=== PATIENT | female | born 1950 | race Caucasian/White ===

== ENCOUNTER 2019-12-01 13:09 | Emergency (ER) | payer MEDICARE ==
[2019-12-01] MEDS ORDERED: ONDANSETRON HCL INJ/PF 4 MG/2 ML SDV IV ONE (14:14)
--- NOTE | 2019-12-01 14:18 | ER Document Report ---
ED Medical Screen (RME) - General Chief Complaint: Nausea Stated Complaint: ABDOMINAL PAIN,BLOOD IN URINE Time Seen by Provider: 12/01/19 14:10 Primary Care Provider: AMARA KILLIAN MD [Primary Care Provider] - Follow up as needed Mode of Arrival: Ambulatory Information source: Patient Notes: Patient presents complaining of right lower quadrant tenderness and right flank pain for the past 6 days. Patient reports blood in the urine. Patient reports nausea and dry heaving although denies any emesis. Patient does have a history of previous appendectomy and cholecystectomy as well as diabetes and hypertension. I have greeted and performed a rapid initial assessment of this patient. A comprehensive ED assessment and evaluation of the patient, analysis of test results and completion of the medical decision making process will be conducted by additional ED providers. TRAVEL OUTSIDE OF THE [place] IN LAST 30 DAYS: No - Related Data Allergies/Adverse Reactions: cephalexin [From Keflex] Allergy (Verified 12/01/19 14:06) Past Medical History - Social History Frequency of alcohol use: None Drug Abuse: None Physical Exam - Vital signs Vitals: Temp Pulse Resp BP Pulse Ox 98.6 F 104 H 18 116/63 96 12/01/19 14:01 12/01/19 14:01 12/01/19 14:01 12/01/19 14:01 12/01/19 14:01 - Abdominal Tenderness: Tender - Right lower quadrant - Back Back: CVA tenderness - Right Course - Vital Signs Vital signs: Temp Pulse Resp BP Pulse Ox 98.6 F 104 H 18 116/63 96 12/01/19 14:01 12/01/19 14:01 12/01/19 14:01 12/01/19 14:01 12/01/19 14:01 Doctor's Discharge - Discharge Referrals: AMARA KILLIAN MD [Primary Care Provider] - Follow up as needed
--- NOTE | 2019-12-01 15:02 | RADIOLOGY REPORT (SQ) ---
EXAM DESCRIPTION: CT ABD/PELVIS NO ORAL OR IV COMPLETED DATE/TIME: 12/01/2019 2:42 pm REASON FOR STUDY: flank pain, hematuria COMPARISON: None. TECHNIQUE: CT scan of the abdomen and pelvis performed without intravenous or oral contrast. Images reviewed with lung, soft tissue, and bone windows. Reconstructed coronal and sagittal MPR images revi ewed. All images stored on PACS. All CT scanners at this facility use dose modulation, iterative reconstruction, and/or weight based d osing when appropriate to reduce radiation dose to as low as reasonably achievable (ALARA). [facility]: Dose Right [facility]: CareDose [facility]: Dose Right [facility]: Teradose 4D [facility]: Smart FRM Study Course RADIATION DOSE: CT Rad equipment meets quality standard of care and radiation dose reduction techniq ues were employed. CTDIvol: 5.5 mGy. DLP: 310 mGy-cm.mGy. LIMITATIONS: None. FINDINGS: LOWER CHEST: Multiple pulmonary nodules. NON-CONTRASTED LIVER, SPLEEN, ADRENALS: Evaluation limited by lack of IV contrast. Enlarged left adr enal gland. No other identified significant masses. PANCREAS: No masses. No peripancreatic inflammatory changes. GALLBLADDER: Surgically absent. RIGHT KIDNEY AND URETER: Slightly heterogenous indistinct appearance of the parenchyma with overall s uggestion of engorgement. Stranding in the perinephric soft tissues. Assessment limited by lack of I V contrast. No significant calcifications. Hydronephrosis and proximal hydroureter. LEFT KIDNEY AND URETER: No suspicious masses. Assessment limited by lack of IV contrast. No signifi cant calcifications. No hydronephrosis or hydroureter. AORTA AND RETROPERITONEUM: Ectatic aorta. Aortic aneurysm measuring 5 cm in maximum diameter. No ret roperitoneal masses or adenopathy. BOWEL AND PERITONEAL CAVITY: Colonic diverticulosis. No obvious masses or inflammatory changes. No f ree fluid. APPENDIX: Surgically absent. PELVIS, BLADDER, AND ABDOMINAL WALL:No abnormal masses. No free fluid. Bladder normal. BONES: No significant findings. OTHER: No other significant finding. IMPRESSION: 1. ENGORGED APPEARANCE OF THE RIGHT KIDNEY WITH SOMEWHAT HETEROGENOUS INDISTINCT APPEARANCE OF THE PA RENCHYMA. CANNOT EXCLUDE UNDERLYING MASS ON NONCONTRAST IMAGING. HYDRONEPHROSIS AND PROXIMAL HYDROU RETER. NO CALCULI VISUALIZED. 2. ECTATIC ABDOMINAL AORTA WITH 5 CM AORTIC ANEURYSM. 3. COLONIC DIVERTICULOSIS. NO CT FINDINGS OF ACUTE DIVERTICULITIS. 4. ENLARGED LEFT ADRENAL GLAND, POSSIBLE METASTATIC INVOLVEMENT 5. MULTIPLE PULMONARY NODULES HIGHLY SUGGESTIVE OF METASTATIC DISEASE. 6. NO OTHER SIGNIFICANT OR ACUTE PROCESS IN THE ABDOMEN OR PELVIS. COMMENT: Quality ID # [id number]: Final reports with documentation of one or more dose reduction techniques (e.g., Automated exposure control, adjustment of the mA and/or kV according to patient size, use of iterative reconstruction technique) TECHNICAL DOCUMENTATION: JOB ID: [id number] 2010 [employer]- All Rights Reserved Reading location - IP/workstation name: [email or web address]-
[2019-12-01 15:41] LABS: ABSOLUTE LYMPHOCYTES (AUTO) 0.9 10^3/uL (0.5-4.7); ABSOLUTE MONOCYTES (AUTO) 2.4 10^3/uL (0.1-1.4); ABSOLUTE NEUT (AUTO) 12.1 10^3/uL (1.7-8.2); BASOPHILS % (AUTO) 0.3 % (0-2); EOSINOPHILS % (AUTO) 0.2 % (0-6); HEMATOCRIT 32.7 % (36.0-47.0); HEMOGLOBIN 11.6 g/dL (12.0-15.5); LYMPHOCYTES % (AUTO) 5.7 % (13-45); MEAN CORPUSCULAR HEMOGLOBIN 29.8 pg (27.0-33.4); MEAN CORPUSCULAR HGB CONC 35.4 g/dL (32.0-36.0); MEAN CORPUSCULAR VOLUME 84 fl (80-97); MONOCYTES % (AUTO) 15.4 % (3-13); PLATELET COUNT 348 10^3/uL (150-450); RED BLOOD COUNT 3.89 10^6/uL (3.72-5.28); RED CELL DISTRIBUTION WIDTH 14.1 % (11.5-14.0); SEGMENTED NEUTROPHILS % (AUTO) 78.4 % (42-78); TOTAL CELLS COUNTED % (AUTO) 100 %; WHITE BLOOD COUNT 15.4 10^3/uL (4.0-10.5)
[2019-12-01 15:51] LABS: ALBUMIN 3.3 g/dL (3.5-5.0); ALKALINE PHOSPHATASE 91 U/L (38-126); ANION GAP 13 (5-19); ASPARTATE AMINO TRANSFERASE 27 U/L (14-36); BILIRUBIN,DIRECT 0.3 mg/dL (0.0-0.4); BILIRUBIN,TOTAL 0.7 mg/dL (0.2-1.3); BLOOD UREA NITROGEN 24 mg/dL (7-20); CALCIUM 9.3 mg/dL (8.4-10.2); CARBON DIOXIDE 27 mmol/L (22-30); CHLORIDE 89 mmol/L (98-107); GLUCOSE 93 mg/dL (75-110); POTASSIUM 3.3 mmol/L (3.6-5.0); TOTAL PROTEIN 6.8 g/dL (6.3-8.2)
[2019-12-01] MEDS ORDERED: ONDANSETRON HCL INJ/PF 4 MG/2 ML SDV ONE (16:51)
[2019-12-01] MEDS ORDERED: NORMAL SALINE 1000 ML 1,000 ML IV ONE (17:19)
[2019-12-01] MEDS ORDERED: POTASSIUM CHLORIDE 10 MEQ TABLET.ER PO ONE (17:19)
--- NOTE | 2019-12-01 17:20 | ER Document Report ---
ED General - General Chief Complaint: Nausea Stated Complaint: ABDOMINAL PAIN,BLOOD IN URINE Time Seen by Provider: 12/01/19 14:10 Primary Care Provider: MOHINI JEAN MD [ACTIVE STAFF] - Follow up in 3-5 days (for oncology follow up) AMARA KILLIAN MD [Primary Care Provider] - Follow up in 3-5 days Mode of Arrival: Ambulatory TRAVEL OUTSIDE OF THE [place] IN LAST 30 DAYS: No - HPI Notes: 69-year-old female with history of diabetes and hypertension to the emergency department with complaints of nausea, vomiting, poor appetite, night sweats, chills, gross bloody urine for the past 6 days. Her friend and the patient relates that she had gone out like usual and when she went home she started to feel poorly. Initially she thought maybe she had a GI bug but as the week progressed and she was feeling unwell things got worse. She last ate yesterday and it was 1 piece of toast. She has had an 8 to 10 pound weight loss in the past week. She states that she has had 3 episodes of grossly bloody nonpainful hematuria. She states she has had a dull aching pain in her right flank for the past week as well. She states that her primary care physician is Dr. Adam but has not seen him for over 6 months. She is a smoker and has been smoking 1 pack of cigarettes a day for very long time. She denies any shortness of breath or leg swelling. She denies any urinary frequency or history of kidney stones. - Related Data Allergies/Adverse Reactions: cephalexin [From Keflex] Allergy (Verified 12/01/19 14:06) Past Medical History - General Information source: Patient, Friend - Social History Smoking Status: Current Every Day Smoker Frequency of alcohol use: None Drug Abuse: None Lives with: Alone Family History: Reviewed & Not Pertinent Patient has suicidal ideation: No Patient has homicidal ideation: No - Past Medical History Cardiac Medical History: Reports: Hx Hypertension Endocrine Medical History: Reports: Hx Diabetes Mellitus Type 2 Past Surgical History: Reports: Hx Appendectomy, Hx Cholecystectomy Review of Systems - Review of Systems Constitutional: Chills, Other - night sweats, Weight loss EENT: No symptoms reported Cardiovascular: denies: Chest pain, Palpitations, Syncope, Dizziness, Lightheaded Respiratory: denies: Cough, Short of breath Gastrointestinal: Abdominal pain. denies: Diarrhea, Nausea, Vomiting Genitourinary: See HPI, Flank pain, Hematuria Musculoskeletal: See HPI, Back pain Skin: No symptoms reported Hematologic/Lymphatic: No symptoms reported Neurological/Psychological: No symptoms reported -: Yes All other systems reviewed and negative Physical Exam - Vital signs Vitals: Temp Pulse Resp BP Pulse Ox 98.6 F 104 H 18 116/63 96 12/01/19 14:01 12/01/19 14:01 12/01/19 14:01 12/01/19 14:01 12/01/19 14:01 Interpretation: Normal - General General appearance: Appears well, Alert In distress: None - HEENT Head: Normocephalic, Atraumatic Eyes: Normal Pupils: PERRL - Respiratory Respiratory status: No respiratory distress Chest status: Nontender. No: Accessory muscle use Breath sounds: Normal. No: Rales, Rhonchi, Wheezing Chest palpation: Normal - Cardiovascular Rhythm: Regular Heart sounds: Normal auscultation Murmur: No - Abdominal Inspection: Normal Distension: No distension Bowel sounds: Normal Tenderness: Nontender. No: Tender, McBurney's point, Novak's sign, Guarding, Rebound Organomegaly: No organomegaly - Back Back: Normal, Nontender. No: Deformity/step-off, CVA tenderness - Neurological Neuro grossly intact: Yes Cognition: Normal Orientation: AAOx4 Agnieszka Coma Scale Eye Opening: Spontaneous Agnieszka Coma Scale Verbal: Oriented Agnieszka Coma Scale Motor: Obeys Commands [place] Coma Scale Total: 15 Speech: Normal Cranial nerves: Normal Cerebellar coordination: Normal Motor strength normal: LUE, RUE, LLE, RLE Additional motor exam normals: Equal program coordinator. No: Pronator drift Sensory: Normal - Psychological Associated symptoms: Normal affect, Normal mood - Skin Skin Temperature: Warm Skin Moisture: Dry Skin Color: Normal Course - Re-evaluation Re-evalutation: 12/01/[address] reading which is concerning for right kidney malignancy. Possibly with metastatic static disease to the left adrenal gland and to the lungs. I spoke with Dr. Jean, our oncologist and she wanted me to consult urology. I spoke with Dr. Sahil Ruiz at [facility] with [facility]. He states that s moon her vital signs are stable that she can follow-up outpatient with 1 of their uro-oncology partners. I spoke with Dr. Jean again and she will follow the patient as well outpatient. The patient agrees with this plan. She is tolerating p.o. Noted urinalysis which is concerning for infectious etiology. I have ordered a urine culture. She does not have any right CVA tenderness so doubt a pyelonephritis picture. She is allergic to cephalosporins so will give Levaquin. I discussed this patient with Dr. Hatch, my ER attending and he agrees with the plan. He is aware that I have lived in oncology and also spoken with the [facility]. I have also called and asked Ken Mckeon, our ER rn case manager hospice, to aid in helping to get the patient very close outpatient follow- up. Impression: Nausea vomiting, weight loss, concern for renal malignancy with metastasis to the left adrenal gland and lungs. Noted urinalysis which is concerning for infection. Also noted incidental finding for abdominal aortic aneurysm that is 5 cm. I have discussed all these findings with the patient and she will follow-up very closely outpatient with primary care, oncology, urology. I have encouraged the patient to return if any worsening symptoms. She agrees with the plan. - Vital Signs Vital signs: Temp Pulse Resp BP Pulse Ox 98.6 F 97 14 139/71 H 100 12/01/19 14:01 12/01/19 16:11 12/01/19 16:11 12/01/19 16:44 12/01/19 16:44 - Laboratory Result Diagrams: 12/01/19 15:04 12/01/19 15:04 Laboratory results interpreted by me: 12/01/19 12/01/19 12/01/19 15:04 15:04 17:36 WBC 15.4 H Hgb 11.6 L Hct 32.7 L RDW 14.1 H Lymph % (Auto) 5.7 L [place] % (Auto) 15.4 H Absolute Neuts (auto) 12.1 H Absolute Monos (auto) 2.4 H Seg Neutrophils % 78.4 H Sodium 128.7 L Potassium 3.3 L Chloride 89 L BUN 24 H Albumin 3.3 L Urine Protein 100 H Urine Ketones TRACE H Urine Blood MODERATE H Ur Leukocyte Esterase LARGE H Urine Ascorbic Acid 20 H - Diagnostic Test Radiology reviewed: Image reviewed, Reports reviewed Discharge - Discharge Clinical Impression: Abnormal CT scan, kidney, Pulmonary nodules/lesions, multiple, Large adrenal gland, Flank pain, Abdominal aortic aneurysm (AAA) 3.0 cm to 5.0 cm in diameter in female UTI (urinary tract infection) Qualifiers: Urinary tract infection type: acute cystitis Hematuria presence: with hematuria Qualified Code(s): N30.01 - Acute cystitis with hematuria Hydronephrosis Qualifiers: Hydronephrosis type: other Qualified Code(s): N13.39 - Other hydronephrosis Condition: Stable Disposition: HOME, SELF-CARE Instructions: Abdominal Pain ([facility]) Additional Instructions: Complete all antibiotics. Push fluids. Follow-up with Dr. Walters and urology for further evaluation for abnormal CT findings that are concerning for malignancy in the right kidney. Return if any worsening symptoms such as passing out, chest pain, shortness of breath, leg swelling, any other concerns. Our outreach and education social worker, Ken Mckeon, will call you to ensure that follow-up with urology and oncology is working out. FOLLOW UP WITH [facility] WITHOUT F AIL -- CALL TOMORROW. [facility] [address] [id number] Prescriptions: Levofloxacin [Levaquin 500 mg Tablet] 500 mg PO DAILY #7 tablet Promethazine HCl [Phenergan 25 mg Tablet] 25 mg PO Q8H #20 tablet Referrals: AMARA KILLIAN MD [Primary Care Provider] - Follow up in 3-5 days MOHINI JEAN MD [ACTIVE STAFF] - Follow up in 3-5 days (for oncology follow up)
[2019-12-01 17:56] LABS: APPEARANCE,URINE TURBID; BILIRUBIN,URINE NEGATIVE (NEGATIVE); GLUCOSE, URINE NEGATIVE (NEGATIVE); KETONES,URINE TRACE mg/dL (NEGATIVE); LEUKOCYTE ESTERASE,URINE LARGE (NEGATIVE); NITRITE,URINE NEGATIVE (NEGATIVE); PROTEIN,URINE 100 mg/dL (NEGATIVE); URINE SPECIFIC GRAVITY 1.019; UROBILINOGEN,URINE NEGATIVE mg/dL (<2.0)
[2019-12-01 18:00] LABS: COLOR,URINE DARK YELLOW
[2019-12-01] MEDS ORDERED: LEVOFLOXACIN 500 MG TABLET PO ONE (18:26)
[2019-12-01 19:29] VITALS: BP 124/65
== END 2019-12-01 19:32 | disposition home or self-care (01) ==
LOC: ER 13:09
DX: N30.01 Acute cystitis with hematuria (principal); E27.9 Disorder of adrenal gland, unspecified; R91.8 Other nonspecific abnormal finding of lung field; I71.4 Abdominal aortic aneurysm, without rupture; N13.30 Unspecified hydronephrosis; R11.2 Nausea with vomiting, unspecified; R63.0 Anorexia; R61 Generalized hyperhidrosis; R68.83 Chills (without fever); R63.4 Abnormal weight loss; M54.9 Dorsalgia, unspecified; R10.9 Unspecified abdominal pain; I10 Essential (primary) hypertension; E11.9 Type 2 diabetes mellitus without complications; F17.210 Nicotine dependence, cigarettes, uncomplicated; Z88.1 Allergy status to other antibiotic agents
CPT/HCPCS: 36415; 74176; 80053; 81001; 85025; 87086; 87088; 87186; 96361; 96374; 99284; J2405; J7030

== ENCOUNTER 2020-02-18 07:32 | Inpatient (IN) | payer MEDICAID, MEDICARE ==
--- NOTE | 2020-02-18 08:22 | ER Document Report ---
ED General - General Chief Complaint: Shortness Of Breath Stated Complaint: TROUBLE BREATHING Time Seen by Provider: 02/18/20 07:44 Primary Care Provider: AMARA KILLIAN MD [Primary Care Provider] - Follow up as needed TRAVEL OUTSIDE OF THE [place] IN LAST 30 DAYS: No - HPI Notes: Patient is a 69-year-old female presents emergency department for evaluation of chest heaviness and shortness of breath. She states this started last night when she laid down to go to sleep. She states it felt like an elephant sitting on her chest, but it also felt like heartburn. She states she would take some Tums, it would cause temporary relief. He had some associated "cold sweats" as well. She has had a cough for quite a while, she states this productive of some minimal clear mucus. No fevers. No nausea or vomiting. Patient took aspirin at home, was given nitroglycerin per EMS and is now chest pain-free. Patient is currently on chemotherapy for adrenal cancer, metastatic. She received her last treatment last week, she is unable to comment on which medicine she is receiving. She states she is due for another one in the first week of February. - Related Data Allergies/Adverse Reactions: cephalexin [From Keflex] Allergy (Verified 12/01/19 14:06) Past Medical History - General Information source: Patient - Social History Smoking Status: Current Every Day Smoker Chew tobacco use (# tins/day): No Frequency of alcohol use: None Drug Abuse: None Family History: Reviewed & Not Pertinent Patient has homicidal ideation: No - Past Medical History Cardiac Medical History: Reports: Hx Hypertension, Other - Mitral valve prolapse, abdominal aortic aneurysm Endocrine Medical History: Reports: Hx Diabetes Mellitus Type 2 Past Surgical History: Reports: Hx Appendectomy, Hx Cholecystectomy Review of Systems - Review of Systems Cardiovascular: See HPI Respiratory: See HPI Gastrointestinal: See HPI -: Yes All other systems reviewed and negative Physical Exam - Vital signs Vitals: Temp Pulse Resp BP Pulse Ox 98.1 F 94 24 H 126/71 H 98 02/18/20 07:32 02/18/20 07:32 02/18/20 07:32 02/18/20 07:32 02/18/20 07:32 - Notes Notes: This is a 69-year-old female who appears her stated age, no acute distress. Vital signs reviewed, please refer to chart. Head is normocephalic, atraumatic. Pupils equal round, reactive to light. Neck is supple without meningismus. Heart is regular rate and rhythm. Lungs reveal diminished breath sounds but no wheezes, rales, rhonchi. Abdomen is soft, nontender, normoactive bowel sounds throughout. Extremities without cyanosis, clubbing. Posterior calves are nontender. Peripheral pulses are equal. Skin is warm and dry. Patient is awake, alert, neurological exam is nonfocal. Course - Re-evaluation Re-evalutation: 02/18/20 08:21 Patient presents to the emergency department for evaluation. She has chest pain, shortness of breath. After receiving nitroglycerin, she is chest pain- free. She is placed on a patternmaker all around, given oxygen per nasal cannula. Laboratory investigations were obtained. Patient is told to update us should her any of her pain return. Otherwise, awaiting cardiac enzymes. No old EKGs available for comparison, she does have some nonspecific changes, but no ST elevation. I am concerned about the possibility of pulmonary embolus in this patient with a known diagnosis of cancer. Awaiting renal function to evaluate for possible CT angiogram. Patient is stable at this time, we will continue to monitor. 02/18/20 09:07 Patient's hemoglobin is 7.8. She is having chest pain or shortness of breath, I would be concerned that this might be secondary to her low hemoglobin. This is likely a result of her chemotherapy. Order was placed to transfuse 2 units of packed red blood cells. This was discussed with the patient, and she was amenable to this plan. Otherwise, laboratory investigations revealed a mild hyponatremia, which is not new. She also has normal renal function. Order was placed for CT angiogram of the chest to rule out pulmonary embolus. Patient is stable, remains chest pain-free. 02/18/20 12:[address] angiogram reveals possible pulmonary edema. proBNP added. Patient second troponin is still pending, but the patient has been chest pain-free throughout the course of her stay after the placement of Nitropaste. This patient is receiving blood, but given her comorbidities, it is being infused slowly. I spoke with Tomas terrazas, physician child care assistant, who agrees with admission on this patient. She will be on observation to [facility]. - Vital Signs Vital signs: Temp Pulse Resp BP Pulse Ox 97.5 F 80 18 122/57 L 99 02/18/20 12:16 02/18/20 11:55 02/18/20 12:16 02/18/20 12:16 02/18/20 12:16 - Laboratory Result Diagrams: 02/18/20 08:17 02/18/20 08:17 Laboratory results interpreted by me: 02/18/20 02/18/20 02/18/20 08:17 08:17 09:10 WBC 3.9 L RBC 2.77 L Hgb 7.8 L Hct 22.5 L RDW 15.9 H Plt Count 118 L Sodium 127.1 L Chloride 92 L BUN 21 H Glucose 118 H Albumin 3.4 L Urine Protein Urine Blood Urine Ascorbic Acid Crossmatch See Detail 02/18/20 11:00 WBC RBC Hgb Hct RDW Plt Count Sodium Chloride BUN Glucose Albumin Urine Protein 30 H Urine Blood SMALL H Urine Ascorbic Acid 40 H Crossmatch - Diagnostic Test Radiology reviewed: Image reviewed, Reports reviewed Radiology results interpreted by me: 02/18/20 12:36 Chest X-Ray 02/18/20 07:33 IMPRESSION: Multiple pulmonary nodules consistent with metastatic disease. No obvious superimposed edema or pneumonia. Chest/Abdomen CTA 02/18/20 09:05 IMPRESSION: 1. No PE. 2. Multiple pulmonary nodules consistent with metastatic disease. 3. Interlobular septal thickening and small effusions. Cannot exclude superimposed pulmonary edema. - EKG Interpretation by Me Additional EKG results interpreted by me: 02/18/20 08:21 Sinus mechanism with rate of 83 bpm. Large amount of baseline artifact. Normal axis. IVCD. T wave inversions and ST changes in the inferolateral leads, ischemia versus strain. No ST elevation concerning for infarction, no old studies available for comparison. Discharge - Discharge Clinical Impression: Anemia Qualifiers: Anemia type: other cause Chest pain Qualifiers: Chest pain type: unspecified Qualified Code(s): R07.9 - Chest pain, unspecified Condition: Stable Disposition: ADMITTED OBSERVATION Admitting Provider: Marty (Hospitalist) - SVEN Haile Referrals: AMARA KILLIAN MD [Primary Care Provider] - Follow up as needed
[2020-02-18 08:36] LABS: ABSOLUTE LYMPHOCYTES (AUTO) 0.9 10^3/uL (0.5-4.7); ABSOLUTE MONOCYTES (AUTO) 0.5 10^3/uL (0.1-1.4); ABSOLUTE NEUT (AUTO) 2.5 10^3/uL (1.7-8.2); BASOPHILS % (AUTO) 0.6 % (0-2); EOSINOPHILS % (AUTO) 0.9 % (0-6); HEMATOCRIT 22.5 % (36.0-47.0); MEAN CORPUSCULAR HEMOGLOBIN 28.1 pg (27.0-33.4); MEAN CORPUSCULAR HGB CONC 34.5 g/dL (32.0-36.0); MEAN CORPUSCULAR VOLUME 81 fl (80-97); MONOCYTES % (AUTO) 11.8 % (3-13); PLATELET COUNT 118 10^3/uL (150-450); RED BLOOD COUNT 2.77 10^6/uL (3.72-5.28); RED CELL DISTRIBUTION WIDTH 15.9 % (11.5-14.0); SEGMENTED NEUTROPHILS % (AUTO) 63.7 % (42-78); TOTAL CELLS COUNTED % (AUTO) 100 %; WHITE BLOOD COUNT 3.9 10^3/uL (4.0-10.5)
[2020-02-18 08:39] LABS: HEMOGLOBIN 7.8 g/dL (12.0-15.5)
[2020-02-18 08:51] LABS: ALBUMIN 3.4 g/dL (3.5-5.0); ALKALINE PHOSPHATASE 60 U/L (38-126); ANION GAP 8 (5-19); ASPARTATE AMINO TRANSFERASE 21 U/L (14-36); BILIRUBIN,TOTAL 0.2 mg/dL (0.2-1.3); BLOOD UREA NITROGEN 21 mg/dL (7-20); CALCIUM 9.5 mg/dL (8.4-10.2); CARBON DIOXIDE 27 mmol/L (22-30); CHLORIDE 92 mmol/L (98-107); GLUCOSE 118 mg/dL (75-110); POTASSIUM 4.4 mmol/L (3.6-5.0); TOTAL PROTEIN 6.5 g/dL (6.3-8.2)
[2020-02-18] MEDS ORDERED: NORMAL SALINE 250 ML IV PRN (08:54)
[2020-02-18] MEDS ORDERED: NITROGLYCERIN 2% OINTMENT 1 GM PACKET TP ONE (09:14)
--- NOTE | 2020-02-18 09:25 | RADIOLOGY REPORT (SQ) ---
EXAM DESCRIPTION: CHEST SINGLE VIEW IMAGES COMPLETED DATE/TIME: 02/18/2020 8:22 am REASON FOR STUDY: shortness of breath COMPARISON: None. EXAM PARAMETERS: NUMBER OF VIEWS: One view. TECHNIQUE: Single frontal radiographic view of the chest acquired. RADIATION DOSE: NA LIMITATIONS: None. FINDINGS: LUNGS AND PLEURA: Multiple subcentimeter pulmonary nodules in both lungs. No dominant mas s. No obvious superimposed pneumonia or edema. MEDIASTINUM AND HILAR STRUCTURES: No masses. Contour normal. HEART AND VASCULAR STRUCTURES: Heart normal in size. Normal vasculature. BONES: No acute findings. HARDWARE: None in the chest. OTHER: No other significant finding. IMPRESSION: Multiple pulmonary nodules consistent with metastatic disease. No obvious superimposed edema or pneumonia. TECHNICAL DOCUMENTATION: JOB ID: [id number] 2010 [employer]- All Rights Reserved Reading location - IP/workstation name: [email or web address]
[2020-02-18 11:38] LABS: APPEARANCE,URINE SLIGHTLY-CLOUDY; BILIRUBIN,URINE NEGATIVE (NEGATIVE); COLOR,URINE YELLOW; GLUCOSE, URINE NEGATIVE (NEGATIVE); KETONES,URINE NEGATIVE (NEGATIVE); LEUKOCYTE ESTERASE,URINE NEGATIVE (NEGATIVE); NITRITE,URINE NEGATIVE (NEGATIVE); PROTEIN,URINE 30 mg/dL (NEGATIVE); URINE SPECIFIC GRAVITY 1.013; UROBILINOGEN,URINE NEGATIVE mg/dL (<2.0)
--- NOTE | 2020-02-18 12:19 | RADIOLOGY REPORT (SQ) ---
EXAM DESCRIPTION: CTA CHEST IMAGES COMPLETED DATE/TIME: 02/18/2020 12:07 pm REASON FOR STUDY: dyspnea, CP, eval for PE COMPARISON: None. TECHNIQUE: CT scan of the chest performed using helical scanning technique with dynamic intravenous contrast injection. Images reviewed with lung, soft tissue and bone windows. Reconstructed coronal and sagittal MPR images reviewed. Additional 3 dimensional post-processing performed to develop Maximal Intensity Projection images ([place] P). All images stored on PACS. All CT scanners at this facility use dose modulation, iterative reconstruction, and/or weight based d osing when appropriate to reduce radiation dose to as low as reasonably achievable (ALARA). [facility]: Dose Right [facility]: CareDose [facility]: Dose Right [facility]: Teradose 4D [facility]: Optics 1 CONTRAST TYPE AND DOSE: contrast/concentration: Isovue 350.00 mg/ml; Total Contrast Delivered: 39.0 ml; Total Saline Delivered: 70.0 ml Contrast bolus adequate for pulmonary arteries and aorta. RENAL FUNCTION: GFR > 60. RADIATION DOSE: CT Rad equipment meets quality standard of care and radiation dose reduction techniq ues were employed. CTDIvol: 9.9 - 15.1 mGy. DLP: 536 mGy-cm. . LIMITATIONS: None. FINDINGS: LUNGS AND PLEURA: Multiple pulmonary nodules in both lungs. No evidence of cavitation. D iffuse interlobular septal thickening. Small right and trace left pleural effusion. AORTA AND GREAT VESSELS: No aneurysm. No dissection. HEART: No pericardial effusion. PULMONARY ARTERIES: No emboli visualized in the main pulmonary arteries or the segmental branches. HILAR AND MEDIASTINAL STRUCTURES: No identified masses or abnormal nodes. HARDWARE: None in the chest. UPPER ABDOMEN: Nothing acute. Limited exam. THYROID AND OTHER SOFT TISSUES: No masses. No adenopathy. BONES: Nothing acute. 3D MIPS: Confirm above findings. OTHER: No other significant finding. IMPRESSION: 1. No PE. 2. Multiple pulmonary nodules consistent with metastatic disease. 3. Interlobular septal thickening and small effusions. Cannot exclude superimposed pulmonary edema. COMMENT: Quality ID # [id number]: Final reports with documentation of one or more dose reduction techniques (e.g., Automated exposure control, adjustment of the mA and/or kV according to patient size, use of iterative reconstruction technique) TECHNICAL DOCUMENTATION: JOB ID: [id number] [employer]- All Rights Reserved Reading location - IP/workstation name: [email or web address]
[2020-02-18] MEDS ORDERED: MAGNESIUM HYDROXIDE SUSP 30 ML UDCUP PO PRN (13:35)
[2020-02-18] MEDS ORDERED: MAG HYDROX/AL HYDROX/SIMETH SUSP 30 ML UDCUP PO PRN (13:35)
[2020-02-18] MEDS ORDERED: ACETAMINOPHEN 325 MG TABLET PO PRN (13:35)
[2020-02-18] MEDS ORDERED: OXYCODONE-ACETAMINOPHEN 5-325 MG TABLET PO PRN (13:35)
[2020-02-18] MEDS ORDERED: TEMAZEPAM 7.5 MG CAPSULE PO PRN (13:35)
[2020-02-18] MEDS ORDERED: ONDANSETRON HCL INJ/PF 4 MG/2 ML SDV IV PRN (13:35)
[2020-02-18] MEDS ORDERED: MORPHINE SULFATE 10 MG/ML INJ IV PRN (13:47)
[2020-02-18] MEDS ORDERED: NITROGLYCERIN 0.4 MG/TAB 25 TAB/BOTTLE SL PRN (13:48)
[2020-02-18] MEDS ORDERED: ATORVASTATIN CALCIUM 20 MG TABLET PO ONE (13:50)
[2020-02-18] MEDS ORDERED: GLUCAGON,HUMAN RECOMB 1 MG INJ IM PRN (13:52)
[2020-02-18] MEDS ORDERED: DEXTROSE 50%-WATER 25 GM/50 ML DISP.SYRIN IV PRN ×2 (13:52)
[2020-02-18] MEDS ORDERED: DEXTROSE 40% GEL 15 GM TUBE PO PRN ×2 (13:52)
[2020-02-18 13:57] LABS: INTERNATIONAL RATION (INR) 1.04; PROTHROMBIN TIME 13.6 SEC (11.4-15.4)
[2020-02-18] MEDS: METOPROLOL SUCCINATE 25 MG TAB.SR.24H PO SCH ×2 (15:05→22:27)
[2020-02-18] MEDS: PANTOPRAZOLE SODIUM 20 MG TABLET.DR PO SCH (15:05)
--- NOTE | 2020-02-18 18:20 | EKG REPORT ---
SEVERITY:- ABNORMAL ECG - SINUS TACHYCARDIA NONSPECIFIC INTRAVENTRICULAR CONDUCTION DELAY CONSIDER ANTEROSEPTAL INFARCT BORDERLINE ST DEPRESSION, DIFFUSE LEADS BASELINE ARTIFACT : Confirmed by: Jenna Trimble MD 18-Feb-2020 18:20:09
[2020-02-18 20:24] LABS: CREATINE KINASE MB 0.88 ng/mL (<4.55)
[2020-02-18 20:27] LABS: TROPONIN I 0.132 ng/mL
[2020-02-18] MEDS: INSULIN LISPRO 100 UNIT/ML 3 ML VIAL SUBCUT SCH ×2 (22:01→22:37)
[2020-02-18] MEDS: ENOXAPARIN SODIUM INJ 40 MG/0.4 ML DISP.SYRIN SUBCUT SCH (22:01)
[2020-02-18] MEDS: METFORMIN HCL 500 MG TABLET PO SCH (22:01)
[2020-02-18] MEDS ORDERED: NICOTINE 21 MG/24 HR PATCH.TD24 TD ONE (22:15)
[2020-02-18 22:42] LABS: HEMATOCRIT 30.2 % (36.0-47.0); MEAN CORPUSCULAR HEMOGLOBIN 28.7 pg (27.0-33.4); MEAN CORPUSCULAR HGB CONC 35.3 g/dL (32.0-36.0); MEAN CORPUSCULAR VOLUME 81 fl (80-97); PLATELET COUNT 130 10^3/uL (150-450); RED BLOOD COUNT 3.72 10^6/uL (3.72-5.28); RED CELL DISTRIBUTION WIDTH 16.2 % (11.5-14.0); WHITE BLOOD COUNT 4.7 10^3/uL (4.0-10.5)
[2020-02-18 22:44] LABS: HEMOGLOBIN 10.7 g/dL (12.0-15.5)
[2020-02-19] MEDS: PANTOPRAZOLE SODIUM 20 MG TABLET.DR PO SCH (05:19)
[2020-02-19 06:41] LABS: ANION GAP 12 (5-19); BLOOD UREA NITROGEN 17 mg/dL (7-20); CALCIUM 9.3 mg/dL (8.4-10.2); CARBON DIOXIDE 22 mmol/L (22-30); CHLORIDE 92 mmol/L (98-107); GLUCOSE 112 mg/dL (75-110); POTASSIUM 4.4 mmol/L (3.6-5.0)
--- NOTE | 2020-02-19 06:51 | PDOC H&P ---
History of Present Illness Admission Date/PCP: 02/18/20 13:55 AMARA KILLIAN MD History of Present Illness: MONY STEELE is a 69 year old female noted through the emergency room for chest pain. Patient states that she was awake this morning around 0 600 when she started having "chest pain. She states "I thought I was having a heart attack" patient states that it lasted about 15 minutes she called EMS and after getting 2 sprays of nitroglycerin her pain went away.. His other symptoms at that time included a "heaviness" in her chest and she says that she was sweaty. Patient states that she thought it also might of been her GERD which she has had very bad and much worse since starting chemotherapy 2 months ago. Patient has had 2 rounds of chemotherapy. Her next round of chemotherapy is on February 23. 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 Patient is being treated in [place] for this. Patient denies ever having a heart attack or any coronary disease or stroke.. Patient has had no chest pain since getting her 2 sprays of nitroglycerin by EMS. Patient does smoke cigarettes she was up to 2 packs a day prior to recently when she is cut it back down to 10 cigarettes/day. Other comorbidities include hypertension. Patient will be admitted to rule out coronary disease. Patient will not have a stress test while inpatient due to the COVID 19 virus restrictions as well as lack of urgency. Past Medical History Cardiac Medical History: Reports: Hypertension, Other - Mitral valve prolapse, abdominal aortic aneurysm Endocrine Medical History: Reports: Diabetes Mellitus Type 2 Malignancy Medical History: Reports: Other - Renal cancer with mets to the lungs Psychiatric Medical History: Reports: Depression Past Surgical History Past Surgical History: Reports: Appendectomy, Cholecystectomy Social History Smoking Status: Current Every Day Smoker Cigarettes Packs Per Day: 0.5 Electronic Cigarette use?: No Frequency of Alcohol Use: None Hx Recreational Drug Use: No Drugs: None Hx Prescription Drug Abuse: No - Advance Directive Resuscitation Status: Do Not Resuscitate Family History Family History: Reviewed & Not Pertinent Parental Family History Reviewed: No Children Family History Reviewed: No Sibling(s) Family History Reviewed.: No Medication/Allergy Home Medications: Lisinopril/Hydrochlorothiazide [Zestoretic 20-25 mg Tablet] 1 tab PO DAILY 02/18/20 Metformin HCl [Metformin HCl ER] 750 mg PO DAILY 02/18/20 Metoprolol Succinate [Toprol Xl] 100 mg PO DAILY 02/18/20 Olanzapine [Zyprexa 5 mg Tablet] 5 mg PO QHS MDD 3 DAYS 02/18/20 Pantoprazole Sodium [Protonix [address] Tablet] 40 mg PO DAILY 02/18/20 Allergies/Adverse Reactions: cephalexin [From Keflex] Allergy (Verified 12/01/19 14:06) Review of Systems Constitutional: ABSENT: chills, fever(s), headache(s), weight gain, weight loss Cardiovascular: PRESENT: chest pain Respiratory: PRESENT: dyspnea Neurological: ABSENT: abnormal gait, abnormal speech, confusion, dizziness, focal weakness, syncope Psychiatric: ABSENT: anxiety, depression, homidical ideation, suicidal ideation Physical Exam Vital Signs: Temp Pulse Resp BP Pulse Ox 98.4 F 90 24 H 150/81 H 90 L 02/19/20 04:04 02/19/20 04:04 02/19/20 04:04 02/19/20 04:04 02/19/20 04:04 Intake & Output 02/17/20 02/18/20 02/19/20 06:59 06:59 06:59 Intake Total 600 Balance 600 Weight 40.4 kg General appearance: PRESENT: no acute distress, well-developed, well-nourished, other - Sitting up talking in bed with no distress at all Respiratory exam: PRESENT: clear to auscultation amelia. ABSENT: rales, rhonchi, wheezes Cardiovascular exam: PRESENT: RRR. ABSENT: diastolic murmur, rubs, systolic murmur Neurological exam: PRESENT: alert, awake, oriented to person, oriented to place, oriented to time, oriented to situation, CN II-XII grossly intact. ABSENT: motor sensory deficit Psychiatric exam: PRESENT: appropriate affect, normal mood. ABSENT: homicidal ideation, suicidal ideation Results Laboratory Results: 02/18/20 02/18/20 02/18/20 08:17 08:17 08:17 WBC 3.9 L RBC 2.77 L Hgb 7.8 L Hct 22.5 L MCV 81 MCH 28.1 MCHC 34.5 RDW 15.9 H Plt Count 118 L Seg Neutrophils % 63.7 Sodium 127.1 L Potassium 4.4 Chloride 92 L Carbon Dioxide 27 Anion Gap 8 BUN 21 H Creatinine 0.79 Est GFR ( Amer) > 60 Glucose 118 H Calcium 9.5 Total Bilirubin 0.2 AST 21 Alkaline Phosphatase 60 Total Protein 6.5 Albumin 3.4 L TSH 1.80 Urine Color Urine Appearance Urine pH Ur Specific [place] Urine Protein Urine Glucose (UA) Urine Ketones Urine Blood Urine Nitrite Ur Leukocyte Esterase Urine WBC (Auto) Urine RBC (Auto) Blood Type Antibody Screen 02/18/20 02/18/20 02/18/20 09:10 11:00 22:34 WBC 4.7 RBC 3.72 Hgb 10.7 L D Hct 30.2 L MCV 81 MCH 28.7 MCHC 35.3 RDW 16.2 H Plt Count 130 L Seg Neutrophils % Sodium Potassium Chloride Carbon Dioxide Anion Gap BUN Creatinine Est GFR ( Amer) Glucose Calcium Total Bilirubin AST Alkaline Phosphatase Total Protein Albumin TSH Urine Color YELLOW Urine Appearance SLIGHTLY-CLOUDY Urine pH 7.0 Ur Specific [place] 1.013 Urine Protein 30 H Urine Glucose (UA) NEGATIVE Urine Ketones NEGATIVE Urine Blood SMALL H Urine Nitrite NEGATIVE Ur Leukocyte Esterase NEGATIVE Urine WBC (Auto) 10 Urine RBC (Auto) 4 Blood Type A NEGATIVE Antibody Screen NEGATIVE 02/18/20 02/18/20 02/18/20 08:17 12:15 12:15 CK-MB (CK-2) Troponin I 0.112 0.079 NT-Pro-B Natriuret Pep 3770 H 02/18/20 02/19/20 19:48 05:31 CK-MB (CK-2) 0.88 Troponin I 0.132 NT-Pro-B Natriuret Pep 41743 H Impressions: Chest X-Ray 02/18/20 07:33 IMPRESSION: Multiple pulmonary nodules consistent with metastatic disease. No obvious superimposed edema or pneumonia. Chest/Abdomen CTA 02/18/20 09:05 IMPRESSION: 1. No PE. 2. Multiple pulmonary nodules consistent with metastatic disease. 3. Interlobular septal thickening and small effusions. Cannot exclude superimposed pulmonary edema. Assessment and Plan - Diagnosis (1) Shortness of breath Is this a current diagnosis for this admission?: Yes (2) Hypertension Is this a current diagnosis for this admission?: Yes (3) Adrenal cancer Is this a current diagnosis for this admission?: Yes (4) Metastatic disease to the lung Is this a current diagnosis for this admission?: Yes (5) Tobacco abuse Is this a current diagnosis for this admission?: Yes (6) Chest pain Qualifiers: Chest pain type: unspecified Qualified Code(s): R07.9 - Chest pain, unspecified Is this a current diagnosis for this admission?: Yes - Plan Summary Summary: Patient will be admitted to the hospital for aspirin statins and beta-blockers. Patient will have serial enzymes. Patient will have a consult by cardiology. If patient is medically stable she may be discharged on February 18. Appears to be medically stable she is having no chest pain - Time Time Spent with patient: 35 or more minutes
[2020-02-19 06:54] LABS: ABSOLUTE LYMPHOCYTES (AUTO) 0.9 10^3/uL (0.5-4.7); ABSOLUTE MONOCYTES (AUTO) 0.8 10^3/uL (0.1-1.4); ABSOLUTE NEUT (AUTO) 3.2 10^3/uL (1.7-8.2); BASOPHILS % (AUTO) 0.2 % (0-2); EOSINOPHILS % (AUTO) 0.4 % (0-6); HEMATOCRIT 29.1 % (36.0-47.0); HEMOGLOBIN 10.4 g/dL (12.0-15.5); LYMPHOCYTES % (AUTO) 18.6 % (13-45); MEAN CORPUSCULAR HEMOGLOBIN 28.8 pg (27.0-33.4); MEAN CORPUSCULAR HGB CONC 35.7 g/dL (32.0-36.0); MEAN CORPUSCULAR VOLUME 81 fl (80-97); PLATELET COUNT 141 10^3/uL (150-450); RED BLOOD COUNT 3.61 10^6/uL (3.72-5.28); RED CELL DISTRIBUTION WIDTH 16.3 % (11.5-14.0); SEGMENTED NEUTROPHILS % (AUTO) 64.8 % (42-78); TOTAL CELLS COUNTED % (AUTO) 100 %; WHITE BLOOD COUNT 4.9 10^3/uL (4.0-10.5)
[2020-02-19] MEDS ORDERED: MAGNESIUM SULFATE/D5W 1 GM/100 ML RTUPB IV ONE (07:06)
[2020-02-19] MEDS: MAGNESIUM SULFATE 1 GM/D5W 100 ML IV SCH ×2 (07:17→10:09)
[2020-02-19] MEDS: INSULIN LISPRO 100 UNIT/ML 3 ML VIAL SUBCUT SCH ×4 (08:31→22:27)
[2020-02-19] MEDS: METOPROLOL SUCCINATE 25 MG TAB.SR.24H PO SCH ×2 (10:09→22:28)
[2020-02-19] MEDS: ASPIRIN 81 MG TABLET, ENT COATED PO SCH (10:09)
[2020-02-19] MEDS: ENOXAPARIN SODIUM INJ 40 MG/0.4 ML DISP.SYRIN SUBCUT SCH (10:15)
[2020-02-19] MEDS: METFORMIN HCL 500 MG TABLET PO SCH (10:15)
[2020-02-19] MEDS: ONDANSETRON 4 MG TAB.RAPDIS PO PRN ×2 (10:32→17:35)
[2020-02-19] MEDS: HYDROCHLOROTHIAZIDE 25 MG TABLET PO SCH (11:19)
[2020-02-19] MEDS: LISINOPRIL 10 MG TABLET PO SCH (11:19)
[2020-02-19] MEDS: LEVALBUTEROL HCL NEB 1.25 MG/3 ML AMPUL NEB PRN (12:40)
--- NOTE | 2020-02-19 13:31 | PDOC PROGRESS REPORT ---
Subjective Progress Note for:: 02/19/20 Reason For Visit: CHEST PAIN,SHORTNESS OF BREATH,ADRENAL CANCER WITH 02/19/2020 Patient was admitted for chest pain of duration 15 minutes. Physical Exam Vital Signs: Temp Pulse Resp BP Pulse Ox 97.9 F 88 16 146/74 H 97 02/19/20 12:23 02/19/20 12:40 02/19/20 12:40 02/19/20 12:23 02/19/20 12:40 Intake & Output 02/18/20 02/19/20 02/20/20 06:59 06:59 06:59 Intake Total 600 436 Balance 600 436 Weight 40.4 kg General appearance: PRESENT: no acute distress Respiratory exam: PRESENT: clear to auscultation amelia. ABSENT: rales, rhonchi, wheezes Cardiovascular exam: PRESENT: RRR. ABSENT: diastolic murmur, rubs, systolic murmur Neurological exam: PRESENT: alert, awake, oriented to person, oriented to place, oriented to time, oriented to situation, CN II-XII grossly intact. ABSENT: motor sensory deficit Psychiatric exam: PRESENT: appropriate affect, normal mood. ABSENT: homicidal ideation, suicidal ideation Results Laboratory Results: 02/19/20 05:31 02/19/20 05:31 02/18/20 02/18/20 02/18/20 08:17 09:10 22:34 WBC 4.7 RBC 3.72 Hgb 10.7 L D Hct 30.2 L MCV 81 MCH 28.7 MCHC 35.3 RDW 16.2 H Plt Count 130 L Seg Neutrophils % Sodium Potassium Chloride Carbon Dioxide Anion Gap BUN Creatinine Est GFR ( Amer) Glucose Calcium Magnesium TSH 1.80 Blood Type A NEGATIVE Antibody Screen NEGATIVE 02/19/20 02/19/20 05:31 05:31 WBC 4.9 RBC 3.61 L Hgb 10.4 L Hct 29.1 L MCV 81 MCH 28.8 MCHC 35.7 RDW 16.3 H Plt Count 141 L Seg Neutrophils % 64.8 Sodium 126.2 L Potassium 4.4 Chloride 92 L Carbon Dioxide 22 Anion Gap 12 BUN 17 Creatinine 0.67 Est GFR ( Amer) > 60 Glucose 112 H Calcium 9.3 Magnesium 1.1 L* TSH Blood Type Antibody Screen 02/18/20 02/18/20 02/18/20 08:17 12:15 12:15 CK-MB (CK-2) Troponin I 0.112 0.079 NT-Pro-B Natriuret Pep 3770 H 02/18/20 02/19/20 19:48 05:31 CK-MB (CK-2) 0.88 Troponin I 0.132 NT-Pro-B Natriuret Pep [id number] H Impressions: Chest X-Ray 02/18/20 07:33 IMPRESSION: Multiple pulmonary nodules consistent with metastatic disease. No obvious superimposed edema or pneumonia. Chest/Abdomen CTA 02/18/20 09:05 IMPRESSION: 1. No PE. 2. Multiple pulmonary nodules consistent with metastatic disease. 3. Interlobular septal thickening and small effusions. Cannot exclude superimposed pulmonary edema. Assessment and Plan - Diagnosis (1) Shortness of breath Is this a current diagnosis for this admission?: Yes (2) Hypertension Is this a current diagnosis for this admission?: Yes (3) Adrenal cancer Is this a current diagnosis for this admission?: Yes (4) Metastatic disease to the lung Is this a current diagnosis for this admission?: Yes (5) Tobacco abuse Is this a current diagnosis for this admission?: Yes (6) Chest pain Qualifiers: Chest pain type: unspecified Qualified Code(s): R07.9 - Chest pain, unspecified Is this a current diagnosis for this admission?: Yes (7) Hyponatremia Is this a current diagnosis for this admission?: Yes - Plan Summary Summary: Patient will be admitted to the hospital for aspirin statins and beta-blockers. Patient will have serial enzymes. Patient will have a consult by cardiology. If patient is medically stable she may be discharged on February 18. Appears to be medically stable she is having no chest pain 02/19/2020 Patient's vital signs are stable she has no chest pain at all and in fact has not had chest pain since her 2 sprays of nitro by EMS yesterday.. Hemoglobin is come up to 10.4 after 2 units in the emergency room Sodium is low at 126 but patient has a history of running a low sodium. I will give her gentle saline hydration Patient's magnesium is extremely low at 1.1 and I am replacing this Troponin 0 0.112-second troponin 0.079 and third troponin 0.132 BNP on admission is 3770 and today's level is 11,900 although patient has no clinical indication of being in failure CTA yesterday shows nodules secondary to her metastatic lung cancer. Patient is now on aspirin and statins. Was already on a TANK inhibitor and beta- earnestine Plan is to gently correct her hyponatremia and hypo-magnesium. See cardiology tomorrow for final disposition and probably discharge home - Time Time Spent with patient: 25-34 minutes
[2020-02-19 15:07] LABS: ANION GAP 10 (5-19); BLOOD UREA NITROGEN 16 mg/dL (7-20); CALCIUM 8.9 mg/dL (8.4-10.2); CARBON DIOXIDE 24 mmol/L (22-30); CHLORIDE 90 mmol/L (98-107); GLUCOSE 153 mg/dL (75-110); POTASSIUM 3.9 mmol/L (3.6-5.0)
[2020-02-19] MEDS: NORMAL SALINE 1000 ML 1,000 ML IV PRN (16:02)
[2020-02-19] MEDS: MAGNESIUM OXIDE 400 MG TABLET PO SCH (17:27)
[2020-02-19] MEDS ORDERED: NICOTINE 21 MG/24 HR PATCH.TD24 TD SCH (22:00)
[2020-02-20] MEDS: NORMAL SALINE 1000 ML 1,000 ML IV PRN (02:02)
[2020-02-20] MEDS: PANTOPRAZOLE SODIUM 20 MG TABLET.DR PO SCH (05:18)
[2020-02-20 06:16] LABS: ALBUMIN 2.9 g/dL (3.5-5.0); ALKALINE PHOSPHATASE 57 U/L (38-126); ANION GAP 7 (5-19); ASPARTATE AMINO TRANSFERASE 17 U/L (14-36); BILIRUBIN,TOTAL 0.5 mg/dL (0.2-1.3); BLOOD UREA NITROGEN 17 mg/dL (7-20); CARBON DIOXIDE 26 mmol/L (22-30); CHLORIDE 94 mmol/L (98-107); GLUCOSE 100 mg/dL (75-110); POTASSIUM 4.1 mmol/L (3.6-5.0); TOTAL PROTEIN 5.9 g/dL (6.3-8.2)
[2020-02-20] MEDS: INSULIN LISPRO 100 UNIT/ML 3 ML VIAL SUBCUT SCH (07:57)
[2020-02-20] MEDS: LEVALBUTEROL HCL NEB 1.25 MG/3 ML AMPUL NEB PRN (08:22)
[2020-02-20] MEDS: ENOXAPARIN SODIUM INJ 40 MG/0.4 ML DISP.SYRIN SUBCUT SCH (09:07)
[2020-02-20] MEDS: ASPIRIN 81 MG TABLET, ENT COATED PO SCH (09:12)
[2020-02-20] MEDS: METOPROLOL SUCCINATE 25 MG TAB.SR.24H PO SCH (09:12)
[2020-02-20] MEDS: HYDROCHLOROTHIAZIDE 25 MG TABLET PO SCH (09:12)
[2020-02-20] MEDS: MAGNESIUM OXIDE 400 MG TABLET PO SCH (09:13)
[2020-02-20] MEDS: LISINOPRIL 10 MG TABLET PO SCH (09:15)
[2020-02-20 09:50] VITALS: BP 121/75
--- NOTE | 2020-02-20 10:15 | PDOC CONSULTATION ---
Consultation Consult Date: 02/20/20 Provider Consulted: MACEY SILVA Consult reason:: Chest pain, elevated troponin History of Present Illness Admission Date/PCP: 02/18/20 13:55 AMARA KILLIAN MD Patient complains of: Chest pain History of Present Illness: MONY STEELE is a 69 year old female 1. Renal cancer with mets to the lung 2. Systemic hypertension 3. Abdominal aortic aneurysm Patient with multiple medical problems as reported above who presented to the hospital. Imaging studies showed persistent multiple metastatic lesions to the lung from primary cancer. Patient did complain of chest pain with mild elevation of troponin. There is no prior mention of coronary artery disease. Patient presently does not appear to be in congestive heart failure and does not appear to be complaining of any chest pain. Past Medical History Cardiac Medical History: Reports: Hypertension, Other - Mitral valve prolapse, abdominal aortic aneurysm Endocrine Medical History: Reports: Diabetes Mellitus Type 2 Malignancy Medical History: Reports: Other - Renal cancer with mets to the lungs Psychiatric Medical History: Reports: Depression Past Surgical History Past Surgical History: Reports: Appendectomy, Cholecystectomy Social History Smoking Status: Current Every Day Smoker Cigarettes Packs Per Day: 0.5 Electronic Cigarette use?: No Frequency of Alcohol Use: None Hx Recreational Drug Use: No Drugs: None Hx Prescription Drug Abuse: No - Advance Directive Resuscitation Status: Do Not Resuscitate Family History Family History: Reviewed & Not Pertinent Parental Family History Reviewed: No Children Family History Reviewed: NA Sibling(s) Family History Reviewed.: NA Medication/Allergy Home Medications: Lisinopril/Hydrochlorothiazide [Zestoretic 20-25 mg Tablet] 1 tab PO DAILY 02/18/20 Metformin HCl [Metformin HCl ER] 750 mg PO DAILY 02/18/20 Olanzapine [Zyprexa 5 mg Tablet] 5 mg PO QHS MDD 3 DAYS 02/18/20 Pantoprazole Sodium [Protonix [address] Tablet] 40 mg PO DAILY 02/18/20 Acetaminophen [Tylenol 325 mg Tablet] 650 mg PO Q4HP PRN tablet 02/20/20 Aspirin [Ecotrin 81 mg EC Tablet] 81 mg PO DAILY tabec 02/20/20 Mag Hydrox/Al Hydrox/Simeth [Maalox Plus Susp 30 Udcup] 30 ml PO Q6HP PRN udc 02/20/20 Magnesium Hydroxide [Milk of Magnesia 30 ml Udcup] 30 ml PO HSP PRN udc 02/20/20 Magnesium Oxide [Mag-Ox 400 mg Tablet] 400 mg PO BID 30 Days #60 tablet 02/20/20 Metoprolol Succinate [Toprol Xl 50 mg Tab.sr] 50 mg PO BID 30 Days #60 tab.sr.24h 02/20/20 Nicotine [Nicoderm 21 mg/24 Hr Transderm Patch] 1 each TD QHS 30 Days #30 patch.td24 02/20/20 Nitroglycerin [Nitrostat 0.4 mg (1/150 Gr) Tabs 25/Bottle] 1 tab SL Q5MP PRN 30 Days #90 bottle 02/20/20 Allergies/Adverse Reactions: cephalexin [From Keflex] Allergy (Verified 12/01/19 14:06) Review of Systems ROS unobtainable: Due to mental status, Other Constitutional: PRESENT: as per HPI Eyes: PRESENT: as per HPI Ears: PRESENT: as per HPI Physical Exam Vital Signs: Temp Pulse Resp BP Pulse Ox 97.7 F 84 16 130/60 H 98 02/20/20 03:48 02/20/20 08:32 02/20/20 08:32 02/20/20 08:32 02/20/20 08:32 Intake & Output 02/19/20 02/20/20 02/21/20 06:59 06:59 06:59 Intake Total 600 2412 Output Total 1400 Balance 600 1012 Weight 40.4 kg 69.6 kg General appearance: PRESENT: no acute distress, cooperative, well-developed, well-nourished Head exam: PRESENT: atraumatic, normocephalic Eye exam: PRESENT: EOMI Respiratory exam: PRESENT: decreased breath sounds, prolonged expiratory phas, symmetrical, unlabored Cardiovascular exam: PRESENT: RRR, +S1, +S2 Pulses: PRESENT: normal radial pulses GI/Abdominal exam: PRESENT: soft Rectal exam: PRESENT: deferred Skin exam: PRESENT: dry, intact, normal color Results Laboratory Results: 02/19/20 05:31 02/20/20 05:10 02/19/20 02/20/20 14:37 05:10 Sodium 123.8 L 127.2 L Potassium 3.9 4.1 Chloride 90 L 94 L Carbon Dioxide 24 26 Anion Gap 10 7 BUN 16 17 Creatinine 0.62 0.67 Est GFR ( Amer) > 60 > 60 Glucose 153 H 100 Calcium 8.9 9.0 Magnesium 1.7 1.5 L Total Bilirubin 0.5 AST 17 Alkaline Phosphatase 57 Total Protein 5.9 L Albumin 2.9 L 02/18/20 02/18/20 02/18/20 08:17 12:15 12:15 CK-MB (CK-2) Troponin I 0.112 0.079 NT-Pro-B Natriuret Pep 3770 H 02/18/20 02/19/20 19:48 05:31 CK-MB (CK-2) 0.88 Troponin I 0.132 NT-Pro-B Natriuret Pep [id number] H EKG Comments: Mildly elevated troponin. Indeterminate trend. Twelve-lead EKG. 02/18/2020. Independently reviewed by me. Sinus rhythm, baseline artifact. Nonspecific IVCD. Poor R wave progression. QTC is 442 ms Impressions: Chest X-Ray 02/18/20 07:33 IMPRESSION: Multiple pulmonary nodules consistent with metastatic disease. No obvious superimposed edema or pneumonia. Chest/Abdomen CTA 02/18/20 09:05 IMPRESSION: 1. No PE. 2. Multiple pulmonary nodules consistent with metastatic disease. 3. Interlobular septal thickening and small effusions. Cannot exclude superimposed pulmonary edema. Assessment & Plan - Diagnosis (1) Elevated troponin Is this a current diagnosis for this admission?: Yes Plan: Elevated troponin. No EKG evidence of myocardial ischemia Elevated troponin without a clear trend All the risk factors for coronary artery disease are present patient is not exqu isitely symptomatic and given implications of metastatic cancer would not pursue aggressive work-up for this problem Again unlikely to be acute coronary syndrome given trend in troponins and EKG Would recommend supportive care with aspirin statin and beta-blockers if feasible (2) Chest pain Qualifiers: Chest pain type: unspecified Qualified Code(s): R07.9 - Chest pain, unspecified Is this a current diagnosis for this admission?: Yes Plan: Not presently experiencing chest pain EKG is nondiagnostic for myocardial ischemia Troponin elevation without clear trend Metastatic cancer with implications for quality of life and prognosis. (3) Metastatic disease to the lung Is this a current diagnosis for this admission?: Yes Plan: Being managed by primary team
--- NOTE | 2020-02-20 12:55 | PDOC DISCHARGE SUMMARY ---
Impression - Admit/DC Date/PCP Admission Date/Primary Care Provider: 02/18/20 13:55 AMARA KILLIAN MD Discharge Date: 02/20/20 - Discharge Diagnosis (1) Shortness of breath Is this a current diagnosis for this admission?: Yes (2) Hypertension Is this a current diagnosis for this admission?: Yes (3) Adrenal cancer Is this a current diagnosis for this admission?: Yes (4) Metastatic disease to the lung Is this a current diagnosis for this admission?: Yes (5) Tobacco abuse Is this a current diagnosis for this admission?: Yes (6) Chest pain Is this a current diagnosis for this admission?: Yes (7) Hyponatremia Is this a current diagnosis for this admission?: Yes (8) Hypomagnesemia Is this a current diagnosis for this admission?: Yes - Assessment Summary: Patient will be admitted to the hospital for aspirin statins and beta-blockers. Patient will have serial enzymes. Patient will have a consult by cardiology. If patient is medically stable she may be discharged on February 18. Appears to be medically stable she is having no chest pain 02/19/2020 Patient's vital signs are stable she has no chest pain at all and in fact has not had chest pain since her 2 sprays of nitro by EMS yesterday.. Hemoglobin is come up to 10.4 after 2 units in the emergency room Sodium is low at 126 but patient has a history of running a low sodium. I will give her gentle saline hydration Patient's magnesium is extremely low at 1.1 and I am replacing this Troponin 0 0.112-second troponin 0.079 and third troponin 0.132 BNP on admission is 3770 and today's level is 11,900 although patient has no clinical indication of being in failure CTA yesterday shows nodules secondary to her metastatic lung cancer. Patient is now on aspirin and statins. Was already on a TANK inhibitor and beta- earnestine Plan is to gently correct her hyponatremia and hypo-magnesium. See cardiology tomorrow for final disposition and probably discharge home Patient has had no chest pain since she was admitted vital signs today are stable. Sodium has stabilized to about 127 Patient was seen in consultation today by cardiology. Cardiology agrees that the patient is stable for discharge on aspirin statins and beta-blockers Patient will follow-up with nurse practitioner and or her primary care provider Patient was originally admitted for chest pain with slightly elevated troponins although these were probably not indicative of cardiac ischemia Patient has been pain-free since she received her 2 sprays of nitro by EMS Patient's blood pressure is now under good control Patient's sodium is stable, though still low A1c he is 5.4 Patient was discharged home on nitroglycerin tablet sublingual as needed ,magnesium oxide 800 mg twice daily, and Toprol 50 mg twice daily in addition to her other medications she was already on - Additional Information Resuscitation Status: Do Not Resuscitate Discharge Diet: Diabetic Discharge Activity: Activity As Tolerated Referrals: AMARA KILLIAN MD [Primary Care Provider] - Follow up as needed (sticker in book--DJL) Prescriptions: Magnesium Oxide [Mag-Ox 400 mg Tablet] 800 mg PO BID 30 Days #60 tab Magnesium Oxide [Mag-Ox 400 mg Tablet] 400 mg PO BID 30 Days #60 tablet Nicotine [Nicoderm 21 mg/24 Hr Transderm Patch] 1 each TD QHS 30 Days #30 patch.td24 Nitroglycerin [Nitrostat 0.4 mg (1/150 Gr) Tabs 25/Bottle] 1 tab SL Q5MP PRN 30 Days #90 bottle PRN Reason: Metoprolol Succinate [Toprol Xl 50 mg Tab.sr] 50 mg PO BID 30 Days #60 tab.sr.24h Home Medications: Lisinopril/Hydrochlorothiazide [Zestoretic 20-25 mg Tablet] 1 tab PO DAILY 02/18/20 Metformin HCl [Metformin HCl ER] 750 mg PO DAILY 02/18/20 Olanzapine [Zyprexa 5 mg Tablet] 5 mg PO QHS MDD 3 DAYS 02/18/20 Pantoprazole Sodium [Protonix [address] Tablet] 40 mg PO DAILY 02/18/20 Acetaminophen [Tylenol 325 mg Tablet] 650 mg PO Q4HP PRN tablet 02/20/20 Aspirin [Ecotrin 81 mg EC Tablet] 81 mg PO DAILY tabec 02/20/20 Mag Hydrox/Al Hydrox/Simeth [Maalox Plus Susp 30 Udcup] 30 ml PO Q6HP PRN udc 02/20/20 Magnesium Hydroxide [Milk of Magnesia 30 ml Udcup] 30 ml PO HSP PRN udc 02/20/20 Magnesium Oxide [Mag-Ox 400 mg Tablet] 400 mg PO BID 30 Days #60 tablet 02/20/20 Magnesium Oxide [Mag-Ox 400 mg Tablet] 800 mg PO BID 30 Days #60 tab 02/20/20 Metoprolol Succinate [Toprol Xl 50 mg Tab.sr] 50 mg PO BID 30 Days #60 tab.sr.24h 02/20/20 Nicotine [Nicoderm 21 mg/24 Hr Transderm Patch] 1 each TD QHS 30 Days #30 patch.td24 02/20/20 Nitroglycerin [Nitrostat 0.4 mg (1/150 Gr) Tabs 25/Bottle] 1 tab SL Q5MP PRN 30 Days #90 bottle 02/20/20 History of Present Illiness History of Present Illness: MONY STEELE is a 69 year old female noted through the emergency room for chest pain. Patient states that she was awake this morning around 0 600 when she started having "chest pain. She states "I thought I was having a heart attack" patient states that it lasted about 15 minutes she called EMS and after getting 2 sprays of nitroglycerin her pain went away.. His other symptoms at that time included a "heaviness" in her chest and she says that she was sweaty. Patient states that she thought it also might of been her GERD which she has had very bad and much worse since starting chemotherapy 2 months ago. Patient has had 2 rounds of chemotherapy. Her next round of chemotherapy is on February 23. 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 Patient is being treated in [place] for this. Patient denies ever having a heart attack or any coronary disease or stroke.. Patient has had no chest pain since getting her 2 sprays of nitroglycerin by EMS. Patient does smoke cigarettes she was up to 2 packs a day prior to recently when she is cut it back down to 10 cigarettes/day. Other comorbidities include hypertension. Patient will be admitted to rule out coronary disease. Patient will not have a stress test while inpatient due to the COVID 19 virus restrictions as well as lack of urgency. Physical Exam Vital Signs: Temp Pulse Resp BP Pulse Ox 97.7 F 84 16 121/75 98 02/20/20 09:48 02/20/20 09:48 02/20/20 09:48 02/20/20 09:48 02/20/20 09:48 Intake & Output 02/19/20 02/20/20 02/21/20 06:59 06:59 06:59 Intake Total 600 2412 745 Output Total 1400 Balance 600 1012 745 Weight 40.4 kg 69.6 kg Results Laboratory Results: WBC 4.9 10^3/uL (4.0-10.5) 02/19/20 05:31 RBC 3.61 10^6/uL (3.72-5.28) L 02/19/20 05:31 Hgb 10.4 g/dL (12.0-15.5) L 02/19/20 05:31 Hct 29.1 % (36.0-47.0) L 02/19/20 05:31 MCV 81 fl (80-97) 02/19/20 05:31 MCH 28.8 pg (27.0-33.4) 02/19/20 05:31 MCHC 35.7 g/dL (32.0-36.0) 02/19/20 05:31 RDW 16.3 % (11.5-14.0) H 02/19/20 05:31 Plt Count 141 10^3/uL (150-450) L 02/19/20 05:31 Lymph % (Auto) 18.6 % (13-45) 02/19/20 05:31 [place] % (Auto) 16.0 % (3-13) H 02/19/20 05:31 Eos % (Auto) 0.4 % (0-6) 02/19/20 05:31 Baso % (Auto) 0.2 % (0-2) 02/19/20 05:31 Absolute Neuts (auto) 3.2 10^3/uL (1.7-8.2) 02/19/20 05:31 Absolute Lymphs (auto) 0.9 10^3/uL (0.5-4.7) 02/19/20 05:31 Absolute Monos (auto) 0.8 10^3/uL (0.1-1.4) 02/19/20 05:31 Absolute Eos (auto) 0.0 10^3/uL (0.0-0.6) 02/19/20 05:31 Absolute Basos (auto) 0.0 10^3/uL (0.0-0.2) 02/19/20 05:31 Seg Neutrophils % 64.8 % (42-78) 02/19/20 05:31 PT 13.6 SEC (11.4-15.4) 02/18/20 08:17 INR 1.04 02/18/20 08:17 APTT 30.4 SEC (23.5-35.8) 02/19/20 05:31 Sodium 127.2 mmol/L (137-145) L 02/20/20 05:10 Potassium 4.1 mmol/L (3.6-5.0) 02/20/20 05:10 Chloride 94 mmol/L (98-107) L 02/20/20 05:10 Carbon Dioxide 26 mmol/L (22-30) 02/20/20 05:10 Anion Gap 7 (5-19) 02/20/20 05:10 BUN 17 mg/dL (7-20) 02/20/20 05:10 Creatinine 0.67 mg/dL (0.52-1.25) 02/20/20 05:10 Est GFR ( Amer) > 60 (>60) 02/20/20 05:10 Est GFR (MDRD) Non-Af > 60 (>60) 02/20/20 05:10 Glucose 100 mg/dL (75-110) 02/20/20 05:10 POC Glucose 104 mg/dL (70-110) 02/20/20 07:49 Hemoglobin A1c % 5.4 % (4.7-6.0) 02/19/20 05:31 Calcium 9.0 mg/dL (8.4-10.2) 02/20/20 05:10 Magnesium 1.5 mg/dL (1.6-2.3) L 02/20/20 05:10 Total Bilirubin 0.5 mg/dL (0.2-1.3) 02/20/20 05:10 Direct Bilirubin 0.0 mg/dL (0.0-0.4) 02/20/20 05:10 Neonat Total Bilirubin Not Reportable 02/20/20 05:10 Neonat Direct Bilirubin Not Reportable 02/20/20 05:10 Neonat Indirect Bili Not Reportable 02/20/20 05:10 AST 17 U/L (14-36) 02/20/20 05:10 ALT 10 U/L (<35) 02/20/20 05:10 Alkaline Phosphatase 57 U/L (38-126) 02/20/20 05:10 CK-MB (CK-2) 0.88 ng/mL (<4.55) 02/18/20 19:48 Troponin I 0.132 ng/mL 02/18/20 19:48 NT-Pro-B Natriuret Pep 58930 pg/mL (<125) H 02/19/20 05:31 Total Protein 5.9 g/dL (6.3-8.2) L 02/20/20 05:10 Albumin 2.9 g/dL (3.5-5.0) L 02/20/20 05:10 TSH 1.80 uIU/mL (0.47-4.68) 02/18/20 08:17 Urine Color YELLOW 02/18/20 11:00 Urine Appearance SLIGHTLY-CLOUDY 02/18/20 11:00 Urine pH 7.0 (5.0-9.0) 02/18/20 11:00 Ur Specific [place] 1.013 02/18/20 11:00 Urine Protein 30 mg/dL (NEGATIVE) H 02/18/20 11:00 Urine Glucose (UA) NEGATIVE mg/dL (NEGATIVE) 02/18/20 11:00 Urine Ketones NEGATIVE mg/dL (NEGATIVE) 02/18/20 11:00 Urine Blood SMALL (NEGATIVE) H 02/18/20 11:00 Urine Nitrite NEGATIVE (NEGATIVE) 02/18/20 11:00 Urine Bilirubin NEGATIVE (NEGATIVE) 02/18/20 11:00 Urine Urobilinogen NEGATIVE mg/dL (<2.0) 02/18/20 11:00 Ur Leukocyte Esterase NEGATIVE (NEGATIVE) 02/18/20 11:00 Urine WBC (Auto) 10 /HPF 02/18/20 11:00 Urine RBC (Auto) 4 /HPF 02/18/20 11:00 Urine Bacteria (Auto) TRACE /HPF 02/18/20 11:00 Squamous Epi Cells Auto <1 /HPF 02/18/20 11:00 Urine Mucus (Auto) RARE /LPF 02/18/20 11:00 Urine Ascorbic Acid 40 (NEGATIVE) H 02/18/20 11:00 Blood Type A NEGATIVE 02/18/20 09:10 Blood Type Confirm A NEGATIVE 02/18/20 09:41 Antibody Screen NEGATIVE 02/18/20 09:10 Crossmatch See Detail 02/18/20 09:10 02/18/20 02/18/2002/17/20 08:17 12:15 12:15 CK-MB (CK-2) Troponin I 0.112 0.079 NT-Pro-B Natriuret Pep 3770 H 02/18/20 02/19/20 19:48 05:31 CK-MB (CK-2) 0.88 Troponin I 0.132 NT-Pro-B Natriuret Pep 88024 H Impressions: Chest X-Ray 02/18/20 07:33 IMPRESSION: Multiple pulmonary nodules consistent with metastatic disease. No obvious superimposed edema or pneumonia. Chest/Abdomen CTA 02/18/20 09:05 IMPRESSION: 1. No PE. 2. Multiple pulmonary nodules consistent with metastatic disease. 3. Interlobular septal thickening and small effusions. Cannot exclude superimposed pulmonary edema. Stroke Is this a Stroke Patient?: No Acute Heart Failure - Is this a Heart Failure Patient?: No
== END 2020-02-20 11:10 | disposition home or self-care (01) | DRG 313 ==
LOC: ER 07:32 → EH 13:55 → OBSVTOIN 13:55 → 3W 21:05
PROVIDERS: ADMIT Hospitalist; ATTEND Physician Assistant
PROC: 30233N1 Transfusion of Nonautologous Red Blood Cells into Peripheral Vein, Percutaneous Approach (ICD-10-PCS; principal; 2020-02-18)
DX: R07.9 Chest pain, unspecified (principal); C74.90 Malignant neoplasm of unspecified part of unspecified adrenal gland; C78.00 Secondary malignant neoplasm of unspecified lung; E87.1 Hypo-osmolality and hyponatremia; D64.9 Anemia, unspecified; E11.9 Type 2 diabetes mellitus without complications; I34.1 Nonrheumatic mitral (valve) prolapse; I71.4 Abdominal aortic aneurysm, without rupture; E83.42 Hypomagnesemia; F17.210 Nicotine dependence, cigarettes, uncomplicated; Z79.84 Long term (current) use of oral hypoglycemic drugs; Z79.82 Long term (current) use of aspirin; Z79.899 Other long term (current) drug therapy
CPT/HCPCS: 36415; 36430; 71045; 71275; 80048; 80053; 81001; 82553; 82962; 83036; 83735; 83880; 84443; 84484; 85025; 85610; 85730; 86850; 86900; 86901; 86920; 93005; 93010; 94640; 99285; J3475; J3490; J7030; P9016; S0119

== ENCOUNTER 2020-02-25 12:22 | Inpatient (IN) | payer MEDICAID, MEDICARE ==
[2020-02-25 12:53] LABS: ABSOLUTE LYMPHOCYTES (AUTO) 0.9 10^3/uL (0.5-4.7); ABSOLUTE MONOCYTES (AUTO) 1.4 10^3/uL (0.1-1.4); BASOPHILS % (AUTO) 0.3 % (0-2); HEMATOCRIT 33.2 % (36.0-47.0); HEMOGLOBIN 11.3 g/dL (12.0-15.5); LYMPHOCYTES % (AUTO) 7.4 % (13-45); MEAN CORPUSCULAR HEMOGLOBIN 28.4 pg (27.0-33.4); MEAN CORPUSCULAR HGB CONC 33.9 g/dL (32.0-36.0); MEAN CORPUSCULAR VOLUME 84 fl (80-97); MONOCYTES % (AUTO) 11.3 % (3-13); PLATELET COUNT 852 10^3/uL (150-450); RED BLOOD COUNT 3.97 10^6/uL (3.72-5.28); TOTAL CELLS COUNTED % (AUTO) 100 %; WHITE BLOOD COUNT 12.4 10^3/uL (4.0-10.5)
[2020-02-25 13:02] LABS: VENOUS BLOOD HCO3 24.4 mmol/L (20-32); VENOUS BLOOD PCO2 52.6 mmHg (35-63); VENOUS BLOOD PH 7.28 (7.30-7.42)
[2020-02-25 13:09] LABS: ALBUMIN 4.2 g/dL (3.5-5.0); ALKALINE PHOSPHATASE 76 U/L (38-126); ANION GAP 13 (5-19); ASPARTATE AMINO TRANSFERASE 25 U/L (14-36); BILIRUBIN,TOTAL 0.5 mg/dL (0.2-1.3); BLOOD UREA NITROGEN 34 mg/dL (7-20); CALCIUM 10.1 mg/dL (8.4-10.2); CARBON DIOXIDE 23 mmol/L (22-30); CHLORIDE 92 mmol/L (98-107); GLUCOSE 162 mg/dL (75-110); POTASSIUM 5.2 mmol/L (3.6-5.0); TOTAL PROTEIN 7.8 g/dL (6.3-8.2)
--- NOTE | 2020-02-25 13:11 | ER Document Report ---
ED General - General Chief Complaint: Shortness Of Breath Stated Complaint: SHORTNESS OF BREATH Time Seen by Provider: 02/25/20 13:09 Primary Care Provider: AMARA KILLIAN MD [Primary Care Provider] - Follow up as needed Information source: Patient Notes: Patient is a 69-year-old female presenting to the emergency department chief complaint of shortness of breath. Patient states that she had chemotherapy yesterday and the last time she had chemotherapy she had similar episode she describes shortness of breath and worsening with exertion. Patient denies travel history trauma history or any other sick contacts. Patient states she is taking all other medications as previously prescribed. TRAVEL OUTSIDE OF THE [place] IN LAST 30 DAYS: No - HPI Onset: This morning Onset/Duration: Persistent Quality of pain: No pain Severity: None Associated symptoms: Shortness of breath, Weakness Exacerbated by: Movement, Walking, Coughing, Deep breathing Relieved by: Denies Similar symptoms previously: Yes Recently seen / treated by doctor: Yes - Related Data Allergies/Adverse Reactions: cephalexin [From Keflex] Allergy (Verified 12/01/19 14:06) Past Medical History - General Information source: Patient, [facility] Records - Social History Smoking Status: Unknown if Ever Smoked Cigarette use (# per day): No Chew tobacco use (# tins/day): No Smoking Education Provided: No Frequency of alcohol use: None Drug Abuse: None Lives with: Family Family History: Reviewed & Not Pertinent Patient has suicidal ideation: No Patient has homicidal ideation: No - Past Medical History Cardiac Medical History: Reports: Hx Hypertension Endocrine Medical History: Reports: Hx Diabetes Mellitus Type 2 Malignancy Medical History: Reports: Hx Lung Cancer, Other - Adrenal cancer with metastasis to the lungs Psychiatric Medical History: Reports: Hx Depression Past Surgical History: Reports: Hx Appendectomy, Hx Cholecystectomy Review of Systems - Review of Systems Notes: REVIEW OF SYSTEMS: CONSTITUTIONAL : Denies fever, chills, or sweats. Denies recent illness. EENT: Denies eye, ear, throat, or mouth pain or symptoms. Denies nasal or sinus congestion. CARDIOVASCULAR: Denies chest pain. RESPIRATORY: Per HPI GASTROINTESTINAL: Denies abdominal pain. Denies nausea, vomiting, or diarrhea. Denies constipation. GENITOURINARY: Denies difficulty urinating, painful urination, burning, frequency, or blood in urine. MUSCULOSKELETAL: Denies neck or back pain or joint pain or swelling. SKIN: Denies rash or skin lesions. HEMATOLOGIC : Denies easy bruising or bleeding. NEUROLOGICAL: Denies altered mental status or loss of consciousness. Denies headache. Denies weakness or paralysis or loss of use of either side. Denies problems with gait or speech. Denies sensory or motor loss. PSYCHIATRIC: Denies suicidal or homicidal ideations 10 Systems are negative unless otherwise specified above Physical Exam - Vital signs Vitals: Temp Pulse Ox 98.6 F 100 02/25/20 12:24 02/25/20 12:24 - Notes Notes: PHYSICAL EXAMINATION: GENERAL: Well-appearing, well-nourished and in no acute distress. HEAD: Atraumatic, normocephalic. EYES: Pupils equal round and reactive to light, extraocular movements intact, sclera anicteric, conjunctiva are normal. ENT: nares patent, oropharynx clear without exudates. Moist mucous membranes. NECK: Normal range of motion, supple without lymphadenopathy, no appreciable JVD LUNGS: Lungs demonstrate diffuse crackles bilaterally decreased lung sounds to the bases HEART: Regular rate and rhythm without murmurs ABDOMEN: Soft, nontender, normal bowel sounds. No guarding, no rebound. No masses appreciated. EXTREMITIES: Active full range of motion, no pitting or edema. No cyanosis. 2+ pulses x4 NEUROLOGICAL: No focal neurological deficits. Moves all extremities spontaneously and on command. SKIN: Warm, Dry, and intact. Normal turgor, no rashes or lesions noted. 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 There have been several incidents that the patient needed to go to the bathroom and with any exertion patient becomes much shorter of breath and once connected back to monitoring devices demonstrates a pulse ox of 87 to 88%. Because of this and the patient's recent chemotherapy in general shortness of breath I have contacted the oncology department at [facility] in [place] where the patient receives her chemotherapy. They stated that as best as they can tell this is not a normal side effect secondary to chemotherapy and would recommend further evaluation as needed. I discussed this with the patient and family member and they are agreeable with admission. I spoke to the hospitalist who is agreeable with admission with the caveat of a CT of the chest to rule out pulmonary embolism prior to admission. Otherwise EKG and laboratory studies demonstrate no significant abnormalities. 02/25/20 20:41 Patient has remained stable while in emergency department. Currently waiting on CT results. Patient is signed out to oncoming emergency room physician for final disposition and discussion with the hospitalist. - Vital Signs Vital signs: Temp Pulse Resp BP Pulse Ox 98.7 F 24 H 170/92 H 91 L 02/25/20 19:21 02/25/20 19:21 02/25/20 19:21 02/25/20 19:20 - Laboratory Result Diagrams: 02/25/20 12:36 02/25/20 12:36 Laboratory results interpreted by me: 02/25/20 02/25/20 02/25/20 12:36 12:36 12:45 WBC 12.4 H Hgb 11.3 L Hct 33.2 L RDW 17.0 H Plt Count 852 H Lymph % (Auto) 7.4 L Absolute Neuts (auto) 10.0 H Seg Neutrophils % 81.0 H VBG pH 7.28 L Sodium 127.7 L Potassium 5.2 H Chloride 92 L BUN 34 H Glucose 162 H Urine Protein Urine Blood Urine Ascorbic Acid 02/25/20 14:12 WBC Hgb Hct RDW Plt Count Lymph % (Auto) Absolute Neuts (auto) Seg Neutrophils % VBG pH Sodium Potassium Chloride BUN Glucose Urine Protein 100 H Urine Blood LARGE H Urine Ascorbic Acid 40 H - Diagnostic Test Radiology reviewed: Reports reviewed - EKG Interpretation by Me EKG shows normal: Sinus rhythm Rate: Normal Rhythm: NSR When compared to previous EKG there are: No significant change Discharge - Discharge Clinical Impression: Shortness of breath, Metastatic disease to the lung Condition: Fair Disposition: ADMITTED INPATIENT Admitting Provider: Jose (Hospitalist) Referrals: AMARA KLILIAN MD [Primary Care Provider] - Follow up as needed
--- NOTE | 2020-02-25 13:25 | EKG REPORT ---
SEVERITY:- ABNORMAL ECG - SINUS RHYTHM NONSPECIFIC INTRAVENTRICULAR CONDUCTION DELAY ANTERIOR INFARCT, AGE INDETERMINATE : Confirmed by: Erick Escobar MD 25-Feb-2020 13:24:35
--- NOTE | 2020-02-25 13:55 | RADIOLOGY REPORT (SQ) ---
EXAM DESCRIPTION: CHEST SINGLE VIEW IMAGES COMPLETED DATE/TIME: 02/25/2020 1:36 pm REASON FOR STUDY: SOB COMPARISON: 02/18/2020 EXAM PARAMETERS: NUMBER OF VIEWS: One view. TECHNIQUE: Single frontal radiographic view of the chest acquired. RADIATION DOSE: NA LIMITATIONS: None. FINDINGS: LUNGS AND PLEURA: Increasing bilateral airspace disease. There are known bilateral pulmon juan nodules. Small pleural effusions. MEDIASTINUM AND HILAR STRUCTURES: Stable. HEART AND VASCULAR STRUCTURES: Stable heart size. BONES: No acute findings. HARDWARE: None in the chest. OTHER: No other significant finding. IMPRESSION: Multiple pulmonary nodules with superimposed edema or sepsis. TECHNICAL DOCUMENTATION: JOB ID: [id number] 2010 [employer]- All Rights Reserved Reading location - IP/workstation name: [email or web address]
[2020-02-25] MEDS ORDERED: IPRATROPIUM/ALBUTEROL 0.5-2.5 MG/3 ML AMPUL NEB ONE (16:03)
[2020-02-25 17:28] LABS: APPEARANCE,URINE SLIGHTLY-CLOUDY; BILIRUBIN,URINE NEGATIVE (NEGATIVE); COLOR,URINE YELLOW; GLUCOSE, URINE NEGATIVE (NEGATIVE); KETONES,URINE NEGATIVE (NEGATIVE); LEUKOCYTE ESTERASE,URINE NEGATIVE (NEGATIVE); NITRITE,URINE NEGATIVE (NEGATIVE); PROTEIN,URINE 100 mg/dL (NEGATIVE); URINE SPECIFIC GRAVITY 1.025; UROBILINOGEN,URINE NEGATIVE mg/dL (<2.0)
--- NOTE | 2020-02-25 20:56 | RADIOLOGY REPORT (SQ) ---
EXAM DESCRIPTION: CT CHEST ANGIOGRAPHY WITHOUT THEN WITH IV CONTRAST COMPLETED DATE/TME: 02/25/2020 19:51 CLINICAL HISTORY: 69 years, Female, PE??? Shortness of breath COMPARISON: Prior CT chest dated 02/18/2020 TECHNIQUE: Contrast enhanced CT of the chest was acquired after the uneventful administration of 100 mL of Omnipaque 350 intravenous contrast. MIPS were created. Images stored on PACS. All CT scanners at this facility use dose modulation, iterative reconstruction, and/or weight based dosing when appropriate to reduce radiation dose to as low as reasonably achievable (ALARA). [facility]: Dose Right [facility]: CareDose [facility]: Dose Right [facility]: Teradose 4D [facility]: Tresorit LIMITATIONS: None. FINDINGS: Multifocal mucus plugging is noted about the basilar subsegmental airways of both lower lobes. There is also diffuse bronchial wall thickening. Lung windows show moderate right and small left pleural effusions with associated bibasilar consolidative opacity. In addition, widespread solid nodules are noted throughout both lungs, similar to the previous study dated 02/18/2020. There is also diffuse smooth interlobular septal thickening throughout both lungs. Mediastinal windows show no significant hilar or mediastinal lymph node enlargement. Calcifications are evident about the coronary vessels and thoracic aorta. The study is adequate for the evaluation of pulmonary emboli. No filling defects are identified to the proximal segmental level. Limited evaluation of the upper abdomen reveals bulky retroperitoneal lymphadenopathy, specifically on the right, measuring 5.0 x 3.9 cm in size on image 120 of series 3. This appears new from the previous study dated 12/01/2019. In addition, there is partially imaged aneurysmal dilatation of the abdominal aorta measuring 3.6 cm in short axis on image 125 of series 3. Adreniform enlargement of the left adrenal gland is unchanged from 12/01/2019. This is nonspecific. Bone windows show no destructive osseous lesions. IMPRESSION: No evidence of pulmonary embolus. Widespread pulmonary metastatic disease. Moderate right and small left pleural effusions with superimposed diffuse smooth interlobular septal thickening throughout both lungs as well as patchy areas of groundglass opacity, most suggestive of superimposed interstitial edema. Right retroperitoneal masslike density, suspicious for metastatic lymphadenopathy. 3.6 cm abdominal aortic aneurysm. Recommend follow-up every 2 years. Reference: J Am Angelica Radiol 2013;10:789-794. TECHNICAL DOCUMENTATION: Quality ID # [id number]: Final reports with documentation of one or more dose reduction techniques (e.g., Automated exposure control, adjustment of the mA and/or kV according to patient size, use of iterative reconstruction technique) copyright 2011 [employer]- All Rights Reserved
[2020-02-25] MEDS ORDERED: ACETAMINOPHEN 325 MG TABLET PO PRN (21:55)
[2020-02-25] MEDS ORDERED: DEXTROSE 40% GEL 15 GM TUBE PO PRN ×2 (21:55)
[2020-02-25] MEDS ORDERED: IPRATROPIUM/ALBUTEROL 0.5-2.5 MG/3 ML AMPUL NEB PRN (21:55)
[2020-02-25] MEDS ORDERED: MAG HYDROX/AL HYDROX/SIMETH SUSP 30 ML UDCUP PO PRN (21:55)
[2020-02-25] MEDS ORDERED: DEXTROSE 50%-WATER 25 GM/50 ML DISP.SYRIN IV PRN ×2 (21:55)
[2020-02-25] MEDS ORDERED: ONDANSETRON HCL INJ/PF 4 MG/2 ML SDV IV PRN (21:55)
[2020-02-25] MEDS ORDERED: GLUCAGON,HUMAN RECOMB 1 MG INJ IM PRN (21:55)
[2020-02-25] MEDS ORDERED: MAGNESIUM HYDROXIDE SUSP 30 ML UDCUP PO PRN (21:55)
[2020-02-25] MEDS ORDERED: LACTULOSE SYRUP 20 GM/30 ML UDCUP PO ONE (22:00)
[2020-02-25] MEDS ORDERED: ACETYLCYSTEINE 10% NEB 400 MG/4 ML VIAL NEB ONE (22:10)
[2020-02-25] MEDS: HEPARIN SOD (PORCINE) 5,000 UNIT/ML 1 ML VIAL SUBCUT SCH (23:25)
[2020-02-25 23:37] LABS: INTERNATIONAL RATION (INR) 1.09; PROTHROMBIN TIME 14.1 SEC (11.4-15.4)
[2020-02-26] MEDS: INSULIN LISPRO 100 UNIT/ML 3 ML VIAL SUBCUT SCH ×4 (00:19→18:35)
[2020-02-26] MEDS: IPRATROPIUM/ALBUTEROL 0.5-2.5 MG/3 ML AMPUL NEB SCH ×3 (01:40→16:36)
--- NOTE | 2020-02-26 04:32 | PDOC H&P ---
History of Present Illness Admission Date/PCP: 02/25/20 21:44 AMARA KILLIAN MD Patient complains of: Shortness of breath History of Present Illness: MONY STEELE is a 69 year old female with a past medical history of diabetes, hypertension, stage IV adrenal cancer with metastasis to the lung on chemotherapy via [facility]. She presents with 24 hours of worsening shortness of breath and nonproductive cough without fever. In the emergency room she is found to be tachypneic with a CT chest with mucous plugging, significant bilateral metastatic burden and moderate right pleural effusion. She is also found to have hyponatremia of 127 and potassium 5.2 she is referred to the hospitalist for admission. Patient is unaware of a history of pleural effusions or hyponatremia. She denies recent change in medication regiment and otherwise is felt fair her last chemotherapy was 24 hours ago. Past Medical History Cardiac Medical History: Reports: Hypertension Endocrine Medical History: Reports: Diabetes Mellitus Type 2 Malignancy Medical History: Reports: Lung Cancer, Other - Adrenal cancer with metastasis to the lungs Psychiatric Medical History: Reports: Depression Past Surgical History Past Surgical History: Reports: Appendectomy, Cholecystectomy Social History Information Source: Patient Lives with: Family Smoking Status: Former Smoker Frequency of Alcohol Use: None Hx Recreational Drug Use: No Drugs: None Hx Prescription Drug Abuse: No - Advance Directive Resuscitation Status: Do Not Resuscitate Family History Family History: Hypertension Parental Family History Reviewed: Yes Children Family History Reviewed: Yes Sibling(s) Family History Reviewed.: Yes Medication/Allergy Home Medications: Lisinopril/Hydrochlorothiazide [Zestoretic 20-25 mg Tablet] 1 tab PO DAILY 02/18/20 Metformin HCl [Metformin HCl ER] 750 mg PO DAILY 02/18/20 Olanzapine [Zyprexa 5 mg Tablet] 5 mg PO QHS MDD 3 DAYS 02/18/20 Pantoprazole Sodium [Protonix [address] Tablet] 40 mg PO DAILY 02/18/20 Acetaminophen [Tylenol 325 mg Tablet] 650 mg PO Q4HP PRN tablet 02/20/20 Aspirin [Ecotrin 81 mg EC Tablet] 81 mg PO DAILY tabec 02/20/20 Mag Hydrox/Al Hydrox/Simeth [Maalox Plus Susp 30 Udcup] 30 ml PO Q6HP PRN udc 02/20/20 Magnesium Hydroxide [Milk of Magnesia 30 ml Udcup] 30 ml PO HSP PRN udc 02/20/20 Magnesium Oxide [Mag-Ox 400 mg Tablet] 400 mg PO BID 30 Days #60 tablet 02/20/20 Magnesium Oxide [Mag-Ox 400 mg Tablet] 800 mg PO BID 30 Days #60 tab 02/20/20 Metoprolol Succinate [Toprol Xl 50 mg Tab.sr] 50 mg PO BID 30 Days #60 tab.sr.24h 02/20/20 Nicotine [Nicoderm 21 mg/24 Hr Transderm Patch] 1 each TD QHS 30 Days #30 patch.td24 02/20/20 Nitroglycerin [Nitrostat 0.4 mg (1/150 Gr) Tabs 25/Bottle] 1 tab SL Q5MP PRN 30 Days #90 bottle 02/20/20 Allergies/Adverse Reactions: cephalexin [From Keflex] Allergy (Verified 12/01/19 14:06) Review of Systems Constitutional: PRESENT: as per HPI, fatigue, weakness. ABSENT: chills, fever(s), headache(s), weight gain, weight loss Eyes: ABSENT: visual disturbances Ears: ABSENT: hearing changes Cardiovascular: ABSENT: chest pain, dyspnea on exertion, edema, orthropnea, palpitations Respiratory: PRESENT: as per HPI, cough, dyspnea. ABSENT: hemoptysis, sputum Gastrointestinal: ABSENT: abdominal pain, constipation, diarrhea, hematemesis, hematochezia, nausea, vomiting Genitourinary: ABSENT: dysuria, hematuria Musculoskeletal: ABSENT: joint swelling Integumentary: ABSENT: rash, wounds Neurological: ABSENT: abnormal gait, abnormal speech, confusion, dizziness, focal weakness, syncope Psychiatric: ABSENT: anxiety, depression, homidical ideation, suicidal ideation Endocrine: ABSENT: cold intolerance, heat intolerance, polydipsia, polyuria Hematologic/Lymphatic: ABSENT: easy bleeding, easy bruising Physical Exam Vital Signs: Temp Pulse Resp BP Pulse Ox 97.4 F 79 16 146/97 H 92 02/25/20 22:58 02/26/20 02:00 02/26/20 01:42 02/25/20 22:00 02/26/20 01:42 Intake & Output 02/24/20 02/25/20 02/26/20 11:59 11:59 11:59 Weight 71 kg General appearance: PRESENT: cooperative, mild distress, well-developed, well- nourished Head exam: PRESENT: atraumatic, normocephalic Eye exam: PRESENT: conjunctiva pink, EOMI, PERRLA. ABSENT: scleral icterus Ear exam: PRESENT: normal external ear exam Mouth exam: PRESENT: moist, tongue midline Neck exam: ABSENT: carotid bruit, JVD, lymphadenopathy, thyromegaly Respiratory exam: PRESENT: crackles, decreased breath sounds - Absent breath sounds lower half of right lung field, prolonged expiratory phas, retraction, tachypnea. ABSENT: clear to auscultation amelia, rhonchi, symmetrical Cardiovascular exam: PRESENT: RRR. ABSENT: diastolic murmur, rubs, systolic murmur Pulses: PRESENT: normal dorsalis pedis pul Vascular exam: PRESENT: normal capillary refill GI/Abdominal exam: PRESENT: normal bowel sounds, soft. ABSENT: distended, guarding, mass, organolmegaly, rebound, tenderness Rectal exam: PRESENT: deferred Extremities exam: PRESENT: full ROM. ABSENT: calf tenderness, clubbing, pedal edema Neurological exam: PRESENT: alert, awake, oriented to person, oriented to place, oriented to time, oriented to situation, CN II-XII grossly intact. ABSENT: motor sensory deficit Psychiatric exam: PRESENT: appropriate affect, normal mood. ABSENT: homicidal ideation, suicidal ideation Skin exam: PRESENT: dry, intact, warm. ABSENT: cyanosis, rash Results Laboratory Results: 02/25/20 12:36 02/25/20 12:36 02/25/20 02/25/20 02/25/20 12:36 12:36 12:45 WBC 12.4 H RBC 3.97 Hgb 11.3 L Hct 33.2 L MCV 84 MCH 28.4 MCHC 33.9 RDW 17.0 H Plt Count 852 H Seg Neutrophils % 81.0 H VBG pH 7.28 L VBG pCO2 52.6 VBG HCO3 24.4 VBG Base Excess -3.0 Sodium 127.7 L Potassium 5.2 H Chloride 92 L Carbon Dioxide 23 Anion Gap 13 BUN 34 H Creatinine 0.78 Est GFR ( Amer) > 60 Glucose 162 H Calcium 10.1 Total Bilirubin 0.5 AST 25 Alkaline Phosphatase 76 Total Protein 7.8 Albumin 4.2 Urine Color Urine Appearance Urine pH Ur Specific [place] Urine Protein Urine Glucose (UA) Urine Ketones Urine Blood Urine Nitrite Ur Leukocyte Esterase Urine WBC (Auto) Urine RBC (Auto) 02/25/20 14:12 WBC RBC Hgb Hct MCV MCH MCHC RDW Plt Count Seg Neutrophils % VBG pH VBG pCO2 VBG HCO3 VBG Base Excess Sodium Potassium Chloride Carbon Dioxide Anion Gap BUN Creatinine Est GFR ( Amer) Glucose Calcium Total Bilirubin AST Alkaline Phosphatase Total Protein Albumin Urine Color YELLOW Urine Appearance SLIGHTLY-CLOUDY Urine pH 5.0 Ur Specific [place] 1.025 Urine Protein 100 H Urine Glucose (UA) NEGATIVE Urine Ketones NEGATIVE Urine Blood LARGE H Urine Nitrite NEGATIVE Ur Leukocyte Esterase NEGATIVE Urine WBC (Auto) 47 Urine RBC (Auto) 28 02/25/20 12:36 Troponin I 0.017 Impressions: Chest X-Ray 02/25/20 12:24 IMPRESSION: Multiple pulmonary nodules with superimposed edema or sepsis. Chest/Abdomen CTA 02/25/20 19:51 IMPRESSION: No evidence of pulmonary embolus. Widespread pulmonary metastatic disease. Moderate right and small left pleural effusions with superimposed diffuse smooth interlobular septal thickening throughout both lungs as well as patchy areas of groundglass opacity, most suggestive of superimposed interstitial edema. Right retroperitoneal masslike density, suspicious for metastatic lymphadenopathy. 3.6 cm abdominal aortic aneurysm. Recommend follow-up every 2 years. Reference: J Am Angelica Radiol 2013;10:789-794. TECHNICAL DOCUMENTATION: Quality ID # 436: Final reports with documentation of one or more dose reduction techniques (e.g., Automated exposure control, adjustment of the mA and/or kV according to patient size, use of iterative reconstruction technique) copyright 2011 [employer]- All Rights Reserved Assessment and Plan - Diagnosis (1) Pleural effusion Is this a current diagnosis for this admission?: Yes Plan: Her right greater than left likely secondary to malignancy, surgical consult for thoracentesis and consideration of pleurodesis. (2) Hyperkalemia Is this a current diagnosis for this admission?: Yes Plan: Low potassium diet, lactulose, follow-up chemistry (3) Shortness of breath Is this a current diagnosis for this admission?: Yes Plan: Secondary to #1, complicated by malignancy, mucous plugging, albuterol, Atrov ent, Mucomyst, supplemental oxygen ordered (4) Adrenal cancer Is this a current diagnosis for this admission?: Yes Plan: Outpatient follow-up with [facility] (5) Anemia Qualifiers: Anemia type: other cause Is this a current diagnosis for this admission?: Yes Plan: Complicated by malignancy, follow-up outpatient (6) Hyponatremia Is this a current diagnosis for this admission?: Yes Plan: 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 Follow-up chemistry - Time Time Spent with patient: 25-34 minutes - Inpatient Certification Medical Necessity: Need Close Monitoring Due to Risk of Patient Decompensation
[2020-02-26 06:18] LABS: HEMATOCRIT 29.4 % (36.0-47.0); HEMOGLOBIN 10.1 g/dL (12.0-15.5); MEAN CORPUSCULAR HEMOGLOBIN 28.5 pg (27.0-33.4); MEAN CORPUSCULAR HGB CONC 34.4 g/dL (32.0-36.0); MEAN CORPUSCULAR VOLUME 83 fl (80-97); RED BLOOD COUNT 3.55 10^6/uL (3.72-5.28); RED CELL DISTRIBUTION WIDTH 17.2 % (11.5-14.0); WHITE BLOOD COUNT 8.1 10^3/uL (4.0-10.5)
[2020-02-26] MEDS: HEPARIN SOD (PORCINE) 5,000 UNIT/ML 1 ML VIAL SUBCUT SCH ×3 (06:37→22:20)
[2020-02-26 06:42] LABS: ANION GAP 10 (5-19); BLOOD UREA NITROGEN 38 mg/dL (7-20); CALCIUM 9.8 mg/dL (8.4-10.2); CARBON DIOXIDE 22 mmol/L (22-30); CHLORIDE 94 mmol/L (98-107); GLUCOSE 125 mg/dL (75-110); POTASSIUM 5.3 mmol/L (3.6-5.0)
[2020-02-26 06:44] LABS: ABSOLUTE LYMPHOCYTES# (MANUAL) 0.2 10^3/uL (0.5-4.7); ABSOLUTE MONOCYTES # (MANUAL) 0.7 10^3/uL (0.1-1.4); BASOPHILS % (MANUAL) 0 % (0-2); EOSINOPHILS % (MANUAL) 0 % (0-6); LYMPHOCYTES % (MANUAL) 3 % (13-45); MONOCYTES % (MANUAL) 9 % (3-13); SEGMENTED NEUTROPHILS % (MAN) 88 % (42-78); TOTAL CELLS COUNTED 100
[2020-02-26 06:45] LABS: ANISOCYTOSIS 1+; TOXIC GRANULATION SLIGHT; TOXIC VACUOLATION PRESENT
[2020-02-26 06:47] LABS: OVALOCYTES SLIGHT; PLATELET COMMENT INCREASED
[2020-02-26 06:49] LABS: PLATELET COUNT 643 10^3/uL (150-450)
[2020-02-26] MEDS: FLUTICASONE NASAL SPRAY 50 MCG/SPRY 120 SPRAY/16 GM NASL SCH ×2 (09:45→22:20)
[2020-02-26] MEDS: DOCUSATE SODIUM 100 MG CAPSULE PO SCH ×2 (09:45→17:31)
[2020-02-26] MEDS ORDERED: NITROGLYCERIN 0.4 MG/TAB 25 TAB/BOTTLE SL PRN (10:22)
--- NOTE | 2020-02-26 10:37 | PDOC PROGRESS REPORT ---
Subjective Progress Note for:: 02/26/20 Subjective:: 69 year old female with a past medical history of diabetes, hypertension, stage IV adrenal cancer with metastasis to the lung on chemotherapy via [facility]. She presents with 24 hours of worsening shortness of breath and nonproductive cough without fever. In the emergency room she is found to be tachypneic with a CT chest with mucous plugging, significant bilateral metastatic burden and moderate right pleural effusion. She is also found to have hyponatremia of 127 and potassium 5.2 she is referred to the hospitalist for admission. Patient is unaware of a history of pleural effusions or hyponatremia. She denies recent change in medication regiment and otherwise is felt fair her last chemotherapy was 24 hours ago. [id number]-old female with history of adenocarcinoma with mets to the lungs admitted with shortness of breath. Found to have a right pleural effusion. Comfortably in the bed talking to the family members on the phone. She is not on home oxygen. [place]ocks is 93% on 1 L. CODE STATUS is DNR/DNI. Denies any complaints. Allyson consult was requested for pleural effusion. Reason For Visit: STAGE 4 ADREANAL CA TO LUNG C EFFUSION Physical Exam Vital Signs: Temp Pulse Resp BP Pulse Ox 97.4 F 87 18 140/70 H 93 02/25/20 22:58 02/26/20 09:00 02/26/20 09:00 02/26/20 05:59 02/26/20 09:00 Intake & Output 02/25/20 02/26/20 02/27/20 06:59 06:59 06:59 Weight 71 kg General appearance: PRESENT: cooperative, thin Head exam: PRESENT: atraumatic Eye exam: PRESENT: PERRLA Mouth exam: PRESENT: moist, tongue midline Teeth exam: PRESENT: poor dentation Neck exam: ABSENT: carotid bruit, JVD, lymphadenopathy, thyromegaly Respiratory exam: PRESENT: decreased breath sounds, wheezes Cardiovascular exam: PRESENT: RRR. ABSENT: diastolic murmur, rubs, systolic murmur GI/Abdominal exam: PRESENT: normal bowel sounds, soft. ABSENT: distended, guarding, mass, organolmegaly, rebound, tenderness Rectal exam: PRESENT: deferred Extremities exam: PRESENT: full ROM. ABSENT: calf tenderness, clubbing, pedal edema Neurological exam: PRESENT: alert, awake, oriented to person, oriented to place, oriented to time, oriented to situation, CN II-XII grossly intact. ABSENT: motor sensory deficit Results Laboratory Results: 02/26/20 05:45 02/26/20 05:45 02/25/20 02/25/20 02/25/20 12:36 12:36 12:45 WBC 12.4 H RBC 3.97 Hgb 11.3 L Hct 33.2 L MCV 84 MCH 28.4 MCHC 33.9 RDW 17.0 H Plt Count 852 H Seg Neutrophils % 81.0 H VBG pH 7.28 L VBG pCO2 52.6 VBG HCO3 24.4 VBG Base Excess -3.0 Sodium 127.7 L Potassium 5.2 H Chloride 92 L Carbon Dioxide 23 Anion Gap 13 BUN 34 H Creatinine 0.78 Est GFR ( Amer) > 60 Glucose 162 H Calcium 10.1 Total Bilirubin 0.5 AST 25 Alkaline Phosphatase 76 Total Protein 7.8 Albumin 4.2 Urine Color Urine Appearance Urine pH Ur Specific [place] Urine Protein Urine Glucose (UA) Urine Ketones Urine Blood Urine Nitrite Ur Leukocyte Esterase Urine WBC (Auto) Urine RBC (Auto) 02/25/20 02/26/20 02/26/20 14:12 05:45 05:45 WBC 8.1 RBC 3.55 L Hgb 10.1 L Hct 29.4 L MCV 83 MCH 28.5 MCHC 34.4 RDW 17.2 H Plt Count 643 H Seg Neutrophils % Not Reportable VBG pH VBG pCO2 VBG HCO3 VBG Base Excess Sodium 126.2 L Potassium 5.3 H Chloride 94 L Carbon Dioxide 22 Anion Gap 10 BUN 38 H Creatinine 0.78 Est GFR ( Amer) > 60 Glucose 125 H Calcium 9.8 Total Bilirubin AST Alkaline Phosphatase Total Protein Albumin Urine Color YELLOW Urine Appearance SLIGHTLY-CLOUDY Urine pH 5.0 Ur Specific [place] 1.025 Urine Protein 100 H Urine Glucose (UA) NEGATIVE Urine Ketones NEGATIVE Urine Blood LARGE H Urine Nitrite NEGATIVE Ur Leukocyte Esterase NEGATIVE Urine WBC (Auto) 47 Urine RBC (Auto) 28 02/25/20 12:36 Troponin I 0.017 Impressions: Chest X-Ray 02/25/20 12:24 IMPRESSION: Multiple pulmonary nodules with superimposed edema or sepsis. Chest/Abdomen CTA 02/25/20 19:51 IMPRESSION: No evidence of pulmonary embolus. Widespread pulmonary metastatic disease. Moderate right and small left pleural effusions with superimposed diffuse smooth interlobular septal thickening throughout both lungs as well as patchy areas of groundglass opacity, most suggestive of superimposed interstitial edema. Right retroperitoneal masslike density, suspicious for metastatic lymphadenopathy. 3.6 cm abdominal aortic aneurysm. Recommend follow-up every 2 years. Reference: J Am Angelica Radiol 2013;10:789-794. TECHNICAL DOCUMENTATION: Quality ID # 436: Final reports with documentation of one or more dose reduction techniques (e.g., Automated exposure control, adjustment of the mA and/or kV according to patient size, use of iterative reconstruction technique) copyright 2011 [employer]- All Rights Reserved Assessment and Plan - Diagnosis (1) Pleural effusion Is this a current diagnosis for this admission?: Yes Plan: Her right greater than left likely secondary to malignancy, surgical consult for thoracentesis and consideration of pleurodesis. 02/26/2020 patient came in with complaints of shortness of breath CT scan of the chest indicates moderate right and small left pleural effusions with superimposed diffuse to smooth interlobar septal thickening throughout the both lungs as well as patchy areas of groundglass opacity suggestive of superimposed interstitial edema. Also found to have a mediastinal lymphadenopathy. (2) Hyperkalemia Is this a current diagnosis for this admission?: Yes Plan: Low potassium diet, lactulose, follow-up chemistry 02/26/20- serum potasium 5.3 , plan is to recheck the labs tomorrow. Patient is on diuretics hopefully potassium will come down to normal limits. (3) Anemia Qualifiers: Anemia type: other cause Is this a current diagnosis for this admission?: No Plan: Complicated by malignancy, follow-up outpatient 02/26/2020-patient has history of anemia of chronic disease most likely secondary to adenocarcinoma. Hemoglobin today is 10.1. 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 Follow-up chemistry 02/26/2020-serum sodium is around 126. Most likely secondary to lung mets. Asymptomatic. Alert and awake communicating well. (5) Adrenal cancer Is this a current diagnosis for this admission?: No Plan: Outpatient follow-up with [facility] 02/26/2020-patient has history of adrenal cancer with mets to the lungs. Patient is receiving chemotherapy at the [facility].
[2020-02-26] MEDS: METOPROLOL SUCCINATE 50 MG TAB.SR.24H PO SCH ×2 (11:44→22:20)
[2020-02-26] MEDS: ASCORBIC ACID 500 MG TABLET PO SCH (11:44)
[2020-02-26] MEDS: PANTOPRAZOLE SODIUM 40 MG TABLET.DR PO SCH (11:44)
[2020-02-26] MEDS: ASPIRIN 81 MG TABLET, ENT COATED PO SCH (11:45)
[2020-02-26] MEDS ORDERED: MIDAZOLAM 2 MG/2 ML INJ ONE (14:04)
--- NOTE | 2020-02-26 16:03 | RADIOLOGY REPORT (SQ) ---
EXAM DESCRIPTION: CHEST SINGLE VIEW IMAGES COMPLETED DATE/TIME: 02/26/2020 3:17 pm REASON FOR STUDY: RT THORA COMPARISON: 02/25/2020 EXAM PARAMETERS: NUMBER OF VIEWS: One view. TECHNIQUE: Single frontal radiographic view of the chest acquired. RADIATION DOSE: NA LIMITATIONS: None. FINDINGS: LUNGS AND PLEURA: Numerous bilateral pulmonary nodules consistent with known mets. Pulmon juan edema remains but is improved. Right pleural effusion is slightly smaller in size. No pneumotho rax. MEDIASTINUM AND HILAR STRUCTURES: No masses. Contour normal. HEART AND VASCULAR STRUCTURES: Heart normal in size. Normal vasculature. BONES: No acute findings. HARDWARE: None in the chest. OTHER: No other significant finding. IMPRESSION: No pneumothorax following right-sided thoracentesis. TECHNICAL DOCUMENTATION: JOB ID: [id number] 2010 [employer]- All Rights Reserved Reading location - IP/workstation name: [email or web address]
--- NOTE | 2020-02-26 16:07 | RADIOLOGY REPORT (SQ) ---
EXAM DESCRIPTION: CT THORACENTESIS WITH IMAGING IMAGES COMPLETED DATE/TIME: 02/26/2020 3:22 pm REASON FOR STUDY: rt plural effusion/plurex cath placement COMPARISON: CT chest dated 02/25/2020 CLUB FORMER: [employer] SUPERVISING PHYSICIAN: Dr. Aguilera FLUOROSCOPY TIME: CT Fluoroscopy: 29.41 seconds 48CT fluoroscopic images were obtained and saved to PACS. RADIATION DOSE: CT Rad equipment meets quality standard of care and radiation dose reduction techniq ues were employed. CTDIvol: 4.0 - 18.6 mGy. DLP: 742 mGy-cm. mGy. LIMITATIONS: None. PROCEDURE: Procedure, risks, benefit, and alternative explained to patient who then gave written con sent. The right posterolateral chest chest wall was marked using CT guidance; "time-out" called; cor rect marking verified. Chest prepped and draped using sterile technique. Local anesthesia achieved using 1% lidocaine injection. Hypodermic needle introduced into the right pleural space. Fluid as pirated. Needle removed and entry site covered with sterile bandage. No immediate complications n oted. Throughout the procedure at my direction the patient received 1 mg of Versed said intravenousl y. Physiologic monitoring was performed before during and following the procedure. Total sedation t yuni was 20 minutes. Total [id number] by the operating physician time was 20 minutes. Images acquired during the procedure were stored on PACS. All CT scanners at this facility use dose modulation, iterative reconstruction, and/or weight based d osing when appropriate to reduce radiation dose to as low as reasonably achievable (ALARA). [facility]: Dose Right [facility]: CareDose [facility]: Dose Right [facility]: Teradose 4D [facility]: Insplorion FINDINGS: ENTRY SITE: Right posterolateral chest wall. FLUID VOLUME: 850 mL. FLUID ANALYSIS: Clear, straw-colored. OTHER: Fluid was sent to pathology for evaluation. IMPRESSION: SUCCESSFUL CT GUIDED RIGHTTHORACENTESIS. COMMENT: Patient medication list reviewed: Yes- PQRS [id number]:Eligible professional attests to document ing in the medical record they obtained, updated, or reviewed the patient's current medications. Quality ID 145: Final reports for procedures using fluoroscopy that document radiation exposure conrad jose, or exposure time and number of fluorographic images (if radiation exposure indices are not avail able) TECHNICAL DOCUMENTATION: JOB ID: [id number] Quality ID # 436: Final reports with documentation of one or more dose reduction techniques (e.g., Au tomated exposure control, adjustment of the mA and/or kV according to patient size, use of iterative reconstruction technique) 2010 [employer].- All Rights Reserved Reading location - IP/workstation name: [email or web address]
[2020-02-26] MEDS: MAGNESIUM OXIDE 400 MG TABLET PO SCH (17:31)
--- NOTE | 2020-02-26 17:43 | RADIOLOGY REPORT (SQ) ---
EXAM DESCRIPTION: CHEST SINGLE VIEW IMAGES COMPLETED DATE/TIME: 02/26/2020 5:29 pm REASON FOR STUDY: RT THORA 2 HOUR 1715 COMPARISON: 02/25/2020 EXAM PARAMETERS: NUMBER OF VIEWS: One view. TECHNIQUE: Single frontal radiographic view of the chest acquired. RADIATION DOSE: NA LIMITATIONS: None. FINDINGS: LUNGS AND PLEURA: Status post right thoracentesis. No evidence of pneumothorax. Multipl e innumerable nodular opacities throughout both lungs and focal parenchymal opacities are again ident ified in the lungs. Bilateral stable appearing pleural effusions. MEDIASTINUM AND HILAR STRUCTURES: No significant interval changes. HEART AND VASCULAR STRUCTURES: Stable appearance. BONES: No acute findings. HARDWARE: None in the chest. OTHER: No other significant finding. IMPRESSION: 1. No significant interval changes compared to the prior study performed earlier on the same date. 2. Status post right thoracentesis. No pneumothorax. TECHNICAL DOCUMENTATION: JOB ID: [id number] 2010 [employer]- All Rights Reserved Reading location - IP/workstation name: [email or web address]
[2020-02-26] MEDS: OLANZAPINE 5 MG TABLET PO SCH (22:19)
[2020-02-27] MEDS: IPRATROPIUM/ALBUTEROL 0.5-2.5 MG/3 ML AMPUL NEB SCH ×4 (00:39→23:44)
[2020-02-27] MEDS: INSULIN LISPRO 100 UNIT/ML 3 ML VIAL SUBCUT SCH ×5 (00:55→21:14)
[2020-02-27] MEDS: HEPARIN SOD (PORCINE) 5,000 UNIT/ML 1 ML VIAL SUBCUT SCH ×3 (05:26→21:13)
[2020-02-27 05:51] LABS: ABSOLUTE MONOCYTES (AUTO) 0.1 10^3/uL (0.1-1.4); ABSOLUTE NEUT (AUTO) 5.2 10^3/uL (1.7-8.2); BASOPHILS % (AUTO) 0.6 % (0-2); EOSINOPHILS % (AUTO) 0.3 % (0-6); HEMATOCRIT 25.9 % (36.0-47.0); HEMOGLOBIN 9.1 g/dL (12.0-15.5); MEAN CORPUSCULAR HEMOGLOBIN 28.7 pg (27.0-33.4); MEAN CORPUSCULAR HGB CONC 35.2 g/dL (32.0-36.0); MEAN CORPUSCULAR VOLUME 82 fl (80-97); MONOCYTES % (AUTO) 1.9 % (3-13); PLATELET COUNT 632 10^3/uL (150-450); RED BLOOD COUNT 3.18 10^6/uL (3.72-5.28); RED CELL DISTRIBUTION WIDTH 17.1 % (11.5-14.0); SEGMENTED NEUTROPHILS % (AUTO) 81.2 % (42-78); TOTAL CELLS COUNTED % (AUTO) 100 %; WHITE BLOOD COUNT 6.4 10^3/uL (4.0-10.5)
[2020-02-27 06:17] LABS: ALKALINE PHOSPHATASE 56 U/L (38-126); ANION GAP 8 (5-19); ASPARTATE AMINO TRANSFERASE 22 U/L (14-36); BILIRUBIN,TOTAL 0.6 mg/dL (0.2-1.3); BLOOD UREA NITROGEN 32 mg/dL (7-20); CALCIUM 9.3 mg/dL (8.4-10.2); CARBON DIOXIDE 25 mmol/L (22-30); CHLORIDE 91 mmol/L (98-107); GLUCOSE 82 mg/dL (75-110); POTASSIUM 4.7 mmol/L (3.6-5.0)
[2020-02-27] MEDS: DOCUSATE SODIUM 100 MG CAPSULE PO SCH ×2 (09:08→17:12)
[2020-02-27] MEDS: FLUTICASONE NASAL SPRAY 50 MCG/SPRY 120 SPRAY/16 GM NASL SCH ×2 (09:09→21:14)
[2020-02-27] MEDS: MAGNESIUM OXIDE 400 MG TABLET PO SCH ×2 (09:14→17:12)
[2020-02-27] MEDS: ASPIRIN 81 MG TABLET, ENT COATED PO SCH (09:14)
[2020-02-27] MEDS: ASCORBIC ACID 500 MG TABLET PO SCH (09:14)
[2020-02-27] MEDS: PANTOPRAZOLE SODIUM 40 MG TABLET.DR PO SCH (09:15)
[2020-02-27] MEDS: HYDROCHLOROTHIAZIDE 25 MG TABLET PO SCH (09:15)
[2020-02-27] MEDS: LISINOPRIL 10 MG TABLET PO SCH (09:15)
[2020-02-27] MEDS: METOPROLOL SUCCINATE 50 MG TAB.SR.24H PO SCH ×2 (09:15→21:13)
--- NOTE | 2020-02-27 09:45 | PDOC PROGRESS REPORT ---
Subjective Progress Note for:: 02/27/20 Subjective:: 69 year old female with a past medical history of diabetes, hypertension, stage IV adrenal cancer with metastasis to the lung on chemotherapy via [facility]. She presents with 24 hours of worsening shortness of breath and nonproductive cough without fever. In the emergency room she is found to be tachypneic with a CT chest with mucous plugging, significant bilateral metastatic burden and moderate right pleural effusion. She is also found to have hyponatremia of 127 and potassium 5.2 she is referred to the hospitalist for admission. Patient is unaware of a history of pleural effusions or hyponatremia. She denies recent change in medication regiment and otherwise is felt fair her last chemotherapy was 24 hours ago. 02/[id number]-svoh-old female with history of adenocarcinoma with mets to the lungs admitted with shortness of breath. Found to have a right pleural effusion. Comfortably in the bed talking to the family members on the phone. She is not on home oxygen. Socks is 93% on 1 L. CODE STATUS is DNR/DNI. Denies any complaints. Allyson consult was requested for pleural effusion. 02/27/2020-patient went for a right-sided thoracentesis yesterday, fluid sample was sent to pathology. Socks today is 98% on room air. Comfortably in the bed communicating well. Reason For Visit: STAGE 4 ADREANAL CA TO LUNG C EFFUSION Physical Exam Vital Signs: Temp Pulse Resp BP Pulse Ox 97.7 F 89 16 115/65 93 02/27/20 08:00 02/27/20 08:19 02/27/20 08:19 02/27/20 08:00 02/27/20 08:19 Intake & Output 02/26/20 02/27/20 02/28/20 06:59 06:59 06:59 Intake Total 1169 Balance 1169 Weight 71 kg 68.5 kg General appearance: PRESENT: no acute distress, cooperative, thin Head exam: PRESENT: atraumatic Eye exam: PRESENT: PERRLA Mouth exam: PRESENT: moist, tongue midline Teeth exam: PRESENT: poor dentation Neck exam: ABSENT: carotid bruit, JVD, lymphadenopathy, thyromegaly Respiratory exam: PRESENT: decreased breath sounds Cardiovascular exam: PRESENT: RRR. ABSENT: diastolic murmur, rubs, systolic murmur GI/Abdominal exam: PRESENT: normal bowel sounds, soft. ABSENT: distended, guarding, mass, organolmegaly, rebound, tenderness Rectal exam: PRESENT: deferred Neurological exam: PRESENT: alert, awake, oriented to person, oriented to place, oriented to time, oriented to situation, CN II-XII grossly intact. ABSENT: motor sensory deficit Psychiatric exam: PRESENT: appropriate affect, normal mood. ABSENT: homicidal ideation, suicidal ideation Results Laboratory Results: 02/27/20 05:21 02/27/20 05:21 02/27/20 02/27/20 05:21 05:21 WBC 6.4 RBC 3.18 L Hgb 9.1 L Hct 25.9 L MCV 82 MCH 28.7 MCHC 35.2 RDW 17.1 H Plt Count 632 H Seg Neutrophils % 81.2 H Sodium 124.1 L Potassium 4.7 Chloride 91 L Carbon Dioxide 25 Anion Gap 8 BUN 32 H Creatinine 0.78 Est GFR ( Amer) > 60 Glucose 82 Calcium 9.3 Magnesium 1.7 Total Bilirubin 0.6 AST 22 Alkaline Phosphatase 56 Total Protein 6.0 L Albumin 3.0 L 02/25/20 12:36 Troponin I 0.017 Impressions: Chest/Abdomen CTA 02/25/20 19:51 IMPRESSION: No evidence of pulmonary embolus. Widespread pulmonary metastatic disease. Moderate right and small left pleural effusions with superimposed diffuse smooth interlobular septal thickening throughout both lungs as well as patchy areas of groundglass opacity, most suggestive of superimposed interstitial edema. Right retroperitoneal masslike density, suspicious for metastatic lymphadenopathy. 3.6 cm abdominal aortic aneurysm. Recommend follow-up every 2 years. Reference: J Am Angelica Radiol 2013;10:789-794. TECHNICAL DOCUMENTATION: Quality ID # 436: Final reports with documentation of one or more dose reduction techniques (e.g., Automated exposure control, adjustment of the mA and/or kV according to patient size, use of iterative reconstruction technique) copyright 2011 [employer]- All Rights Reserved Chest X-Ray 02/26/20 00:00 IMPRESSION: 1. No significant interval changes compared to the prior study performed earlier on the same date. 2. Status post right thoracentesis. No pneumothorax. Thoracentesis 02/26/20 00:00 IMPRESSION: SUCCESSFUL CT GUIDED RIGHTTHORACENTESIS. Assessment and Plan - Diagnosis (1) Pleural effusion Is this a current diagnosis for this admission?: Yes Plan: Her right greater than left likely secondary to malignancy, surgical consult for thoracentesis and consideration of pleurodesis. 02/26/2020 patient came in with complaints of shortness of breath CT scan of the chest indicates moderate right and small left pleural effusions with superimposed diffuse to smooth interlobar septal thickening throughout the both lungs as well as patchy areas of groundglass opacity suggestive of superimposed interstitial edema. Also found to have a mediastinal lymphadenopathy. 02/27/2020-patient has a history of adrenal cancer to the lungs admitted with shortness of breath had a right-sided thoracentesis done. Plan is to repeat the chest x-ray today. Patient is doing well pulse ox is 98% room air. Plan is to continue the present management probable discharge home tomorrow. sHe follows with [facility] in [facility].. (2) Hyperkalemia Is this a current diagnosis for this admission?: Yes Plan: Low potassium diet, lactulose, follow-up chemistry 02/26/20- serum potasium 5.3 , plan is to recheck the labs tomorrow. Patient is on diuretics hopefully potassium will come down to normal limits. 02/27/2020-patient came with hyperkalemia today's potassium is 4.7. Within normal limits. Hyperkalemia resolved. (3) Anemia Qualifiers: Anemia type: other cause Is this a current diagnosis for this admission?: No Plan: Complicated by malignancy, follow-up outpatient 02/26/2020-patient has history of anemia of chronic disease most likely secondary to adenocarcinoma. Hemoglobin today is 10.1. 02/27/2020-patient has history of chronic anemia secondary to malignancy hemoglobin is 9.1. Asymptomatic. 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 Follow-up chemistry 02/26/2020-serum sodium is around 126. Most likely secondary to lung mets. Asymptomatic. Alert and awake communicating well. 02/27/2020-serum sodium is 124 most likely secondary to lung mets. Alert awake oriented communicating well no evidence of altered mental status. (5) Adrenal cancer Is this a current diagnosis for this admission?: No Plan: Outpatient follow-up with [facility] 02/26/2020-patient has history of adrenal cancer with mets to the lungs. Patient is receiving chemotherapy at the [facility].
[2020-02-27] MEDS ORDERED: (PENDING PHARMACY ID) (Lisinopril/Hydrochlorothiazide [Zestoretic 20-25 Mg Tablet] 1 TAB) PO SCH (10:00)
--- NOTE | 2020-02-27 14:09 | RADIOLOGY REPORT (SQ) ---
EXAM DESCRIPTION: CHEST 2 VIEWS IMAGES COMPLETED DATE/TIME: 02/27/2020 1:51 pm REASON FOR STUDY: rt plural effusion/ s/p thoracentasis COMPARISON: 02/26/2012 EXAM PARAMETERS: NUMBER OF VIEWS: two views TECHNIQUE: Digital Frontal and Lateral radiographic views of the chest acquired. RADIATION DOSE: NA LIMITATIONS: none FINDINGS: LUNGS AND PLEURA: Nodules throughout the lungs. Minimal opacity at the right base. No pn eumothorax. MEDIASTINUM AND HILAR STRUCTURES: No masses or contour abnormalities. HEART AND VASCULAR STRUCTURES: Heart normal size. No evidence for failure. BONES: No acute findings. HARDWARE: None in the chest. OTHER: No other significant finding. IMPRESSION: Stable appearance of the chest. No pneumothorax. TECHNICAL DOCUMENTATION: JOB ID: [id number] 2010 [employer]- All Rights Reserved Reading location - IP/workstation name: [email or web address]
[2020-02-27] MEDS: OLANZAPINE 5 MG TABLET PO SCH (21:13)
[2020-02-28] MEDS: HEPARIN SOD (PORCINE) 5,000 UNIT/ML 1 ML VIAL SUBCUT SCH (05:52)
[2020-02-28 06:25] LABS: ABSOLUTE EOSINOPHILS # (AUTO) 0.1 10^3/uL (0.0-0.6); ABSOLUTE LYMPHOCYTES (AUTO) 0.9 10^3/uL (0.5-4.7); ABSOLUTE MONOCYTES (AUTO) 0.1 10^3/uL (0.1-1.4); ABSOLUTE NEUT (AUTO) 3.1 10^3/uL (1.7-8.2); BASOPHILS % (AUTO) 0.3 % (0-2); EOSINOPHILS % (AUTO) 1.8 % (0-6); HEMATOCRIT 24.2 % (36.0-47.0); HEMOGLOBIN 8.4 g/dL (12.0-15.5); LYMPHOCYTES % (AUTO) 21.1 % (13-45); MEAN CORPUSCULAR HEMOGLOBIN 28.4 pg (27.0-33.4); MEAN CORPUSCULAR HGB CONC 34.5 g/dL (32.0-36.0); MEAN CORPUSCULAR VOLUME 82 fl (80-97); MONOCYTES % (AUTO) 1.6 % (3-13); PLATELET COUNT 500 10^3/uL (150-450); RED BLOOD COUNT 2.94 10^6/uL (3.72-5.28); RED CELL DISTRIBUTION WIDTH 17.1 % (11.5-14.0); SEGMENTED NEUTROPHILS % (AUTO) 75.2 % (42-78); TOTAL CELLS COUNTED % (AUTO) 100 %; WHITE BLOOD COUNT 4.2 10^3/uL (4.0-10.5)
[2020-02-28 06:48] LABS: ALBUMIN 2.8 g/dL (3.5-5.0); ALKALINE PHOSPHATASE 51 U/L (38-126); ASPARTATE AMINO TRANSFERASE 19 U/L (14-36); BILIRUBIN,TOTAL 0.3 mg/dL (0.2-1.3); BLOOD UREA NITROGEN 24 mg/dL (7-20); CALCIUM 9.3 mg/dL (8.4-10.2); GLUCOSE 81 mg/dL (75-110); POTASSIUM 4.1 mmol/L (3.6-5.0); TOTAL PROTEIN 5.6 g/dL (6.3-8.2)
[2020-02-28 06:54] LABS: ANION GAP 6 (5-19); CARBON DIOXIDE 27 mmol/L (22-30); CHLORIDE 94 mmol/L (98-107)
[2020-02-28] MEDS: INSULIN LISPRO 100 UNIT/ML 3 ML VIAL SUBCUT SCH ×2 (07:54→12:07)
[2020-02-28] MEDS: IPRATROPIUM/ALBUTEROL 0.5-2.5 MG/3 ML AMPUL NEB SCH (08:46)
[2020-02-28] MEDS: DOCUSATE SODIUM 100 MG CAPSULE PO SCH (09:29)
[2020-02-28] MEDS: FLUTICASONE NASAL SPRAY 50 MCG/SPRY 120 SPRAY/16 GM NASL SCH (09:29)
[2020-02-28] MEDS: HYDROCHLOROTHIAZIDE 25 MG TABLET PO SCH (09:31)
[2020-02-28] MEDS: METOPROLOL SUCCINATE 50 MG TAB.SR.24H PO SCH (09:32)
[2020-02-28] MEDS: MAGNESIUM OXIDE 400 MG TABLET PO SCH (09:32)
[2020-02-28] MEDS: LISINOPRIL 10 MG TABLET PO SCH (09:32)
[2020-02-28] MEDS: PANTOPRAZOLE SODIUM 40 MG TABLET.DR PO SCH (09:32)
[2020-02-28] MEDS: ASPIRIN 81 MG TABLET, ENT COATED PO SCH (09:32)
[2020-02-28] MEDS: ASCORBIC ACID 500 MG TABLET PO SCH (09:32)
[2020-02-28 11:22] VITALS: BP 122/70
--- NOTE | 2020-02-28 11:25 | PDOC DISCHARGE SUMMARY ---
Impression - Admit/DC Date/PCP Admission Date/Primary Care Provider: 02/25/20 21:44 AMARA KILLIAN MD Discharge Date: 02/28/20 - Discharge Diagnosis (1) Pleural effusion Is this a current diagnosis for this admission?: Yes (2) Anemia, chronic disease Is this a current diagnosis for this admission?: Yes (3) Hyperkalemia Is this a current diagnosis for this admission?: Yes (4) Adrenal cancer Is this a current diagnosis for this admission?: Yes (5) Hyponatremia Is this a current diagnosis for this admission?: Yes (6) Metastatic disease to the lung Is this a current diagnosis for this admission?: Yes - Additional Information Resuscitation Status: Do Not Resuscitate Discharge Diet: Regular Referrals: AMARA KILLIAN MD [Primary Care Provider] - Follow up as needed KIMBERLY PLASCENCIA MD [NO LOCAL MD] - 03/02/20 Prescriptions: Furosemide [Lasix 40 mg Tablet] 40 mg PO QAM #30 tablet Lisinopril [Prinivil 10 mg Tablet] 20 mg PO DAILY 30 Days tablet Home Medications: Metformin HCl [Metformin HCl ER] 750 mg PO WSUPPER 02/18/20 Olanzapine [Zyprexa 5 mg Tablet] 5 mg PO QHS MDD 3 DAYS 02/18/20 Pantoprazole Sodium [Protonix [address] Tablet] 40 mg PO DAILY 02/18/20 Aspirin [Ecotrin 81 mg EC Tablet] 81 mg PO DAILY tabec 02/20/20 Magnesium Oxide [Mag-Ox 400 mg Tablet] 800 mg PO BID 30 Days #60 tab 02/20/20 Nitroglycerin [Nitrostat 0.4 mg (1/150 Gr) Tabs 25/Bottle] 1 tab SL Q5MP PRN 30 Days #90 bottle 02/20/20 Ascorbic Acid [Vitamin C 500 mg Tablet] 500 mg PO DAILY 02/26/20 Metoprolol Succinate [Toprol Xl 50 mg Tab.sr] 50 mg PO Q12 02/26/20 Furosemide [Lasix 40 mg Tablet] 40 mg PO QAM #30 tablet 02/28/20 Lisinopril [Prinivil 10 mg Tablet] 20 mg PO DAILY 30 Days tablet 02/28/20 History of Present Illiness History of Present Illness: MONY STEELE is a 69 year old female with a past medical history of diabetes, hypertension, stage IV adrenal cancer with metastasis to the lung on chemotherapy via [facility]. She presents with 24 hours of worsening shortness of breath and nonproductive cough without fever. In the emergency room she is found to be tachypneic with a CT chest with mucous plugging, significant bilateral metastatic burden and moderate right pleural effusion. She is also found to have hyponatremia of 127 and potassium 5.2 she is referred to the hospitalist for admission. Patient is unaware of a history of pleural effusions or hyponatremia. She denies recent change in medication regiment and otherwise is felt fair her last chemotherapy was 24 hours ago. Hospital Course Hospital Course: Patient was admitted to the hospital for treatment of shortness of breath. Chest x-ray revealed right-sided moderate pleural effusion. Patient has known history of adrenal cancer with metastasis to the right lung. This was diagnosed this year and patient is currently undergoing chemotherapy with Dr. Plascencia at [facility]. Patient underwent a thoracentesis for therapeutic purposes. Fluid sample sent for cytology which is pending. However there is strong likelihood that patient does have a malignant right pleural effusion. Following the thoracentesis, patient shortness of breath improved significantly and today she states that her breathing is 1 million times better than when she came in. Patient was also noted to be hyponatremic. Her sodium level seems to be at her chronic baseline since her first labs here in November 2019 and stable. She is asymptomatic from this hyponatremia. Patient is noted to be on hydrochlorothiazide which has been discontinued and switched to Lasix and instructed to follow-up with her PCP for repeat BMP within 2 weeks. Patient is being discharged safely home with the appropriate follow-ups. Physical Exam Vital Signs: Temp Pulse Resp BP Pulse Ox 97.9 F 89 16 155/76 H 97 02/28/20 07:34 02/28/20 08:46 02/28/20 08:46 02/28/20 07:34 02/28/20 08:46 Intake & Output 02/27/20 02/28/20 02/29/20 06:59 06:59 06:59 Intake Total 1169 920 Balance 1169 920 Weight 68.5 kg 68.5 kg General appearance: PRESENT: no acute distress, cooperative, hard of hearing Respiratory exam: PRESENT: crackles - Lung bases, symmetrical, unlabored. ABSENT: accessory muscle use, retraction, tachypnea Cardiovascular exam: PRESENT: +S1, +S2, systolic murmur Neurological exam: PRESENT: alert, awake, oriented to person, oriented to place, oriented to time, oriented to situation Results Laboratory Results: WBC 4.2 10^3/uL (4.0-10.5) 02/28/20 05:43 RBC 2.94 10^6/uL (3.72-5.28) L 02/28/20 05:43 Hgb 8.4 g/dL (12.0-15.5) L 02/28/20 05:43 Hct 24.2 % (36.0-47.0) L 02/28/20 05:43 MCV 82 fl (80-97) 02/28/20 05:43 MCH 28.4 pg (27.0-33.4) 02/28/20 05:43 MCHC 34.5 g/dL (32.0-36.0) 02/28/20 05:43 RDW 17.1 % (11.5-14.0) H 02/28/20 05:43 Plt Count 500 10^3/uL (150-450) H 02/28/20 05:43 Lymph % (Auto) 21.1 % (13-45) 02/28/20 05:43 [place]ferro % (Auto) 1.6 % (3-13) L 02/28/20 05:43 Eos % (Auto) 1.8 % (0-6) 02/28/20 05:43 Baso % (Auto) 0.3 % (0-2) 02/28/20 05:43 Absolute Neuts (auto) 3.1 10^3/uL (1.7-8.2) 02/28/20 05:43 Absolute Lymphs (auto) 0.9 10^3/uL (0.5-4.7) 02/28/20 05:43 Absolute Monos (auto) 0.1 10^3/uL (0.1-1.4) 02/28/20 05:43 Absolute Eos (auto) 0.1 10^3/uL (0.0-0.6) 02/28/20 05:43 Absolute Basos (auto) 0.0 10^3/uL (0.0-0.2) 02/28/20 05:43 Total Counted 100 02/26/20 05:45 Seg Neutrophils % 75.2 % (42-78) 02/28/20 05:43 Seg Neuts % (Manual) 88 % (42-78) H 02/26/20 05:45 Lymphocytes % (Manual) 3 % (13-45) L 02/26/20 05:45 Monocytes % (Manual) 9 % (3-13) 02/26/20 05:45 Eosinophils % (Manual) 0 % (0-6) 02/26/20 05:45 Basophils % (Manual) 0 % (0-2) 02/26/20 05:45 Abs Neuts (Manual) 7.1 10^3/uL (1.7-8.2) 02/26/20 05:45 Abs Lymphs (Manual) 0.2 10^3/uL (0.5-4.7) L 02/26/20 05:45 Abs Monocytes (Manual) 0.7 10^3/uL (0.1-1.4) 02/26/20 05:45 Absolute Eos (Manual) 0.0 10^3/uL (0.0-0.6) 02/26/20 05:45 Abs Basophils (Manual) 0.0 10^3/uL (0.0-0.2) 02/26/20 05:45 Toxic Granulation SLIGHT 02/26/20 05:45 Toxic Vacuolation PRESENT 02/26/20 05:45 Platelet Comment INCREASED 02/26/20 05:45 Anisocytosis 1+ 02/26/20 05:45 Ovalocytes SLIGHT 02/26/20 05:45 PT 14.1 SEC (11.4-15.4) 02/25/20 23:24 INR 1.09 02/25/20 23:24 VBG pH 7.28 (7.30-7.42) L 02/25/20 12:45 VBG pCO2 52.6 mmHg (35-63) 02/25/20 12:45 VBG HCO3 24.4 mmol/L (20-32) 02/25/20 12:45 VBG Base Excess -3.0 mmol/L 02/25/20 12:45 Sodium 126.5 mmol/L (137-145) L 02/28/20 05:43 Potassium 4.1 mmol/L (3.6-5.0) 02/28/20 05:43 Chloride 94 mmol/L (98-107) L 02/28/20 05:43 Carbon Dioxide 27 mmol/L (22-30) 02/28/20 05:43 Anion Gap 6 (5-19) 02/28/20 05:43 BUN 24 mg/dL (7-20) H 02/28/20 05:43 Creatinine 0.71 mg/dL (0.52-1.25) 02/28/20 05:43 Est GFR ( Amer) > 60 (>60) 02/28/20 05:43 Est GFR (MDRD) Non-Af > 60 (>60) 02/28/20 05:43 Glucose 81 mg/dL (75-110) 02/28/20 05:43 POC Glucose 140 mg/dL (70-110) H 02/27/20 21:10 Calcium 9.3 mg/dL (8.4-10.2) 02/28/20 05:43 Magnesium 1.5 mg/dL (1.6-2.3) L 02/28/20 05:43 Total Bilirubin 0.3 mg/dL (0.2-1.3) 02/28/20 05:43 Direct Bilirubin 0.0 mg/dL (0.0-0.4) 02/28/20 05:43 Neonat Total Bilirubin Not Reportable 02/28/20 05:43 Neonat Direct Bilirubin Not Reportable 02/28/20 05:43 Neonat Indirect Bili Not Reportable 02/28/20 05:43 AST 19 U/L (14-36) 02/28/20 05:43 ALT 10 U/L (<35) 02/28/20 05:43 Alkaline Phosphatase 51 U/L (38-126) 02/28/20 05:43 Troponin I 0.017 ng/mL 02/25/20 12:36 Total Protein 5.6 g/dL (6.3-8.2) L 02/28/20 05:43 Albumin 2.8 g/dL (3.5-5.0) L 02/28/20 05:43 Urine Color YELLOW 02/25/20 14:12 Urine Appearance SLIGHTLY-CLOUDY 02/25/20 14:12 Urine pH 5.0 (5.0-9.0) 02/25/20 14:12 Ur Specific [place] 1.025 02/25/20 14:12 Urine Protein 100 mg/dL (NEGATIVE) H 02/25/20 14:12 Urine Glucose (UA) NEGATIVE mg/dL (NEGATIVE) 02/25/20 14:12 Urine Ketones NEGATIVE mg/dL (NEGATIVE) 02/25/20 14:12 Urine Blood LARGE (NEGATIVE) H 02/25/20 14:12 Urine Nitrite NEGATIVE (NEGATIVE) 02/25/20 14:12 Urine Bilirubin NEGATIVE (NEGATIVE) 02/25/20 14:12 Urine Urobilinogen NEGATIVE mg/dL (<2.0) 02/25/20 14:12 Ur Leukocyte Esterase NEGATIVE (NEGATIVE) 02/25/20 14:12 Urine WBC (Auto) 47 /HPF 02/25/20 14:12 Urine RBC (Auto) 28 /HPF 02/25/20 14:12 Squamous Epi Cells Auto <1 /HPF 02/25/20 14:12 Urine Mucus (Auto) RARE /LPF 02/25/20 14:12 Urine Ascorbic Acid 40 (NEGATIVE) H 02/25/20 14:12 02/25/20 12:36 Troponin I 0.017 Impressions: Chest X-Ray 02/25/20 12:24 IMPRESSION: Multiple pulmonary nodules with superimposed edema or sepsis. Chest/Abdomen CTA 02/25/20 19:51 IMPRESSION: No evidence of pulmonary embolus. Widespread pulmonary metastatic disease. Moderate right and small left pleural effusions with superimposed diffuse smooth interlobular septal thickening throughout both lungs as well as patchy areas of groundglass opacity, most suggestive of superimposed interstitial edema. Right retroperitoneal masslike density, suspicious for metastatic lymphadenopathy. 3.6 cm abdominal aortic aneurysm. Recommend follow-up every 2 years. Reference: J Am Angelica Radiol 2013;10:789-794. TECHNICAL DOCUMENTATION: Quality ID # 436: Final reports with documentation of one or more dose reduction techniques (e.g., Automated exposure control, adjustment of the mA and/or kV according to patient size, use of iterative reconstruction technique) copyright 2011 [employer]- All Rights Reserved Chest X-Ray 02/26/20 00:00 IMPRESSION: No pneumothorax following right-sided thoracentesis. Chest X-Ray 02/26/20 00:00 IMPRESSION: 1. No significant interval changes compared to the prior study performed earlier on the same date. 2. Status post right thoracentesis. No pneumothorax. Thoracentesis 02/26/20 00:00 IMPRESSION: SUCCESSFUL CT GUIDED RIGHTTHORACENTESIS. Chest X-Ray 02/27/20 00:00 IMPRESSION: Stable appearance of the chest. No pneumothorax. Plan Time Spent: Less than 30 Minutes Stroke Is this a Stroke Patient?: No Acute Heart Failure - Is this a Heart Failure Patient?: No
== END 2020-02-28 12:17 | disposition home or self-care (01) | DRG 181 ==
LOC: ER 12:22 → EH 21:44 → 4S 22:54
PROVIDERS: ADMIT Internal Medicine; ATTEND Internal Medicine
PROC: 0W993ZX Drainage of Right Pleural Cavity, Percutaneous Approach, Diagnostic (ICD-10-PCS; principal; 2020-02-26)
DX: C78.00 Secondary malignant neoplasm of unspecified lung (principal); C74.90 Malignant neoplasm of unspecified part of unspecified adrenal gland; J91.0 Malignant pleural effusion; E87.1 Hypo-osmolality and hyponatremia; D63.0 Anemia in neoplastic disease; I10 Essential (primary) hypertension; E11.65 Type 2 diabetes mellitus with hyperglycemia; Z66 Do not resuscitate; Z79.84 Long term (current) use of oral hypoglycemic drugs; Z79.82 Long term (current) use of aspirin; Z79.899 Other long term (current) drug therapy
CPT/HCPCS: 32555; 36415; 71045; 71046; 71275; 80048; 80053; 81001; 82803; 82962; 83735; 84484; 85025; 85610; 88305; 93005; 93010; 94640; 99285; J1644; J2250; J3490; J7620

== ENCOUNTER 2020-03-17 07:10 | Inpatient (IN) | payer MEDICAID, MEDICARE ==
[2020-03-17 07:42] LABS: ABSOLUTE LYMPHOCYTES (AUTO) 0.6 10^3/uL (0.5-4.7); ABSOLUTE NEUT (AUTO) 6.4 10^3/uL (1.7-8.2); BASOPHILS % (AUTO) 0.3 % (0-2); EOSINOPHILS % (AUTO) 0.1 % (0-6); HEMATOCRIT 26.7 % (36.0-47.0); HEMOGLOBIN 9.2 g/dL (12.0-15.5); LYMPHOCYTES % (AUTO) 7.7 % (13-45); MEAN CORPUSCULAR HEMOGLOBIN 28.8 pg (27.0-33.4); MEAN CORPUSCULAR HGB CONC 34.3 g/dL (32.0-36.0); MEAN CORPUSCULAR VOLUME 84 fl (80-97); MONOCYTES % (AUTO) 12.5 % (3-13); PLATELET COUNT 439 10^3/uL (150-450); RED BLOOD COUNT 3.19 10^6/uL (3.72-5.28); RED CELL DISTRIBUTION WIDTH 18.5 % (11.5-14.0); SEGMENTED NEUTROPHILS % (AUTO) 79.4 % (42-78); TOTAL CELLS COUNTED % (AUTO) 100 %; WHITE BLOOD COUNT 8.1 10^3/uL (4.0-10.5)
[2020-03-17 08:02] LABS: ALBUMIN 3.6 g/dL (3.5-5.0); ALKALINE PHOSPHATASE 51 U/L (38-126); ANION GAP 9 (5-19); ASPARTATE AMINO TRANSFERASE 18 U/L (14-36); BILIRUBIN,TOTAL 0.4 mg/dL (0.2-1.3); BLOOD UREA NITROGEN 36 mg/dL (7-20); CALCIUM 9.7 mg/dL (8.4-10.2); CARBON DIOXIDE 23 mmol/L (22-30); CHLORIDE 96 mmol/L (98-107); CREATINE KINASE 36 U/L (30-135); GLUCOSE 103 mg/dL (75-110); POTASSIUM 4.4 mmol/L (3.6-5.0); TOTAL PROTEIN 6.8 g/dL (6.3-8.2)
[2020-03-17 08:15] LABS: CREATINE KINASE MB 0.77 ng/mL (<4.55); TROPONIN I 0.016 ng/mL
--- NOTE | 2020-03-17 08:47 | ER Document Report ---
ED General - General Chief Complaint: Chest Pain Stated Complaint: CHEST PAIN Time Seen by Provider: 03/17/20 08:20 Primary Care Provider: LION KILLIAN MD [Primary Care Provider] - Follow up as needed TRAVEL OUTSIDE OF THE [place] IN LAST 30 DAYS: No - HPI Notes: Chief complaint: Chest discomfort HPI: 69-year-old female followed by Dr. Lion Killian and also being seen at cancer Center at [facility] presenting with chest discomfort. Patient has a history of adrenal CA metastatic to lung and was on the inpatient service here approximately 2 and half weeks ago for treatment of a right-sided pleural effusion and hyponatremia. She is back today reporting similar symptoms. She says she woke up this morning with sensation of pressure in retrosternal area associated with diaphoresis that lasted about 30 minutes and was nonexertional in nature. This was relieved after she took oral aspirin. Pain was nonradiating described as 8/10 in intensity. She has no known history of cardiac disease. She denies any history of thromboembolic disease. She is 1/2 pack/day smoker. Family history positive for CAD. Patient is a type II diabetic. Denies hypertension. Denies hyperlipidemia. HEART Score: HISTORY 2 ECG 1 AGE 1 RISK FACTORS 1 TROPONIN 0 TOTAL: 6 If HEART score is = 3 AND both tronponin measurments are normal, the 30 day risk of a major adverse cardiac event (all-cause mortality, myocardia infarction or need for coronary revscularization) is < 1% (Sensitivity 100%, NPV 100%). Patient requests DNR/DNI status. - Related Data Allergies/Adverse Reactions: cephalexin [From Keflex] Allergy (Verified 12/01/19 14:06) Past Medical History - General Information source: Patient - Social History Smoking Status: Current Every Day Smoker Frequency of alcohol use: None Drug Abuse: None Family History: Hypertension Patient has homicidal ideation: No - Past Medical History Cardiac Medical History: Reports: Hx Hypertension Endocrine Medical History: Reports: Hx Diabetes Mellitus Type 2 Malignancy Medical History: Reports: Hx Lung Cancer Psychiatric Medical History: Reports: Hx Depression Past Surgical History: Reports: Hx Appendectomy, Hx Cholecystectomy Review of Systems - Review of Systems Notes: Constitutional: Negative for fever. HENT: Negative for sore throat. Eyes: Negative for visual changes. Cardiovascular: As per HPI. Respiratory: Dyspnea on exertion. Gastrointestinal: Negative for abdominal pain, vomiting or diarrhea. Genitourinary: Negative for dysuria. Musculoskeletal: Negative for back pain. Skin: Negative for rash. Neurological: Negative for headaches, weakness or numbness. 10 point ROS negative except as marked above and in HPI. Physical Exam - Vital signs Vitals: Temp 98.7 F 03/17/20 07:14 - Notes Notes: GENERAL: Elderly female appearing in no acute distress. SKIN: Good turgor no rashes. HEAD: Normocephalic atraumatic. EYES: PERRLA. EOMI. Conjunctivae and sclerae clear. EARS: CANALS AND TMS CLEAR. NOSE: CLEAR. MOUTH: Moist mucosa. Good dentition. No stridor or edema. No drooling. NECK: Supple. No masses or thyromegaly. No adenopathy. Carotids 2+ without bruits. No JVD. BACK: Symmetrical without tenderness. CHEST: Respirations unlabored. Coarse crackles both bases. Diminished breath sounds right base.. HEART: Regular rhythm. No murmur gallop or rub. ABDOMEN: Soft nontender without masses, organomegaly or rebound. Bowel sounds normally active. No bruits. GENITALIA: Deferred. EXTREMITIES: Mild degenerative changes in her phalangeal joints both hands. 1+ bilateral pretibial edema. No calf tenderness. Cap refill less than 1.5 seconds. Dorsalis pedis and posterior tibial pulses 3+ and symmetrical. NEUROLOGICAL: GCS 15. Alert and oriented x3. Fluent speech. Cranial nerves II through XII intact. Sensorimotor and cerebellar normal. Normal tone. PSYCHIATRIC: Appropriate affect. Course - Re-evaluation Re-evalutation: 03/17/20 13:47 Patient is remained pain-free and hemodynamically stable here. She is on DO NOT RESUSCITATE status per her personal specification. EKG was nonspecific. Troponin was mildly elevated but not reaching the threshold for acute non-STEMI. Her d-dimer is markedly elevated. We obtained a chest CT angiogram ruling out PE. This does however show extensive metastatic disease. She has been accepted for admission to telemetry by for further evaluation and management. - Vital Signs Vital signs: Temp Pulse Resp BP Pulse Ox 98.8 F 86 17 115/64 96 03/17/20 07:23 03/17/20 07:23 03/17/20 10:37 03/17/20 10:37 03/17/20 10:37 - Laboratory Result Diagrams: 03/17/20 07:17 03/17/20 07:17 Laboratory results interpreted by me: 03/17/20 03/17/20 03/17/20 07:17 07:17 07:17 RBC 3.19 L Hgb 9.2 L Hct 26.7 L RDW 18.5 H Lymph % (Auto) 7.7 L Seg Neutrophils % 79.4 H D-Dimer 3.25 H Sodium 128.2 L Chloride 96 L BUN 36 H - Diagnostic Test Radiology reviewed: Reports reviewed - Per radiologist chest x-ray shows metastatic lesions of right lung unchanged from prior film. Per radiologist CT angiogram chest shows extensive metastatic changes of lung with no evidence of PE or aortic dissection - EKG Interpretation by Me Additional EKG results interpreted by me: 03/17/20 08:50 Twelve-lead EKG from 0716 hrs. reviewed contemporaneously by me. Patient is being evaluated for chest pain. Normal sinus rhythm with rate of 92. QRS axis is +64 degrees. Intervals are normal. There are inverted T waves in leads III and aVF. No acute ST shift. The overall appearance of the tracing is unchanged compared with prior study of February 25, 2020. Discharge - Discharge Clinical Impression: Chest pain, Adrenal carcinoma with lung metastasis, Hyponatremia Condition: Fair Disposition: ADMITTED INPATIENT Admitting Provider: Marty (Hospitalist) Unit Admitted: Telemetry Referrals: LION KILLIAN MD [Primary Care Provider] - Follow up as needed
--- NOTE | 2020-03-17 09:07 | RADIOLOGY REPORT (SQ) ---
EXAM DESCRIPTION: CHEST SINGLE VIEW IMAGES COMPLETED DATE/TIME: 03/17/2020 8:49 am REASON FOR STUDY: CP COMPARISON: 02/27/2020 and 02/18/2020. EXAM PARAMETERS: NUMBER OF VIEWS: One view. TECHNIQUE: Single frontal radiographic view of the chest acquired. RADIATION DOSE: NA LIMITATIONS: None. FINDINGS: LUNGS AND PLEURA: Again seen are multiple pulmonary nodules throughout both lobes. No foc al infiltrate. No large pleural effusion. No pneumothorax. MEDIASTINUM AND HILAR STRUCTURES: No masses. Contour normal. HEART AND VASCULAR STRUCTURES: Heart normal in size. Normal vasculature. BONES: No acute findings. HARDWARE: None in the chest. OTHER: No other significant finding. IMPRESSION: NO SIGNIFICANT CHANGE. MULTIPLE PULMONARY NODULES. NO ACUTE RADIOGRAPHIC FINDING IN TH E CHEST. TECHNICAL DOCUMENTATION: JOB ID: [id number] 2010 [employer]- All Rights Reserved Reading location - IP/workstation name: [email or web address]
--- NOTE | 2020-03-17 11:41 | EKG REPORT ---
SEVERITY:- ABNORMAL ECG - SINUS RHYTHM PROBABLE LEFT ATRIAL ABNORMALITY NONSPECIFIC INTRAVENTRICULAR CONDUCTION DELAY NONSPECIFIC ST-T CHANGES- INFERIOR LEADS : Confirmed by: Erick Escobar MD 17-Mar-2020 11:41:20
--- NOTE | 2020-03-17 12:58 | RADIOLOGY REPORT (SQ) ---
EXAM DESCRIPTION: CTA CHEST IMAGES COMPLETED DATE/TIME: 03/17/2020 12:36 pm REASON FOR STUDY: CP elevated d-dimer COMPARISON: 02/18/2020. TECHNIQUE: CT scan of the chest performed using helical scanning technique with dynamic intravenous contrast injection. Images reviewed with lung, soft tissue and bone windows. Reconstructed coronal and sagittal MPR images reviewed. Additional 3 dimensional post-processing performed to develop Maximal Intensity Projection images (HI P). All images stored on PACS. All CT scanners at this facility use dose modulation, iterative reconstruction, and/or weight based d osing when appropriate to reduce radiation dose to as low as reasonably achievable (ALARA). [facility]: Dose Right [facility]: CareDose [facility]: Dose Right [facility]: Teradose 4D [facility]: (In)Touch Network CONTRAST TYPE AND DOSE: contrast/concentration: Isovue 350.00 mg/ml; Total Contrast Delivered: 49.0 ml; Total Saline Delivered: 57.6 ml Contrast bolus adequate for pulmonary arteries and aorta. RENAL FUNCTION: BUN 36 creatinine 0.78. RADIATION DOSE: CT Rad equipment meets quality standard of care and radiation dose reduction techniq ues were employed. CTDIvol: 9.9 - 19.5 mGy. DLP: 679 mGy-cm. . LIMITATIONS: None. FINDINGS: LUNGS AND PLEURA: Multiple pulmonary nodules. Small bilateral pleural effusions, right gr eater than left. No lobar infiltrates. AORTA AND GREAT VESSELS: No aneurysm. No dissection. HEART: No pericardial effusion. No significant coronary artery calcifications. PULMONARY ARTERIES: No emboli visualized in the main pulmonary arteries or the segmental branches. HILAR AND MEDIASTINAL STRUCTURES: Mild confluent adenopathy. HARDWARE: None in the chest. UPPER ABDOMEN: No significant findings. Limited exam. THYROID AND OTHER SOFT TISSUES: No masses. No adenopathy. BONES: No acute or significant finding. Degenerative changes in the spine. 3D MIPS: Confirm above findings. OTHER: No other significant finding. IMPRESSION: 1. NORMAL CTA OF THE CHEST. NO PULMONARY EMBOLI. 2. MULTIPLE PULMONARY NODULES SECONDARY TO METASTATIC DISEASE. SMALL PLEURAL EFFUSIONS. COMMENT: Quality ID # [id number]: Final reports with documentation of one or more dose reduction techniques (e.g., Automated exposure control, adjustment of the mA and/or kV according to patient size, use of iterative reconstruction technique) TECHNICAL DOCUMENTATION: JOB ID: [id number] [employer]- All Rights Reserved Reading location - IP/workstation name: [email or web address]
--- NOTE | 2020-03-17 15:04 | PDOC H&P ---
History of Present Illness Admission Date/PCP: AMARA KILLINA MD Patient complains of: Chest pressure History of Present Illness: MONY STEELE is a 69 year old female with a complex medical history. This includes diabetes mellitus, hypertension, coronary artery disease and metastatic adrenal cancer stage IV. She is being treated at the [facility] in [facility]. She was feeling relatively well yesterday especially considering it was her chemotherapy today. She states that this morning at approximately 6:00 a heaviness on her chest woke her. She had cold sweats but felt hot. She denies any palpitations or radiation of the symptoms. She did experience nausea but had no vomiting. When calling EMS she was instructed to take 4 chewable aspirin. She did this immediately and was able to achieve some relief. By the time she presented to the emergency department she had complete relief of symptoms. Her initial troponin was 0.016 but the second troponin was 0.050. She has inverted T waves inferiorly but these are present on the previous EKGs. Vital signs are stable. She is currently pain-free. With the rise in troponin she will be admitted for her chest pain. Serial troponins will continue. Review of her CT scan shows that her pleural effusion is still limited. Otherwise she reports no medication changes since her discharge on February 27. Past Medical History Cardiac Medical History: Reports: Hypertension Endocrine Medical History: Reports: Diabetes Mellitus Type 2 Malignancy Medical History: Reports: Lung Cancer, Other - Adrenal cancer metastatic to both lungs with malignant effusion Psychiatric Medical History: Reports: Depression Hematology: Reports: Anemia Past Surgical History Past Surgical History: Reports: Appendectomy, Cholecystectomy Social History Information Source: Patient, [facility] Records Lives with: Alone Smoking Status: Current Every Day Smoker Cigarettes Packs Per Day: 0.5 Electronic Cigarette use?: No Frequency of Alcohol Use: None Hx Recreational Drug Use: No Drugs: None Hx Prescription Drug Abuse: No - Advance Directive Resuscitation Status: Do Not Resuscitate Family History Family History: CAD - Congestive heart failure, Hypertension, Other - Parkinson's Parental Family History Reviewed: Yes Children Family History Reviewed: NA Sibling(s) Family History Reviewed.: Yes Medication/Allergy Home Medications: Metformin HCl [Metformin HCl ER] 750 mg PO WSUPPER 02/18/20 Aspirin [Ecotrin 81 mg EC Tablet] 81 mg PO DAILY tabec 02/20/20 Magnesium Oxide [Mag-Ox 400 mg Tablet] 800 mg PO BID 30 Days #60 tab 02/20/20 Nitroglycerin [Nitrostat 0.4 mg (1/150 Gr) Tabs 25/Bottle] 1 tab SL Q5MP PRN 30 Days #90 bottle 02/20/20 Metoprolol Succinate [Toprol Xl 50 mg Tab.sr] 50 mg PO Q12 02/26/20 Acetaminophen [Tylenol] 325 mg PO DAILYP PRN 03/17/20 Calcium Carbonate [Tums Chewable 500 mg Tab.chew] 500 mg PO DAILYP PRN 03/17/20 Lisinopril/Hydrochlorothiazide [Lisinopril-Hctz 20-25 mg Tab] 1 each PO DAILY 03/17/20 Allergies/Adverse Reactions: cephalexin [From Keflex] Allergy (Verified 12/01/19 14:06) Review of Systems All systems: reviewed and no additional remarkable complaints except as stated Constitutional: PRESENT: anorexia, weakness Cardiovascular: PRESENT: chest pain Physical Exam Vital Signs: Temp Pulse Resp BP Pulse Ox 98.8 F 86 17 115/64 96 03/17/20 07:23 03/17/20 07:23 03/17/20 10:37 03/17/20 10:37 03/17/20 10:37 Intake & Output 03/16/20 03/17/20 03/18/20 06:59 06:59 06:59 Weight 50.802 kg General appearance: PRESENT: no acute distress, cooperative, well-developed Head exam: PRESENT: atraumatic, normocephalic Eye exam: PRESENT: conjunctiva pale, EOMI. ABSENT: scleral icterus Ear exam: PRESENT: TM's normal bilaterally. ABSENT: bleeding, drainage Mouth exam: PRESENT: moist, tongue midline Neck exam: PRESENT: lymphadenopathy. ABSENT: carotid bruit, JVD Respiratory exam: PRESENT: rales - Bilateral, symmetrical, unlabored. ABSENT: tachypnea, wheezes Cardiovascular exam: PRESENT: RRR, +S1, +S2, systolic murmur. ABSENT: irregular rhythm Pulses: PRESENT: normal radial pulses, normal dorsalis pedis pul GI/Abdominal exam: PRESENT: hypoactive bowel sounds, soft, tenderness - Slight tenderness right lower quadrant. She reports that this is chronic.. ABSENT: distended, guarding Rectal exam: PRESENT: deferred Gentrourinary exam: ABSENT: indwelling catheter Extremities exam: ABSENT: pedal edema Musculoskeletal exam: PRESENT: ambulatory, normal inspection. ABSENT: deformity Neurological exam: PRESENT: alert, awake, oriented to person, oriented to place, oriented to time, oriented to situation, CN II-XII grossly intact. ABSENT: alte red Psychiatric exam: PRESENT: flat affect. ABSENT: agitated, anxious Focused psych exam: ABSENT: delusional, paranoid, restlessness Skin exam: PRESENT: dry, normal color, warm. ABSENT: rash Results Laboratory Results: 03/17/20 07:17 03/17/20 07:17 03/17/20 03/17/20 07:17 07:17 WBC 8.1 RBC 3.19 L Hgb 9.2 L Hct 26.7 L MCV 84 MCH 28.8 MCHC 34.3 RDW 18.5 H Plt Count 439 Seg Neutrophils % 79.4 H Sodium 128.2 L Potassium 4.4 Chloride 96 L Carbon Dioxide 23 Anion Gap 9 BUN 36 H Creatinine 0.78 Est GFR ( Amer) > 60 Glucose 103 Calcium 9.7 Total Bilirubin 0.4 AST 18 Alkaline Phosphatase 51 Total Protein 6.8 Albumin 3.6 03/17/20 03/17/20 03/17/20 07:17 07:17 10:30 Creatine Kinase 36 CK-MB (CK-2) 0.77 Troponin I 0.016 0.050 Impressions: Chest X-Ray 03/17/20 08:40 IMPRESSION: NO SIGNIFICANT CHANGE. MULTIPLE PULMONARY NODULES. NO ACUTE RADIOGRAPHIC FINDING IN THE CHEST. Chest/Abdomen CTA 03/17/20 10:59 IMPRESSION: 1. NORMAL CTA OF THE CHEST. NO PULMONARY EMBOLI. 2. MULTIPLE PULMONARY NODULES SECONDARY TO METASTATIC DISEASE. SMALL PLEURAL EFFUSIONS. Assessment and Plan - Diagnosis (1) Chest pain Qualifiers: Chest pain type: unspecified Qualified Code(s): R07.9 - Chest pain, unspecified Is this a current diagnosis for this admission?: Yes Plan: 03/17/2020 Patient developed chest pain at rest this morning. It felt like a heavy weight on her shoulder. It was relieved with 4 chewable aspirin. She does have inverted T waves inferiorly but these were found on the previous EKGs. The first troponin was 0.0.6 and the second troponin was 0.050. We will continue serial troponins. She just had chemotherapy yesterday. It is difficult to know any direct effects on myocardium. 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 Patient will be on telemetry. She is already on metoprolol, furosemide and lisinopril. We will continue her baby aspirin daily as well. (2) Hyponatremia Is this a current diagnosis for this admission?: Yes (3) Hypertension Qualifiers: Hypertension type: essential hypertension Qualified Code(s): I10 - Essential (primary) hypertension Is this a current diagnosis for this admission?: Yes Plan: 03/17/2020 Currently on metoprolol, lisinopril and furosemide. Continue medications with parameters to hold for low blood pressure. (4) Metastatic disease to the lung Is this a current diagnosis for this admission?: Yes Plan: 03/17/2020 CT scan reviewed. Diffuse metastatic lesions noted. Multiple lesions bilaterally. The patient still has pleural effusion but it is significantly better than her previous admission. She did receive chemotherapy yesterday. Will return to the care of her oncologist post discharge. (5) Diabetes mellitus type 2 in nonobese Is this a current diagnosis for this admission?: Yes Plan: 03/17/2020 We will continue her metformin after a 48-hour hold due to receiving IV contrast earlier today. We will only perform Accu-Cheks at breakfast and supper. Sliding scale coverage will be available. (6) Anemia, chronic disease Is this a current diagnosis for this admission?: Yes Plan: 03/17/2020 The patient received 2 units of packed red blood cells on her recent admission. We will monitor her hemoglobin. It is low at 9.2. She did just receive chemotherapy yesterday and slowly will follow her CBC. - Time Time Spent with patient: 35 or more minutes Smoking Cessation Education: 3 to 10 minutes Medications reviewed and adjusted accordingly: Yes Anticipated discharge: Home Within: within 48 hours
[2020-03-17] MEDS ORDERED: MAG HYDROX/AL HYDROX/SIMETH SUSP 30 ML UDCUP PO PRN (15:06)
[2020-03-17] MEDS ORDERED: OXYCODONE-ACETAMINOPHEN 5-325 MG TABLET PO PRN (15:06)
[2020-03-17] MEDS ORDERED: ACETAMINOPHEN 325 MG TABLET PO PRN (15:06)
[2020-03-17] MEDS ORDERED: MAGNESIUM HYDROXIDE SUSP 30 ML UDCUP PO PRN (15:06)
[2020-03-17] MEDS ORDERED: OLANZAPINE 5 MG TABLET PO PRN (15:36)
[2020-03-17] MEDS ORDERED: NITROGLYCERIN 0.4 MG/TAB 25 TAB/BOTTLE SL PRN (15:37)
[2020-03-17] MEDS ORDERED: CALCIUM CARBONATE 500 MG TAB.CHEW PO PRN (15:37)
[2020-03-17] MEDS ORDERED: DEXTROSE 40% GEL 15 GM TUBE PO PRN ×2 (15:46)
[2020-03-17] MEDS ORDERED: DEXTROSE 50%-WATER 25 GM/50 ML DISP.SYRIN IV PRN ×2 (15:46)
[2020-03-17] MEDS ORDERED: GLUCAGON,HUMAN RECOMB 1 MG INJ IM PRN (15:46)
[2020-03-17] MEDS ORDERED: (PENDING PHARMACY ID) (Metformin Hcl [Metformin Hcl Er] 750 MG) PO SCH (17:00)
[2020-03-17] MEDS ORDERED: METFORMIN HCL 500 MG TABLET PO SCH (17:00)
[2020-03-17] MEDS: INSULIN REG, HUMAN 100 UNIT/ML 3 ML VIAL (PYX) SUBCUT SCH (17:44)
[2020-03-17] MEDS: MAGNESIUM OXIDE 400 MG TABLET PO SCH (17:46)
[2020-03-17] MEDS ORDERED: OLANZAPINE 5 MG TABLET PO SCH (22:00)
[2020-03-17] MEDS: ASPIRIN 81 MG TABLET, ENT COATED PO SCH (22:02)
[2020-03-17] MEDS: METOPROLOL SUCCINATE 50 MG TAB.SR.24H PO SCH (22:02)
[2020-03-17] MEDS: HEPARIN SOD (PORCINE) 5,000 UNIT/ML 1 ML VIAL SUBCUT SCH (22:02)
[2020-03-18 06:36] LABS: ABSOLUTE LYMPHOCYTES (AUTO) 0.6 10^3/uL (0.5-4.7); ABSOLUTE MONOCYTES (AUTO) 0.4 10^3/uL (0.1-1.4); ABSOLUTE NEUT (AUTO) 5.5 10^3/uL (1.7-8.2); BASOPHILS % (AUTO) 0.3 % (0-2); EOSINOPHILS % (AUTO) 0.1 % (0-6); HEMATOCRIT 24.7 % (36.0-47.0); HEMOGLOBIN 8.6 g/dL (12.0-15.5); LYMPHOCYTES % (AUTO) 9.3 % (13-45); MEAN CORPUSCULAR HEMOGLOBIN 28.6 pg (27.0-33.4); MEAN CORPUSCULAR HGB CONC 34.7 g/dL (32.0-36.0); MEAN CORPUSCULAR VOLUME 82 fl (80-97); MONOCYTES % (AUTO) 6.2 % (3-13); PLATELET COUNT 333 10^3/uL (150-450); RED CELL DISTRIBUTION WIDTH 18.5 % (11.5-14.0); SEGMENTED NEUTROPHILS % (AUTO) 84.1 % (42-78); TOTAL CELLS COUNTED % (AUTO) 100 %; WHITE BLOOD COUNT 6.5 10^3/uL (4.0-10.5)
[2020-03-18] MEDS: HEPARIN SOD (PORCINE) 5,000 UNIT/ML 1 ML VIAL SUBCUT SCH ×3 (06:38→22:46)
[2020-03-18] MEDS: PANTOPRAZOLE SODIUM 40 MG TABLET.DR PO SCH (06:39)
[2020-03-18 07:00] LABS: ANION GAP 6 (5-19); BLOOD UREA NITROGEN 30 mg/dL (7-20); CALCIUM 9.1 mg/dL (8.4-10.2); CARBON DIOXIDE 25 mmol/L (22-30); CHLORIDE 94 mmol/L (98-107); GLUCOSE 98 mg/dL (75-110)
[2020-03-18] MEDS: PROMETHAZINE HCL INJ 25 MG/1 ML VIAL IV PRN (08:00)
[2020-03-18] MEDS ORDERED: METFORMIN HCL 500 MG TABLET PO SCH ×2 (08:00→10:00)
[2020-03-18] MEDS: INSULIN REG, HUMAN 100 UNIT/ML 3 ML VIAL (PYX) SUBCUT SCH ×2 (08:06→16:37)
[2020-03-18] MEDS: FUROSEMIDE 40 MG TABLET PO SCH (09:33)
[2020-03-18] MEDS: MAGNESIUM OXIDE 400 MG TABLET PO SCH ×2 (09:34→18:50)
[2020-03-18] MEDS: METOPROLOL SUCCINATE 50 MG TAB.SR.24H PO SCH ×2 (09:35→22:46)
[2020-03-18] MEDS: LISINOPRIL 10 MG TABLET PO SCH (09:35)
--- NOTE | 2020-03-18 10:53 | PDOC PROGRESS REPORT ---
Subjective Progress Note for:: 03/18/20 Subjective:: Patient complaining of a cough and still with chest discomfort. Troponin is significantly higher than yesterday. Reason For Visit: CHEST PAIN,ADRENAL CARCINOMA WITH LUNG METASTASIS Physical Exam Vital Signs: Temp Pulse Resp BP Pulse Ox 98.4 F 90 18 145/81 H 91 L 03/18/20 08:19 03/18/20 08:19 03/18/20 08:19 03/18/20 08:19 03/18/20 08:19 Intake & Output 03/17/20 03/18/20 03/19/20 06:59 06:59 06:59 Intake Total 226 Balance 226 Weight 67.9 kg General appearance: PRESENT: cooperative, mild distress - Mild to moderate distress, well-developed Eye exam: PRESENT: conjunctiva pale. ABSENT: scleral icterus Ear exam: PRESENT: normal external ear exam. ABSENT: bleeding, drainage Mouth exam: PRESENT: moist, tongue midline Respiratory exam: PRESENT: rales, rhonchi, symmetrical, unlabored. ABSENT: prolonged expiratory phas, tachypnea Cardiovascular exam: PRESENT: RRR, +S1, +S2 GI/Abdominal exam: PRESENT: normal bowel sounds, soft. ABSENT: distended, guarding, tenderness Neurological exam: PRESENT: alert, awake, oriented to person, oriented to place, oriented to time, oriented to situation, CN II-XII grossly intact. ABSENT: altered Psychiatric exam: PRESENT: other - When informed about the positive troponin the patient's affect reflected her frustration with the news. ABSENT: agitated, anxious Results Laboratory Results: 03/18/20 06:17 03/18/20 06:17 03/18/20 03/18/20 06:17 06:17 WBC 6.5 RBC 3.00 L Hgb 8.6 L Hct 24.7 L MCV 82 MCH 28.6 MCHC 34.7 RDW 18.5 H Plt Count 333 Seg Neutrophils % 84.1 H Sodium 125.4 L Potassium 4.0 Chloride 94 L Carbon Dioxide 25 Anion Gap 6 BUN 30 H Creatinine 0.71 Est GFR ( Amer) > 60 Glucose 98 Calcium 9.1 Magnesium 1.4 L 03/17/20 03/17/20 03/17/20 07:17 07:17 10:30 Creatine Kinase 36 CK-MB (CK-2) 0.77 Troponin I 0.016 0.050 03/17/20 03/18/20 16:17 09:26 Creatine Kinase CK-MB (CK-2) Troponin I 0.082 0.377 Impressions: Chest X-Ray 03/17/20 08:40 IMPRESSION: NO SIGNIFICANT CHANGE. MULTIPLE PULMONARY NODULES. NO ACUTE RADIOGRAPHIC FINDING IN THE CHEST. Chest/Abdomen CTA 03/17/20 10:59 IMPRESSION: 1. NORMAL CTA OF THE CHEST. NO PULMONARY EMBOLI. 2. MULTIPLE PULMONARY NODULES SECONDARY TO METASTATIC DISEASE. SMALL PLEURAL EFFUSIONS. Assessment and Plan - Diagnosis (1) NSTEMI (non-ST elevated myocardial infarction) Is this a current diagnosis for this admission?: Yes Plan: 03/18/2020 The patient's troponin level has risen 6 fold. Cardiology will be assessing the patient. Nonventilated nitroglycerin paste and a statin as she is already on aspirin, lisinopril and metoprolol. He did explain that due to her severe metastatic lung disease cardiac catheterization may not be an option. I asked her to think about it and possibly discuss further with cardiology. (2) Chest pain Qualifiers: Chest pain type: chest pain due to myocardial ischemia Qualified Code(s): R07.9 - Chest pain, unspecified Is this a current diagnosis for this admission?: Yes Plan: 03/17/2020 Patient developed chest pain at rest this morning. It felt like a heavy weight on her shoulder. It was relieved with 4 chewable aspirin. She does have inverted T waves inferiorly but these were found on the previous EKGs. The first troponin was 0.0.6 and the second troponin was 0.050. We will continue serial troponins. She just had chemotherapy yesterday. It is difficult to know any direct effects on myocardium. 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 Patient will be on telemetry. She is already on metoprolol, furosemide and lisinopril. We will continue her baby aspirin daily as well. 03/18/2020 Patient with non-ST elevation myocardial infarction. Chest pain is clearly cardiac in nature. Additional medications as above. (3) Hyponatremia Is this a current diagnosis for this admission?: Yes Plan: 03/17/2020 Likely related to her metastatic lung disease. Serum sodium is similar to her previous admission. Will monitor. 03/18/2020 Chronic and stable. Continue to monitor. (4) Hypertension Qualifiers: Hypertension type: essential hypertension Qualified Code(s): I10 - Essential (primary) hypertension Is this a current diagnosis for this admission?: Yes Plan: 03/17/2020 Currently on metoprolol, lisinopril and furosemide. Continue medications with parameters to hold for low blood pressure. 03/18/2020 Reasonable blood pressure control. Will need to watch for hypotension with the use of nitroglycerin. (5) Metastatic disease to the lung Is this a current diagnosis for this admission?: Yes Plan: 03/17/2020 CT scan reviewed. Diffuse metastatic lesions noted. Multiple lesions bilaterally. The patient still has pleural effusion but it is significantly better than her previous admission. She did receive chemotherapy yesterday. Will return to the care of her oncologist post discharge. 03/18/2020 In light of the non-ST elevation myocardial infarction with severe ongoing metastatic cancer the patient is likely a candidate for aggressive intervention either by percutaneous angioplasty or cardiac surgery. She is not due for her next chemotherapy until March. It is possible that due to the N STEMI the patient may decrease the aggressiveness of her ongoing treatment plan. (6) Diabetes mellitus type 2 in nonobese Is this a current diagnosis for this admission?: Yes Plan: 03/17/2020 We will continue her metformin after a 48-hour hold due to receiving IV contrast earlier today. We will only perform Accu-Cheks at breakfast and supper. Sliding scale coverage will be available. 03/18/2020 Per nursing, the patient has been refusing Accu-Cheks. If this pattern continues then I will just discontinue the Accu-Cheks and sliding scale. (7) Anemia, chronic disease Is this a current diagnosis for this admission?: Yes Plan: 03/17/2020 The patient received 2 units of packed red blood cells on her recent admission. We will monitor her hemoglobin. It is low at 9.2. She did just receive chemotherapy yesterday and slowly will follow her CBC. 03/18/2020 Hemoglobin is slightly lower. This could be creating some demand ischemia but her hemoglobin is consistently less than 10. We will continue to monitor. If it is felt that a unit of packed red blood cells will help with her cardiac status then we will transfuse. - Time Time Spent with patient: 15-24 minutes Medications reviewed and adjusted accordingly: Yes
[2020-03-18] MEDS ORDERED: ATORVASTATIN CALCIUM 40 MG TABLET PO ONE (11:30)
[2020-03-18] MEDS ORDERED: NITROGLYCERIN 2% OINTMENT 1 GM PACKET TP SCH (12:00)
[2020-03-18] MEDS ORDERED: ISOSORBIDE MONONITRATE 60 MG TAB.ER.24H PO SCH (15:30)
--- NOTE | 2020-03-18 15:34 | EKG REPORT ---
SEVERITY:- ABNORMAL ECG - SINUS RHYTHM PROBABLE LEFT ATRIAL ABNORMALITY NONSPECIFIC REPOL ABNORMALITY, DIFFUSE LEADS : Confirmed by: Erick Escobar MD 18-Mar-2020 15:33:52
[2020-03-18] MEDS: RANOLAZINE 500 MG TAB.SR.12H PO SCH ×2 (16:42→22:46)
[2020-03-18] MEDS: ISOSORBIDE MONONITRATE 30 MG TAB.ER.24H PO SCH (16:42)
[2020-03-18] MEDS ORDERED: MAGNESIUM SULFATE/D5W 1 GM/100 ML RTUPB IV ONE (19:45)
[2020-03-18] MEDS: ASPIRIN 81 MG TABLET, ENT COATED PO SCH (22:46)
[2020-03-19 06:45] LABS: ANION GAP 8 (5-19); BLOOD UREA NITROGEN 26 mg/dL (7-20); CALCIUM 8.9 mg/dL (8.4-10.2); CARBON DIOXIDE 26 mmol/L (22-30); CHLORIDE 92 mmol/L (98-107); GLUCOSE 114 mg/dL (75-110); POTASSIUM 3.7 mmol/L (3.6-5.0)
[2020-03-19] MEDS: PANTOPRAZOLE SODIUM 40 MG TABLET.DR PO SCH (06:48)
[2020-03-19] MEDS: HEPARIN SOD (PORCINE) 5,000 UNIT/ML 1 ML VIAL SUBCUT SCH ×3 (06:48→21:15)
[2020-03-19] MEDS: INSULIN REG, HUMAN 100 UNIT/ML 3 ML VIAL (PYX) SUBCUT SCH ×2 (09:03→16:37)
[2020-03-19] MEDS: METOPROLOL SUCCINATE 50 MG TAB.SR.24H PO SCH ×2 (10:51→21:12)
[2020-03-19] MEDS: MAGNESIUM OXIDE 400 MG TABLET PO SCH ×2 (10:51→18:04)
[2020-03-19] MEDS: FUROSEMIDE 40 MG TABLET PO SCH (10:52)
[2020-03-19] MEDS: RANOLAZINE 500 MG TAB.SR.12H PO SCH ×2 (10:52→21:12)
[2020-03-19] MEDS: ISOSORBIDE MONONITRATE 30 MG TAB.ER.24H PO SCH (10:52)
[2020-03-19] MEDS: LISINOPRIL 10 MG TABLET PO SCH (10:53)
--- NOTE | 2020-03-19 11:50 | PDOC PROGRESS REPORT ---
Subjective Progress Note for:: 03/19/20 Subjective:: Complaining of some shortness of breath with exertion. She denies any chest pressure or pain. Reason For Visit: CHEST PAIN,ADRENAL CARCINOMA WITH LUNG METASTASIS Physical Exam Vital Signs: Temp Pulse Resp BP Pulse Ox 98.9 F 89 17 131/76 H 92 03/19/20 07:20 03/19/20 07:20 03/19/20 07:20 03/19/20 07:20 03/19/20 07:20 Intake & Output 03/18/20 03/19/20 03/20/20 06:59 06:59 06:59 Intake Total 226 220 Balance 226 220 Weight 67.9 kg 67.9 kg General appearance: PRESENT: mild distress Head exam: PRESENT: atraumatic, normocephalic Respiratory exam: PRESENT: rales, symmetrical, unlabored. ABSENT: rhonchi, tachypnea, wheezes Cardiovascular exam: PRESENT: RRR, +S1, +S2 GI/Abdominal exam: PRESENT: normal bowel sounds, soft. ABSENT: distended, guarding, tenderness Rectal exam: PRESENT: deferred Extremities exam: ABSENT: pedal edema Musculoskeletal exam: PRESENT: ambulatory, normal inspection Neurological exam: PRESENT: alert, awake, oriented to person, oriented to place, oriented to time, oriented to situation, CN II-XII grossly intact. ABSENT: altered Psychiatric exam: PRESENT: flat affect Results Laboratory Results: 03/18/20 06:17 03/19/20 06:03 03/18/20 03/19/20 16:16 06:03 Sodium 125.5 L Potassium 3.7 Chloride 92 L Carbon Dioxide 26 Anion Gap 8 BUN 26 H Creatinine 0.69 Est GFR ( Amer) > 60 Glucose 114 H Calcium 8.9 Magnesium 1.4 L 1.6 03/17/20 03/17/20 03/17/20 07:17 07:17 10:30 Creatine Kinase 36 CK-MB (CK-2) 0.77 Troponin I 0.016 0.050 03/17/20 03/18/20 03/18/20 16:17 09:26 16:16 Creatine Kinase CK-MB (CK-2) Troponin I 0.082 0.377 0.367 03/19/20 06:03 Creatine Kinase CK-MB (CK-2) Troponin I 0.261 Impressions: Chest X-Ray 03/17/20 08:40 IMPRESSION: NO SIGNIFICANT CHANGE. MULTIPLE PULMONARY NODULES. NO ACUTE RADIOGRAPHIC FINDING IN THE CHEST. Chest/Abdomen CTA 03/17/20 10:59 IMPRESSION: 1. NORMAL CTA OF THE CHEST. NO PULMONARY EMBOLI. 2. MULTIPLE PULMONARY NODULES SECONDARY TO METASTATIC DISEASE. SMALL PLEURAL EFFUSIONS. Assessment and Plan - Diagnosis (1) NSTEMI (non-ST elevated myocardial infarction) Is this a current diagnosis for this admission?: Yes Plan: 03/18/2020 The patient's troponin level has risen 6 fold. Cardiology will be assessing the patient. Nonventilated nitroglycerin paste and a statin as she is already on aspirin, lisinopril and metoprolol. He did explain that due to her severe metastatic lung disease cardiac catheterization may not be an option. I asked h er to think about it and possibly discuss further with cardiology. 03/19/2020 The troponin level is dropping. No further need to trend her troponins. Dr. Trimble has changed some of her medications. I did speak with her goddaughter and they will likely want to talk to her oncologist regarding f urther treatments in light of this event. (2) Chest pain Qualifiers: Chest pain type: chest pain due to myocardial ischemia Is this a current diagnosis for this admission?: Yes Plan: 03/17/2020 Patient developed chest pain at rest this morning. It felt like a heavy weight on her shoulder. It was relieved with 4 chewable aspirin. She does have inverted T waves inferiorly but these were found on the previous EKGs. The first troponin was 0.0.6 and the second troponin was 0.050. We will continue serial troponins. She just had chemotherapy yesterday. It is difficult to know any direct effects on myocardium. 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 Patient will be on telemetry. She is already on metoprolol, furosemide and lisinopril. We will continue her baby aspirin daily as well. 03/18/2020 Patient with non-ST elevation myocardial infarction. Chest pain is clearly cardiac in nature. Additional medications as above. 03/19/2020 No chest pain today. She did feel that her exercise capacity was slightly diminished as she was getting short of breath walking to the bathroom. (3) Hyponatremia Is this a current diagnosis for this admission?: Yes Plan: 03/17/2020 Likely related to her metastatic lung disease. Serum sodium is similar to her previous admission. Will monitor. 03/18/2020 Chronic and stable. Continue to monitor. (4) Hypertension Qualifiers: Hypertension type: essential hypertension Qualified Code(s): I10 - Ess ential (primary) hypertension Is this a current diagnosis for this admission?: Yes Plan: 03/17/2020 Currently on metoprolol, lisinopril and furosemide. Continue medications with parameters to hold for low blood pressure. 03/18/2020 Reasonable blood pressure control. Will need to watch for hypotension with the use of nitroglycerin. 03/19/2020 Continue current regimen (5) Metastatic disease to the lung Is this a current diagnosis for this admission?: Yes Plan: 03/17/2020 CT scan reviewed. Diffuse metastatic lesions noted. Multiple lesions bilaterally. The patient still has pleural effusion but it is significantly better than her previous admission. She did receive chemotherapy yesterday. Will return to the care of her oncologist post discharge. 03/18/2020 In light of the non-ST elevation myocardial infarction with severe ongoing metastatic cancer the patient is likely a candidate for aggressive intervention either by percutaneous angioplasty or cardiac surgery. She is not due for her next chemotherapy until March. It is possible that due to the N STEMI the patient may decrease the aggressiveness of her ongoing treatment plan. 03/19/2020 Further plans to be discussed between the patient and her oncologist. (6) Diabetes mellitus type 2 in nonobese Is this a current diagnosis for this admission?: Yes Plan: 03/17/2020 We will continue her metformin after a 48-hour hold due to receiving IV contrast earlier today. We will only perform Accu-Cheks at breakfast and supper. Sliding scale coverage will be available. 03/18/2020 Per nursing, the patient has been refusing Accu-Cheks. If this pattern continues then I will just discontinue the Accu-Cheks and sliding scale. 03/19/2020 Good control. No changes. (7) Anemia, chronic disease Is this a current diagnosis for this admission?: Yes Plan: 03/17/2020 The patient received 2 units of packed red blood cells on her recent admission. We will monitor her hemoglobin. It is low at 9.2. She did just receive chemotherapy yesterday and slowly will follow her CBC. 03/18/2020 Hemoglobin is slightly lower. This could be creating some demand ischemia but her hemoglobin is consistently less than 10. We will continue to monitor. If it is felt that a unit of packed red blood cells will help with her cardiac status then we will transfuse. 03/19/2020 We will recheck hemoglobin tomorrow. It is possible that the exertional dyspnea might be related to anemia. (8) Shortness of breath Is this a current diagnosis for this admission?: Yes Plan: 03/19/2020 The patient was complaining of feeling slightly short of breath when walking to the bathroom but not sitting at the edge of the bed. He did ask the nurses to check pulse oximetry when she did walk to the bathroom and next time. In addition I will recheck a chest x-ray and I have ordered an additional dose of furosemide. She has had a net positive fluid balance of several 100 mL but I would not expect this to be clinically significant. - Time Time Spent with patient: 15-24 minutes Medications reviewed and adjusted accordingly: Yes Anticipated discharge: Home
--- NOTE | 2020-03-19 13:32 | XCELERA REPORT ---
[address] [address] Transthoracic Echocardiogram Report Name: MONY STEELE Age: 69 yrs Gender: Female : 1950 Patient Status: Inpatient Patient Location: [address] [place], [place] [address] Study Date: 03/18/2020 05:20 PM Height: 66 in Weight: 149 lb BSA: 1.8 m2 Procedure: A two-dimensional transthoracic echocardiogram with color flow and Doppler was performed. The study was technically difficult with many images being suboptimal in quality. Reason For Study: NSTEMI / MURMUR History: NSTEMI / MURMUR. Ordering Physician: JENNA MELVIN Performed By: Bina Quintanilla Interpretation Summary There is normal left ventricular wall thickness. LV EF is 40% Left ventricular systolic function is moderately reduced. The left ventricle is borderline dilated. Doppler measurements suggest impaired left ventricular relaxation, which is associated with grade I/IV or mild diastolic dysfunction : By tissue dopplers. There is moderate global hypokinesis of the left ventricle. There is no thrombus. No ASD.VSD.or PFO seen. The right ventricle is normal in size and function. The right atrium is normal. The left atrial size is normal. There is no evidence of mitral valve prolapse. There is no vegetation seen on the mitral valve. There is no mitral valve stenosis. Eccentric posteriorly directed moderatae MR jet. There is no aortic valvular vegetation. There is mild aortic stenosis There is a peak gradient of 16 mm of Hg. There is no LVOT obstruction. No aortic regurgitation is present. There is no tricuspid stenosis. There is a trace amount of tricuspid regurgitation Tricuspid regurgitation jet envelope not well defined to measure RV systolic pressure accurately. There is no pulmonic valvular stenosis. There is no pulmonic valvular regurgitation. The aortic root is normal size. The inferior vena cava appeared normal and decreased > 50% with respiration (RAP 5-10 mmHg) There is no pericardial effusion. MMode/2D Measurements & Calculations RVDd: 1.9 cm LVIDd: 5.7 cm FS: 19.8 % Ao root diam: 2.3 cm IVSd: 0.85 cm LVIDs: 4.6 cm EDV(Teich): 161.7 ml Ao root area: 4.3 cm2 LVPWd: 1.0 cm ESV(Teich): 96.9 ml LA dimension: 4.3 cm EF(Teich): 40.1 % LVOT diam: 1.9 cm LVOT area: 2.9 cm2 Doppler Measurements & Calculations MV E max shayne: MV P1/2t max shayne: Ao V2 max: LV V1 max P.7 cm/sec 150.9 cm/sec 196.2 cm/sec 8.5 mmHg MV A max shayne: MV P1/2t: 70.6 msec Ao max PG: LV V1 mean P.6 cm/sec MVA(P1/2t): 3.1 cm2 15.4 mmHg 4.0 mmHg MV E/A: 1.1 MV dec slope: Ao V2 mean: LV V1 max: 124.7 cm/sec 145.9 cm/sec 626.1 cm/sec2 Ao mean PG: LV V1 mean: MV dec time: 0.19 sec 7.2 mmHg 83.9 cm/sec Ao V2 VTI: 37.3 cm LV V1 VTI: LORRAINE(I,D): 1.9 cm2 24.5 cm LORRAINE(V,D): 2.2 cm2 SV(LVOT): 71.4 ml PA V2 max: MV P1/2t-pr_phl: 100.7 cm/sec 70.6 msec PA max P.1 mmHg Left Ventricle There is normal left ventricular wall thickness. The left ventricle is borderline dilated. LV EF is 40%. Left ventricular systolic function is moderately reduced. Doppler measurements suggest impaired left ventricular relaxation, which is associated with grade I/IV or mild diastolic dysfunction. : By tissue dopplers. There is moderate global hypokinesis of the left ventricle. There is no thrombus. No ASD.VSD.or PFO seen. Right Ventricle The right ventricle is normal in size and function. Atria The right atrium is normal. The left atrial size is normal. Mitral Valve There is no evidence of mitral valve prolapse. There is no vegetation seen on the mitral valve. There is no mitral valve stenosis. Eccentric posteriorly directed moderatae MR jet. Aortic Valve There is no aortic valvular vegetation. There is mild aortic stenosis. There is a peak gradient of 16 mm of Hg. There is no LVOT obstruction. No aortic regurgitation is present. Tricuspid Valve There is no tricuspid stenosis. There is a trace amount of tricuspid regurgitation. Tricuspid regurgitation jet envelope not well defined to measure RV systolic pressure accurately. Pulmonic Valve There is no pulmonic valvular stenosis. There is no pulmonic valvular regurgitation. Great Vessels The aortic root is normal size. The inferior vena cava appeared normal and decreased > 50% with respiration (RAP 5-10 mmHg). Effusions There is no pericardial effusion. : JENNA MELVIN Lakshmi
[2020-03-19] MEDS ORDERED: FUROSEMIDE INJ/PF 20 MG/2 ML SDV IV ONE (18:00)
[2020-03-19] MEDS: ASPIRIN 81 MG TABLET, ENT COATED PO SCH (21:12)
[2020-03-19] MEDS: ATORVASTATIN CALCIUM 40 MG TABLET PO SCH (21:12)
--- NOTE | 2020-03-19 22:22 | Progress Note ---
Provider Note Provider Note: CARDIOLOGY PROGRESS NOTE by Dr. Jenna Trimble on 03/19/2020 SUBJECTIVE: The patient has no further chest pain. Her shortness of breath is much improved. There is no PND orthopnea. There is no arrhythmias seen on the monitor. There is no TIA CVA symptoms. Her appetite is fair. SUBJECTIVE: The patient is a frail build. In no acute distress. Selected Entries 03/19/20 07:20 Temperature 98.9 F Temperature Oral Source Pulse Rate 89 Respiratory 17 Rate Blood Pressure 131/76 H Blood Pressure 94 Mean BP Location Right Arm BP Position Supine O2 Sat by Pulse 92 Oximetry Oxygen Delivery Room Air Method HEAD: Is atraumatic normocephalic. EYES: Pupils are equal round regular reactive to light accommodation. Extraocular movements are normal. There is no conjunctival pallor. There is no scleral icterus. EARS: TYMPANIC MEMBRANES ARE INTACT. EXTERNAL AUDITORY CANALS ARE CLEAR. NOSE: THERE IS NO DEVIATED NASAL SEPTUM. THERE IS NO INFLAMMATION OF THE NASAL MUCOUS MEMBRANE. MOUTH: MUCOUS MEMBRANES OF MOUTH ARE MOIST TONGUE IS MOIST THERE IS NO ULCERS. THERE IS NO BLEEDING FROM THE GUMS. Throat: There is no redness of the oropharynx. There is no exudates. Skin: There is no skin rashes. There is no petechia or ecchymosis. There is no skin lesions. Neck: Is supple. There is no JVD. Carotids are equal there is no bruit. There is no goiter. There is no lymphadenopathy. LUNGS: There is diminished air entry and prolonged expiration. There is a few dry crackles scattered. There is no rales of CHF. There is no rhonchi or wheezing. HEART: S1-S2 is heard. There is no S3 gallop. There is no S4 gallop. There is murmur of mitral regurgitation present. There is no rub. ABDOMEN: Soft. Nontender there is no hepatosplenomegaly. Bowel sounds are well heard. EXTREMITIES: Femorals are well felt there is no femoral bruits. Leg pulses are well felt. There is no pedal edema. There is no DVT or cellulitis. 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 Chest X-Ray 03/17/20 08:40 IMPRESSION: NO SIGNIFICANT CHANGE. MULTIPLE PULMONARY NODULES. NO ACUTE RADIOGRAPHIC FINDING IN THE CHEST. Chest/Abdomen CTA 03/17/20 10:59 IMPRESSION: 1. NORMAL CTA OF THE CHEST. NO PULMONARY EMBOLI. 2. MULTIPLE PULMONARY NODULES SECONDARY TO METASTATIC DISEASE. SMALL PLEURAL EFFUSIONS. Chest X-Ray 03/20/20 08:00 IMPRESSION: No change from 03/17/2020 Labs- Entire Visit 03/17/20 03/17/20 03/17/20 07:17 07:17 07:17 WBC 8.1 RBC 3.19 L Hgb 9.2 L Hct 26.7 L MCV 84 MCH 28.8 MCHC 34.3 RDW 18.5 H Plt Count 439 Lymph % (Auto) 7.7 L Stephens % (Auto) 12.5 Eos % (Auto) 0.1 Baso % (Auto) 0.3 Absolute Neuts (auto) 6.4 Absolute Lymphs (auto) 0.6 Absolute Monos (auto) 1.0 Absolute Eos (auto) 0.0 Absolute Basos (auto) 0.0 Seg Neutrophils % 79.4 H D-Dimer Sodium 128.2 L Potassium 4.4 Chloride 96 L Carbon Dioxide 23 Anion Gap 9 BUN 36 H Creatinine 0.78 Est GFR ( Amer) > 60 Est GFR (MDRD) Non-Af > 60 Glucose 103 Calcium 9.7 Magnesium Total Bilirubin 0.4 Direct Bilirubin 0.0 Neonat Total Bilirubin Not Reportable Neonat Direct Bilirubin Not Reportable Neonat Indirect Bili Not Reportable AST 18 ALT 10 Alkaline Phosphatase 51 Creatine Kinase 36 CK-MB (CK-2) 0.77 Troponin I 0.016 Total Protein 6.8 Albumin 3.6 03/17/20 03/17/20 03/17/20 07:17 10:30 16:17 WBC RBC Hgb Hct MCV MCH MCHC RDW Plt Count Lymph % (Auto) Stephens % (Auto) Eos % (Auto) Baso % (Auto) Absolute Neuts (auto) Absolute Lymphs (auto) Absolute Monos (auto) Absolute Eos (auto) Absolute Basos (auto) Seg Neutrophils % D-Dimer 3.25 H Sodium Potassium Chloride Carbon Dioxide Anion Gap BUN Creatinine Est GFR ( Amer) Est GFR (MDRD) Non-Af Glucose Calcium Magnesium Total Bilirubin Direct Bilirubin Neonat Total Bilirubin Neonat Direct Bilirubin Neonat Indirect Bili AST ALT Alkaline Phosphatase Creatine Kinase CK-MB (CK-2) Troponin I 0.050 0.082 Total Protein Albumin 03/18/20 03/18/20 03/18/20 06:17 06:17 09:26 WBC 6.5 RBC 3.00 L Hgb 8.6 L Hct 24.7 L MCV 82 MCH 28.6 MCHC 34.7 RDW 18.5 H Plt Count 333 Lymph % (Auto) 9.3 L Stephens % (Auto) 6.2 Eos % (Auto) 0.1 Baso % (Auto) 0.3 Absolute Neuts (auto) 5.5 Absolute Lymphs (auto) 0.6 Absolute Monos (auto) 0.4 Absolute Eos (auto) 0.0 Absolute Basos (auto) 0.0 Seg Neutrophils % 84.1 H D-Dimer Sodium 125.4 L Potassium 4.0 Chloride 94 L Carbon Dioxide 25 Anion Gap 6 BUN 30 H Creatinine 0.71 Est GFR ( Amer) > 60 Est GFR (MDRD) Non-Af > 60 Glucose 98 Calcium 9.1 Magnesium 1.4 L Total Bilirubin Direct Bilirubin Neonat Total Bilirubin Neonat Direct Bilirubin Neonat Indirect Bili AST ALT Alkaline Phosphatase Creatine Kinase CK-MB (CK-2) Troponin I 0.377 Total Protein Albumin 03/18/20 03/18/20 03/19/20 16:16 16:16 06:03 WBC RBC Hgb Hct MCV MCH MCHC RDW Plt Count Lymph % (Auto) Stephens % (Auto) Eos % (Auto) Baso % (Auto) Absolute Neuts (auto) Absolute Lymphs (auto) Absolute Monos (auto) Absolute Eos (auto) Absolute Basos (auto) Seg Neutrophils % D-Dimer Sodium 125.5 L Potassium 3.7 Chloride 92 L Carbon Dioxide 26 Anion Gap 8 BUN 26 H Creatinine 0.69 Est GFR ( Amer) > 60 Est GFR (MDRD) Non-Af > 60 Glucose 114 H Calcium 8.9 Magnesium 1.4 L 1.6 Total Bilirubin Direct Bilirubin Neonat Total Bilirubin Neonat Direct Bilirubin Neonat Indirect Bili AST ALT Alkaline Phosphatase Creatine Kinase CK-MB (CK-2) Troponin I 0.367 Total Protein Albumin 03/19/20 06:03 WBC RBC Hgb Hct MCV MCH MCHC RDW Plt Count Lymph % (Auto) Stephens % (Auto) Eos % (Auto) Baso % (Auto) Absolute Neuts (auto) Absolute Lymphs (auto) Absolute Monos (auto) Absolute Eos (auto) Absolute Basos (auto) Seg Neutrophils % D-Dimer Sodium Potassium Chloride Carbon Dioxide Anion Gap BUN Creatinine Est GFR ( Amer) Est GFR (MDRD) Non-Af Glucose Calcium Magnesium Total Bilirubin Direct Bilirubin Neonat Total Bilirubin Neonat Direct Bilirubin Neonat Indirect Bili AST ALT Alkaline Phosphatase Creatine Kinase CK-MB (CK-2) Troponin I 0.261 Total Protein Albumin NECK:[id number]7396571343344780279174271729248 52721836031909752895051617615849669535802471694896164957317433103320401936426099 0672040860308915043555234788 12746580933194852561121678887842145903751905454204980283730236327667138418373580 67112569216708297144830299645625768840621834534470204153293427488837892660950349 1107306154164623876586793721457364458370 06180495408642427103660747003442884418585934174998682542843261800243449855167133 44085657735619921314087142798104545773821663850483549975671490141559000784186121 7088920411424297428362346074875998344751 77071103456919997367328317545221676773594357731580197865846819001383486158973637 37688221082038811116675747524551481333568056098341941776231559468300284277860627 7119360822313791624981673698061348197668 29450978534862956167270358085257020154423688527466309318761509716379298257015346 11806617598155329990085407630352511897932125092960453963405947129993791552137916 6289732741916612228930757223232385516167 29707324814816207682828992289040568064316186445847166243278724786038651036247726 25322828668846833241878350863764258113600379473525835673966559885658492895740670 0937367585227837542901700250617023209922 98868529529590613992660358982031479908798226597114903474055525299349690231217304 31588410858695482622439457101730864635303157627945547689704888302071445955245802 2979701756944114647289545939934868791590 86646355564628945134373895505731421547688612890568367834515660517712257060777303 32379900488090433522546488055431136216990237974283135467299074565405982924343987 3427582192289715296887723140594981844315 30254459815572914324933116705003330736759439736718640794293089697373128794593655 45730722359392314980825200076514716947585261918988459559808375117621941892064730 9837465726374470364974316697213207246196 29110194044303244589654263808887752853369993746876827969773745629072123080726273 43689841668553854133707028087930575698011055439332441155340591591381830682896832 8304518865917898559253333987360353324925 89956600571751045655216257239678542314143560965054667497782374974244368029566368 40094996808401751887262474403546480317110221049909457100546063917189253428991635 4840862961957808365572352240954692508256 44145891641985687060396924040706525513942445456728509160998419444527407686508644 76553491193849652210628398930785496843440676384654930349076307380097880134966792 8206893013248464693730193875658107181284 64395563113629891202618037706033437283347785387826506548935647335014471362793037 12955583542983071336731470383055378325972026965043535545423403483503442339755549 7065548572227387121937683444017759347797 28626152629925612057760619935282450853662649639668521639349459792797400128279106 10617854107220233545584090424284263153995428115812485077835908517675167423662822 7626369186158521994261203470751877235268 08569718909564630038579860511164926848315362165338980431287202240451999813519082 06453650976506492630880665394770162969913869654899843408641952223860829371199563 5420917488001041411116966429058152315944 97918496143759530750382366206483323106369823076293829129022119046480335754092525 35971941806940295544972394131318633243976936722712744331649258041970860452819613 5227575335508528839655171185647753967537 53641606477774700811612351199419093441881276042842046015838585130640621863331122 55929845609215805040313375406718343087895073611256471421504026379374302544873728 8116815054681150157925822775560159392590 02560515259289907687808363483287367057643459254250354999512849936401680187622304 36130969208835240268839882056148658351699890456705532452430309499672199000817925 2697665073454811550881968897249208863860 59109939480066582178438242104230822822099030281094159875126435296351405968343865 72774163274917936242359955021783279453463132416021075292307472000342245735275983 5734782634676486987889585357758789437264 38264170463481093183304608629950496154803442937908686962705734718031547210662526 95836406439263488869247029878063435202335664844815165139195488248485590810068277 2849702833821285662503033512656406653992 95630539375737226050010136984672642677998243108287820810423235446170745954114333 49505366038462092256403673420392348345505511949424080764382051689562518204077219 6153504276894679795809287220860130283016 55319638758644850167810131289688202639224448010084566036904848294366252808940366 12034468377557188786911028227205129311438549408339323465494495000352326521358470 3838159800840739460686934063275390604242 54697113351742521166958013415796212272680725820843123836855191306048760071170906 87856674118535932879475368995306989121323020199018095326565882074240719231291519 6261276608881200230031318705244766035941 72143810596648937020793484008407658436759421037170773995886934626891189899045557 23401208517850063233553994566213587606894382592174051230025394842732923846883002 1662993274578489910127455518000337032899 00612363276337218140126604610174148568001419474295466030506505622118076482754026 92562630491071268850377584784986879535610949799181692653738085076159795398630507 5181364819974954740020161745066775297778 13902530620385555324192517064684324034582356163440520612525362601351108974550208 55586338230948978566264190246232860361394193766367155153577019496066593689827603 8895120572935429561652918353042935243670 31433448424973681045695202894721438569604510864374181482035397925024714493657102 08839224333755826821099286331895615167386134774255804435393093709193170831711065 5270592280600176134677716512929237401475 94268773763418116010235144034532167014020496192669717525215267390247959673036556 75153435829049081873288873584105275261338578967785817975786193083145758694010371 0383319122507795478932429070181569572732 59637964269548441581605478242014150249469219210912293703129352981330927495667276 37899505635565572250781483089327484522563058571882176731556143467919745760128768 3228421583034879826997245448039449475450 41289171504154464026240004393760784980970888658605300875353927261534618579060111 09962810197576817067943674872715379131569209835394941188814227153717745275880686 4311449537090425957481338580772832528076 98523271332763780209647570305274293562143426181701055850915207669394652445055559 07486866897574867808406535013920968091478854917891246826410613304265162161886903 5054635627132059757496110315898230849854 97983468921867041001267989010011126412208297556425721720351709697354106093480912 89721435967350553210610480495477730430989163279073445766107876510517529486859374 1193159767391920613009329301457241157889 73074182331621997473653949461321851150314066207725796030275809654463310691378148 45427803211354812499256738543099028217220304129328443203321433315332367485361401 7182256861230758290943123986647166992024 07298701243821127684398551560918165574522765298815751456348193156889416008519204 73408171666708204680913473332815902622021692640773511818132142072081345252414381 1991157666718049203017090557446346133609 53909691553022939979777257481745880404840960342547286617547590495044029016750304 20624983308705255754456313862275357585933258134266036837262836626315211393463845 3542850209397775446514228869091746644218 75299385756115798118601531481914670906766273512296366432853807567068232712689820 87951934328286316902715799167250612785548788824775950398053182966185627504998893 7814182492329763564374380090672506862629 81734565204911559481117664685617837863230578082091164984453656597894646414413007 02496184511432426898958340347969941504801165194909356829949755184425212749089634 9919547862108080754627822385593371825059 08155858212253392610839077955609999495301653984439382246709977093118831490372610 09118658058709028303876328760086839773651671358994561137126010435988494245864156 8371576543888878000091691174234520236808 21300353127614591055196197280812718645650359911553432134733484723900977084016065 07674359189470870756208302817049259802843285698249735176951630049455031021590512 1103731841566634425315414683467019355723 12229196435012435643128041623474869916327542214986687981222330402384517600385838 97797188345127789923336042284883547344107990200648973444268753142171063147470368 3203579497777221147242862453265718821340 16903861696111199272541807301422834143228025973503992742030346250699396970017870 56804559413680601858398348502535704890615781871672568736362213534381064012186356 6508946393699564409912860395103416793040 12162836215165535473612616135160607271681211907253794776753504298623718772467608 85874632881259024796482085793575164963469165455817860781724095478176569604724787 0596375477612571837939259771922679377920 78214091086118717645570657234721201350841538294284058040041117148106505201748123 93465149974859390475283890879909727023174659908951348505514459037877725731133290 6063126370067445841799751052177816965425 58672211527353444556311836866133113017764392982839808504892217899622494307124729 64529789305884139815220251160915101184508206923137763608702567321408431207798039 4101744251828270863325870282707252906333 85889430402282669746083387934451469884433666941726911728735292648714510775113713 15663755857024123641657164820703568305432710210602181804860907340939462515806466 4095357819062273432390481047143476116110 90617230854150834491382172885514157029373294822526779846615420516142635906363684 31345852032762523627314241395127594329196488633103412627807958480967282242637857 0704782627090452000147869743997102892909 89444204583146847844261569773726868087482393820119420177139045709373892402417911 14522192056723386757544265261799087118915182734437354767163230699464214260106174 8934087767716083723822432806275908087505 24379673468524746243051335860109942580382925399085695962385923141655308874368474 74279662670753631314757200635550699153772953950300183689520360809315459187352466 5180509572082879641519815812474719915590 58757594348799971450000672495490338704156835883745569362176173776174798375918779 72583813280666842289324702696173972037296360358339255672700108780737675541144588 6222397823147371616878340879846612473300 61021042379731041076337577386322977417995922429684451512292885886996769450264914 19760016302583636434845784297420654810510895038827476125013793384282562971288045 2493725855941410813485351973857326372499 39917742967548827526967457747142681279728352104771687973113358973339127689400361 49759451035125001405653914566818222719950402125535601904456208975769245349797214 1358241773980779459964161250961016378718 17363768476658851102684281688193757922663734961166850454581956618872097037236416 97582053542405440640330220847917568582644970013648164180233079831297622057223319 4398607979103805605991955402312998133055 06514103498967544909183290513986772391213670413933321186290384914339880199370167 09825785664675292890306187851443336824505448230491244424295383483927903944639045 4443538933849149501927050146961292156104 68568595482926718323296315562197786787821484622006735112631973661202842548982260 87307546960450912588812750126420344043944751631285355447263085948804786509427251 0376321380354902016844297848919401977937 91897785208757419914534145622495525938815996764156507674684806568379398189748076 13688018051570360365061363880339713633066523403152071651177672982990497569049622 0514954053365937167184746413959565687497 42146118084920094320847990606315263172653290284777190851110919646975999961997940 04407416106070451199244798232028543067469355616989132766497944432762591869484669 4118194509627968849914508084761408343658 99842338916561645603696469156010247248684307349348056746707133016753065355361390 90635722562004736931978222108481710524828091437050262833815089537346172291897456 7968182263637698711057606343505527100024 10162110639735362947941313122154425396090602290877733294015451495764822097626960 75910455687041773857838481057059771334744210720516478922399612907742668807219659 3508000126059198284352832452960900101758 68389837924686394283236541361717984585576886605246518180953266243483830704966807 32937832422867407331211417577371741628267442044538951536497362991380561740105995 6298630852053618350386769959612418095220 01844001221197840048420352503144712477680913858196528561124949396444478062161457 92401634047895926569003814809421635146027893310849529694026432686253945270997355 5964867778936472760459817897979699780016 18525469290983528028646848294617397433300102135397504421070041273313492816318025 70179308009253221254912578594037847937540296963000026503099153845644460395964716 1181251099027787818649369306739310463685 60233024468808797709014175567489456057865334140755559645081230803396262551822414 98111288865690437632917653006782089651839637523267873009754726728636426511214103 7077051995394108055711723297553424361058 40217564835830857299862853846355745945066599052990987574165940484283627688668930 84474873917634814818153213721375337377457573382827581396874076636004582734786036 8613605087875615876329554002318465369893 35558158006526753961519571604364882318961323873277561632574193920554126007935023 86468016397555438514928097996305822638144301076762137219147475980990779571204301 6044587848899957678895723338284134533061 82752624853113517992793772135911647569464266509934662798419072966906911310182564 01341151666333804890979881664745631390979343996234790535974482503279512718436534 9852662705382905293422171844471544579432 28824404990429524451352895332483843557716296170488643579619155881302031022605718 20481877008893615035560978538210619749205701492666948860783959974285111940646404 6149676003953507854651564555328318324472 49304749575290686859326949297049200645106678355798495978923516651169629460532683 56315283654035355549741143508742838769276460358405176555638904051190052143737848 8888549031729393719555823357799147056498 14530600390185276507466302169997739319735018366389617410335323294423390780906629 37697062595349606153645181367901239055764041646426620283285532893833418015793605 9269992695665589698555651042210002832297 55210031422830674423787886623261184078467342556302963084690117744034213185020016 79266344088031384862065563823534786559413223116835780308805091537533468456323973 3323250899681721419305259697992944859468 54866997471038258205543833748252554010194249660059442592604130615300418012649843 53384078650646912365072793213734312043157051379856139143883207506574118790598624 0996378104117072161710218013970802094913 28659305820945499396436887429438788145635010883756459269451154253981505585280933 16686437383335449566702633564834830880753994420690047713086659659583506420360732 1878255453459958096983981558885357107534 80230776283933124827550724124403024608473704237906259904171192073694180545747610 38280967019840487284870381734021622846189918464682731903420672004842901930052337 4386328618648821718306822184454102602697 11002805768605150791126979546423246332837067889109302182735632582965469839785892 38430525124190611534708165071315495691708450835294152692263574522512198251862007 3999799780620125792464268157225947272168 16872256684972568348572006191131399675340342605677272220734446907365051621164103 39424739998150080516397880194705850737912016383689285078812141637243058966064961 6023569056647604088591298754400761886691 79586433455322312552215702696553717113876928616378667109853804455578971191817058 67799216209312516838612313162240214259863290372581481019709719440971075886027722 2118800397699925887590382541589408793432 93006639623190314432019114943899606670736797111838134241507864150965475198831653 14212631783690689214175067330145392864134413579927076970761445531848903287518975 4893547518172831714608294521360852883171 87206061946612014588985678303117811490395766989330177709962673355417579371472330 68946430850649186457513867400938793210512941175467722805080951935566603412315523 4377025488872151207656138888783095609608 89036060762055174019962333658728478835041792266540681576773928024742489203660711 57313669207936945641385170129351206103851968454394486772605650957456504493183105 0399257242896047859946871980087166984561 33307886104722093379075646750168805089929369928465111525015911498084924874134433 36932747114223559366196758626475702161902416078119050024507459619174509805704986 7802879448996487700770428724547449423659 23662782160627495564516645402520037005612106397533424386060809020808763086656726 76484942545911635945840112699265380648549306965226981350983552628540711100808819 6027849173230005722268261701141266663245 03905637699083087496972102259415143355916276146896939385460886937590025036588988 33065408303979025689638674877960140084062259123870691687151136855911545675999076 9822041280284527776841763072984594003652 45261918055860914666248413990001665256077667385332786193412925367485870485546376 55238263083001529091129434949709708157533389301707023299334737954228808425854978 4789200554284202859855799700187770285887 62584336456632615974788286930361944421386443928619551387747170188075667829855984 31821608442068221747967333126004308363705858917761200764575781911634463871394159 8048652175305515342298881885697329678102 74379125993398632320363842515885469812317013354729812082573330350096281171289365 12995400294835441367546488035260075093461040663500784905182158268899459970129999 8417834926781796567057521934519607819187 48357280432358795691997632390537452986071353763984595765999169587686300805510695 30753386801685766872841496189937824198434905866748616126669151608423120011254678 3224592030804344316635855645420259726205 66964406692796696528952325472964029230390146191322805769610420175536998154292258 34785640884597102752406280129409761009731716904737702026033136242303583372587187 5925203357044378338556659922592534233605 00045682467892976556738066988346866350822153600830069515097939203537104663580328 41884411352320554545649765952874135636946950545121042733929886114401043837682746 2116844885173055345805785065382255124718 19883292344830630509611327772508464979595621875902434060257401943288438761952549 33533455357952763274135582554323688713980286661490466337821743509868125753202763 0243359067409053370873409535284991782103 70900814121771255704032972332430379940667294608899532372883285314584641372918545 51687824302408587908742988674163861653407918473921432279199353791427366101884144 7411940739756425760100589964287827646915 65046304716720601931837842631370558281674961016043822683481404177991595265353718 66590640317458184386868340264938060759511716045119543566391133797451932050502536 7085490792486709780658719916940912067384 02258399225042446533228813065223119607034169498250661992429756451545134639769756 94535878607206911449538823597120578492563988180960180383475716029306603690166072 5994269271106761360454065469070344525151 78966681615654049469340257552947639112165277005357003423659188971152853260375519 98571903848707651874126889243736450874673105203509564902667316736694227906785409 7873314259479487369842450652654153094709 57853759794433518819602056508498731646941991668716176026730585460330346755024692 23757092442143695185485380343898147606194691959570647196878608908367717877436143 5194071097887462925781314180074408496333 22343121856009774139481954032329234771853871896643260692213436137217796242104706 15454430927459731941471362763185993420786042663016111857271079276157145859506424 1104966630291647249124344827084996948685 15890240482915630068138818955293804037147272920713736310002961847056618279481705 64255962865778165968812660801353151255490335279707502406738070054766006887164364 0811480253473424726207277321000391798257 74185754276206936065846683723214945226704274982170128373920983619958638116952224 62123498748130852191941522821073003653792381723038048143269354396066098771567430 0852585963816985913502573000177086380739 37573818926463654983141688070599645205085437258731512023968753912501131358754221 04976773775547708290638191822182359406201782910252365248140043029879427140211933 8853423873622578066870959235226310128087 41472394973411320180712404698256967945927949615320833858898068668827519960583461 36696826967908380056007902883876465668243777733879941395142088387033578221202924 9629595186464916646688836001625316173599 78217686866975135897469765315897972367085962346433657314676685844220074384285003 76219218236588731669375542388234855612004025089844902230876089211921718838073935 4229298782151968570828241294343424457945 09531023278092120737304051976903877936914808609219612098934351534778491702087956 88840286582138287535528993997860428080276305984037492506514238811079992263146171 5763921995075303216464562132763311731349 39404042537318032365449323503233488059960229776221820910784585543229253964986526 31124272204510724703693786963982285149885151631480670473716538826663927469171478 6675190847550181066145236038510287849398 94387079296200710839796497652047859251006836832753424592327487279497189139340402 56653383425844870660025406075845330688838196373549458923905793943951582212961056 6065461643616389058156828885253655431061 15065814398933708427935591084037010173977918529030595463320908752333438491039559 47627999189733628654515982535995522004398313829857802860447594977229592090686675 5018303345344753630372182329678592631432 16770470611699302357652310831991674176455100877572026072150801659885150174593541 35262546201543869716207011628373930359792895757311784857918855361799405441956259 3728751911437510014854892046141093591820 51577779225582835541120620936629965573314534285902290349294940312808732988849439 97600113464770550767498353639014587518909847922921386302782668353693279462930668 5014284040879386969609110185335012236703 78378262114967646286506685322737321256432404926094779592182216573268242264304992 42114708904975266864796703986092030456839919621275739621197128538414383951459584 9226795260035695423403944235060398440813 74018330995237598370906771944100447248793721948464414718848008557125684418110080 96710999183381406019750944455596882601998127853895467595431977737731719258492372 1225922194696836176938876161299777898051 00296077131213633769255609689286380129616203847774159697104687488913609032955453 17965450354861916338140157586605186133722228882779338131537033895880797948418346 6711447703433457651243050990572665513825 91351654987732070412419218646663064093740453437269096889710823138698498134207975 18396502260143092455359087102317291897411764591081217433778618716336248158441825 3632045756472799861416332806326022021599 45693665919564855525544920861187674953802132066572743125175171030202018620764554 75242835860627878223554240405745639314454401037648261639791081187474596993624555 6387963249846685507513219515036051705953 90339774675913225404864989182235650175323644320783756793877414937783098233553561 44344875150118500814392895959495056276138385577036434720958688036188270312462859 4471015511901396986493804508403223880259 36140541438080231199502089556207914075292758791062313928841978694321549552473599 62050672061161652298793872897477356512732788212214252694067925841744939487173387 1655045719160642365020166067995564131819 54951139221315418905697581670478755211147020299957165557471362304644836900106904 85408721053584746588767375423198656387091870582256902877758194048904676147866723 0293784743850447314140166914824486119767 31057807772009579565248232942187290207001110753473698772618486588274749837398501 41470606620537914143938579218505886568947006717320334019362597445576873350132725 6302418442131124484463747806921943245699 34653823821958257237539224432594383208518626179057567290454022705725382182758837 66001308109061419932242383335400958774071760392000534680905723931710102949023890 9713075925852299785018743151368440973228 65751364730619405314689569935711542478929462258875941959126727258568393490049625 06068467016293071045019140160635565584747020810523923413815716805631894188039348 2166346217345234748204009848903022116577 57237257716809925133492927080364133150038120723261789696976101539541136633230227 75974188864521945192507139101897857583556136156701641605020523651587438848375213 4745344055383384926626662927161265341219 69757586587275432763838406069011960923312144655957020805271925259149249523332145 19791607250833703173328179371088689090902214456382451355601348400868095424228583 7924596412297711089237139032148932239117 85410119763998171204979016126188024860419227112044437238459049734023368066020617 67394083090597073720800356969365398580955815235417225407936977130597905730836498 7649518141210533073273707683271409251701 21061608381985512078681327120662192518515842614680176265225805272772595146060598 74036405507179573130379433650319998221106625821721691747446043120613537352041342 3493545256196954668974996930308685299483 23276485959767798525001173460771822748143073782722907673245976401952706563985301 93105033796684294577201816716061870206392137515015762120665621158331324335391809 3945382540260993411538197875435990426543 28089129360031630467211647810461927861513162660906572253728216061887187393643834 59945840422761778599464712436317550383320873271298558006817136918834009312540239 6985899980058137593546600583250869717787 77486349675517103764751141789669429315857334834872808948899544382754855227661255 84373154262844463990522038596328230785740465128635901308883863018010797598353990 1031278851548866692876320852408230663173 01182614565222195608620962104192936110849261440068603338725833146321517490031771 94608340578620427074065767816672535994422188711575962000826713700974319485736318 1711936366149298164134311087203413595863 09566667093213313521092015224099773129128528239530730011770847890011246587660773 13290605006268973991875312368757090063063990330160154370506052732406450441694155 0247496665067491387616287654761544536656 93808364627133686989595481456539470347528809591732518604495171117185094294950366 16648633643772422893992959196175295349894051488492893549027873764086627057934773 5703709400533285153460381592567996168022 65564667169422599866887639454496166264358130156957145006537786698163625483151719 18107074544055509562868446306546520105674627171600416289915124042368809284896297 9902553399581373597427548078537346125056 57337312521362495934357374599168587604311098349359629663538109913631955884319529 74488547706034247666079103260713218956808299977195692777142693261630568224354484 9334569506043855751471733789793164740914 67308509424598677219400302487835632671984343347664299849918696786696363884872418 96080153563483315952816485096011037922297487576871905359391324816847714330858575 3294125372809355896029798363116328680066 99835183437208086721186899586891631897619826479191450639046061942690551238729813 86940358955388591751769404982410483968144610823855208569411888436601607521079950 5689330904879841155874632447413894843572 98703859999078591842796572881051981735096092740416895104913747407182298863028116 17016256226416882623944346159509579061026692001482187604811827998683439847790279 6438159323383032723476740713744384580338 64171181097668769432972140407697206116964223435902015091127246079581654759723756 17064065820244780274782239423860232249791655593491779054188502716469366238016129 0395562740442222538890596649162527457418 25674964450793258221226238297718423028199975750595679277460548236386146101286350 36594313172839089174917338458916374331755905041358141131406948622264670901762425 4378351687212252985453093593850898589838 06071846266381409570859996377676410765667514504690397727219162618938897732605403 03447631415266847045382160739169099240541619443116529803748283811822926196510353 2716483880910288061066569224348185914739 23679367655413722974615261459488845806298200004754236070665485634773558783616320 17598346756910281704968549842128492859117324339746822356259922608921212838258394 6761431381382093459384660607219128118289 06464120990051687014075265128106223799151618311574778416297503618577902341829895 78887326638845791276562980010376432422088270386962422351974118539489925047775847 9543711053866156686435846382618856318216 27670430210373542333984866527882664407227756900034088995765352623214154598373793 60669421007952719119258222851850097047583862523287513555041565382793254949418081 1626567010180464362729650367945671829827 87253279777977360201283593975103375815712659066856756518384571343129910139497597 47581865539366370352975327595393592247188911625679943207301541813865706231242481 2022434380666428917855017735492354928950 17452345860322687490102936771004093089064845943841096688604169841062207859646444 70017585156170640199689220656483247996242894908859889787389653523839805977034772 8173293264882503989201355738045184769364 13540929186160468440676613385553018416067844939810857280212707685437809432453403 11000282623587332046340386649699362426234146152032832088946955720508714093790531 9425274622206007548346489157818994165491 14990940359883833978961103899103011662750413760090075576360097989472506249560614 30156985864926315418230062472796517077491691295444827026881726591597089149278476 7065676848552714208053017127404856035840 17497001592873993139874080955649054961932509877204418249741733676727057154827527 86805477696179400369947578363151467184130070974119494911211733011409809689779541 8601441319086316231247169985874672769570 92551633050360662337239057100018079067955367356386908405727844124626639553871051 11764710555692112252824801316232145361377048280806787787992745652729492448750251 7737528685249358901998518105351555034103 92576592076738000640771809589522416744525452314327344310249271200009247552416746 60248351518494214918410133831826499850111498756803148591689055284018971538854949 3309366217628388273403283797132777989370 22425469392285016203359577736579070248268527433776359970239504796397448217028966 96952715830562036323679154834753370806682168096246718997474064178486630177917861 5385825555842229297849829114367344742043 98506956535192031945436776598300102121139927595531159636914844771891524355264700 21544722170996651974297697752711618794771250557542437267212818516180684164903835 2499348907257630783548120383528828671753 09416795278890713837778933453790493480982311693975411683819658262719397610984002 23445205992703319718570866698382991813126960992998127301173256774612863130123720 4777784404230729760948023889434631357362 79076956915301449675026890175479284802756687204210168831311598597009641820208011 58589619225258558641762564461634021295694690097626662447849555460764970154465620 1078548881267030441409960751750297583390 25995135161421350280617297146168401667207541477941557253412289208832908789721415 42841529008296421115286909455001838377804492763964395266682228869329166946388444 9603011519662177005078849220955112566233 75077969409078993812390502868935860892137354750202970658384536335500216412558288 30793949246065265916577576269278117346414449362909901555679910088160932318554946 9791323571730733594254319401409549788523 52704283588218318914256717606692175279591660409396908255578412876387345386831828 44797082112769913600005290281818468924518508625510712555773598079477574327961838 5629966461654664454947422542452897077222 32368413834352769279804855195622251408119603226177329969307398968966927263544977 12354450875195968612454536177750205964892230783125616642490851177884321938111952 8646450158770097632811254278754475202927 05610155135605311409872255585956953777880929502357986415867029555570921008841909 25579012645502210635755392645669856374873333819460710984284005634585242615948872 1049915074160461802102593072695015929911 54767133463250900257669256237632667949344129507569369565401749515641923832567645 58207285470817494074511546194668036016398894726238381799824600596558043468320086 6366750608289291798856310105086083180405 63507099711104107940160672613870825999043513535213573794292577037698629160238600 08117490262096270008625956109897075250660099129713706700367425455909220413408231 9000430495849348073295546270363273667011 53403030786423720334702026993739318123093624907245579526964373132118871307016385 45436743009515148986280601520773982138590911877950780507533654683553209862135252 3850438305496132288176055039107522901466 57269647877576952273724185816700306238047459183083847198859704549119319332228881 95067549496184165373376932705954110494938695393287179713834193296312714238618186 5537928990872992667376072587442886057178 25819581121866345675935726529944109900312821974243594026276363662983914784821329 48989938065744130607292081503560937706732247493973614564685631096162083953880049 6077400940630699619529468299933725428925 54836393206491537492026901794749338741118624270109963088585378344464389343746118 49523758036920289554650720404254318004720922425913531281316535743168702663470603 8072409809019685934834897132559414976892 18181195076057317412359387417124318797964571314072299320199650613161096331194521 49274889680823372522530546610306915462916048325487743576871782875168870806320355 6959548641618226739785925086189853988697 12561878351106697652488348426365959270646114147170596113544299756867374493728897 45144600905143986853420160275318439417200183965990718954564500288599915234347519 9382163923165964377173618743209964392992 29258762307023377373693978196294977036578564511809085773209831516749507715332754 93442681666806228692467975768989804725157643623073289347579236880783524562788779 3414971940783207668106081688687389661223 53276075849498634928940525462485698327430544339481480312280000682259003291687310 66614466299486940151020087002308915342485361263470471736541217626102715630682357 4435167631526926775741916782979151298287 25794483382704544523161016451839458013336644980714223554072935061386619236138565 17313430848774338142622947542096233879690905776995962342553573150073750362788035 9128098934506709048111412678603929210772 94147364778083579876978877354249631863954444910116970484113833360158672920838296 98496303465620225859786631129478762472302572457364201349303075121437177224436995 4617932307573394275179895670715444285878 95232318328949482248974429600133116891078703270348698520860625002769400541494533 51709655451538811177741213929415403573782359627641813136051518636006350302943111 3838246806428557959082510733817352926204 59817485802531611205927848796195557834846565067709583471649329728161808785380071 75359190571811376934268634839189983372097311101537001617846115877176269867720813 7783180984869205512965628277342960721003 77288736522980935925730408699221753705918233754563398456473118918746188677628929 41527357701417196105788518362161847202494491688006300499667307098456592771331577 4198628918924442686715662170430975402110 44078592886994918577870543884175773945751585589543016866121788192868681345160950 46274001877123370030056793231652004731474382500614975601285290760392159650254371 1319226951895477683341874821591895999122 35492202054451243132278222595123613099680981629551990419413884265156738814110756 15400316454256060886237818123470972124441139150182159754086018919389787375404923 6271387294147992993323074203872775624193 23220629626548213819702037188987966813883856196914136087521275389407422047737988 74257485954274994422440310545745032823877477842872233503629782046257579308624246 6929348530944019549963879718002553633722 73166997180485487516612803098129944744922865659873109192179332945492220744091972 59107224698597820043324154775582563398188567109337835378135461855001970455846419 6064511800044469344405515989757642841367 15488116351963905429225622590462355008072348837821284629842126004178652530268532 62204431354309534935968985703176888993996094818799150015951444588925501321925850 1037701505090687319104472401167347920953 98950219900051857058753452532293850643060723099253628942553891809762635439823017 76591481113565260909344505639924178785380150747367635489461480620273025045998746 8355469913440385250976821697238364081668 37902182955261984499398748462233525710719843922294040771167314856629810309765100 07187255030558770231830336283692926341066869191476513155664668968369782316307512 6355575528464628890844640729124203116308 64928303859669010596501550503266763126096524692231521224855843623693956713213200 39068401336529359453735697004841393182296510379205702442132084296694350863223654 1169791276238994031557244878972843020443 94964608104046590974428962825813572974314129947895857327487601448690336950938854 25785249875974579622957726279676523404815398441049533951493808961600157323450841 6285144969942767766766900837106661264435 93496401097634497000433469891055677221877439861971738495526042358488109721758521 04356211205137347255646807246729494076505220485162385374760859574228632611294780 6602415337177001872822476848525170455887 55143715852420513686797779524539814409765916380463271277387366301331594545645147 84359558771118992728554978126220529543885297923612705925793028924386111469561608 1770672391435865419007597870054483405297 58658385025440752559757983334991151287136043638300753193640170340663401002863552 46771159914082486015509997697294766275901226204918441009244370650208326406517455 8489914287078891834078544250495067622160 45179768340338735053783512375577852432929231858841185943619030348360625865121634 20694321069702728753581581456001739317933493947562778058914454975845175943202357 1941303632415416280396988154194005686187 95994320379654364043665816832986410483315006437533761726645303139318669377986559 47315222466776223623041861936938784570661350933545872686594995729110213456339730 1874954044792574907379808862595705401108 38385145838056241009869929477796206081561449159271738818454752136645650285662320 03194987443167304897262874595646801772679088752923711880439314703227188389622479 [id number] IMPRESSION/RECOMMENDATION: 1. Non-ST elevation VA: At present troponin trending down. Continue patient on nitrates aspirin Ranexa beta-radha and statin. 2 coronary artery disease most likely the patient has underlying coronary artery disease. Treatment as above 3.Cardiomyopathy:Continue Monica Radha ans ACEI. 4. Metastatic lung disease from adrenal cancer. 5. Adrenal cancer with metastasis 6. Hypertension: Blood pressure well controlled 7. Chronic obstructive lung disease: Stable Medications reviewed. Medical regimen and management plan discussed with the attending provider. Medical decision making hours of moderate complexity 40 minutes spent on the patient more than 50% time spent in direct patient care. W ill follow
[2020-03-20] MEDS: HEPARIN SOD (PORCINE) 5,000 UNIT/ML 1 ML VIAL SUBCUT SCH ×3 (05:43→21:37)
[2020-03-20] MEDS: PANTOPRAZOLE SODIUM 40 MG TABLET.DR PO SCH (05:43)
--- NOTE | 2020-03-20 07:48 | RADIOLOGY REPORT (SQ) ---
EXAM DESCRIPTION: CHEST SINGLE VIEW IMAGES COMPLETED DATE/TIME: 03/20/2020 7:25 am REASON FOR STUDY: Dyspnea COMPARISON: Chest films 02/26/2020, 02/27/2020, 03/17/2020 CT chest 02/18/2020, 02/26/2020, 03/17/2020 EXAM PARAMETERS: NUMBER OF VIEWS: One view. TECHNIQUE: Single frontal radiographic view of the chest acquired. RADIATION DOSE: NA LIMITATIONS: None. FINDINGS: LUNGS AND PLEURA: No gross pleural effusions or pneumothorax. Unchanged too numerous to count peripheral nodules throughout both lungs with persistent mild increas ed interstitial markings. MEDIASTINUM AND HILAR STRUCTURES: No masses. Contour normal. HEART AND VASCULAR STRUCTURES: Stable mild cardiomegaly BONES: No acute findings. HARDWARE: None in the chest. OTHER: No other significant finding. IMPRESSION: No change from 03/17/2020 TECHNICAL DOCUMENTATION: JOB ID: [id number] [employer]- All Rights Reserved Reading location - IP/workstation name: [email or web address]
[2020-03-20] MEDS: INSULIN REG, HUMAN 100 UNIT/ML 3 ML VIAL (PYX) SUBCUT SCH ×2 (08:38→15:30)
[2020-03-20] MEDS: RANOLAZINE 500 MG TAB.SR.12H PO SCH ×2 (10:44→21:32)
[2020-03-20] MEDS: ISOSORBIDE MONONITRATE 30 MG TAB.ER.24H PO SCH (10:45)
[2020-03-20] MEDS: METOPROLOL SUCCINATE 50 MG TAB.SR.24H PO SCH ×2 (10:45→21:32)
[2020-03-20] MEDS: MAGNESIUM OXIDE 400 MG TABLET PO SCH ×2 (10:45→17:39)
[2020-03-20] MEDS: LISINOPRIL 10 MG TABLET PO SCH (10:46)
[2020-03-20] MEDS: FUROSEMIDE 40 MG TABLET PO SCH (10:46)
--- NOTE | 2020-03-20 12:24 | PDOC PROGRESS REPORT ---
Subjective Progress Note for:: 03/20/20 Subjective:: No shortness of breath Reason For Visit: CHEST PAIN,ADRENAL CARCINOMA WITH LUNG METASTASIS Physical Exam Vital Signs: Temp Pulse Resp BP Pulse Ox 97.7 F 79 18 124/66 97 03/20/20 12:00 03/20/20 12:00 03/20/20 12:00 03/20/20 12:00 03/20/20 12:00 Intake & Output 03/19/20 03/20/20 03/21/20 06:59 06:59 06:59 Intake Total 220 720 Balance 220 720 Weight 67.9 kg 68.1 kg Cardiovascular exam: PRESENT: systolic murmur Results Laboratory Results: 03/18/20 06:17 03/19/20 06:03 03/17/20 03/17/20 03/17/20 07:17 07:17 10:30 Creatine Kinase 36 CK-MB (CK-2) 0.77 Troponin I 0.016 0.050 03/17/20 03/18/20 03/18/20 16:17 09:26 16:16 Creatine Kinase CK-MB (CK-2) Troponin I 0.082 0.377 0.367 03/19/20 06:03 Creatine Kinase CK-MB (CK-2) Troponin I 0.261 Impressions: Chest/Abdomen CTA 03/17/20 10:59 IMPRESSION: 1. NORMAL CTA OF THE CHEST. NO PULMONARY EMBOLI. 2. MULTIPLE PULMONARY NODULES SECONDARY TO METASTATIC DISEASE. SMALL PLEURAL EFFUSIONS. Chest X-Ray 03/20/20 08:00 IMPRESSION: No change from 03/17/2020 Assessment and Plan - Diagnosis (1) NSTEMI (non-ST elevated myocardial infarction) Is this a current diagnosis for this admission?: Yes Plan: 03/18/2020 The patient's troponin level has risen 6 fold. Cardiology will be assessing the patient. Nonventilated nitroglycerin paste and a statin as she is already on aspirin, lisinopril and metoprolol. He did explain that due to her severe metastatic lung disease cardiac catheterization may not be an option. I asked her to think about it and possibly discuss further with cardiology. 03/19/2020 The troponin level is dropping. No further need to trend her troponins. Dr. Trimble has changed some of her medications. I did speak with her goddaughter and they will likely want to talk to her oncologist regarding further treatments in light of this event. 03/20/2020 Patient appears stable. She did complain of some shortness of breath yesterday. This seemed to respond to furosemide. See discussion below. (2) Chest pain Qualifiers: Chest pain type: chest pain due to myocardial ischemia Is this a current diagnosis for this admission?: Yes Plan: 03/17/2020 Patient developed chest pain at rest this morning. It felt like a heavy weight on her shoulder. It was relieved with 4 chewable aspirin. She does have inverted T waves inferiorly but these were found on the previous EKGs. The first troponin was 0.0.6 and the second troponin was 0.050. We will continue serial troponins. She just had chemotherapy yesterday. It is difficult to know any direct effects on myocardium. 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 Patient will be on telemetry. She is already on metoprolol, furosemide and lisinopril. We will continue her baby aspirin daily as well. 03/18/2020 Patient with non-ST elevation myocardial infarction. Chest pain is clearly cardiac in nature. Additional medications as above. 03/19/2020 No chest pain today. She did feel that her exercise capacity was slightly diminished as she was getting short of breath walking to the bathroom. 03/20/2020 No complaints of any discomfort today. (3) Hyponatremia Is this a current diagnosis for this admission?: Yes Plan: 03/17/2020 Likely related to her metastatic lung disease. Serum sodium is similar to her previous admission. Will monitor. 03/18/2020 Chronic and stable. Continue to monitor. (4) Hypertension Qualifiers: Hypertension type: essential hypertension Qualified Code(s): I10 - Essential (primary) hypertension Is this a current diagnosis for this admission?: Yes Plan: 03/17/2020 Currently on metoprolol, lisinopril and furosemide. Continue medications with parameters to hold for low blood pressure. 03/18/2020 Reasonable blood pressure control. Will need to watch for hypotension with the use of nitroglycerin. 03/19/2020 Continue current regimen 03/20/2020 Continue to monitor blood pressure. We will see if daily furosemide dosing has any significant effect. (5) Metastatic disease to the lung Is this a current diagnosis for this admission?: Yes Plan: 03/17/2020 CT scan reviewed. Diffuse metastatic lesions noted. Multiple lesions bilaterally. The patient still has pleural effusion but it is significantly be tter than her previous admission. She did receive chemotherapy yesterday. Will return to the care of her oncologist post discharge. 03/18/2020 In light of the non-ST elevation myocardial infarction with severe ongoing metastatic cancer the patient is likely a candidate for aggressive intervention either by percutaneous angioplasty or cardiac surgery. She is not due for her next chemotherapy until March. It is possible that due to the N STEMI the patient may decrease the aggressiveness of her ongoing treatment plan. 03/19/2020 Further plans to be discussed between the patient and her oncologist. (6) Diabetes mellitus type 2 in nonobese Is this a current diagnosis for this admission?: Yes Plan: 03/17/2020 We will continue her metformin after a 48-hour hold due to receiving IV contrast earlier today. We will only perform Accu-Cheks at breakfast and supper. Sliding scale coverage will be available. 03/18/2020 Per nursing, the patient has been refusing Accu-Cheks. If this pattern continues then I will just discontinue the Accu-Cheks and sliding scale. 03/19/2020 Good control. No changes. 03/20/2020 Excellent control with metformin. Continue current dosing (7) Anemia, chronic disease Is this a current diagnosis for this admission?: Yes Plan: 03/17/2020 The patient received 2 units of packed red blood cells on her recent admission. We will monitor her hemoglobin. It is low at 9.2. She did just receive chemotherapy yesterday and slowly will follow her CBC. 03/18/2020 Hemoglobin is slightly lower. This could be creating some demand ischemia but her hemoglobin is consistently less than 10. We will continue to monitor. If it is felt that a unit of packed red blood cells will help with her cardiac status then we will transfuse. 03/19/2020 We will recheck hemoglobin tomorrow. It is possible that the exertional dyspnea might be related to anemia. 03/20/2020 Labs ordered for tomorrow. Possibly related to her chronic illness versus chemotherapy. (8) Shortness of breath Is this a current diagnosis for this admission?: Yes Plan: 03/19/2020 The patient was complaining of feeling slightly short of breath when walking to the bathroom but not sitting at the edge of the bed. He did ask the nurses to check pulse oximetry when she did walk to the bathroom and next time. In addition I will recheck a chest x-ray and I have ordered an additional dose of furosemide. She has had a net positive fluid balance of several 100 mL but I would not expect this to be clinically significant. 03/20/2020 Likely degree of heart failure versus capillary leak syndrome with gemcitabine. Either way she responded to furosemide. 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 In addition, gemcitabine can cause capillary leak syndrome. The patient was slightly short of breath yesterday and a dose of furosemide was helpful. I will add low-dose oral furosemide daily. - Time Time Spent with patient: 15-24 minutes Medications reviewed and adjusted accordingly: Yes Anticipated discharge: Home Within: within 48 hours
--- NOTE | 2020-03-20 13:09 | Progress Note ---
Provider Note Provider Note: CARDIOLOGY PROGRESS NOTE by Dr. Sagastume has been on 03/20/2020. SUBJECTIVE: The patient denies any chest pain or discomfort. CCSC is sitting up. She is not short of breath. There is no PND orthopnea or leg edema. There is no arrhythmias seen on the monitor. There is no TIA CVA symptoms. The patient's appetite is good. Physical EXAMINATION: The patient is well-built and well-nourished in no acute distress. Selected Entries 03/20/20 12:00 Temperature 97.7 F Temperature Oral Source Pulse Rate 79 Respiratory 18 Rate Blood Pressure 124/66 [Right Upper Arm] Blood Pressure 85 Mean [Right Upper Arm] Blood Pressure Supine Position [Right Upper Arm] O2 Sat by Pulse 97 Oximetry Oxygen Delivery Nasal Cannula Method ( includes room air) Oxygen Flow 1.5 Rate HEAD: Is atraumatic normocephalic. EYES: Pupils are equal round regular reactive to light accommodation. Extraocular movements are normal. There is no conjunctival pallor. There is no scleral icterus. EARS: TYMPANIC MEMBRANES ARE INTACT. EXTERNAL AUDITORY CANALS ARE CLEAR. NOSE: THERE IS NO DEVIATED NASAL SEPTUM. THERE IS NO INFLAMMATION OF THE NASAL MUCOUS MEMBRANE. MOUTH: MUCOUS MEMBRANES OF MOUTH ARE MOIST TONGUE IS MOIST THERE IS NO ULCERS. THERE IS NO BLEEDING FROM THE GUMS. Throat: There is no redness of the oropharynx. There is no exudates. Skin: There is no skin rashes. There is no petechia or ecchymosis. There is no skin lesions. Neck: Is supple. There is no JVD. Carotids are equal there is no bruit. There is no goiter. There is no lymphadenopathy. LUNGS: There is diminished air entry and prolonged expiration. There is a few dry crackles scattered. There is no rales of CHF. There is no rhonchi or wheezing. HEART: S1-S2 is heard. There is no S3 gallop. There is no S4 gallop. There is murmur of mitral regurgitation present. There is no rub. ABDOMEN: Soft. Nontender there is no hepatosplenomegaly. Bowel sounds are well heard. EXTREMITIES: Femorals are well felt there is no femoral bruits. Leg pulses are well felt. There is no pedal edema. There is no DVT or cellulitis. EAP SPECIALIST: The patient is conscious awake alert oriented x3 with no focal deficit. Chest X-Ray 03/17/20 08:40 IMPRESSION: NO SIGNIFICANT CHANGE. MULTIPLE PULMONARY NODULES. NO ACUTE RADIOGRAPHIC FINDING IN THE CHEST. Chest/Abdomen CTA 03/17/20 10:59 IMPRESSION: 1. NORMAL CTA OF THE CHEST. NO PULMONARY EMBOLI. 2. MULTIPLE PULMONARY NODULES SECONDARY TO METASTATIC DISEASE. SMALL PLEURAL EFFUSIONS. Chest X-Ray 03/20/20 08:00 IMPRESSION: No change from 03/17/2020 IMPRESSION/RECOMMENDATION: 1. Non-ST elevation NV: At present troponin trending down. Continue patient on nitrates aspirin Ranexa beta-radha and statin. 2 coronary artery disease most likely the patient has underlying coronary artery disease. Treatment as above 3.Cardiomyopathy:Continue Monica Radha ans ACEI. 4. Metastatic lung disease from adrenal cancer. 5. Adrenal cancer with metastasis 6. Hypertension: Blood pressure well controlled 7. Chronic obstructive lung disease: Stable Medications reviewed. Medical regimen and management plan discussed with the attending provider. Medical decision making hours of moderate complexity 40 minutes spent on the patient more than 50% time spent in direct patient care. Will follow
[2020-03-20] MEDS: ATORVASTATIN CALCIUM 40 MG TABLET PO SCH (21:32)
[2020-03-20] MEDS: ASPIRIN 81 MG TABLET, ENT COATED PO SCH (21:32)
[2020-03-21] MEDS: PANTOPRAZOLE SODIUM 40 MG TABLET.DR PO SCH (06:00)
[2020-03-21] MEDS: HEPARIN SOD (PORCINE) 5,000 UNIT/ML 1 ML VIAL SUBCUT SCH ×2 (06:00→14:19)
[2020-03-21] MEDS: PROMETHAZINE HCL INJ 25 MG/1 ML VIAL IV PRN ×2 (09:54→18:58)
[2020-03-21] MEDS: INSULIN REG, HUMAN 100 UNIT/ML 3 ML VIAL (PYX) SUBCUT SCH ×2 (09:58→18:43)
[2020-03-21] MEDS: ISOSORBIDE MONONITRATE 30 MG TAB.ER.24H PO SCH (10:00)
[2020-03-21] MEDS: RANOLAZINE 500 MG TAB.SR.12H PO SCH ×2 (10:00→22:39)
[2020-03-21] MEDS: LISINOPRIL 10 MG TABLET PO SCH (10:00)
[2020-03-21] MEDS: FUROSEMIDE 20 MG TABLET PO SCH (10:00)
[2020-03-21] MEDS: METOPROLOL SUCCINATE 50 MG TAB.SR.24H PO SCH ×2 (10:00→22:39)
[2020-03-21] MEDS: MAGNESIUM OXIDE 400 MG TABLET PO SCH ×2 (10:00→18:54)
--- NOTE | 2020-03-21 15:45 | PDOC PROGRESS REPORT ---
Subjective Progress Note for:: 03/21/20 Subjective:: The patient was planned for discharge today. Unfortunately she developed hematuria. This could be related to the indwelling ureteral stent that she has. This was supposed to be removed today. I will reach out to her urologist. Reason For Visit: NSTEMI Physical Exam Vital Signs: Temp Pulse Resp BP Pulse Ox 98.8 F 85 16 144/80 H 93 03/21/20 07:33 03/21/20 07:33 03/21/20 07:33 03/21/20 07:33 03/21/20 07:33 Intake & Output 03/20/20 03/21/20 03/22/20 06:59 06:59 06:59 Intake Total 720 360 452 Balance 720 360 452 Weight 68.1 kg 67.6 kg General appearance: PRESENT: no acute distress, cooperative, well-developed Head exam: PRESENT: atraumatic, normocephalic Eye exam: PRESENT: conjunctiva pale Ear exam: PRESENT: normal external ear exam. ABSENT: bleeding, drainage Mouth exam: PRESENT: moist, tongue midline Respiratory exam: PRESENT: clear to auscultation amelia, rales - Fine rales bilaterally, symmetrical, unlabored. ABSENT: rhonchi, tachypnea, wheezes Cardiovascular exam: PRESENT: RRR, +S1, +S2 GI/Abdominal exam: PRESENT: normal bowel sounds, soft. ABSENT: distended, guarding, tenderness Rectal exam: PRESENT: deferred Gentrourinary exam: PRESENT: other - Hematuria noted in the toilet water. ABSENT: indwelling catheter Extremities exam: ABSENT: pedal edema Musculoskeletal exam: PRESENT: ambulatory. ABSENT: deformity Neurological exam: PRESENT: alert, awake, oriented to person, oriented to place, oriented to time, oriented to situation, CN II-XII grossly intact Psychiatric exam: PRESENT: flat affect. ABSENT: agitated, anxious Results Laboratory Results: 03/18/20 06:17 03/19/20 06:03 03/17/20 03/17/20 03/17/20 07:17 07:17 10:30 Creatine Kinase 36 CK-MB (CK-2) 0.77 Troponin I 0.016 0.050 03/17/20 03/18/20 03/18/20 16:17 09:26 16:16 Creatine Kinase CK-MB (CK-2) Troponin I 0.082 0.377 0.367 03/19/20 06:03 Creatine Kinase CK-MB (CK-2) Troponin I 0.261 Impressions: Chest/Abdomen CTA 03/17/20 10:59 IMPRESSION: 1. NORMAL CTA OF THE CHEST. NO PULMONARY EMBOLI. 2. MULTIPLE PULMONARY NODULES SECONDARY TO METASTATIC DISEASE. SMALL PLEURAL EFFUSIONS. Chest X-Ray 03/20/20 08:00 IMPRESSION: No change from 03/17/2020 Assessment and Plan - Diagnosis (1) NSTEMI (non-ST elevated myocardial infarction) Is this a current diagnosis for this admission?: Yes Plan: 03/18/2020 The patient's troponin level has risen 6 fold. Cardiology will be assessing the patient. Nonventilated nitroglycerin paste and a statin as she is already on aspirin, lisinopril and metoprolol. He did explain that due to her severe metastatic lung disease cardiac catheterization may not be an option. I asked her to think about it and possibly discuss further with cardiology. 03/19/2020 The troponin level is dropping. No further need to trend her troponins. Dr. Trimble has changed some of her medications. I did speak with her goddaughter and they will likely want to talk to her oncologist regarding further treatments in light of this event. 03/20/2020 Patient appears stable. She did complain of some shortness of breath yesterday. This seemed to respond to furosemide. See discussion below. 03/21/2020 Continue current regimen. No evidence of recurrent acute coronary syndrome. (2) Chest pain Qualifiers: Chest pain type: chest pain due to myocardial ischemia Is this a current diagnosis for this admission?: Yes Plan: 03/17/2020 Patient developed chest pain at rest this morning. It felt like a heavy weight on her shoulder. It was relieved with 4 chewable aspirin. She does have inverted T waves inferiorly but these were found on the previous EKGs. The first troponin was 0.0.6 and the second troponin was 0.050. We will continue serial troponins. She just had chemotherapy yesterday. It is difficult to know any direct effects on myocardium. 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 Patient will be on telemetry. She is already on metoprolol, furosemide and lisinopril. We will continue her baby aspirin daily as well. 03/18/2020 Patient with non-ST elevation myocardial infarction. Chest pain is clearly cardiac in nature. Additional medications as above. 03/19/2020 No chest pain today. She did feel that her exercise capacity was slightly diminished as she was getting short of breath walking to the bathroom. 03/20/2020 No complaints of any discomfort today. 03/21/2020 No changes in the treatment plan (3) Hyponatremia Is this a current diagnosis for this admission?: Yes Plan: 03/17/2020 Likely related to her metastatic lung disease. Serum sodium is similar to her previous admission. Will monitor. 03/18/2020 Chronic and stable. Continue to monitor. 03/21/2020 Still in the low 120s. She is stable. (4) Hypertension Qualifiers: Hypertension type: essential hypertension Qualified Code(s): I10 - Essential (primary) hypertension Is this a current diagnosis for this admission?: Yes Plan: 03/17/2020 Currently on metoprolol, lisinopril and furosemide. Continue medications with parameters to hold for low blood pressure. 03/18/2020 Reasonable blood pressure control. Will need to watch for hypotension with the use of nitroglycerin. 03/19/2020 Continue current regimen 03/20/2020 Continue to monitor blood pressure. We will see if daily furosemide dosing has any significant effect. 03/21/2020 Good blood pressure control. Furosemide seems to be helping. (5) Metastatic disease to the lung Is this a current diagnosis for this admission?: Yes Plan: 03/17/2020 CT scan reviewed. Diffuse metastatic lesions noted. Multiple lesions bilaterally. The patient still has pleural effusion but it is significantly better than her previous admission. She did receive chemotherapy yesterday. Will return to the care of her oncologist post discharge. 03/18/2020 In light of the non-ST elevation myocardial infarction with severe ongoing metastatic cancer the patient is likely a candidate for aggressive intervention either by percutaneous angioplasty or cardiac surgery. She is not due for her next chemotherapy until March. It is possible that due to the N STEMI the patient may decrease the aggressiveness of her ongoing treatment plan. 03/19/2020 Further plans to be discussed between the patient and her oncologist. 03/21/2020 Today the patient asked me a fire in her position when I continue chemotherapy. Told her that I probably would not. I told her that I would look back at the imaging studies obtained during this hospitalization and previous and we can discuss further tomorrow. (6) Diabetes mellitus type 2 in nonobese Is this a current diagnosis for this admission?: Yes Plan: 03/17/2020 We will continue her metformin after a 48-hour hold due to receiving IV contrast earlier today. We will only perform Accu-Cheks at breakfast and supper. Sliding scale coverage will be available. 03/18/2020 Per nursing, the patient has been refusing Accu-Cheks. If this pattern continues then I will just discontinue the Accu-Cheks and sliding scale. 03/19/2020 Good control. No changes. 03/20/2020 Excellent control with metformin. Continue current dosing 03/21/2020 As above (7) Anemia, chronic disease Is this a current diagnosis for this admission?: Yes Plan: 03/17/2020 The patient received 2 units of packed red blood cells on her recent admission. We will monitor her hemoglobin. It is low at 9.2. She did just receive chemotherapy yesterday and slowly will follow her CBC. 03/18/2020 Hemoglobin is slightly lower. This could be creating some demand ischemia but her hemoglobin is consistently less than 10. We will continue to monitor. If it is felt that a unit of packed red blood cells will help with her cardiac status then we will transfuse. 03/19/2020 We will recheck hemoglobin tomorrow. It is possible that the exertional dyspnea might be related to anemia. 03/20/2020 Labs ordered for tomorrow. Possibly related to her chronic illness versus chemotherapy. 03/21/2020 Anemia stable. Patient did develop hematuria. This is likely from her stent. Her urologist is Dr. Quiñones in [place]. I will try and obtain his number and touch base with him. (8) Shortness of breath Is this a current diagnosis for this admission?: Yes Plan: 03/19/2020 The patient was complaining of feeling slightly short of breath when walking to the bathroom but not sitting at the edge of the bed. He did ask the nurses to check pulse oximetry when she did walk to the bathroom and next time. In addition I will recheck a chest x-ray and I have ordered an additional dose of furosemide. She has had a net positive fluid balance of several 100 mL but I would not expect this to be clinically significant. 03/20/2020 Likely degree of heart failure versus capillary leak syndrome with gemcitabine. Either way she responded to furosemide. 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 In addition, gemcitabine can cause capillary leak syndrome. The patient was slightly short of breath yesterday and a dose of furosemide was helpful. I will add low-dose oral furosemide daily. 03/21/2020 Likely exacerbated by potential side effect of gemcitabine which is capillary leak syndrome (10) Hematuria Qualifiers: Hematuria type: gross Qualified Code(s): R31.0 - Gross hematuria Is this a current diagnosis for this admission?: Yes Plan: 03/21/2020 The patient is having hematuria. She does have a ureteral stent in place. She was supposed to have it removed today. I will reach out to her urologist and discuss. - Time Time Spent with patient: 15-24 minutes Medications reviewed and adjusted accordingly: Yes Anticipated discharge: Home Within: within 48 hours
[2020-03-21 16:20] LABS: ABSOLUTE EOSINOPHILS # (AUTO) 0.1 10^3/uL (0.0-0.6); ABSOLUTE LYMPHOCYTES (AUTO) 0.6 10^3/uL (0.5-4.7); ABSOLUTE MONOCYTES (AUTO) 0.4 10^3/uL (0.1-1.4); BASOPHILS % (AUTO) 0.6 % (0-2); HEMOGLOBIN 8.8 g/dL (12.0-15.5); LYMPHOCYTES % (AUTO) 15.3 % (13-45); MEAN CORPUSCULAR HEMOGLOBIN 28.8 pg (27.0-33.4); MEAN CORPUSCULAR VOLUME 82 fl (80-97); MONOCYTES % (AUTO) 8.9 % (3-13); PLATELET COUNT 304 10^3/uL (150-450); RED BLOOD COUNT 3.04 10^6/uL (3.72-5.28); RED CELL DISTRIBUTION WIDTH 18.1 % (11.5-14.0); SEGMENTED NEUTROPHILS % (AUTO) 73.2 % (42-78); TOTAL CELLS COUNTED % (AUTO) 100 %; WHITE BLOOD COUNT 4.1 10^3/uL (4.0-10.5)
[2020-03-21 16:31] LABS: INTERNATIONAL RATION (INR) 1.05; PARTIAL THROMBOPLASTIN TIME 29.4 SEC (23.5-35.8); PROTHROMBIN TIME 13.7 SEC (11.4-15.4)
[2020-03-21 16:39] LABS: ANION GAP 9 (5-19); BLOOD UREA NITROGEN 23 mg/dL (7-20); CARBON DIOXIDE 24 mmol/L (22-30); CHLORIDE 90 mmol/L (98-107); GLUCOSE 101 mg/dL (75-110); POTASSIUM 4.4 mmol/L (3.6-5.0)
--- NOTE | 2020-03-21 16:53 | Progress Note ---
Provider Note Provider Note: CARDIOLOGY PROGRESS NOTE by Dr. Jenna Trimble on 03/21/2020. Subjective: The patient states she is kesha painless hematuria this morning. She denies any chest pain or discomfort. There is no shortness of breath. There is no PND orthopnea. There is no arrhythmias seen. There is no leg edema. There is no TIA CVA symptoms. PHYSICAL EXAMINATION: The patient is a frail build. But does not appear to be in any acute distress. Selected Entries 03/21/20 03/21/20 07:33 10:23 Temperature 98.8 F Temperature Oral Source Pulse Rate 85 Respiratory 16 Rate Blood Pressure 144/80 H Blood Pressure 101 Mean BP Location Right Arm BP Position Supine O2 Sat by Pulse 93 Oximetry Fraction of 21 Inspired Oxygen (FIO2) Oxygen Delivery Room Air Method HEAD: Is atraumatic normocephalic. EYES: Pupils are equal round regular reactive to light accommodation. Extraocular movements are normal. There is no conjunctival pallor. There is no scleral icterus. EARS: TYMPANIC MEMBRANES ARE INTACT. EXTERNAL AUDITORY CANALS ARE CLEAR. NOSE: THERE IS NO DEVIATED NASAL SEPTUM. THERE IS NO INFLAMMATION OF THE NASAL MUCOUS MEMBRANE. MOUTH: MUCOUS MEMBRANES OF MOUTH ARE MOIST TONGUE IS MOIST THERE IS NO ULCERS. THERE IS NO BLEEDING FROM THE GUMS. Throat: There is no redness of the oropharynx. There is no exudates. Skin: There is no skin rashes. There is no petechia or ecchymosis. There is no skin lesions. Neck: Is supple. There is no JVD. Carotids are equal there is no bruit. There is no goiter. There is no lymphadenopathy. LUNGS: There is diminished air entry and prolonged expiration. There is a few dry crackles scattered. There is no rales of CHF. There is no rhonchi or wheezing. HEART: S1-S2 is heard. There is no S3 gallop. There is no S4 gallop. There is murmur of mitral regurgitation present. There is no rub. ABDOMEN: Soft. Nontender there is no hepatosplenomegaly. Bowel sounds are well heard. EXTREMITIES: Femorals are well felt there is no femoral bruits. Leg pulses are well felt. There is no pedal edema. There is no DVT or cellulitis. 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 Labs- All tests 24 hr 03/21/20 03/21/20 15:59 15:59 WBC 4.1 RBC 3.04 L Hgb 8.8 L Hct 25.0 L MCV 82 MCH 28.8 MCHC 35.0 RDW 18.1 H Plt Count 304 Lymph % (Auto) 15.3 [place] % (Auto) 8.9 Eos % (Auto) 2.0 Baso % (Auto) 0.6 Absolute Neuts (auto) 3.0 Absolute Lymphs (auto) 0.6 Absolute Monos (auto) 0.4 Absolute Eos (auto) 0.1 Absolute Basos (auto) 0.0 Seg Neutrophils % 73.2 PT 13.7 INR 1.05 APTT 29.4 Chest X-Ray 03/17/20 08:40 IMPRESSION: NO SIGNIFICANT CHANGE. MULTIPLE PULMONARY NODULES. NO ACUTE RADIOGRAPHIC FINDING IN THE CHEST. Chest/Abdomen CTA 03/17/20 10:59 IMPRESSION: 1. NORMAL CTA OF THE CHEST. NO PULMONARY EMBOLI. 2. MULTIPLE PULMONARY NODULES SECONDARY TO METASTATIC DISEASE. SMALL PLEURAL EFFUSIONS. Chest X-Ray 03/20/20 08:00 IMPRESSION: No change from 03/17/2020 IMPRESSION/RECOMMENDATION: 1. Non-ST elevation UT: At present troponin trending down. Continue patient on nitrates aspirin Ranexa beta-radha and statin. 2 coronary artery disease most likely the patient has underlying coronary artery disease. Treatment as above 3.Cardiomyopathy:Continue Monica Radha ans ACEI. 4. Metastatic lung disease from adrenal cancer. 5. Adrenal cancer with metastasis 6. Hypertension: Blood pressure well controlled 7. Chronic obstructive lung disease: Stable Medications reviewed. Medical regimen and management plan discussed with the attending provider. Medical decision making is of moderate complexity 40 minutes spent on the patient more than 50% time spent in direct patient care. Will follow
[2020-03-21 22:31] LABS: APPEARANCE,URINE CLOUDY; BILIRUBIN,URINE NEGATIVE (NEGATIVE); COLOR,URINE RED; GLUCOSE, URINE NEGATIVE (NEGATIVE); KETONES,URINE NEGATIVE (NEGATIVE); LEUKOCYTE ESTERASE,URINE NEGATIVE (NEGATIVE); NITRITE,URINE NEGATIVE (NEGATIVE); PROTEIN,URINE 100 mg/dL (NEGATIVE); URINE SPECIFIC GRAVITY 1.014; UROBILINOGEN,URINE NEGATIVE mg/dL (<2.0)
[2020-03-21] MEDS: ASPIRIN 81 MG TABLET, ENT COATED PO SCH (22:39)
[2020-03-21] MEDS: ATORVASTATIN CALCIUM 40 MG TABLET PO SCH (22:39)
[2020-03-22] MEDS: PROMETHAZINE HCL INJ 25 MG/1 ML VIAL IV PRN (04:11)
[2020-03-22] MEDS: PANTOPRAZOLE SODIUM 40 MG TABLET.DR PO SCH (05:56)
[2020-03-22] MEDS: INSULIN REG, HUMAN 100 UNIT/ML 3 ML VIAL (PYX) SUBCUT SCH (09:35)
[2020-03-22] MEDS: MAGNESIUM OXIDE 400 MG TABLET PO SCH (09:39)
[2020-03-22] MEDS: METOPROLOL SUCCINATE 50 MG TAB.SR.24H PO SCH (09:39)
[2020-03-22] MEDS: RANOLAZINE 500 MG TAB.SR.12H PO SCH (09:40)
[2020-03-22] MEDS: LISINOPRIL 10 MG TABLET PO SCH (09:40)
[2020-03-22] MEDS: FUROSEMIDE 20 MG TABLET PO SCH (09:40)
[2020-03-22] MEDS: ISOSORBIDE MONONITRATE 30 MG TAB.ER.24H PO SCH (09:40)
[2020-03-22 10:09] LABS: ANION GAP 7 (5-19); BLOOD UREA NITROGEN 20 mg/dL (7-20); CALCIUM 8.9 mg/dL (8.4-10.2); CARBON DIOXIDE 25 mmol/L (22-30); CHLORIDE 92 mmol/L (98-107); GLUCOSE 100 mg/dL (75-110)
--- NOTE | 2020-03-22 11:36 | PDOC DISCHARGE SUMMARY ---
Impression - Admit/DC Date/PCP Admission Date/Primary Care Provider: 03/18/20 12:21 AMARA KILLIAN MD Discharge Date: 03/22/20 - Discharge Diagnosis (1) NSTEMI (non-ST elevated myocardial infarction) Is this a current diagnosis for this admission?: Yes (2) Chest pain Is this a current diagnosis for this admission?: Yes (3) Hyponatremia Is this a current diagnosis for this admission?: Yes (4) Hypertension Is this a current diagnosis for this admission?: Yes (5) Metastatic disease to the lung Is this a current diagnosis for this admission?: Yes (6) Diabetes mellitus type 2 in nonobese Is this a current diagnosis for this admission?: Yes (7) Anemia, chronic disease Is this a current diagnosis for this admission?: Yes (8) Shortness of breath Is this a current diagnosis for this admission?: Yes (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 Is this a current diagnosis for this admission?: Yes (10) Hematuria Is this a current diagnosis for this admission?: Yes - Additional Information Resuscitation Status: Do Not Resuscitate Discharge Diet: Diabetic Discharge Activity: Activity As Tolerated Referrals: NEHA MELVIN MD [ACTIVE STAFF] - 03/29/20 1:15 pm Prescriptions: Isosorbide Mononitrate [Imdur 30 mg Tablet.er] 30 mg PO DAILY #30 tab.er.24h Atorvastatin Calcium [Lipitor 40 mg Tablet] 40 mg PO QHS #30 tablet Ranolazine [Ranexa 500 mg Tab.sr] 500 mg PO Q12 #60 tab.sr.12h Home Medications: Metformin HCl [Metformin HCl ER] 750 mg PO WSUPPER 02/18/20 Aspirin [Ecotrin 81 mg EC Tablet] 81 mg PO DAILY tabec 02/20/20 Magnesium Oxide [Mag-Ox 400 mg Tablet] 800 mg PO BID 30 Days #60 tab 02/20/20 Nitroglycerin [Nitrostat 0.4 mg (1/150 Gr) Tabs 25/Bottle] 1 tab SL Q5MP PRN 30 Days #90 bottle 02/20/20 Metoprolol Succinate [Toprol Xl 50 mg Tab.sr] 50 mg PO Q12 02/26/20 Acetaminophen [Tylenol] 325 mg PO DAILYP PRN 03/17/20 Calcium Carbonate [Tums Chewable 500 mg Tab.chew] 500 mg PO DAILYP PRN 03/17/20 Lisinopril/Hydrochlorothiazide [Lisinopril-Hctz 20-25 mg Tab] 1 each PO DAILY 03/17/20 Atorvastatin Calcium [Lipitor 40 mg Tablet] 40 mg PO QHS #30 tablet 03/22/20 Isosorbide Mononitrate [Imdur 30 mg Tablet.er] 30 mg PO DAILY #30 tab.er.24h 03/22/20 Pantoprazole Sodium [Protonix [address] Tablet] 40 mg PO Q6AM tablet.dr 03/22/20 Ranolazine [Ranexa 500 mg Tab.sr] 500 mg PO Q12 #60 tab.sr.12h 03/22/20 History of Present Illiness History of Present Illness: MONY STEELE is a 69 year old female with a complex medical history. This includes diabetes mellitus, hypertension, coronary artery disease and metastatic adrenal cancer stage IV. She is being treated at the [facility] in [facility]. She was feeling relatively well yesterday especially considering it was her chemotherapy today. She states that this morning at approximately 6:00 a heaviness on her chest woke her. She had cold sweats but felt hot. She denies any palpitations or radiation of the symptoms. She did experience nausea but had no vomiting. When calling EMS she was instructed to take 4 chewable aspirin. She did this immediately and was able to achieve some relief. By the time she presented to the emergency department she had complete relief of symptoms. Her initial troponin was 0.016 but the second troponin was 0.050. She has inverted T waves inferiorly but these are present on the previous EKGs. Vital signs are stable. She is currently pain-free. With the rise in troponin she will be admitted for her chest pain. Serial troponins will continue. Review of her CT scan shows that her pleural effusion is still limited. Otherwise she reports no medication changes since her discharge on February 27. Hospital Course Hospital Course: - Diagnosis (1) NSTEMI (non-ST elevated myocardial infarction) Is this a current diagnosis for this admission?: Yes Plan: 03/18/2020 The patient's troponin level has risen 6 fold. Cardiology will be assessing the patient. Nonventilated nitroglycerin paste and a statin as she is already on aspirin, lisinopril and metoprolol. He did explain that due to her severe metastatic lung disease cardiac catheterization may not be an option. I asked her to think about it and possibly discuss further with cardiology. 03/19/2020 The troponin level is dropping. No further need to trend her troponins. Dr. Melvin has changed some of her medications. I did speak with her goddaughter and they will likely want to talk to her oncologist regarding further treatments in light of this event. 03/20/2020 Patient appears stable. She did complain of some shortness of breath yesterday. This seemed to respond to furosemide. See discussion below. 03/21/2020 Continue current regimen. No evidence of recurrent acute coronary syndrome. (2) Chest pain Qualifiers: Chest pain type: chest pain due to myocardial ischemia Is this a current diagnosis for this admission?: Yes Plan: 03/17/2020 Patient developed chest pain at rest this morning. It felt like a heavy weight on her shoulder. It was relieved with 4 chewable aspirin. She does have inverted T waves inferiorly but these were found on the previous EKGs. The first troponin was 0.0.6 and the second troponin was 0.050. We will continue serial troponins. She just had chemotherapy yesterday. It is difficult to know any direct effects on myocardium. 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 Patient will be on telemetry. She is already on metoprolol, furosemide and lisinopril. We will continue her baby aspirin daily as well. 03/18/2020 Patient with non-ST elevation myocardial infarction. Chest pain is clearly cardiac in nature. Additional medications as above. 03/19/2020 No chest pain today. She did feel that her exercise capacity was slightly diminished as she was getting short of breath walking to the bathroom. 03/20/2020 No complaints of any discomfort today. 03/21/2020 No changes in the treatment plan (3) Hyponatremia Is this a current diagnosis for this admission?: Yes Plan: 03/17/2020 Likely related to her metastatic lung disease. Serum sodium is similar to her previous admission. Will monitor. 03/18/2020 Chronic and stable. Continue to monitor. 03/21/2020 Still in the low 120s. She is stable. (4) Hypertension Qualifiers: Hypertension type: essential hypertension Qualified Code(s): I10 - Essential (primary) hypertension Is this a current diagnosis for this admission?: Yes Plan: 03/17/2020 Currently on metoprolol, lisinopril and furosemide. Continue medications with parameters to hold for low blood pressure. 03/18/2020 Reasonable blood pressure control. Will need to watch for hypotension with the use of nitroglycerin. 03/19/2020 Continue current regimen 03/20/2020 Continue to monitor blood pressure. We will see if daily furosemide dosing has any significant effect. 03/21/2020 Good blood pressure control. Furosemide seems to be helping. (5) Metastatic disease to the lung Is this a current diagnosis for this admission?: Yes Plan: 03/17/2020 CT scan reviewed. Diffuse metastatic lesions noted. Multiple lesions bilaterally. The patient still has pleural effusion but it is significantly better than her previous admission. She did receive chemotherapy yesterday. Will return to the care of her oncologist post discharge. 03/18/2020 In light of the non-ST elevation myocardial infarction with severe ongoing metastatic cancer the patient is likely a candidate for aggressive intervention either by percutaneous angioplasty or cardiac surgery. She is not due for her next chemotherapy until March. It is possible that due to the N STEMI the patient may decrease the aggressiveness of her ongoing treatment plan. 03/19/2020 Further plans to be discussed between the patient and her oncologist. 03/21/2020 Today the patient asked me a fire in her position when I continue chemotherapy. Told her that I probably would not. I told her that I would look back at the imaging studies obtained during this hospitalization and previous and we can discuss further tomorrow. (6) Diabetes mellitus type 2 in nonobese Is this a current diagnosis for this admission?: Yes Plan: 03/17/2020 We will continue her metformin after a 48-hour hold due to receiving IV contrast earlier today. We will only perform Accu-Cheks at breakfast and supper. Sliding scale coverage will be available. 03/18/2020 Per nursing, the patient has been refusing Accu-Cheks. If this pattern continues then I will just discontinue the Accu-Cheks and sliding scale. 03/19/2020 Good control. No changes. 03/20/2020 Excellent control with metformin. Continue current dosing 03/21/2020 As above (7) Anemia, chronic disease Is this a current diagnosis for this admission?: Yes Plan: 03/17/2020 The patient received 2 units of packed red blood cells on her recent admission. We will monitor her hemoglobin. It is low at 9.2. She did just receive chemotherapy yesterday and slowly will follow her CBC. 03/18/2020 Hemoglobin is slightly lower. This could be creating some demand ischemia but her hemoglobin is consistently less than 10. We will continue to monitor. If it is felt that a unit of packed red blood cells will help with her cardiac status then we will transfuse. 03/19/2020 We will recheck hemoglobin tomorrow. It is possible that the exertional dyspnea might be related to anemia. 03/20/2020 Labs ordered for tomorrow. Possibly related to her chronic illness versus chemotherapy. 03/21/2020 Anemia stable. Patient did develop hematuria. This is likely from her stent. Her urologist is Dr. Quiñones in [place]. I will try and obtain his number and touch base with him. (8) Shortness of breath Is this a current diagnosis for this admission?: Yes Plan: 03/19/2020 The patient was complaining of feeling slightly short of breath when walking to the bathroom but not sitting at the edge of the bed. He did ask the nurses to check pulse oximetry when she did walk to the bathroom and next time. In addition I will recheck a chest x-ray and I have ordered an additional dose of furosemide. She has had a net positive fluid balance of several 100 mL but I would not expect this to be clinically significant. 03/20/2020 Likely degree of heart failure versus capillary leak syndrome with gemcitabine. Either way she responded to furosemide. We will continue furosemide low dose daily 03/21/2020 Resolved with Lasix (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 Qualifiers: Heart failure chronicity: acute on chronic Qualified Code(s): I50.43 - Acute on chronic combined systolic (congestive) and diastolic (congestive) heart failure Is this a current diagnosis for this admission?: Yes Plan: 03/20/2020 The patient's ejection fraction was 40% with a 1/4 diastolic dysfunction by echocardiogram. In addition, gemcitabine can cause capillary leak syndrome. The patient was slightly short of breath yesterday and a dose of furosemide was helpful. I will add low-dose oral furosemide daily. 03/21/2020 Likely exacerbated by potential side effect of gemcitabine which is capillary leak syndrome (10) Hematuria Qualifiers: Hematuria type: gross Qualified Code(s): R31.0 - Gross hematuria Is this a current diagnosis for this admission?: Yes Plan: 03/21/2020 The patient is having hematuria. She does have a ureteral stent in place. She was supposed to have it removed today. I will reach out to her urologist and discuss. Physical Exam Vital Signs: Temp Pulse Resp BP Pulse Ox 99.3 F 85 18 134/70 H 95 03/21/20 19:23 03/22/20 07:00 03/21/20 19:23 03/21/20 19:23 03/21/20 19:23 Intake & Output 03/21/20 03/22/20 03/23/20 06:59 06:59 06:59 Intake Total 360 1144 Balance 360 1144 Weight 67.6 kg 67.4 kg General appearance: PRESENT: no acute distress Respiratory exam: PRESENT: clear to auscultation amelia, symmetrical, unlabored. ABSENT: tachypnea, wheezes Cardiovascular exam: PRESENT: RRR, +S1, +S2 GI/Abdominal exam: PRESENT: normal bowel sounds, soft. ABSENT: distended, guarding, tenderness Gentrourinary exam: PRESENT: other - Hematuria. ABSENT: indwelling catheter Extremities exam: ABSENT: pedal edema Results Laboratory Results: WBC 4.1 10^3/uL (4.0-10.5) 03/21/20 15:59 RBC 3.04 10^6/uL (3.72-5.28) L 03/21/20 15:59 Hgb 8.8 g/dL (12.0-15.5) L 03/21/20 15:59 Hct 25.0 % (36.0-47.0) L 03/21/20 15:59 MCV 82 fl (80-97) 03/21/20 15:59 MCH 28.8 pg (27.0-33.4) 03/21/20 15:59 MCHC 35.0 g/dL (32.0-36.0) 03/21/20 15:59 RDW 18.1 % (11.5-14.0) H 03/21/20 15:59 Plt Count 304 10^3/uL (150-450) 03/21/20 15:59 Lymph % (Auto) 15.3 % (13-45) 03/21/20 15:59 [place] % (Auto) 8.9 % (3-13) 03/21/20 15:59 Eos % (Auto) 2.0 % (0-6) 03/21/20 15:59 Baso % (Auto) 0.6 % (0-2) 03/21/20 15:59 Absolute Neuts (auto) 3.0 10^3/uL (1.7-8.2) 03/21/20 15:59 Absolute Lymphs (auto) 0.6 10^3/uL (0.5-4.7) 03/21/20 15:59 Absolute Monos (auto) 0.4 10^3/uL (0.1-1.4) 03/21/20 15:59 Absolute Eos (auto) 0.1 10^3/uL (0.0-0.6) 03/21/20 15:59 Absolute Basos (auto) 0.0 10^3/uL (0.0-0.2) 03/21/20 15:59 Seg Neutrophils % 73.2 % (42-78) 03/21/20 15:59 PT 13.7 SEC (11.4-15.4) 03/21/20 15:59 INR 1.05 03/21/20 15:59 APTT 29.4 SEC (23.5-35.8) 03/21/20 15:59 D-Dimer 3.25 ug/mL (0.00-0.50) H 03/17/20 07:17 Sodium 124.0 mmol/L (137-145) L 03/22/20 09:27 Potassium 4.0 mmol/L (3.6-5.0) 03/22/20 09:27 Chloride 92 mmol/L (98-107) L 03/22/20 09:27 Carbon Dioxide 25 mmol/L (22-30) 03/22/20 09:27 Anion Gap 7 (5-19) 03/22/20 09:27 BUN 20 mg/dL (7-20) 03/22/20 09:27 Creatinine 0.66 mg/dL (0.52-1.25) 03/22/20 09:27 Est GFR ( Amer) > 60 (>60) 03/22/20 09:27 Est GFR (MDRD) Non-Af > 60 (>60) 03/22/20 09:27 Glucose 100 mg/dL (75-110) 03/22/20 09:27 Calcium 8.9 mg/dL (8.4-10.2) 03/22/20 09:27 Magnesium 1.2 mg/dL (1.6-2.3) L* 03/21/20 15:59 Total Bilirubin 0.4 mg/dL (0.2-1.3) 03/17/20 07:17 Direct Bilirubin 0.0 mg/dL (0.0-0.4) 03/17/20 07:17 Neonat Total Bilirubin Not Reportable 03/17/20 07:17 Neonat Direct Bilirubin Not Reportable 03/17/20 07:17 Neonat Indirect Bili Not Reportable 03/17/20 07:17 AST 18 U/L (14-36) 03/17/20 07:17 ALT 10 U/L (<35) 03/17/20 07:17 Alkaline Phosphatase 51 U/L (38-126) 03/17/20 07:17 Creatine Kinase 36 U/L (30-135) 03/17/20 07:17 CK-MB (CK-2) 0.77 ng/mL (<4.55) 03/17/20 07:17 Troponin I 0.261 ng/mL 03/19/20 06:03 Total Protein 6.8 g/dL (6.3-8.2) 03/17/20 07:17 Albumin 3.6 g/dL (3.5-5.0) 03/17/20 07:17 Urine Color RED 03/21/20 22:01 Urine Appearance CLOUDY 03/21/20 22:01 Urine pH 8.0 (5.0-9.0) 03/21/20 22:01 Ur Specific [place] 1.014 03/21/20 22:01 Urine Protein 100 mg/dL (NEGATIVE) H 03/21/20 22:01 Urine Glucose (UA) NEGATIVE mg/dL (NEGATIVE) 03/21/20 22:01 Urine Ketones NEGATIVE mg/dL (NEGATIVE) 03/21/20 22:01 Urine Blood LARGE (NEGATIVE) H 03/21/20 22:01 Urine Nitrite NEGATIVE (NEGATIVE) 03/21/20 22:01 Urine Bilirubin NEGATIVE (NEGATIVE) 03/21/20 22:01 Urine Urobilinogen NEGATIVE mg/dL (<2.0) 03/21/20 22:01 Ur Leukocyte Esterase NEGATIVE (NEGATIVE) 03/21/20 22:01 Urine RBC (Auto) >182 /HPF 03/21/20 22:01 Urine Ascorbic Acid NEGATIVE (NEGATIVE) 03/21/20 22:01 03/17/20 03/17/20 03/17/20 07:17 10:30 16:17 CK-MB (CK-2) 0.77 Troponin I 0.016 0.050 0.082 03/18/20 03/18/20 03/19/20 09:26 16:16 06:03 CK-MB (CK-2) Troponin I 0.377 0.367 0.261 Impressions: Chest X-Ray 03/17/20 08:40 IMPRESSION: NO SIGNIFICANT CHANGE. MULTIPLE PULMONARY NODULES. NO ACUTE RADIOGRAPHIC FINDING IN THE CHEST. Chest/Abdomen CTA 03/17/20 10:59 IMPRESSION: 1. NORMAL CTA OF THE CHEST. NO PULMONARY EMBOLI. 2. MULTIPLE PULMONARY NODULES SECONDARY TO METASTATIC DISEASE. SMALL PLEURAL EFFUSIONS. Chest X-Ray 03/20/20 08:00 IMPRESSION: No change from 03/17/2020 Plan Health Concerns: Metastatic malignancy treatment appears to be causing hospitalizations. She plans to meet with the oncologist regarding ongoing treatment for a more conservative approach. Plan of Treatment: Call urology to reschedule stent removal. Call oncology to discuss whether or not to further treat her metastatic malignancy Follow-up with Dr. Melvin and continue new cardiac regimen Goals: Address stent in ureter as this may be causing the hematuria Decide whether or not there is good for the patient to continue treatment Time Spent: Greater than 30 Minutes Stroke Is this a Stroke Patient?: No Acute Heart Failure - Is this a Heart Failure Patient?: No
[2020-03-22 11:50] VITALS: BP 127/68
== END 2020-03-22 12:30 | disposition home or self-care (01) | DRG 280 ==
LOC: ER 07:10 → INTOOBSV 14:45 → EH 14:45 → 4S 16:01 → OBSVTOIN 03-18 12:21
PROVIDERS: ADMIT Hospitalist; ATTEND Hospitalist
DX: I21.4 Non-ST elevation (NSTEMI) myocardial infarction (principal); I50.43 Acute on chronic combined systolic (congestive) and diastolic (congestive) heart failure; E87.1 Hypo-osmolality and hyponatremia; C74.90 Malignant neoplasm of unspecified part of unspecified adrenal gland; C78.02 Secondary malignant neoplasm of left lung; C78.01 Secondary malignant neoplasm of right lung; J91.8 Pleural effusion in other conditions classified elsewhere; I42.9 Cardiomyopathy, unspecified; I11.0 Hypertensive heart disease with heart failure; R31.0 Gross hematuria; E78.5 Hyperlipidemia, unspecified; D63.0 Anemia in neoplastic disease; F17.210 Nicotine dependence, cigarettes, uncomplicated; E11.9 Type 2 diabetes mellitus without complications; Z96.89 Presence of other specified functional implants; Z82.49 Family history of ischemic heart disease and other diseases of the circulatory system; Z88.1 Allergy status to other antibiotic agents; Z90.49 Acquired absence of other specified parts of digestive tract; Z88.6 Allergy status to analgesic agent; Z79.84 Long term (current) use of oral hypoglycemic drugs; Z79.899 Other long term (current) drug therapy
CPT/HCPCS: 36415; 71045; 71275; 80048; 80053; 81001; 82270; 82550; 82553; 83735; 84484; 85025; 85379; 85610; 85730; 87086; 93005; 93010; 93306; 99285; G0378; J1644; J1940; J2550; J3475; J3490

== ENCOUNTER 2020-03-22 13:37 | Observation (INO) | payer MEDICAID, MEDICARE ==
[2020-03-22 14:01] LABS: ABSOLUTE LYMPHOCYTES (AUTO) 0.6 10^3/uL (0.5-4.7); ABSOLUTE MONOCYTES (AUTO) 0.6 10^3/uL (0.1-1.4); ABSOLUTE NEUT (AUTO) 1.8 10^3/uL (1.7-8.2); BASOPHILS % (AUTO) 1.1 % (0-2); EOSINOPHILS % (AUTO) 1.6 % (0-6); HEMATOCRIT 21.3 % (36.0-47.0); LYMPHOCYTES % (AUTO) 18.8 % (13-45); MEAN CORPUSCULAR HEMOGLOBIN 28.4 pg (27.0-33.4); MEAN CORPUSCULAR HGB CONC 34.1 g/dL (32.0-36.0); MEAN CORPUSCULAR VOLUME 83 fl (80-97); MONOCYTES % (AUTO) 19.9 % (3-13); PLATELET COUNT 209 10^3/uL (150-450); RED BLOOD COUNT 2.56 10^6/uL (3.72-5.28); RED CELL DISTRIBUTION WIDTH 18.3 % (11.5-14.0); SEGMENTED NEUTROPHILS % (AUTO) 58.6 % (42-78); TOTAL CELLS COUNTED % (AUTO) 100 %; WHITE BLOOD COUNT 3.1 10^3/uL (4.0-10.5)
[2020-03-22 14:04] LABS: HEMOGLOBIN 7.3 g/dL (12.0-15.5)
[2020-03-22] MEDS ORDERED: NORMAL SALINE 250 ML IV PRN (14:13)
[2020-03-22 14:17] LABS: ALBUMIN 2.5 g/dL (3.5-5.0); ALKALINE PHOSPHATASE 41 U/L (38-126); ANION GAP 6 (5-19); ASPARTATE AMINO TRANSFERASE 19 U/L (14-36); BILIRUBIN,TOTAL 0.4 mg/dL (0.2-1.3); BLOOD UREA NITROGEN 22 mg/dL (7-20); CALCIUM 8.1 mg/dL (8.4-10.2); CARBON DIOXIDE 24 mmol/L (22-30); CHLORIDE 93 mmol/L (98-107); GLUCOSE 108 mg/dL (75-110); POTASSIUM 4.1 mmol/L (3.6-5.0); TOTAL PROTEIN 5.1 g/dL (6.3-8.2)
--- NOTE | 2020-03-22 14:30 | ER Document Report ---
ED Dizziness/Weakness - General Chief Complaint: Syncope Stated Complaint: SYNCOPE Time Seen by Provider: 03/22/20 13:50 Primary Care Provider: AMARA KILLIAN MD [Primary Care Provider] - Follow up as needed Mode of Arrival: Medic Information source: Patient TRAVEL OUTSIDE OF THE [place] IN LAST 30 DAYS: No - HPI Notes: Patient arrives by ambulance with a complaint of passing out. Patient was just discharged from this hospital and has a diagnosis of metastatic terminal adrenal cancer. Patient states that she was at home when she felt lightheaded and "passed out". She states that her relative found her and called the ambulance. On arrival here she states that she feels better but still feels weak. She states his weakness is severe and constant. It is worse with exertion and better with rest. She states she feels too weak to stand up at this time. She states she is still bleeding from her urinary tract but has not noticed any blood or dark tarry stools. The weakness obviously radiates throughout her body. - Related Data Allergies/Adverse Reactions: cephalexin [From Keflex] Allergy (Verified 12/01/19 14:06) Past Medical History - General Information source: Patient - Social History Smoking Status: Never Smoker Frequency of alcohol use: None Drug Abuse: None Family History: CAD - Congestive heart failure, Hypertension, Other - Parkinson's Patient has homicidal ideation: No - Past Medical History Cardiac Medical History: Reports: Hx Hypertension Endocrine Medical History: Reports: Hx Diabetes Mellitus Type 2 Malignancy Medical History: Reports: Hx Lung Cancer Psychiatric Medical History: Reports: Hx Depression Past Surgical History: Reports: Hx Appendectomy, Hx Cholecystectomy Review of Systems - Review of Systems Constitutional: Malaise, Weakness. denies: Chills, Fever Cardiovascular: denies: Chest pain, Palpitations Respiratory: Short of breath. denies: Cough -: Yes All other systems reviewed and negative Physical Exam - Vital signs Vitals: Resp Pulse Ox 17 94 03/22/20 13:47 03/22/20 13:47 Interpretation: Normal - General General appearance: Alert In distress: None - HEENT Head: Normocephalic, Atraumatic Eyes: Normal Pupils: PERRL - Respiratory Respiratory status: No respiratory distress Chest status: Nontender Breath sounds: Normal Chest palpation: Normal - Cardiovascular Rhythm: Regular Heart sounds: Normal auscultation Murmur: No - Abdominal Inspection: Normal Distension: No distension Bowel sounds: Normal Tenderness: Nontender Organomegaly: No organomegaly - Rectal Tenderness: No Stool: Heme positive - Back Back: Normal, Nontender - Extremities General upper extremity: Normal inspection, Nontender, Normal color, Normal ROM, Normal temperature General lower extremity: Normal inspection, Nontender, Normal color, Normal ROM, Normal temperature, Normal weight bearing. No: [place]'s sign - Neurological Neuro grossly intact: Yes Cognition: Normal Orientation: AAOx4 Agnieszka Coma Scale Eye Opening: Spontaneous Agnieszka Coma Scale Verbal: Oriented [place] Coma Scale Motor: Obeys Commands [place] Coma Scale Total: 15 Speech: Normal Motor strength normal: LUE, RUE, LLE, RLE Sensory: Normal - Psychological Associated symptoms: Normal affect, Normal mood - Skin Skin Temperature: Warm Skin Moisture: Dry Skin Color: [place] Course - Re-evaluation Re-evalutation: 03/22/20 14:27 Patient presents with syncope. She has now recovered and states she feels better. Patient does appear pale and weak. Tried to do orthostatics with patient was unable to stand up. Her hemoglobin has dropped almost 2 points from yesterday. She is heme positive on rectal exam and still has blood in the urinary tract. She will be transfused and then reassess. She will be readmitted back to the hospital. She is also requested that she be placed on hospice and this was relayed to the hospitalist. - Vital Signs Vital signs: Temp Pulse Resp BP Pulse Ox 97.7 F 67 13 115/68 100 03/22/20 13:57 03/22/20 14:04 03/22/20 13:58 03/22/20 14:04 03/22/20 13:58 - Laboratory Result Diagrams: 03/22/20 13:45 03/22/20 13:45 Laboratory results interpreted by mn: 03/22/20 03/22/20 13:45 13:45 WBC 3.1 L RBC 2.56 L Hgb 7.3 L Hct 21.3 L RDW 18.3 H [place] % (Auto) 19.9 H Sodium 123.1 L Chloride 93 L BUN 22 H Calcium 8.1 L Total Protein 5.1 L Albumin 2.5 L - EKG Interpretation by Ms EKG shows normal: Sinus rhythm Rate: Normal - 69 Rhythm: NSR [place]/QRS: No: Right axis deviation, Left axis deviation Discharge - Discharge Clinical Impression: Metastatic disease to the lung, Hyponatremia, Syncope and collapse Hematuria Qualifiers: Hematuria type: gross Qualified Code(s): R31.0 - Gross hematuria Adrenal cancer Qualifiers: Adrenal gland location: unspecified part Laterality: unspecified laterality Qualified Code(s): C74.90 - Malignant neoplasm of unspecified part of unspecified adrenal gland Condition: Critical Disposition: ADMITTED INPATIENT Admitting Provider: Marty (Hospitalist) Referrals: AMARA KILLIAN MD [Primary Care Provider] - Follow up as needed
--- NOTE | 2020-03-22 15:12 | RADIOLOGY REPORT (SQ) ---
EXAM DESCRIPTION: CTA CHEST IMAGES COMPLETED DATE/TIME: 03/22/2020 2:45 pm REASON FOR STUDY: syncope COMPARISON: 03/17/2020. TECHNIQUE: CT scan of the chest performed using helical scanning technique with dynamic intravenous contrast injection. Images reviewed with lung, soft tissue and bone windows. Reconstructed coronal and sagittal MPR images reviewed. Additional 3 dimensional post-processing performed to develop Maximal Intensity Projection images (IN P). All images stored on PACS. All CT scanners at this facility use dose modulation, iterative reconstruction, and/or weight based d osing when appropriate to reduce radiation dose to as low as reasonably achievable (ALARA). [facility]: Dose Right [facility]: CareDose [facility]: Dose Right [facility]: Teradose 4D [facility]: [employer] CONTRAST TYPE AND DOSE: contrast/concentration: Isovue 350.00 mg/ml; Total Contrast Delivered: 52.0 ml; Total Saline Delivered: 71.0 ml Contrast bolus adequate for pulmonary arteries and aorta. RENAL FUNCTION: BUN 22 creatinine 0.67. RADIATION DOSE: CT Rad equipment meets quality standard of care and radiation dose reduction techniq ues were employed. CTDIvol: 13.2 - 17.0 mGy. DLP: 633 mGy-cm. . LIMITATIONS: None. FINDINGS: LUNGS AND PLEURA: Multiple pulmonary nodules. Moderate right pleural effusion which has i ncreased in size. Small left pleural effusion. AORTA AND GREAT VESSELS: No aneurysm. No dissection. HEART: No pericardial effusion. No significant coronary artery calcifications. PULMONARY ARTERIES: No emboli visualized in the main pulmonary arteries or the segmental branches. HILAR AND MEDIASTINAL STRUCTURES: No identified masses or abnormal nodes. HARDWARE: None in the chest. UPPER ABDOMEN: No significant findings. Limited exam. THYROID AND OTHER SOFT TISSUES: No masses. No adenopathy. BONES: No acute or significant finding. 3D MIPS: Confirm above findings. OTHER: No other significant finding. IMPRESSION: 1. NORMAL CTA OF THE CHEST. NO PULMONARY EMBOLI. 2. MULTIPLE PULMONARY METASTASES. MODERATE RIGHT PLEURAL EFFUSION HAS INCREASED IN SIZE SINCE THE VT IOR STUDY. COMMENT: Quality ID # [id number]: Final reports with documentation of one or more dose reduction techniques (e.g., Automated exposure control, adjustment of the mA and/or kV according to patient size, use of iterative reconstruction technique) TECHNICAL DOCUMENTATION: JOB ID: [id number] [employer]- All Rights Reserved Reading location - IP/workstation name: [email or web address]
--- NOTE | 2020-03-22 15:35 | PDOC H&P ---
History of Present Illness Admission Date/PCP: 03/22/20 14:32 AMARA KILLIAN MD Patient complains of: Syncope with anemia History of Present Illness: MONY STEELE is a 69 year old female the patient had just gotten home from the hospital. She was with her goddaughter Donna. Donna states that they had normal conversation on the way home. The patient went into the kitchen. Donna asked her if she wanted something to drink. At that point the patient did not seem herself. Shortly thereafter she passed out and fell to the floor. There is immediately called EMS. On scene the report is that she had bradycardia. Her pressure was low. By the time she had to the emergency department her pressure and pulse have improved. Her hemoglobin was found to be 7.5 and this is from the hematuria. She will be readmitted after she receives 1 unit of packed red blood cells. I talked to Donna and briefly talked to the patient and we will pursue a hospice consult. Past Medical History Cardiac Medical History: Reports: Myocardial Infarction, Hypertension Endocrine Medical History: Reports: Diabetes Mellitus Type 2 Malignancy Medical History: Reports: Lung Cancer, Other - Adrenal cancer with multiple lung metastases GI Medical History: Reports: None Psychiatric Medical History: Reports: Depression Hematology: Reports: Anemia Past Surgical History Past Surgical History: Reports: Appendectomy, Cholecystectomy Social History Information Source: Patient, [facility] Records Lives with: Alone Smoking Status: Never Smoker Electronic Cigarette use?: No Frequency of Alcohol Use: None Hx Recreational Drug Use: No Drugs: None Hx Prescription Drug Abuse: No - Advance Directive Resuscitation Status: Do Not Resuscitate Family History Family History: CAD - Congestive heart failure, Hypertension, Other - Parkinson's Parental Family History Reviewed: Yes Children Family History Reviewed: NA Sibling(s) Family History Reviewed.: Yes Medication/Allergy Home Medications: Metformin HCl [Metformin HCl ER] 750 mg PO WSUPPER 02/18/20 Aspirin [Ecotrin 81 mg EC Tablet] 81 mg PO DAILY tabec 02/20/20 Magnesium Oxide [Mag-Ox 400 mg Tablet] 800 mg PO BID 30 Days #60 tab 02/20/20 Nitroglycerin [Nitrostat 0.4 mg (1/150 Gr) Tabs 25/Bottle] 1 tab SL Q5MP PRN 30 Days #90 bottle 02/20/20 Metoprolol Succinate [Toprol Xl 50 mg Tab.sr] 50 mg PO Q12 02/26/20 Acetaminophen [Tylenol] 325 mg PO DAILYP PRN 03/17/20 Calcium Carbonate [Tums Chewable 500 mg Tab.chew] 500 mg PO DAILYP PRN 03/17/20 Lisinopril/Hydrochlorothiazide [Lisinopril-Hctz 20-25 mg Tab] 1 each PO DAILY 03/17/20 Atorvastatin Calcium [Lipitor 40 mg Tablet] 40 mg PO QHS #30 tablet 03/22/20 Isosorbide Mononitrate [Imdur 30 mg Tablet.er] 30 mg PO DAILY #30 tab.er.24h 03/22/20 Pantoprazole Sodium [Protonix [address] Tablet] 40 mg PO Q6AM tablet.dr 03/22/20 Ranolazine [Ranexa 500 mg Tab.sr] 500 mg PO Q12 #60 tab.sr.12h 03/22/20 Allergies/Adverse Reactions: cephalexin [From Keflex] Allergy (Verified 12/01/19 14:06) Review of Systems All systems: reviewed and no additional remarkable complaints except as stated Constitutional: PRESENT: anorexia, weight loss Cardiovascular: PRESENT: dyspnea on exertion Respiratory: PRESENT: dyspnea Genitourinary: PRESENT: hematuria Psychiatric: PRESENT: depression Physical Exam Vital Signs: Temp Pulse Resp BP Pulse Ox 97.7 F 67 17 122/65 98 03/22/20 13:57 03/22/20 14:04 03/22/20 14:16 03/22/20 14:16 03/22/20 14:16 Intake & Output 03/21/20 03/22/20 03/23/20 06:59 06:59 06:59 Weight 140 kg General appearance: PRESENT: cooperative, mild distress, thin, well-developed Head exam: PRESENT: atraumatic, normocephalic Eye exam: PRESENT: conjunctiva pale, EOMI. ABSENT: scleral icterus Ear exam: PRESENT: normal external ear exam. ABSENT: bleeding, drainage Mouth exam: PRESENT: moist, tongue midline Neck exam: ABSENT: carotid bruit, JVD, lymphadenopathy Respiratory exam: PRESENT: rales - Fine rales bilaterally, rhonchi, symmetrical, unlabored. ABSENT: accessory muscle use, stridor, tachypnea, wheezes Cardiovascular exam: PRESENT: RRR, +S1, +S2 GI/Abdominal exam: PRESENT: normal bowel sounds, soft. ABSENT: distended, guarding, tenderness Rectal exam: PRESENT: deferred Gentrourinary exam: ABSENT: indwelling catheter Extremities exam: ABSENT: pedal edema Neurological exam: PRESENT: alert, awake, oriented to person, oriented to place, oriented to time, oriented to situation, CN II-XII grossly intact Psychiatric exam: PRESENT: flat affect. ABSENT: agitated, anxious Focused psych exam: ABSENT: delusional, paranoid, restlessness Skin exam: PRESENT: pallor Results Laboratory Results: 03/22/20 13:45 03/22/20 13:45 03/22/20 03/22/20 13:45 13:45 WBC 3.1 L RBC 2.56 L Hgb 7.3 L Hct 21.3 L MCV 83 MCH 28.4 MCHC 34.1 RDW 18.3 H Plt Count 209 Seg Neutrophils % 58.6 Sodium 123.1 L Potassium 4.1 Chloride 93 L Carbon Dioxide 24 Anion Gap 6 BUN 22 H Creatinine 0.67 Est GFR ( Amer) > 60 Glucose 108 Calcium 8.1 L Total Bilirubin 0.4 AST 19 Alkaline Phosphatase 41 Total Protein 5.1 L Albumin 2.5 L 03/22/20 03/22/20 13:45 13:45 Creatine Kinase Cancelled CK-MB (CK-2) Cancelled Troponin I 0.068 Impressions: Chest/Abdomen CTA 03/22/20 13:55 IMPRESSION: 1. NORMAL CTA OF THE CHEST. NO PULMONARY EMBOLI. 2. MULTIPLE PULMONARY METASTASES. MODERATE RIGHT PLEURAL EFFUSION HAS INCREASED IN SIZE SINCE THE PRIOR STUDY. Assessment and Plan - Diagnosis (1) Syncope and collapse Is this a current diagnosis for this admission?: Yes Plan: 03/22/2020 Most likely from the anemia secondary to hematuria however he truly was bradycardic this could have been the reason. We will monitor the patient on telemetry. (2) Acute blood loss anemia Is this a current diagnosis for this admission?: Yes Plan: 03/22/2020 Transfuse 1 unit of packed cells. If the hemoglobin is below 8 post transfusion we will transfuse a second unit. (3) Hematuria Qualifiers: Hematuria type: gross Qualified Code(s): R31.0 - Gross hematuria Is this a current diagnosis for this admission?: Yes Plan: 03/22/2020 I did speak to the urology office. Based on our discussion regarding hospice based on the amount of hematuria will decide whether it is appropriate or not to replace the stent. (4) Adrenal cancer Qualifiers: Adrenal gland location: unspecified part Laterality: unspecified laterality Qualified Code(s): C74.90 - Malignant neoplasm of unspecified part of unspecified adrenal gland Is this a current diagnosis for this admission?: Yes Plan: 03/22/2020 Patient is frustrated with complications of her chemotherapy. I have ordered a hospice consult. (5) Metastatic disease to the lung Is this a current diagnosis for this admission?: Yes Plan: 03/22/2020 As above (6) Hyponatremia Is this a current diagnosis for this admission?: Yes Plan: 03/22/2020 We will monitor serum sodium - Time Time Spent with patient: 35 or more minutes Medications reviewed and adjusted accordingly: Yes Anticipated discharge: Hospice - Inpatient Certification Based on my medical assessment, after consideration of the patient's comorbidities, presenting symptoms, or acuity I expect that the services needed warrant INPATIENT care.: Yes I certify that my determination is in accordance with my understanding of Medicare's requirements for reasonable and necessary INPATIENT services [42 CFR 412.3e].: Yes Medical Necessity: Need Close Monitoring Due to Risk of Patient Decompensation, Need For IV Fluids, Need For Continuous Telemetry Monitoring, Other - Transfusion Post Hospital Care: D/C Line Inspector Documentation
[2020-03-22] MEDS ORDERED: PROMETHAZINE HCL INJ 25 MG/1 ML VIAL IV PRN (16:49)
[2020-03-22] MEDS ORDERED: MAG HYDROX/AL HYDROX/SIMETH SUSP 30 ML UDCUP PO PRN (16:49)
[2020-03-22] MEDS ORDERED: TEMAZEPAM 7.5 MG CAPSULE PO PRN (16:49)
[2020-03-22] MEDS ORDERED: MAGNESIUM HYDROXIDE SUSP 30 ML UDCUP PO PRN (16:49)
[2020-03-22] MEDS ORDERED: ACETAMINOPHEN 325 MG TABLET PO PRN (17:00)
[2020-03-22] MEDS ORDERED: NITROGLYCERIN 0.4 MG/TAB 25 TAB/BOTTLE SL PRN (17:00)
[2020-03-22] MEDS ORDERED: (PENDING PHARMACY ID) (Metformin Hcl [Metformin Hcl Er] 750 MG) PO SCH (17:00)
[2020-03-22] MEDS ORDERED: CALCIUM CARBONATE 500 MG TAB.CHEW PO PRN (17:00)
[2020-03-22] MEDS: MAGNESIUM OXIDE 400 MG TABLET PO SCH (18:23)
--- NOTE | 2020-03-22 19:37 | EKG REPORT ---
SEVERITY:- ABNORMAL ECG - SINUS RHYTHM NONSPECIFIC INTRAVENTRICULAR CONDUCTION DELAY BORDERLINE R WAVE PROGRESSION, ANTERIOR LEADS MINIMAL ST DEPRESSION, INFERIOR LEADS : Confirmed by: Sean Alejo 22-Mar-2020 19:36:09
[2020-03-22 21:22] LABS: APPEARANCE,URINE CLOUDY; BILIRUBIN,URINE NEGATIVE (NEGATIVE); GLUCOSE, URINE NEGATIVE (NEGATIVE); KETONES,URINE NEGATIVE (NEGATIVE); LEUKOCYTE ESTERASE,URINE NEGATIVE (NEGATIVE); NITRITE,URINE NEGATIVE (NEGATIVE); PROTEIN,URINE 100 mg/dL (NEGATIVE); URINE SPECIFIC GRAVITY 1.036; UROBILINOGEN,URINE NEGATIVE mg/dL (<2.0)
[2020-03-22 21:26] LABS: COLOR,URINE RED
[2020-03-22] MEDS: ATORVASTATIN CALCIUM 40 MG TABLET PO SCH (22:43)
[2020-03-22] MEDS: METOPROLOL SUCCINATE 50 MG TAB.SR.24H PO SCH (22:43)
[2020-03-22] MEDS: ACETAMINOPHEN 325 MG TABLET PO PRN (22:43)
[2020-03-22] MEDS: RANOLAZINE 500 MG TAB.SR.12H PO SCH (22:52)
[2020-03-22 23:02] LABS: HEMATOCRIT 29.8 % (36.0-47.0); MEAN CORPUSCULAR HGB CONC 34.8 g/dL (32.0-36.0); MEAN CORPUSCULAR VOLUME 83 fl (80-97); PLATELET COUNT 224 10^3/uL (150-450); RED BLOOD COUNT 3.58 10^6/uL (3.72-5.28); RED CELL DISTRIBUTION WIDTH 18.1 % (11.5-14.0); WHITE BLOOD COUNT 3.1 10^3/uL (4.0-10.5)
[2020-03-22 23:05] LABS: HEMOGLOBIN 10.4 g/dL (12.0-15.5)
[2020-03-22 23:30] LABS: ABSOLUTE LYMPHOCYTES# (MANUAL) 1.1 10^3/uL (0.5-4.7); ABSOLUTE MONOCYTES # (MANUAL) 0.5 10^3/uL (0.1-1.4); BASOPHILS % (MANUAL) 0 % (0-2); EOSINOPHILS % (MANUAL) 3 % (0-6); LYMPHOCYTES % (MANUAL) 35 % (13-45); MONOCYTES % (MANUAL) 15 % (3-13); SEGMENTED NEUTROPHILS % (MAN) 47 % (42-78); TOTAL CELLS COUNTED 100
[2020-03-22 23:31] LABS: PLATELET COMMENT ADEQUATE
[2020-03-22 23:34] LABS: BURR CELLS SLIGHT
[2020-03-23] MEDS: PANTOPRAZOLE SODIUM 40 MG TABLET.DR PO SCH (05:18)
[2020-03-23] MEDS ORDERED: PANTOPRAZOLE SODIUM 40 MG TABLET.DR PO SCH (06:00)
[2020-03-23 06:07] LABS: HEMATOCRIT 28.8 % (36.0-47.0); HEMOGLOBIN 10.1 g/dL (12.0-15.5); MEAN CORPUSCULAR HEMOGLOBIN 29.1 pg (27.0-33.4); MEAN CORPUSCULAR VOLUME 83 fl (80-97); PLATELET COUNT 196 10^3/uL (150-450); RED BLOOD COUNT 3.46 10^6/uL (3.72-5.28); RED CELL DISTRIBUTION WIDTH 17.7 % (11.5-14.0); WHITE BLOOD COUNT 3.3 10^3/uL (4.0-10.5)
[2020-03-23 06:30] LABS: ABSOLUTE MONOCYTES # (MANUAL) 0.4 10^3/uL (0.1-1.4); BASOPHILS % (MANUAL) 0 % (0-2); EOSINOPHILS % (MANUAL) 0 % (0-6); LYMPHOCYTES % (MANUAL) 31 % (13-45); MONOCYTES % (MANUAL) 12 % (3-13); SEGMENTED NEUTROPHILS % (MAN) 57 % (42-78); TOTAL CELLS COUNTED 100
[2020-03-23 06:31] LABS: ANISOCYTOSIS 1+; BURR CELLS SLIGHT; OVALOCYTES SLIGHT; POIKILOCYTOSIS SLIGHT; POLYCHROMASIA SLIGHT; SCHISTOCYTES SLIGHT; TOXIC GRANULATION 1+; TOXIC VACUOLATION PRESENT
[2020-03-23 06:32] LABS: ALBUMIN 3.2 g/dL (3.5-5.0); ALKALINE PHOSPHATASE 55 U/L (38-126); ANION GAP 9 (5-19); ASPARTATE AMINO TRANSFERASE 21 U/L (14-36); BILIRUBIN,TOTAL 0.7 mg/dL (0.2-1.3); BLOOD UREA NITROGEN 21 mg/dL (7-20); CALCIUM 9.2 mg/dL (8.4-10.2); CARBON DIOXIDE 23 mmol/L (22-30); CHLORIDE 93 mmol/L (98-107); GLUCOSE 106 mg/dL (75-110); PLATELET COMMENT ADEQUATE; POTASSIUM 4.3 mmol/L (3.6-5.0); TOTAL PROTEIN 6.2 g/dL (6.3-8.2)
[2020-03-23] MEDS ORDERED: (PENDING PHARMACY ID) (Lisinopril/Hydrochlorothiazide [Lisinopril-Hctz 20-25 Mg Tab] 1 EAC PO SCH (10:00)
[2020-03-23] MEDS: HYDROCHLOROTHIAZIDE 25 MG TABLET PO SCH (10:05)
[2020-03-23] MEDS: LISINOPRIL 10 MG TABLET PO SCH (10:05)
[2020-03-23] MEDS: METOPROLOL SUCCINATE 50 MG TAB.SR.24H PO SCH ×2 (10:05→21:41)
[2020-03-23] MEDS: RANOLAZINE 500 MG TAB.SR.12H PO SCH ×2 (10:05→21:41)
[2020-03-23] MEDS: MAGNESIUM OXIDE 400 MG TABLET PO SCH ×2 (10:06→17:46)
[2020-03-23] MEDS: ISOSORBIDE MONONITRATE 30 MG TAB.ER.24H PO SCH (10:06)
[2020-03-23] MEDS ORDERED: CALCIUM CARBONATE 500 MG TAB.CHEW PO PRN (13:36)
--- NOTE | 2020-03-23 14:15 | PDOC PROGRESS REPORT ---
Subjective Progress Note for:: 03/23/20 Subjective:: 03/23/2020 The patient is feeling better after transfusion. She still reports hematuria. She wishes to enroll in hospice at this time. Reason For Visit: TRANSFUSIONS Physical Exam Vital Signs: Temp Pulse Resp BP Pulse Ox 98.5 F 76 16 141/69 H 97 03/23/20 12:13 03/23/20 12:13 03/23/20 12:13 03/23/20 12:13 03/23/20 12:13 Intake & Output 03/22/20 03/23/20 03/24/20 06:59 06:59 06:59 Intake Total 600 Output Total 1050 Balance -450 Weight 67.2 kg General appearance: PRESENT: cooperative, mild distress, well-developed, well- nourished Head exam: PRESENT: atraumatic, normocephalic Eye exam: PRESENT: conjunctiva pale. ABSENT: scleral icterus Ear exam: PRESENT: normal external ear exam. ABSENT: bleeding, drainage Neck exam: PRESENT: full ROM. ABSENT: carotid bruit, JVD Respiratory exam: PRESENT: clear to auscultation amelia, symmetrical, unlabored. ABSENT: accessory muscle use, rales, rhonchi, tachypnea, wheezes Cardiovascular exam: PRESENT: RRR, +S1, +S2. ABSENT: bradycardia, diastolic murmur, irregular rhythm, tachycardia GI/Abdominal exam: PRESENT: normal bowel sounds, soft. ABSENT: distended, guarding, rigid, tenderness Rectal exam: PRESENT: deferred Gentrourinary exam: ABSENT: indwelling catheter Extremities exam: ABSENT: joint swelling, pedal edema Musculoskeletal exam: PRESENT: ambulatory, normal inspection. ABSENT: deformity, dislocation Neurological exam: PRESENT: alert, awake, oriented to person, oriented to place, oriented to time, oriented to situation, CN II-XII grossly intact. ABSENT: altered, motor sensory deficit Psychiatric exam: PRESENT: depressed, flat affect. ABSENT: agitated, anxious Focused psych exam: ABSENT: delusional, paranoid, restlessness Skin exam: PRESENT: dry, pallor, warm. ABSENT: rash Results Laboratory Results: 03/23/20 05:32 03/23/20 05:32 03/22/20 03/22/20 03/22/20 13:45 14:50 20:30 WBC RBC Hgb Hct MCV MCH MCHC RDW Plt Count Seg Neutrophils % Sodium 123.1 L Potassium 4.1 Chloride 93 L Carbon Dioxide 24 Anion Gap 6 BUN 22 H Creatinine 0.67 Est GFR ( Amer) > 60 Glucose 108 Calcium 8.1 L Magnesium Total Bilirubin 0.4 AST 19 Alkaline Phosphatase 41 Total Protein 5.1 L Albumin 2.5 L Urine Color RED Urine Appearance CLOUDY Urine pH 7.0 Ur Specific [place] 1.036 Urine Protein 100 H Urine Glucose (UA) NEGATIVE Urine Ketones NEGATIVE Urine Blood LARGE H Urine Nitrite NEGATIVE Ur Leukocyte Esterase NEGATIVE Urine RBC (Auto) >182 Blood Type A NEGATIVE Antibody Screen NEGATIVE 03/22/20 03/23/20 03/23/20 22:53 05:32 05:32 WBC 3.1 L 3.3 L RBC 3.58 L 3.46 L Hgb 10.4 L D 10.1 L Hct 29.8 L 28.8 L MCV 83 83 MCH 29.0 29.1 MCHC 34.8 35.0 RDW 18.1 H 17.7 H Plt Count 224 196 Seg Neutrophils % Not Reportable Not Reportable Sodium 124.7 L Potassium 4.3 Chloride 93 L Carbon Dioxide 23 Anion Gap 9 BUN 21 H Creatinine 0.77 Est GFR ( Amer) > 60 Glucose 106 Calcium 9.2 Magnesium 1.3 L Total Bilirubin 0.7 AST 21 Alkaline Phosphatase 55 Total Protein 6.2 L Albumin 3.2 L Urine Color Urine Appearance Urine pH Ur Specific [place] Urine Protein Urine Glucose (UA) Urine Ketones Urine Blood Urine Nitrite Ur Leukocyte Esterase Urine RBC (Auto) Blood Type Antibody Screen 03/22/20 03/22/20 03/23/20 13:45 13:45 05:32 Creatine Kinase Cancelled CK-MB (CK-2) Cancelled Troponin I 0.068 0.059 Impressions: Chest/Abdomen CTA 03/22/20 13:55 IMPRESSION: 1. NORMAL CTA OF THE CHEST. NO PULMONARY EMBOLI. 2. MULTIPLE PULMONARY METASTASES. MODERATE RIGHT PLEURAL EFFUSION HAS INCREASED IN SIZE SINCE THE PRIOR STUDY. Assessment and Plan - Diagnosis (1) Syncope and collapse Is this a current diagnosis for this admission?: Yes Plan: 03/22/2020 Most likely from the anemia secondary to hematuria however he truly was bradycardic this could have been the reason. We will monitor the patient on telemetry. 03/23/2020 Feeling better after transfusion. No further lightheadedness (2) Acute blood loss anemia Is this a current diagnosis for this admission?: Yes Plan: 03/22/2020 Transfuse 1 unit of packed cells. If the hemoglobin is below 8 post transfusion we will transfuse a second unit. 03/23/2020 We will check hemoglobin later this evening. If stable the plan is to discharge tomorrow with home hospice. Plans are being made for follow-up with her urologist Dr. Quiñones. (3) Hematuria Qualifiers: Hematuria type: gross Qualified Code(s): R31.0 - Gross hematuria Is this a current diagnosis for this admission?: Yes Plan: 03/22/2020 I did speak to the urology office. Based on our discussion regarding hospice based on the amount of hematuria will decide whether it is appropriate or not to replace the stent. 03/23/2020 Hematuria persists. Plans are being made for the patient to follow-up with her urologist. We discussed the fact that the stent is most likely responsible for the hematuria. There was no evidence of large blood clots. The question will be just removing the stent versus replacing the stent. If the tumor burden was compressing the ureter then just removing the stent will cause hydronephrosis and lead to kidney failure. If that is the case then replacing the stent is probably prudent at this time. (4) Adrenal cancer Qualifiers: Adrenal gland location: unspecified part Laterality: unspecified laterality Qualified Code(s): C74.90 - Malignant neoplasm of unspecified part of unspecified adrenal gland Is this a current diagnosis for this admission?: Yes Plan: 03/22/2020 Patient is frustrated with complications of her chemotherapy. I have ordered a hospice consult. 03/23/2020 At this point the patient no longer wishes to pursue chemotherapy. 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 She understands and has appropriate insight into her situation. I have asked for hospice referrals as she wishes to now localize her care to [place]. (5) Metastatic disease to the lung Is this a current diagnosis for this admission?: Yes Plan: 03/22/2020 As above (6) Hyponatremia Is this a current diagnosis for this admission?: Yes Plan: 03/22/2020 We will monitor serum sodium 03/23/2020 Chronic and stable. With the patient moving towards hospice there is no real indication to be aggressive about her hyponatremia (7) Hypomagnesemia Is this a current diagnosis for this admission?: Yes Plan: 03/23/2020 The patient has had hypomagnesemia. We will continue to monitor. We will correct her magnesium levels. After this hospitalization it will be up to her to continue the magnesium oxide dosing or not as she enrolls in hospice. - Plan Summary Summary: We discussed the disposition. The patient wishes to enroll in hospice. I explained that I would like to monitor her over tonight in the event that she requires additional blood. The plan is to get the stent out or changed very quickly. As the patient likely has many months to live, stopping the hematuria is appropriate. Topping off her hemoglobin so that she does not feel poorly at this time, and does not experience syncope and collapse, is medically appro priate. Whether or not she needs another unit of packed red blood cells she will discharge tomorrow. - Time Time Spent with patient: 15-24 minutes Medications reviewed and adjusted accordingly: Yes Anticipated discharge: Hospice Within: within 24 hours
[2020-03-23] MEDS ORDERED: (PENDING PHARMACY ID) (Metformin Hcl [Metformin Hcl Er] 750 MG) PO SCH (17:00)
[2020-03-23 18:53] LABS: HEMOGLOBIN 10.4 g/dL (12.0-15.5); MEAN CORPUSCULAR HEMOGLOBIN 28.9 pg (27.0-33.4); MEAN CORPUSCULAR HGB CONC 34.6 g/dL (32.0-36.0); MEAN CORPUSCULAR VOLUME 84 fl (80-97); PLATELET COUNT 192 10^3/uL (150-450); RED BLOOD COUNT 3.58 10^6/uL (3.72-5.28); RED CELL DISTRIBUTION WIDTH 17.9 % (11.5-14.0); WHITE BLOOD COUNT 5.3 10^3/uL (4.0-10.5)
[2020-03-23] MEDS: ACETAMINOPHEN 325 MG TABLET PO PRN (20:25)
[2020-03-23] MEDS: ATORVASTATIN CALCIUM 40 MG TABLET PO SCH (21:41)
[2020-03-24] MEDS: PANTOPRAZOLE SODIUM 40 MG TABLET.DR PO SCH (05:47)
[2020-03-24] MEDS ORDERED: MAGNESIUM SULFATE/D5W 1 GM/100 ML RTUPB IV ONE (06:30)
[2020-03-24] MEDS: ISOSORBIDE MONONITRATE 30 MG TAB.ER.24H PO SCH (10:03)
[2020-03-24] MEDS: RANOLAZINE 500 MG TAB.SR.12H PO SCH (10:04)
[2020-03-24] MEDS: MAGNESIUM OXIDE 400 MG TABLET PO SCH (10:04)
[2020-03-24] MEDS: LISINOPRIL 10 MG TABLET PO SCH (10:04)
[2020-03-24] MEDS: HYDROCHLOROTHIAZIDE 25 MG TABLET PO SCH (10:04)
[2020-03-24] MEDS: METOPROLOL SUCCINATE 50 MG TAB.SR.24H PO SCH (10:04)
--- NOTE | 2020-03-24 10:44 | PDOC DISCHARGE SUMMARY ---
Impression - Admit/DC Date/PCP Admission Date/Primary Care Provider: 03/22/20 14:32 AMARA KILLIAN MD Discharge Date: 03/24/20 - Discharge Diagnosis (1) Syncope and collapse Is this a current diagnosis for this admission?: Yes (2) Acute blood loss anemia Is this a current diagnosis for this admission?: Yes (3) Hematuria Is this a current diagnosis for this admission?: Yes (4) Adrenal cancer Is this a current diagnosis for this admission?: Yes (5) Metastatic disease to the lung Is this a current diagnosis for this admission?: Yes (6) Hyponatremia Is this a current diagnosis for this admission?: Yes (7) Hypomagnesemia Is this a current diagnosis for this admission?: Yes - Assessment Summary: We discussed the disposition. The patient wishes to enroll in hospice. I explained that I would like to monitor her over tonight in the event that she requires additional blood. The plan is to get the stent out or changed very quickly. As the patient likely has many months to live, stopping the hematuria is appropriate. Topping off her hemoglobin so that she does not feel poorly at this time, and does not experience syncope and collapse, is medically appropriate. Whether or not she needs another unit of packed red blood cells she will discharge tomorrow. - Additional Information Resuscitation Status: Do Not Resuscitate Discharge Diet: Diabetic Discharge Activity: Activity As Tolerated Referrals: AMARA KILLIAN MD [Primary Care Provider] - Follow up as needed (Going home with hospice - no appointment necessary ) Home Medications: Metformin HCl [Metformin HCl ER] 750 mg PO WSUPPER 02/18/20 Aspirin [Ecotrin 81 mg EC Tablet] 81 mg PO DAILY tabec 02/20/20 Magnesium Oxide [Mag-Ox 400 mg Tablet] 800 mg PO BID 30 Days #60 tab 02/20/20 Nitroglycerin [Nitrostat 0.4 mg (1/150 Gr) Tabs 25/Bottle] 1 tab SL Q5MP PRN 30 Days #90 bottle 02/20/20 Metoprolol Succinate [Toprol Xl 50 mg Tab.sr] 50 mg PO Q12 02/26/20 Acetaminophen [Tylenol] 325 mg PO DAILYP PRN 03/17/20 Calcium Carbonate [Tums Chewable 500 mg Tab.chew] 500 mg PO DAILYP PRN 03/17/20 Lisinopril/Hydrochlorothiazide [Lisinopril-Hctz 20-25 mg Tab] 1 each PO DAILY 03/17/20 Atorvastatin Calcium [Lipitor 40 mg Tablet] 40 mg PO QHS #30 tablet 03/22/20 Isosorbide Mononitrate [Imdur 30 mg Tablet.er] 30 mg PO DAILY #30 tab.er.24h 03/22/20 Pantoprazole Sodium [Protonix [address] Tablet] 40 mg PO Q6AM tablet.dr 03/22/20 Ranolazine [Ranexa 500 mg Tab.sr] 500 mg PO Q12 #60 tab.sr.12h 03/22/20 Calcium Carbonate [Tums Chewable 500 mg Tab.chew] 1,000 mg PO Q4HP PRN tab.chew 03/24/20 History of Present Illiness History of Present Illness: MONY STEELE is a 69 year old female the patient had just gotten home from the hospital. She was with her goddaughter Donna. Donna states that they had normal conversation on the way home. The patient went into the kitchen. Donna asked her if she wanted something to drink. At that point the patient did not seem herself. Shortly thereafter she passed out and fell to the floor. There is immediately called EMS. On scene the report is that she had bradycardia. Her pressure was low. By the time she had to the emergency department her pressure and pulse have improved. Her hemoglobin was found to be 7.5 and this is from the hematuria. She will be readmitted after she receives 1 unit of packed red blood cells. I talked to Donna and briefly talked to the patient and we will pursue a hospice consult. Hospital Course Hospital Course: The patient had a benign hospital course. She did receive 1 unit of packed red blood cells. This brought her hemoglobin up to 10 which was surprising considering the typical increase is 1 g hemoglobin for each unit of packed red blood cells. She continues with hematuria but she is scheduled to see her urologist on Saturday. Hospice is going to see her this afternoon at home. I did tell her that if she began to pass large clots or if her urine appears to be obstructed she needs to return to the hospital. Changing the stent should stop the hematuria. Physical Exam Vital Signs: Temp Pulse Resp BP Pulse Ox 97.7 F 76 18 136/63 H 96 03/24/20 07:19 03/24/20 07:19 03/24/20 07:19 03/24/20 07:19 03/24/20 07:19 Intake & Output 03/23/20 03/24/20 03/25/20 06:59 06:59 06:59 Intake Total 600 1260 100 Output Total 1050 1050 Balance -450 210 100 Weight 67.2 kg 68.8 kg General appearance: PRESENT: no acute distress, cooperative Eye exam: PRESENT: conjunctiva pale Respiratory exam: PRESENT: clear to auscultation amelia, symmetrical, unlabored. ABSENT: rales, rhonchi, tachypnea, wheezes Cardiovascular exam: PRESENT: RRR, +S1, +S2 GI/Abdominal exam: PRESENT: normal bowel sounds, soft. ABSENT: distended, guarding, tenderness Rectal exam: PRESENT: deferred Gentrourinary exam: PRESENT: other - Hematuria Extremities exam: ABSENT: pedal edema Neurological exam: PRESENT: alert, awake, oriented to person, oriented to place, oriented to time, oriented to situation, CN II-XII grossly intact. ABSENT: motor sensory deficit Psychiatric exam: PRESENT: flat affect. ABSENT: agitated, anxious Results Laboratory Results: WBC 5.3 10^3/uL (4.0-10.5) 03/23/20 18:42 RBC 3.58 10^6/uL (3.72-5.28) L 03/23/20 18:42 Hgb 10.4 g/dL (12.0-15.5) L 03/23/20 18:42 Hct 30.0 % (36.0-47.0) L 03/23/20 18:42 MCV 84 fl (80-97) 03/23/20 18:42 MCH 28.9 pg (27.0-33.4) 03/23/20 18:42 MCHC 34.6 g/dL (32.0-36.0) 03/23/20 18:42 RDW 17.9 % (11.5-14.0) H 03/23/20 18:42 Plt Count 192 10^3/uL (150-450) 03/23/20 18:42 Lymph % (Auto) Not Reportable 03/23/20 05:32 [place] % (Auto) Not Reportable 03/23/20 05:32 Eos % (Auto) Not Reportable 03/23/20 05:32 Baso % (Auto) Not Reportable 03/23/20 05:32 Absolute Neuts (auto) Not Reportable 03/23/20 05:32 Absolute Lymphs (auto) Not Reportable 03/23/20 05:32 Absolute Monos (auto) Not Reportable 03/23/20 05:32 Absolute Eos (auto) Not Reportable 03/23/20 05:32 Absolute Basos (auto) Not Reportable 03/23/20 05:32 Total Counted 100 03/23/20 05:32 Seg Neutrophils % Not Reportable 03/23/20 05:32 Seg Neuts % (Manual) 57 % (42-78) 03/23/20 05:32 Lymphocytes % (Manual) 31 % (13-45) 03/23/20 05:32 Monocytes % (Manual) 12 % (3-13) 03/23/20 05:32 Eosinophils % (Manual) 0 % (0-6) 03/23/20 05:32 Basophils % (Manual) 0 % (0-2) 03/23/20 05:32 Abs Neuts (Manual) 1.9 10^3/uL (1.7-8.2) 03/23/20 05:32 Abs Lymphs (Manual) 1.0 10^3/uL (0.5-4.7) 03/23/20 05:32 Abs Monocytes (Manual) 0.4 10^3/uL (0.1-1.4) 03/23/20 05:32 Absolute Eos (Manual) 0.0 10^3/uL (0.0-0.6) 03/23/20 05:32 Abs Basophils (Manual) 0.0 10^3/uL (0.0-0.2) 03/23/20 05:32 Toxic Granulation 1+ 03/23/20 05:32 Toxic Vacuolation PRESENT 03/23/20 05:32 Platelet Comment ADEQUATE 03/23/20 05:32 Polychromasia SLIGHT 03/23/20 05:32 Poikilocytosis SLIGHT 03/23/20 05:32 Anisocytosis 1+ 03/23/20 05:32 Ovalocytes SLIGHT 03/23/20 05:32 Imer Cells SLIGHT 03/23/20 05:32 Schistocytes SLIGHT 03/23/20 05:32 Sodium 124.7 mmol/L (137-145) L 03/23/20 05:32 Potassium 4.3 mmol/L (3.6-5.0) 03/23/20 05:32 Chloride 93 mmol/L (98-107) L 03/23/20 05:32 Carbon Dioxide 23 mmol/L (22-30) 03/23/20 05:32 Anion Gap 9 (5-19) 03/23/20 05:32 BUN 21 mg/dL (7-20) H 03/23/20 05:32 Creatinine 0.77 mg/dL (0.52-1.25) 03/23/20 05:32 Est GFR ( Amer) > 60 (>60) 03/23/20 05:32 Est GFR (MDRD) Non-Af > 60 (>60) 03/23/20 05:32 Glucose 106 mg/dL (75-110) 03/23/20 05:32 Calcium 9.2 mg/dL (8.4-10.2) 03/23/20 05:32 Magnesium 1.3 mg/dL (1.6-2.3) L 03/23/20 05:32 Total Bilirubin 0.7 mg/dL (0.2-1.3) 03/23/20 05:32 Direct Bilirubin 0.0 mg/dL (0.0-0.4) 03/23/20 05:32 Neonat Total Bilirubin Not Reportable 03/23/20 05:32 Neonat Direct Bilirubin Not Reportable 03/23/20 05:32 Neonat Indirect Bili Not Reportable 03/23/20 05:32 AST 21 U/L (14-36) 03/23/20 05:32 ALT 11 U/L (<35) 03/23/20 05:32 Alkaline Phosphatase 55 U/L (38-126) 03/23/20 05:32 Creatine Kinase Cancelled 03/22/20 13:45 CK-MB (CK-2) Cancelled 03/22/20 13:45 Troponin I 0.059 ng/mL 03/23/20 05:32 Total Protein 6.2 g/dL (6.3-8.2) L 03/23/20 05:32 Albumin 3.2 g/dL (3.5-5.0) L 03/23/20 05:32 Urine Color RED 03/22/20 20:30 Urine Appearance CLOUDY 03/22/20 20:30 Urine pH 7.0 (5.0-9.0) 03/22/20 20:30 Ur Specific [place] 1.036 03/22/20 20:30 Urine Protein 100 mg/dL (NEGATIVE) H 03/22/20 20:30 Urine Glucose (UA) NEGATIVE mg/dL (NEGATIVE) 03/22/20 20:30 Urine Ketones NEGATIVE mg/dL (NEGATIVE) 03/22/20 20:30 Urine Blood LARGE (NEGATIVE) H 03/22/20 20:30 Urine Nitrite NEGATIVE (NEGATIVE) 03/22/20 20:30 Urine Bilirubin NEGATIVE (NEGATIVE) 03/22/20 20:30 Urine Urobilinogen NEGATIVE mg/dL (<2.0) 03/22/20 20:30 Ur Leukocyte Esterase NEGATIVE (NEGATIVE) 03/22/20 20:30 Urine RBC (Auto) >182 /HPF 03/22/20 20:30 Urine Ascorbic Acid NEGATIVE (NEGATIVE) 03/22/20 20:30 Blood Type A NEGATIVE 03/22/20 14:50 Antibody Screen NEGATIVE 03/22/20 14:50 Crossmatch See Detail 03/22/20 14:50 03/22/20 03/23/20 13:45 05:32 CK-MB (CK-2) Cancelled Troponin I 0.068 0.059 Impressions: Chest/Abdomen CTA 03/22/20 13:55 IMPRESSION: 1. NORMAL CTA OF THE CHEST. NO PULMONARY EMBOLI. 2. MULTIPLE PULMONARY METASTASES. MODERATE RIGHT PLEURAL EFFUSION HAS INCREASED IN SIZE SINCE THE PRIOR STUDY. Plan Health Concerns: Metastatic malignancy now transitioning to hospice Plan of Treatment: She will continue her current medications. Anticipate her hemoglobin will remain adequate until she sees the urologist and is able to swap out the stent in her ureter. This should resolve the hematuria. Hospice is meeting her at her house today. Goals: Establish care with hospice. Time Spent: Greater than 30 Minutes Stroke Is this a Stroke Patient?: No Acute Heart Failure - Is this a Heart Failure Patient?: No
[2020-03-24 11:10] VITALS: BP 120/67
--- NOTE | 2020-03-24 15:50 | ADVANCED CARE ---
- Diagnosis (1) Syncope and collapse Diagnosis Current: Yes (2) Acute blood loss anemia Diagnosis Current: Yes (3) Hematuria Diagnosis Current: Yes (4) Adrenal cancer Diagnosis Current: Yes (5) Metastatic disease to the lung Diagnosis Current: Yes (6) Hyponatremia Diagnosis Current: Yes (7) Hypomagnesemia Diagnosis Current: Yes Attendance: Discussions were held with the patient at her bedside as well as on the phone with Donna who was unable to visit during the COVID restrictions. Resuscitation Status: Do Not Resuscitate Discussion: Over the course of multiple calls and discussions with the patient we reviewed the pros and cons of ongoing chemotherapy. After every chemotherapy treatment she has ended up in the hospital. 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 I still believe it is appropriate to see the urologist. Hopefully removing the stent will stop the hematuria. Because of the tumor burden there is high risk of her ureter collapsing and so Dr. Quiñones will likely put a new stent in. Treating the hematuria is appropriate at this stage. The patient is comfortable with her decision. She is thankful that she is not having significant pain at this time. We are all in agreement that transitioning to hospice is appropriate. Care Planning Goals: A final disposition was decided on with the patient enrolling in hospice today when she gets home. Document(s) Completed: None Time Spent: 25 minutes over the course of several discussions and phone calls
== END 2020-03-24 12:13 | disposition hospice, home (50) ==
LOC: ER 13:37 → INTOOBSV 14:32 → EH 14:32 → 3W 16:12
PROVIDERS: ADMIT Hospitalist; ATTEND Hospitalist
DX: R55 Syncope and collapse (principal); D62 Acute posthemorrhagic anemia; R31.0 Gross hematuria; C74.90 Malignant neoplasm of unspecified part of unspecified adrenal gland; C78.00 Secondary malignant neoplasm of unspecified lung; E87.1 Hypo-osmolality and hyponatremia; E83.42 Hypomagnesemia; F32.9 Major depressive disorder, single episode, unspecified; I10 Essential (primary) hypertension; I25.2 Old myocardial infarction; Z66 Do not resuscitate; Z79.899 Other long term (current) drug therapy; Z79.82 Long term (current) use of aspirin; Z79.84 Long term (current) use of oral hypoglycemic drugs; Z60.2 Problems related to living alone; Z90.49 Acquired absence of other specified parts of digestive tract; Z82.49 Family history of ischemic heart disease and other diseases of the circulatory system; Z96.0 Presence of urogenital implants
CPT/HCPCS: 93005; 99285; 86900; 86901; 36415 ×2; 36430; 86850; 83735; 85025 ×2; 87070; 80053; 81001; 84484 ×2; 86920; 71275; 93010; G0378 ×2; P9016; A9270 ×20; J3475; J3490 ×3

== ENCOUNTER 2020-06-15 16:05 | Inpatient (IN) | payer MEDICAID, MEDICARE ==
[2020-06-15] MEDS ORDERED: MORPHINE SULFATE 10 MG/ML INJ IV ONE (17:06)
[2020-06-15] MEDS ORDERED: ONDANSETRON HCL INJ/PF 4 MG/2 ML SDV IV ONE (17:06)
[2020-06-15 17:19] LABS: ABSOLUTE BASOPHILS # (AUTO) 0.1 10^3/uL (0.0-0.2); ABSOLUTE LYMPHOCYTES (AUTO) 0.7 10^3/uL (0.5-4.7); ABSOLUTE MONOCYTES (AUTO) 0.9 10^3/uL (0.1-1.4); ABSOLUTE NEUT (AUTO) 5.9 10^3/uL (1.7-8.2); BASOPHILS % (AUTO) 0.7 % (0-2); EOSINOPHILS % (AUTO) 0.5 % (0-6); HEMATOCRIT 28.6 % (36.0-47.0); HEMOGLOBIN 9.6 g/dL (12.0-15.5); LYMPHOCYTES % (AUTO) 9.1 % (13-45); MEAN CORPUSCULAR HEMOGLOBIN 27.2 pg (27.0-33.4); MEAN CORPUSCULAR HGB CONC 33.6 g/dL (32.0-36.0); MEAN CORPUSCULAR VOLUME 81 fl (80-97); MONOCYTES % (AUTO) 11.8 % (3-13); PLATELET COUNT 438 10^3/uL (150-450); RED BLOOD COUNT 3.53 10^6/uL (3.72-5.28); RED CELL DISTRIBUTION WIDTH 15.9 % (11.5-14.0); SEGMENTED NEUTROPHILS % (AUTO) 77.9 % (42-78); TOTAL CELLS COUNTED % (AUTO) 100 %; WHITE BLOOD COUNT 7.6 10^3/uL (4.0-10.5)
[2020-06-15 17:22] LABS: VENOUS BLOOD BASE EXCESS -0.6 mmol/L; VENOUS BLOOD HCO3 23.7 mmol/L (20-32); VENOUS BLOOD PCO2 38.2 mmHg (35-63); VENOUS BLOOD PH 7.41 (7.30-7.42)
[2020-06-15 17:33] LABS: INTERNATIONAL RATION (INR) 0.99; PROTHROMBIN TIME 13.3 SEC (11.4-15.4)
[2020-06-15 17:40] LABS: ALBUMIN 3.7 g/dL (3.5-5.0); ALKALINE PHOSPHATASE 67 U/L (38-126); ANION GAP 10 (5-19); ASPARTATE AMINO TRANSFERASE 36 U/L (14-36); BILIRUBIN,DIRECT 0.3 mg/dL (0.0-0.4); BILIRUBIN,TOTAL 0.4 mg/dL (0.2-1.3); BLOOD UREA NITROGEN 21 mg/dL (7-20); CARBON DIOXIDE 25 mmol/L (22-30); CHLORIDE 91 mmol/L (98-107); GLUCOSE 123 mg/dL (75-110); POTASSIUM 4.5 mmol/L (3.6-5.0); TOTAL PROTEIN 7.1 g/dL (6.3-8.2)
[2020-06-15] MEDS ORDERED: RINGERS LACTATED IV ONE (18:07)
--- NOTE | 2020-06-15 18:26 | RADIOLOGY REPORT (SQ) ---
EXAM DESCRIPTION: CTA CHEST IMAGES COMPLETED DATE/TIME: 06/15/2020 6:12 pm REASON FOR STUDY: cp/cancer/sob COMPARISON: 03/22/2020 TECHNIQUE: CT scan of the chest performed using helical scanning technique with dynamic intravenous contrast injection. Images reviewed with lung, soft tissue and bone windows. Reconstructed coronal and sagittal MPR images reviewed. Additional 3 dimensional post-processing performed to develop Maximal Intensity Projection images (IA P). All images stored on PACS. All CT scanners at this facility use dose modulation, iterative reconstruction, and/or weight based d osing when appropriate to reduce radiation dose to as low as reasonably achievable (ALARA). [facility]: Dose Right [facility]: CareDose [facility]: Dose Right [facility]: Teradose 4D [facility]: EcoDomus CONTRAST TYPE AND DOSE: contrast/concentration: Isovue 350.00 mmol/ml; Total Contrast Delivered: 60. 0 ml; Total Saline Delivered: 66.0 ml Contrast bolus adequate for pulmonary arteries and aorta. RENAL FUNCTION: BUN 21 creatinine 0.69 RADIATION DOSE: CT Rad equipment meets quality standard of care and radiation dose reduction [facility] Services ues were employed. CTDIvol: 13.2 - 14.3 mGy. DLP: 575 mGy-cm. . LIMITATIONS: None. FINDINGS: LUNGS AND PLEURA: Metastatic lesions are too numerous to count. AORTA AND GREAT VESSELS: No aneurysm. No dissection. HEART: No pericardial effusion. No significant coronary artery calcifications. PULMONARY ARTERIES: No emboli visualized in the main pulmonary arteries or the segmental branches. HILAR AND MEDIASTINAL STRUCTURES: Mediastinal and hilar adenopathy bilaterally. Left more than right . HARDWARE: None in the chest. UPPER ABDOMEN: 44 mm aneurysm of the infrarenal abdominal aorta. THYROID AND OTHER SOFT TISSUES: No masses. No adenopathy. BONES: No acute or significant finding. 3D MIPS: Confirm above findings. OTHER: No other significant finding. IMPRESSION: 1. No pulmonary emboli. No aortic aneurysm or dissection in the chest. 2. Extensive metastatic disease in the chest and mediastinum. 3. 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 COMMENT: Quality ID # [id number]: Final reports with documentation of one or more dose reduction techniques (e.g., Automated exposure control, adjustment of the mA and/or kV according to patient size, use of iterative reconstruction technique) TECHNICAL DOCUMENTATION: JOB ID: [id number] [employer]- All Rights Reserved Reading location - IP/workstation name: [email or web address]
--- NOTE | 2020-06-15 19:42 | ER Document Report ---
ED General - General Chief Complaint: Breathing Difficulty Stated Complaint: TROUBLE BREATHING Time Seen by Provider: 06/15/20 16:34 Primary Care Provider: DEB BURROWS PA [Primary Care Provider] - Follow up as needed Information source: Patient TRAVEL OUTSIDE OF THE [place] IN LAST 30 DAYS: No - HPI Notes: Patient comes in complaint of right-sided chest pain. It is sharp and constant. Nothing appears to make it better except for rest. It does get worse with movement. Patient does have a history of cancer and is currently getting chemotherapy. She states her chemotherapy is done in [facility]. Patient states she has had a worse cough lately. She does not believe she has had any fevers. She describes the pain as moderate to severe. Is been going on for 4 to 5 days. She has also had some mild increase of her shortness of b reath. She has felt weaker recently as well. No known COVID exposures. No problems with abdominal pain or urination. The pain does not have any significant radiation. - Related Data Allergies/Adverse Reactions: cephalexin [From Keflex] Allergy (Verified 12/01/19 14:06) Past Medical History - General Information source: Patient - Social History Smoking Status: Former Smoker Frequency of alcohol use: None Drug Abuse: Bath salts Family History: CAD - Congestive heart failure, Hypertension, Other - Parkinson's - Past Medical History Cardiac Medical History: Reports: Hx Heart Attack, Hx Hypertension Endocrine Medical History: Reports: Hx Diabetes Mellitus Type 2 Malignancy Medical History: Reports: Hx Lung Cancer Psychiatric Medical History: Reports: Hx Depression Past Surgical History: Reports: Hx Appendectomy, Hx Cholecystectomy Review of Systems - Review of Systems Constitutional: Malaise, Weakness. denies: Chills Cardiovascular: Chest pain, Lightheaded Respiratory: Cough, Short of breath -: Yes All other systems reviewed and negative Physical Exam - Vital signs Vitals: Temp 98.8 F 06/15/20 16:29 Interpretation: Normal - General General appearance: Appears well, Alert - HEENT Head: Normocephalic, Atraumatic Eyes: Normal Pupils: PERRL - Respiratory Respiratory status: No respiratory distress Breath sounds: Decreased air movement, Rhonchi Chest palpation: No: Flail segment, Subcutaneous emphysema - Cardiovascular Rhythm: Regular Heart sounds: Normal auscultation Murmur: No - Abdominal Inspection: Normal Distension: No distension Bowel sounds: Normal Tenderness: Nontender Organomegaly: No organomegaly - Back Back: Normal, Nontender - Extremities General upper extremity: Normal inspection, Nontender, Normal color, Normal ROM, Normal temperature General lower extremity: Normal inspection, Nontender, Normal color, Normal ROM, Normal temperature, Normal weight bearing. No: [place]'s sign - Neurological Neuro grossly intact: Yes Cognition: Normal Orientation: AAOx4 [place] Coma Scale Eye Opening: Spontaneous [place] Coma Scale Verbal: Oriented [place] Coma Scale Motor: Obeys Commands Agnieszka Coma Scale Total: 15 Speech: Normal Motor strength normal: LUE, RUE, LLE, RLE Sensory: Normal - Psychological Associated symptoms: Normal affect, Normal mood - Skin Skin Temperature: Warm Skin Moisture: Dry Skin Color: Pale Course - Re-evaluation Re-evalutation: 06/15/20 19:37 Patient with a history of lung cancer presents with right-sided chest pain. She has a mildly elevated troponin with some nonspecific EKG changes. Her pain definitely seems more pleuritic than cardiac however. I think at this time the most prudent thing would just to do serial enzymes as far as evaluating for a possible cardiac cause. On CT scan she has worsening metastatic disease making it somewhat difficult to ascertain if there is an underlying infection. She does not have a fever or significant white cell count elevation however since patient is on chemotherapy and has a new cough I will treat her with antibiotics. Patient's lactate is elevated however she has not been tachycardic or hypotensive. I think her lactate is most likely elevated secondary to de hydration which correlates with her hyponatremia. I will have the patient resuscitated with fluids. Patient will be admitted to the hospital for further control of her pain and symptoms as well as for serial enzymes. - Vital Signs Vital signs: Temp Pulse Resp BP Pulse Ox 98.8 F 18 132/63 H 95 06/15/20 16:29 06/15/20 19:01 06/15/20 19:00 06/15/20 19:01 - Laboratory Result Diagrams: 06/15/20 17:00 06/15/20 17:00 Laboratory results interpreted by me: 06/15/20 06/15/20 06/15/20 17:00 17:00 17:00 RBC 3.53 L Hgb 9.6 L Hct 28.6 L RDW 15.9 H Lymph % (Auto) 9.1 L Sodium 125.9 L Chloride 91 L BUN 21 H Glucose 123 H Lactic Acid 2.7 H - Diagnostic Test Radiology reviewed: Image reviewed, Reports reviewed - EKG Interpretation by Me EKG shows normal: Sinus rhythm Rate: Normal - 85 Rhythm: NSR [place]/QRS: No: Right axis deviation, Left axis deviation Discharge - Discharge Clinical Impression: Shortness of breath, Metastatic disease to the lung, Hyponatremia, Lactic acid acidosis, Dehydration Lung cancer Qualifiers: Laterality: right Lung location: overlapping sites Qualified Code(s): C34.81 - Malignant neoplasm of overlapping sites of right bronchus and lung Condition: Serious Disposition: ADMITTED INPATIENT Admitting Provider: Randi (Hospitalist) Unit Admitted: Medical Floor Referrals: DEB BURROWS PA [Primary Care Provider] - Follow up as needed
[2020-06-15] MEDS ORDERED: TEMAZEPAM 7.5 MG CAPSULE PO PRN (20:11)
[2020-06-15] MEDS ORDERED: ACETAMINOPHEN 325 MG TABLET PO PRN (20:11)
[2020-06-15] MEDS ORDERED: ONDANSETRON HCL INJ/PF 4 MG/2 ML SDV IV PRN (20:11)
[2020-06-15] MEDS ORDERED: PROMETHAZINE HCL INJ 25 MG/1 ML VIAL IV PRN (20:11)
[2020-06-15] MEDS ORDERED: NORMAL SALINE 1000 ML 1,000 ML IV PRN (20:11)
[2020-06-15] MEDS ORDERED: IPRATROPIUM/ALBUTEROL 0.5-2.5 MG/3 ML AMPUL NEB PRN (20:11)
[2020-06-15] MEDS: LEVOFLOXACIN 750 MG/D5W RTU 750 MG/150 ML RTUPB IV SCH (20:20)
--- NOTE | 2020-06-15 20:21 | PDOC H&P ---
History of Present Illness Admission Date/PCP: 06/15/20 20:01 SVEN CLAYTON History of Present Illness: MONY STEELE is a 70 year old female former smoker, past medical history of metastatic right renal and lung cancer, primary unknown, currently undergoing chemotherapy at [facility], who was last admitted at [facility] on 03/24/2020 for evaluation of syncope, acute blood loss anemia, hematuria and metastatic cancer. Patient presented to ED complaining of right flank and right chest sharp, nonpleuritic, constant, 6/10 on severity scale, better with rest, for the last several days. She was also complaining of mild shortness of breath and nonproductive cough. Denies any fever, chills, nausea, vomiting, diarrhea, constipation or any urinary symptoms. In ED she was noted to have mildly elevated troponins, lactic acid, and CTA chest showed extensive metastatic disease in the chest and mediastinum and 4.4 cm infrarenal abdominal aortic aneurysm. Patient denies any fever, chills, nausea, vomiting, loss of taste, loss of smell or any exposure to anybody with COVID-19 suspicion, however as per ED impression patient was complaining of cough and they would like to test her for COVID-19 just to be on the safe side. Past Medical History Cardiac Medical History: Reports: Myocardial Infarction, Hypertension Endocrine Medical History: Reports: Diabetes Mellitus Type 2 Malignancy Medical History: Reports: Lung Cancer Psychiatric Medical History: Reports: Depression Hematology: Reports: Anemia Past Surgical History Past Surgical History: Reports: Appendectomy, Cholecystectomy Social History Smoking Status: Former Smoker Frequency of Alcohol Use: None Hx Recreational Drug Use: No Drugs: None Hx Prescription Drug Abuse: No Family History Family History: CAD - Congestive heart failure, Hypertension, Other - Parkinson's Parental Family History Reviewed: Yes Children Family History Reviewed: Yes Sibling(s) Family History Reviewed.: Yes Medication/Allergy Home Medications: Metoprolol Succinate [Toprol Xl 50 mg Tab.sr] 50 mg PO Q12 02/26/20 Acetaminophen [Tylenol] 325 mg PO Q6HP PRN 03/17/20 Lisinopril/Hydrochlorothiazide [Lisinopril-Hctz 20-25 mg Tab] 1 each PO DAILY 03/17/20 Allergies/Adverse Reactions: cephalexin [From Keflex] Allergy (Verified 02/11/20 14:06) Review of Systems Review of Systems: as per hpi Physical Exam Vital Signs: Temp Pulse Resp BP Pulse Ox 98.8 F 18 132/63 H 95 06/15/20 16:29 06/15/20 19:01 06/15/20 19:00 06/15/20 19:01 Intake & Output 06/14/20 06/15/20 06/16/20 06:59 06:59 06:59 Intake Total 831 Balance 831 Weight 60.9 kg General appearance: PRESENT: no acute distress, well-developed, well-nourished Head exam: PRESENT: atraumatic, normocephalic Neck exam: ABSENT: carotid bruit, JVD, lymphadenopathy, thyromegaly Respiratory exam: PRESENT: clear to auscultation amelia. ABSENT: rales, rhonchi, wheezes Cardiovascular exam: PRESENT: RRR, other - Right-sided anterior chest TTP. Right flank TTP.. ABSENT: diastolic murmur, rubs, systolic murmur GI/Abdominal exam: PRESENT: normal bowel sounds, soft. ABSENT: distended, guarding, mass, organolmegaly, rebound, tenderness Neurological exam: PRESENT: alert, awake, oriented to person, oriented to place, oriented to time, oriented to situation, CN II-XII grossly intact. ABSENT: motor sensory deficit Results Laboratory Results: 06/15/20 17:00 06/15/20 17:00 06/15/20 06/15/20 06/15/20 17:00 17:00 17:00 WBC 7.6 RBC 3.53 L Hgb 9.6 L Hct 28.6 L MCV 81 MCH 27.2 MCHC 33.6 RDW 15.9 H Plt Count 438 Seg Neutrophils % 77.9 VBG pH 7.41 VBG pCO2 38.2 VBG HCO3 23.7 VBG Base Excess -0.6 Sodium 125.9 L Potassium 4.5 Chloride 91 L Carbon Dioxide 25 Anion Gap 10 BUN 21 H Creatinine 0.69 Est GFR ( Amer) > 60 Glucose 123 H Lactic Acid Calcium 9.0 Total Bilirubin 0.4 AST 36 Alkaline Phosphatase 67 Total Protein 7.1 Albumin 3.7 06/15/20 17:00 WBC RBC Hgb Hct MCV MCH MCHC RDW Plt Count Seg Neutrophils % VBG pH VBG pCO2 VBG HCO3 VBG Base Excess Sodium Potassium Chloride Carbon Dioxide Anion Gap BUN Creatinine Est GFR ( Amer) Glucose Lactic Acid 2.7 H Calcium Total Bilirubin AST Alkaline Phosphatase Total Protein Albumin 06/15/20 17:00 Troponin I 0.048 Impressions: Chest/Abdomen CTA 06/15/20 16:54 IMPRESSION: 1. No pulmonary emboli. No aortic aneurysm or dissection in the chest. 2. Extensive metastatic disease in the chest and mediastinum. 3. 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 Assessment and Plan - Diagnosis (1) Chest pain Qualifiers: Chest pain type: other chest pain Qualified Code(s): R07.89 - Other chest pain; R07.8 - Other chest pain Is this a current diagnosis for this admission?: Yes Plan: Right-sided chest pain. TTP to palpation over right anterior and right lateral chest. Likely musculoskeletal or due to metastatic cancer. Unlikely this is cardiac. CTA positive for extensive metastatic cancer. Mildly elevated troponins at baseline compared to previous admission, likely due to demand mismatch. Admit to telemetry, antiplatelets, beta blockers, TANK, statins, PRN morphine, PRN sublingual nitroglycerin. Cardiology consulted. Recommendations pending. (2) Anemia, chronic disease Is this a current diagnosis for this admission?: Yes Plan: Hemoglobin at baseline. Likely due to anemia of chronic disease. Denies any hematemesis, hemoptysis, hematuria, melena or hematochezia. Monitor H&H. Will obtain an anemia panel. (3) Elevated troponin Is this a current diagnosis for this admission?: Yes Plan: As per #1. (4) Hyponatremia Is this a current diagnosis for this admission?: Yes Plan: Chronic. Most likely due to underlying lung malignancy. Patient also stating that she drinks excessive amount of water daily. Patient advised to cut down her free water intake. We will start on fluid restriction. Monitor sodium. Seizure and fall precautions. If no improvement will consult nephrology. (5) Lactic acid acidosis Is this a current diagnosis for this admission?: Yes Plan: Noted to be tachycardic and hypotensive with no apparent sign of infection. Lactic acid trended currently within normal limits. Patient was started on empiric IV antibiotics by ED. Continue volume resuscitation, trend lactic acid. If any sign of infection will start on empiric IV antibiotics. (6) Metastatic disease to the lung Is this a current diagnosis for this admission?: Yes Plan: Patient currently receives chemotherapy at [place], would like to transfer care to [place] as she is living here. Will consult oncology. - Time Time Spent with patient: 35 or more minutes Smoking Cessation Education: 3 to 10 minutes Medications reviewed and adjusted accordingly: Yes Anticipated Discharge Disposition: Home with Home Health Anticipated Discharge Timeframe: within 72 hours
[2020-06-15 20:23] LABS: APPEARANCE,URINE CLEAR; BILIRUBIN,URINE NEGATIVE (NEGATIVE); COLOR,URINE YELLOW; GLUCOSE, URINE NEGATIVE (NEGATIVE); KETONES,URINE NEGATIVE (NEGATIVE); PROTEIN,URINE NEGATIVE (NEGATIVE); URINE SPECIFIC GRAVITY 1.021; UROBILINOGEN,URINE NEGATIVE mg/dL (<2.0)
--- NOTE | 2020-06-15 21:55 | EKG REPORT ---
SEVERITY:- NORMAL ECG - SINUS RHYTHM : Confirmed by: Jenna Trimble MD 15-Jun-2020 21:55:06
[2020-06-15] MEDS: HEPARIN SOD (PORCINE) 5,000 UNIT/ML 1 ML VIAL SUBCUT SCH (22:54)
[2020-06-15] MEDS: NORMAL SALINE 1000 ML 1,000 ML IV PRN (22:54)
[2020-06-15] MEDS: OXYCODONE-ACETAMINOPHEN 5-325 MG TABLET PO PRN (22:55)
[2020-06-15] MEDS: FAMOTIDINE 20 MG TABLET PO SCH (22:55)
[2020-06-15] MEDS: ATORVASTATIN CALCIUM 40 MG TABLET PO SCH (22:56)
[2020-06-15] MEDS: ASPIRIN 81 MG TABLET, ENT COATED PO SCH (22:58)
[2020-06-16 03:16] LABS: ABSOLUTE LYMPHOCYTES (AUTO) 0.9 10^3/uL (0.5-4.7); ABSOLUTE MONOCYTES (AUTO) 0.7 10^3/uL (0.1-1.4); BASOPHILS % (AUTO) 0.5 % (0-2); EOSINOPHILS % (AUTO) 0.5 % (0-6); HEMATOCRIT 27.7 % (36.0-47.0); HEMOGLOBIN 9.3 g/dL (12.0-15.5); MEAN CORPUSCULAR HEMOGLOBIN 26.9 pg (27.0-33.4); MEAN CORPUSCULAR HGB CONC 33.5 g/dL (32.0-36.0); MEAN CORPUSCULAR VOLUME 80 fl (80-97); MONOCYTES % (AUTO) 8.3 % (3-13); PLATELET COUNT 424 10^3/uL (150-450); RED BLOOD COUNT 3.45 10^6/uL (3.72-5.28); RED CELL DISTRIBUTION WIDTH 16.1 % (11.5-14.0); SEGMENTED NEUTROPHILS % (AUTO) 80.7 % (42-78); TOTAL CELLS COUNTED % (AUTO) 100 %; WHITE BLOOD COUNT 8.7 10^3/uL (4.0-10.5)
[2020-06-16 03:27] LABS: ALBUMIN 3.3 g/dL (3.5-5.0); ALKALINE PHOSPHATASE 69 U/L (38-126); ANION GAP 9 (5-19); ASPARTATE AMINO TRANSFERASE 32 U/L (14-36); BILIRUBIN,DIRECT 0.2 mg/dL (0.0-0.4); BILIRUBIN,TOTAL 0.5 mg/dL (0.2-1.3); BLOOD UREA NITROGEN 18 mg/dL (7-20); CALCIUM 8.7 mg/dL (8.4-10.2); CARBON DIOXIDE 21 mmol/L (22-30); CHLORIDE 95 mmol/L (98-107); GLUCOSE 96 mg/dL (75-110); PHOSPHORUS 2.6 mg/dL (2.5-4.5); POTASSIUM 4.4 mmol/L (3.6-5.0); TOTAL PROTEIN 6.5 g/dL (6.3-8.2)
[2020-06-16] MEDS ORDERED: MAGNESIUM SULFATE/D5W 1 GM/100 ML RTUPB IV ONE (04:00)
[2020-06-16] MEDS: HEPARIN SOD (PORCINE) 5,000 UNIT/ML 1 ML VIAL SUBCUT SCH ×3 (05:25→21:02)
--- NOTE | 2020-06-16 07:34 | Progress Note ---
Provider Note Provider Note: Hematology/Oncology consult was received. Chart has been reviewed. However, due to COVID-19 concerns, patient has not yet been examined. She is a 70 year old female with Cancer of unknown primary metastatic to kidney and lungs. She is currently receiving care through [facility] but has requested tra nsfer to see local oncology. She was admitted for chest pain and dyspnea. Her COVID-19 test is still pending. I am happy to see her and establish care after discharge. I will be available to answer any questions and will complete consult once COVID-19 has been ruled out. Thank you.
[2020-06-16] MEDS: MAGNESIUM SULFATE/D5W 1 GM/100 ML RTUPB IV SCH ×2 (08:31→09:46)
[2020-06-16] MEDS: NORMAL SALINE 1000 ML 1,000 ML IV PRN (08:35)
--- NOTE | 2020-06-16 09:26 | PDOC PROGRESS REPORT ---
Subjective Progress Note for:: 06/16/20 Subjective:: 70 year old female former smoker, past medical history of metastatic right renal and lung cancer, primary unknown, currently undergoing chemotherapy at [facility] [place], [facility], who was last admitted at [facility] on 03/24/2020 for evaluation of syncope, acute blood loss anemia, hematuria and metastatic cancer. Patient presented to ED complaining of right flank and right chest sharp, nonpleuritic, constant, 6/10 on severity scale, better with rest, for the last several days. She was also complaining of mild shortness of breath and nonproductive cough. Denies any fever, chills, nausea, vomiting, diarrhea, constipation or any urinary symptoms. In ED she was noted to have mildly elevated troponins, lactic acid, and CTA chest showed extensive metastatic disease in the chest and mediastinum and 4.4 cm infrarenal abdominal aortic aneurysm. Patient denies any fever, chills, nausea, vomiting, loss of taste, loss of smell or any exposure to anybody with COVID-19 suspicion, however as per ED impression patient was complaining of cough and they would like to test her for COVID-19 just to be on the safe side. 06/16/20204420-22-kgdv-old female with history of smoking, metastatic renal cancer and lung cancer with unknown primary receiving chemotherapy with [facility], has history of CHF admitted for chest pains last night. Denies any chest pains this morning. Latest troponin is 0.053. Consultation with Dr. Driver is requested. Consultation with Dr. Walters is requested. Patient is requesting to be DNR/DNI. Complains of constipation with bowel movement more than a week ago. To give mag citrate. Coronavirus testing is pending. Reason For Visit: CHEST PAIN,HYPONATREMIA,METASTATIC CANCER Physical Exam Vital Signs: Temp Pulse Resp BP Pulse Ox 97.5 F 104 H 18 148/80 H 92 06/16/20 02:57 06/16/20 07:00 06/16/20 02:57 06/16/20 02:57 06/16/20 02:57 Intake & Output 06/15/20 06/16/20 06/17/20 06:59 06:59 06:59 Intake Total 981 968 Output Total 150 Balance 831 968 Weight 58.1 kg General appearance: PRESENT: no acute distress, cooperative, disheveled, thin Head exam: PRESENT: atraumatic Eye exam: PRESENT: conjunctiva pale, PERRLA Mouth exam: PRESENT: moist, tongue midline Teeth exam: PRESENT: poor dentation Neck exam: ABSENT: carotid bruit, JVD, lymphadenopathy, thyromegaly Respiratory exam: PRESENT: decreased breath sounds Cardiovascular exam: PRESENT: tachycardia GI/Abdominal exam: PRESENT: normal bowel sounds, soft. ABSENT: distended, guarding, mass, organolmegaly, rebound, tenderness Rectal exam: PRESENT: deferred Extremities exam: PRESENT: full ROM. ABSENT: calf tenderness, clubbing, pedal edema Neurological exam: PRESENT: alert, awake, oriented to person, oriented to place, oriented to time, oriented to situation, CN II-XII grossly intact. ABSENT: motor sensory deficit Psychiatric exam: PRESENT: appropriate affect, normal mood. ABSENT: homicidal ideation, suicidal ideation Results Laboratory Results: 06/16/20 03:00 06/16/20 03:00 06/15/20 06/15/20 06/15/20 17:00 17:00 17:00 WBC 7.6 RBC 3.53 L Hgb 9.6 L Hct 28.6 L MCV 81 MCH 27.2 MCHC 33.6 RDW 15.9 H Plt Count 438 Seg Neutrophils % 77.9 VBG pH 7.41 VBG pCO2 38.2 VBG HCO3 23.7 VBG Base Excess -0.6 Sodium 125.9 L Potassium 4.5 Chloride 91 L Carbon Dioxide 25 Anion Gap 10 BUN 21 H Creatinine 0.69 Est GFR ( Amer) > 60 Glucose 123 H Lactic Acid Calcium 9.0 Phosphorus Magnesium Total Bilirubin 0.4 AST 36 Alkaline Phosphatase 67 Total Protein 7.1 Albumin 3.7 Urine Color Urine Appearance Urine pH Ur Specific [place] Urine Protein Urine Glucose (UA) Urine Ketones Urine Blood Urine RBC (Auto) 06/15/20 06/15/20 06/15/20 17:00 19:59 20:45 WBC RBC Hgb Hct MCV MCH MCHC RDW Plt Count Seg Neutrophils % VBG pH VBG pCO2 VBG HCO3 VBG Base Excess Sodium Potassium Chloride Carbon Dioxide Anion Gap BUN Creatinine Est GFR ( Amer) Glucose Lactic Acid 2.7 H 1.9 Calcium Phosphorus Magnesium Total Bilirubin AST Alkaline Phosphatase Total Protein Albumin Urine Color YELLOW Urine Appearance CLEAR Urine pH 6.0 Ur Specific [place] 1.021 Urine Protein NEGATIVE Urine Glucose (UA) NEGATIVE Urine Ketones NEGATIVE Urine Blood NEGATIVE Urine RBC (Auto) 0 06/15/20 06/16/20 06/16/20 23:05 03:00 03:00 WBC 8.7 RBC 3.45 L Hgb 9.3 L Hct 27.7 L MCV 80 MCH 26.9 L MCHC 33.5 RDW 16.1 H Plt Count 424 Seg Neutrophils % 80.7 H VBG pH VBG pCO2 VBG HCO3 VBG Base Excess Sodium 125.2 L Potassium 4.4 Chloride 95 L Carbon Dioxide 21 L Anion Gap 9 BUN 18 Creatinine 0.59 Est GFR ( Amer) > 60 Glucose 96 Lactic Acid 1.4 Calcium 8.7 Phosphorus 2.6 Magnesium 1.2 L* Total Bilirubin 0.5 AST 32 Alkaline Phosphatase 69 Total Protein 6.5 Albumin 3.3 L Urine Color Urine Appearance Urine pH Ur Specific [place] Urine Protein Urine Glucose (UA) Urine Ketones Urine Blood Urine RBC (Auto) 06/15/20 06/15/20 06/15/20 17:00 20:45 20:45 Troponin I 0.048 0.053 NT-Pro-B Natriuret Pep 2780 H 06/16/20 03:00 Troponin I 0.053 NT-Pro-B Natriuret Pep Impressions: Chest/Abdomen CTA 06/15/20 16:54 IMPRESSION: 1. No pulmonary emboli. No aortic aneurysm or dissection in the chest. 2. Extensive metastatic disease in the chest and mediastinum. 3. 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 Assessment and Plan - Diagnosis (1) Chest pain Qualifiers: Chest pain type: other chest pain Qualified Code(s): R07.89 - Other chest pain; R07.8 - Other chest pain Is this a current diagnosis for this admission?: Yes Plan: Right-sided chest pain. TTP to palpation over right anterior and right lateral chest. Likely musculoskeletal or due to metastatic cancer. Unlikely this is cardiac. CTA positive for extensive metastatic cancer. Mildly elevated troponins at baseline compared to previous admission, likely due to demand mismatch. Admit to telemetry, antiplatelets, beta blockers, TANK, statins, PRN morphine, PRN sublingual nitroglycerin. Cardiology consulted. Recommendations pending. 06/16/2020-patient denies any chest pains at this time. Latest troponin is 0.053. Plan is to continue beta-blockers, TANK inhibitor's, statins, PRN morphine, PRN nitroglycerin and aspirin. Normal EKG at the time of admission. Plan is to repeat the EKG today. (2) Anemia, chronic disease Is this a current diagnosis for this admission?: No Plan: Hemoglobin at baseline. Likely due to anemia of chronic disease. Denies any hematemesis, hemoptysis, hematuria, melena or hematochezia. Monitor H&H. Will obtain an anemia panel. 06/16/2020 hemoglobin today is 9.3. Patient has history of anemia of chronic disease and hemoglobin is stable at this time. (3) Elevated troponin Is this a current diagnosis for this admission?: Yes Plan: As per #1. 06/16/2020-latest troponin is 0.053, patient is asymptomatic. EKG within normal limits. Plan is to repeat the EKG today. Cardiology consult was requested. Slightly elevated troponin may be secondary to underlying COPD. (4) Hyponatremia Is this a current diagnosis for this admission?: Yes Plan: Chronic. Most likely due to underlying lung malignancy. Patient also stating that she drinks excessive amount of water daily. Patient advised to cut down her free water intake. We will start on fluid restriction. Monitor sodium. Seizure and fall precautions. If no improvement will consult nephrology. 06/16/2020-serum sodium is 125 it is close to baseline. Chronic hyponatremia most likely secondary to underlying malignancy. (5) Lactic acid acidosis Is this a current diagnosis for this admission?: Yes Plan: Noted to be tachycardic and hypotensive with no apparent sign of infection. Lactic acid trended currently within normal limits. Patient was started on empiric IV antibiotics by ED. Continue volume resuscitation, trend lactic acid. If any sign of infection will start on empiric IV antibiotics. 06/16/2020-patient came in with elevated lactic acid level in association with tachycardia and hypotension. Repeat lactic acid level is 1.4 within normal limits. Patient is presently on levofloxacin. No signs of infection. May meet the criteria for SIRS (6) Metastatic disease to the lung Is this a current diagnosis for this admission?: No Plan: Patient currently receives chemotherapy at [place], would like to transfer care to [place] as she is living here. Will consult oncology. 06/16/2020-as per the patient she received 3 rounds of chemo and 2 doses of Keytruda. She wants to follow-up with a local oncologist. Consultation with Dr. Walters is requested. - Time Anticipated Discharge Disposition: Home with Hospice Anticipated Discharge Timeframe: within 72 hours
[2020-06-16] MEDS: ASPIRIN 81 MG TABLET, ENT COATED PO SCH (09:47)
[2020-06-16] MEDS: DOCUSATE SODIUM 100 MG CAPSULE PO SCH ×2 (09:47→17:02)
[2020-06-16] MEDS: LISINOPRIL 10 MG TABLET PO SCH (09:47)
[2020-06-16] MEDS: OXYCODONE-ACETAMINOPHEN 5-325 MG TABLET PO PRN ×2 (09:47→18:35)
[2020-06-16] MEDS: FAMOTIDINE 20 MG TABLET PO SCH ×2 (09:47→21:02)
[2020-06-16] MEDS: HYDROCHLOROTHIAZIDE 25 MG TABLET PO SCH (09:48)
[2020-06-16] MEDS: MAGNESIUM CITRATE 296 ML BOTTLE PO SCH (09:48)
[2020-06-16] MEDS: METOPROLOL SUCCINATE 25 MG TAB.SR.24H PO SCH (09:48)
[2020-06-16] MEDS ORDERED: (PENDING PHARMACY ID) (Lisinopril/Hydrochlorothiazide [Lisinopril-Hctz 20-25 Mg Tab] 1 EAC PO SCH (10:00)
[2020-06-16] MEDS ORDERED: PROMETHAZINE HCL INJ 25 MG/1 ML VIAL IV PRN (10:00)
[2020-06-16] MEDS ORDERED: LISINOPRIL 5 MG TABLET PO SCH (10:00)
[2020-06-16 10:25] LABS: ABSOLUTE LYMPHOCYTES (AUTO) 0.6 10^3/uL (0.5-4.7); ABSOLUTE MONOCYTES (AUTO) 0.8 10^3/uL (0.1-1.4); ABSOLUTE NEUT (AUTO) 5.3 10^3/uL (1.7-8.2); BASOPHILS % (AUTO) 0.3 % (0-2); EOSINOPHILS % (AUTO) 0.4 % (0-6); HEMATOCRIT 26.6 % (36.0-47.0); LYMPHOCYTES % (AUTO) 9.2 % (13-45); MEAN CORPUSCULAR HEMOGLOBIN 27.3 pg (27.0-33.4); MEAN CORPUSCULAR HGB CONC 33.9 g/dL (32.0-36.0); MEAN CORPUSCULAR VOLUME 81 fl (80-97); MONOCYTES % (AUTO) 11.3 % (3-13); PLATELET COUNT 424 10^3/uL (150-450); RED CELL DISTRIBUTION WIDTH 16.1 % (11.5-14.0); SEGMENTED NEUTROPHILS % (AUTO) 78.8 % (42-78); TOTAL CELLS COUNTED % (AUTO) 100 %; WHITE BLOOD COUNT 6.7 10^3/uL (4.0-10.5)
[2020-06-16 10:37] LABS: ALBUMIN 3.2 g/dL (3.5-5.0); ALKALINE PHOSPHATASE 69 U/L (38-126); ANION GAP 10 (5-19); ASPARTATE AMINO TRANSFERASE 33 U/L (14-36); BILIRUBIN,DIRECT 0.3 mg/dL (0.0-0.4); BILIRUBIN,TOTAL 0.5 mg/dL (0.2-1.3); BLOOD UREA NITROGEN 16 mg/dL (7-20); CALCIUM 8.2 mg/dL (8.4-10.2); CARBON DIOXIDE 22 mmol/L (22-30); CHLORIDE 94 mmol/L (98-107); GLUCOSE 88 mg/dL (75-110); POTASSIUM 4.5 mmol/L (3.6-5.0); TOTAL PROTEIN 6.4 g/dL (6.3-8.2)
[2020-06-16] MEDS: LEVOFLOXACIN 750 MG/D5W RTU 750 MG/150 ML RTUPB IV SCH (11:46)
[2020-06-16] MEDS: MAGNESIUM HYDROXIDE SUSP 30 ML UDCUP PO PRN (17:02)
[2020-06-16] MEDS: ATORVASTATIN CALCIUM 40 MG TABLET PO SCH (21:02)
[2020-06-17] MEDS: HEPARIN SOD (PORCINE) 5,000 UNIT/ML 1 ML VIAL SUBCUT SCH ×3 (05:04→22:27)
[2020-06-17 05:17] LABS: ABSOLUTE BASOPHILS # (AUTO) 0.1 10^3/uL (0.0-0.2); ABSOLUTE LYMPHOCYTES (AUTO) 0.4 10^3/uL (0.5-4.7); ABSOLUTE MONOCYTES (AUTO) 0.9 10^3/uL (0.1-1.4); ABSOLUTE NEUT (AUTO) 6.7 10^3/uL (1.7-8.2); BASOPHILS % (AUTO) 0.6 % (0-2); EOSINOPHILS % (AUTO) 0.3 % (0-6); HEMATOCRIT 26.1 % (36.0-47.0); LYMPHOCYTES % (AUTO) 5.5 % (13-45); MEAN CORPUSCULAR HEMOGLOBIN 27.7 pg (27.0-33.4); MEAN CORPUSCULAR HGB CONC 34.5 g/dL (32.0-36.0); MEAN CORPUSCULAR VOLUME 80 fl (80-97); MONOCYTES % (AUTO) 10.8 % (3-13); PLATELET COUNT 383 10^3/uL (150-450); RED BLOOD COUNT 3.26 10^6/uL (3.72-5.28); RED CELL DISTRIBUTION WIDTH 15.9 % (11.5-14.0); SEGMENTED NEUTROPHILS % (AUTO) 82.8 % (42-78); TOTAL CELLS COUNTED % (AUTO) 100 %; WHITE BLOOD COUNT 8.1 10^3/uL (4.0-10.5)
[2020-06-17 05:38] LABS: ALKALINE PHOSPHATASE 59 U/L (38-126); ANION GAP 11 (5-19); ASPARTATE AMINO TRANSFERASE 31 U/L (14-36); BILIRUBIN,DIRECT 0.3 mg/dL (0.0-0.4); BILIRUBIN,TOTAL 0.5 mg/dL (0.2-1.3); BLOOD UREA NITROGEN 15 mg/dL (7-20); CALCIUM 8.2 mg/dL (8.4-10.2); CARBON DIOXIDE 21 mmol/L (22-30); CHLORIDE 92 mmol/L (98-107); GLUCOSE 120 mg/dL (75-110); POTASSIUM 4.6 mmol/L (3.6-5.0); TOTAL PROTEIN 5.9 g/dL (6.3-8.2)
--- NOTE | 2020-06-17 08:56 | PDOC PROGRESS REPORT ---
Subjective Progress Note for:: 06/17/20 Subjective:: 70 year old female former smoker, past medical history of metastatic right renal and lung cancer, primary unknown, currently undergoing chemotherapy at [facility], [facility], who was last admitted at [facility] on 03/24/2020 for evaluation of syncope, acute blood loss anemia, hematuria and metastatic cancer. Patient presented to ED complaining of right flank and right chest sharp, nonpleuritic, constant, 6/10 on severity scale, better with rest, for the last several days. She was also complaining of mild shortness of breath and nonproductive cough. Denies any fever, chills, nausea, vomiting, diarrhea, constipation or any urinary symptoms. In ED she was noted to have mildly elevated troponins, lactic acid, and CTA chest showed extensive metastatic disease in the chest and mediastinum and 4.4 cm infrarenal abdominal aortic aneurysm. Patient denies any fever, chills, nausea, vomiting, loss of taste, loss of smell or any exposure to anybody with COVID-19 suspicion, however as per ED impression patient was complaining of cough and they would like to test her for COVID-19 just to be on the safe side. 06/[id number]-iaxo-old female with history of smoking, metastatic renal cancer and lung cancer with unknown primary receiving chemotherapy with [facility], has history of CHF admitted for chest pains last night. Denies any chest pains this morning. Latest troponin is 0.053. Consultation with Dr. Driver is requested. Consultation with Dr. Walters is requested. Patient is requesting to be DNR/DNI. Complains of constipation with bowel movement more than a week ago. To give mag citrate. Coronavirus testing is pending. 06/17-patient is comfortably in the bed not in distress. Communicating well. Pulse ox is 97% on 2 L. Echocardiogram indicates EF of 40% with grade 1/grade 4 diastolic dysfunction. Euvolemic at the time of examination. Blood pressure is stable, serum sodium is 123.5 which is chronic. Alert awake communicating well. Hyponatremia most likely secondary to underlying malignancy. COVID test is pending. Reason For Visit: CHEST PAIN,HYPONATREMIA,METASTATIC CANCER Physical Exam Vital Signs: Temp Pulse Resp BP Pulse Ox 98.5 F 89 17 132/71 H 91 L 06/17/20 08:24 06/17/20 08:24 06/17/20 08:24 06/17/20 08:24 06/17/20 08:24 Intake & Output 06/16/20 06/17/20 06/18/20 06:59 06:59 06:59 Intake Total 981 3111 Output Total 150 1150 Balance 831 1961 Weight 58.1 kg 61.4 kg General appearance: PRESENT: no acute distress, cooperative, thin Head exam: PRESENT: atraumatic Eye exam: PRESENT: PERRLA Ear exam: PRESENT: normal external ear exam Teeth exam: PRESENT: poor dentation Neck exam: ABSENT: carotid bruit, JVD, lymphadenopathy, thyromegaly Respiratory exam: PRESENT: decreased breath sounds Pulses: PRESENT: normal dorsalis pedis pul GI/Abdominal exam: PRESENT: normal bowel sounds, soft. ABSENT: distended, guarding, mass, organolmegaly, rebound, tenderness Rectal exam: PRESENT: deferred Extremities exam: PRESENT: full ROM. ABSENT: calf tenderness, clubbing, pedal edema Neurological exam: PRESENT: alert, awake, oriented to person, oriented to place, oriented to time, oriented to situation, CN II-XII grossly intact. ABSENT: motor sensory deficit Results Laboratory Results: 06/17/20 04:26 06/17/20 04:26 06/16/20 06/16/20 06/17/20 09:13 09:13 04:26 WBC 6.7 8.1 RBC 3.30 L 3.26 L Hgb 9.0 L 9.0 L Hct 26.6 L 26.1 L MCV 81 80 MCH 27.3 27.7 MCHC 33.9 34.5 RDW 16.1 H 15.9 H Plt Count 424 383 Seg Neutrophils % 78.8 H 82.8 H Sodium 125.8 L Potassium 4.5 Chloride 94 L Carbon Dioxide 22 Anion Gap 10 BUN 16 Creatinine 0.55 Est GFR ( Amer) > 60 Glucose 88 Calcium 8.2 L Magnesium 1.9 Total Bilirubin 0.5 AST 33 Alkaline Phosphatase 69 Total Protein 6.4 Albumin 3.2 L 06/17/20 04:26 WBC RBC Hgb Hct MCV MCH MCHC RDW Plt Count Seg Neutrophils % Sodium 123.5 L Potassium 4.6 Chloride 92 L Carbon Dioxide 21 L Anion Gap 11 BUN 15 Creatinine 0.59 Est GFR ( Amer) > 60 Glucose 120 H Calcium 8.2 L Magnesium 2.1 Total Bilirubin 0.5 AST 31 Alkaline Phosphatase 59 Total Protein 5.9 L Albumin 3.0 L 06/15/20 06/15/20 06/15/20 17:00 20:45 20:45 Troponin I 0.048 0.053 NT-Pro-B Natriuret Pep 2780 H 06/16/20 06/16/20 03:00 09:13 Troponin I 0.053 0.044 NT-Pro-B Natriuret Pep Impressions: Chest/Abdomen CTA 06/15/20 16:54 IMPRESSION: 1. No pulmonary emboli. No aortic aneurysm or dissection in the chest. 2. Extensive metastatic disease in the chest and mediastinum. 3. 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 Assessment and Plan - Diagnosis (1) Chest pain Qualifiers: Chest pain type: other chest pain Qualified Code(s): R07.89 - Other chest pain; R07.8 - Other chest pain Is this a current diagnosis for this admission?: Yes Plan: Right-sided chest pain. TTP to palpation over right anterior and right lateral chest. Likely musculoskeletal or due to metastatic cancer. Unlikely this is cardiac. CTA positive for extensive metastatic cancer. Mildly elevated troponins at baseline compared to previous admission, likely due to demand mismatch. Admit to telemetry, antiplatelets, beta blockers, TANK, statins, PRN morphine, P RN sublingual nitroglycerin. Cardiology consulted. Recommendations pending. 06/16/2020-patient denies any chest pains at this time. Latest troponin is 0.053. Plan is to continue beta-blockers, TANK inhibitor's, statins, PRN morphine, PRN nitroglycerin and aspirin. Normal EKG at the time of admission. Plan is to repeat the EKG today. 06/17/2020-denies any chest pains. Latest troponin is 0.044. EKG within normal limits. Plan is to continue aspirin, as needed nitroglycerin, statins, TANK inh ibitor's, PRN morphine. (2) Anemia, chronic disease Is this a current diagnosis for this admission?: No Plan: Hemoglobin at baseline. Likely due to anemia of chronic disease. Denies any hematemesis, hemoptysis, hematuria, melena or hematochezia. Monitor H&H. Will obtain an anemia panel. 06/16/2020 hemoglobin today is 9.3. Patient has history of anemia of chronic disease and hemoglobin is stable at this time. 06/17/2020-latest hemoglobin is 9.0 anemia of chronic disease most likely secondary to underlying malignancy. (3) Elevated troponin Is this a current diagnosis for this admission?: Yes Plan: As per #1. 06/16/2020-latest troponin is 0.053, patient is asymptomatic. EKG within normal limits. Plan is to repeat the EKG today. Cardiology consult was requested. Slightly elevated troponin may be secondary to underlying COPD. 06/17/2020-patient is symptomatic. Latest troponin 0 0.044. (4) Hyponatremia Is this a current diagnosis for this admission?: Yes Plan: Chronic. Most likely due to underlying lung malignancy. Patient also stating that she drinks excessive amount of water daily. Patient advised to cut down her free water intake. We will start on fluid restriction. Monitor sodium. Seizure and fall precautions. If no improvement will consult nephrology. 06/16/2020-serum sodium is 125 it is close to baseline. Chronic hyponatremia most likely secondary to underlying malignancy. 06/17/2020-patient has a chronic hyponatremia latest serum sodium is 123.5. It is most likely secondary to underlying malignancy. Patient is alert awake oriented x3. (5) Lactic acid acidosis Is this a current diagnosis for this admission?: Yes (6) Metastatic disease to the lung Is this a current diagnosis for this admission?: No Plan: Patient currently receives chemotherapy at [facility], would like to transfer care to [place] as she is living here. Will consult oncology. 06/16/2020-as per the patient she received 3 rounds of chemo and 2 doses of Keytruda. She wants to follow-up with a local oncologist. Consultation with Dr. Walters is requested. (7) CHF (congestive heart failure) Is this a current diagnosis for this admission?: No Plan: 06/17/2020-echocardiogram indicates EF of 40% with grade 1/grade 4 diastolic dysfunction so patient has left ventricular systolic and diastolic heart failure. Which is chronic. - Time Anticipated Discharge Disposition: Home with Hospice Anticipated Discharge Timeframe: within 48 hours
[2020-06-17] MEDS: MAGNESIUM CITRATE 296 ML BOTTLE PO SCH (09:00)
[2020-06-17] MEDS: ASPIRIN 81 MG TABLET, ENT COATED PO SCH (09:00)
[2020-06-17] MEDS: LISINOPRIL 10 MG TABLET PO SCH (09:00)
[2020-06-17] MEDS: DOCUSATE SODIUM 100 MG CAPSULE PO SCH ×2 (09:00→17:22)
[2020-06-17] MEDS: FAMOTIDINE 20 MG TABLET PO SCH ×2 (09:00→22:04)
[2020-06-17] MEDS: METOPROLOL SUCCINATE 25 MG TAB.SR.24H PO SCH (09:01)
[2020-06-17] MEDS: LEVOFLOXACIN 750 MG/D5W RTU 750 MG/150 ML RTUPB IV SCH (09:01)
[2020-06-17] MEDS: HYDROCHLOROTHIAZIDE 25 MG TABLET PO SCH (09:01)
--- NOTE | 2020-06-17 10:35 | RADIOLOGY REPORT (SQ) ---
EXAM DESCRIPTION: CHEST SINGLE VIEW IMAGES COMPLETED DATE/TIME: 06/17/2020 9:53 am REASON FOR STUDY: chf COMPARISON: AP views of the chest from 03/20/2020. And CT of the chest with contrast from 06/15/2020. EXAM PARAMETERS: NUMBER OF VIEWS: One view. TECHNIQUE: An AP view of the chest was obtained. RADIATION DOSE: NA LIMITATIONS: None. FINDINGS: LUNGS AND PLEURA: Diffuse innumerable bilateral nodular opacities that are unchanged javan red to the recent CTA. The right lateral costophrenic sulcus remains blunted. There is no pneumotho rax. MEDIASTINUM AND HILAR STRUCTURES: No mediastinal or hilar contour abnormality. HEART AND VASCULAR STRUCTURES: Unchanged cardiomegaly. BONES: No acute findings. HARDWARE: None in the chest. OTHER: No other finding. IMPRESSION: Diffuse innumerable bilateral nodular opacities that are unchanged compared to the rece nt CTA. There is no superimposed acute cardiopulmonary process. TECHNICAL DOCUMENTATION: JOB ID: [id number] 2010 [employer]- All Rights Reserved Reading location - IP/workstation name: [email or web address]
--- NOTE | 2020-06-17 11:17 | EKG REPORT ---
SEVERITY:- NORMAL ECG - SINUS RHYTHM : Confirmed by: Jenna Trimble MD 17-Jun-2020 11:15:53
[2020-06-17] MEDS: ONDANSETRON HCL INJ/PF 4 MG/2 ML SDV IV PRN (11:58)
[2020-06-17] MEDS: ATORVASTATIN CALCIUM 40 MG TABLET PO SCH (22:04)
[2020-06-17] MEDS: OXYCODONE-ACETAMINOPHEN 5-325 MG TABLET PO PRN (22:06)
[2020-06-18] MEDS: OXYCODONE-ACETAMINOPHEN 5-325 MG TABLET PO PRN ×4 (04:08→22:02)
[2020-06-18 05:07] LABS: ABSOLUTE MONOCYTES (AUTO) 1.2 10^3/uL (0.1-1.4); BASOPHILS % (AUTO) 0.6 % (0-2); HEMOGLOBIN 8.4 g/dL (12.0-15.5); TOTAL CELLS COUNTED % (AUTO) 100 %
[2020-06-18 05:16] LABS: ABSOLUTE LYMPHOCYTES (AUTO) 0.8 10^3/uL (0.5-4.7); EOSINOPHILS % (AUTO) 0.6 % (0-6); HEMATOCRIT 24.3 % (36.0-47.0); LYMPHOCYTES % (AUTO) 11.2 % (13-45); MEAN CORPUSCULAR HEMOGLOBIN 27.6 pg (27.0-33.4); MEAN CORPUSCULAR HGB CONC 34.6 g/dL (32.0-36.0); MEAN CORPUSCULAR VOLUME 80 fl (80-97); MONOCYTES % (AUTO) 16.4 % (3-13); PLATELET COUNT 378 10^3/uL (150-450); RED BLOOD COUNT 3.05 10^6/uL (3.72-5.28); RED CELL DISTRIBUTION WIDTH 15.9 % (11.5-14.0); SEGMENTED NEUTROPHILS % (AUTO) 71.2 % (42-78); WHITE BLOOD COUNT 7.1 10^3/uL (4.0-10.5)
[2020-06-18] MEDS: HEPARIN SOD (PORCINE) 5,000 UNIT/ML 1 ML VIAL SUBCUT SCH ×3 (05:16→21:03)
[2020-06-18 05:27] LABS: ALBUMIN 2.9 g/dL (3.5-5.0); ALKALINE PHOSPHATASE 57 U/L (38-126); ANION GAP 9 (5-19); ASPARTATE AMINO TRANSFERASE 26 U/L (14-36); BILIRUBIN,DIRECT 0.3 mg/dL (0.0-0.4); BILIRUBIN,TOTAL 0.5 mg/dL (0.2-1.3); BLOOD UREA NITROGEN 13 mg/dL (7-20); CALCIUM 8.1 mg/dL (8.4-10.2); CARBON DIOXIDE 23 mmol/L (22-30); CHLORIDE 92 mmol/L (98-107); GLUCOSE 96 mg/dL (75-110); POTASSIUM 3.8 mmol/L (3.6-5.0); TOTAL PROTEIN 5.9 g/dL (6.3-8.2)
[2020-06-18] MEDS: FAMOTIDINE 20 MG TABLET PO SCH ×2 (09:16→21:07)
[2020-06-18] MEDS: METOPROLOL SUCCINATE 25 MG TAB.SR.24H PO SCH (09:17)
[2020-06-18] MEDS: LISINOPRIL 10 MG TABLET PO SCH (09:17)
[2020-06-18] MEDS: DOCUSATE SODIUM 100 MG CAPSULE PO SCH ×2 (09:17→17:49)
[2020-06-18] MEDS: MAGNESIUM HYDROXIDE SUSP 30 ML UDCUP PO PRN ×2 (09:17→21:07)
[2020-06-18] MEDS: LEVOFLOXACIN 750 MG/D5W RTU 750 MG/150 ML RTUPB IV SCH (09:17)
[2020-06-18] MEDS: ASPIRIN 81 MG TABLET, ENT COATED PO SCH (09:17)
[2020-06-18] MEDS: HYDROCHLOROTHIAZIDE 25 MG TABLET PO SCH (09:17)
[2020-06-18] MEDS: MAGNESIUM CITRATE 296 ML BOTTLE PO SCH (09:18)
--- NOTE | 2020-06-18 09:44 | PDOC PROGRESS REPORT ---
Subjective Progress Note for:: 06/18/20 Subjective:: 70 year old female former smoker, past medical history of metastatic right renal and lung cancer, primary unknown, currently undergoing chemotherapy at [facility], [facility], who was last admitted at [facility] on 03/24/2020 for evaluation of syncope, acute blood loss anemia, hematuria and metastatic cancer. Patient presented to ED complaining of right flank and right chest sharp, nonpleuritic, constant, 6/10 on severity scale, better with rest, for the last several days. She was also complaining of mild shortness of breath and nonproductive cough. Denies any fever, chills, nausea, vomiting, diarrhea, constipation or any urinary symptoms. In ED she was noted to have mildly elevated troponins, lactic acid, and CTA chest showed extensive metastatic disease in the chest and mediastinum and 4.4 cm infrarenal abdominal aortic aneurysm. Patient denies any fever, chills, nausea, vomiting, loss of taste, loss of smell or any exposure to anybody with COVID-19 suspicion, however as per ED impression patient was complaining of cough and they would like to test her for COVID-19 just to be on the safe side. 06/[id number]-lclv-old female with history of smoking, metastatic renal cancer and lung cancer with unknown primary receiving chemotherapy with [facility], has history of CHF admitted for chest pains last night. Denies any chest pains this morning. Latest troponin is 0.053. Consultation with Dr. Driver is requested. Consultation with Dr. Walters is requested. Patient is requesting to be DNR/DNI. Complains of constipation with bowel movement more than a week ago. To give mag citrate. Coronavirus testing is pending. 06/17-patient is comfortably in the bed not in distress. Communicating well. Pulse ox is 97% on 2 L. Echocardiogram indicates EF of 40% with grade 1/grade 4 diastolic dysfunction. Euvolemic at the time of examination. Blood pressure is stable, serum sodium is 123.5 which is chronic. Alert awake communicating well. Hyponatremia most likely secondary to underlying malignancy. COVID test is pending.- 06/18/20-no acute events in the last 24 hrs comfortably in the bed communicating well. Wants to go home with hospice tomorrow. Does not want any further chemotherapy at this time. Reason For Visit: CHEST PAIN,HYPONATREMIA,METASTATIC CANCER Physical Exam Vital Signs: Temp Pulse Resp BP Pulse Ox 97.8 F 81 19 124/58 L 93 06/18/20 07:39 06/18/20 07:39 06/18/20 07:39 06/18/20 07:39 06/18/20 07:39 Intake & Output 06/17/20 06/18/20 06/19/20 06:59 06:59 06:59 Intake Total 3111 500 Output Total 1150 950 Balance 1961 -450 Weight 61.4 kg 59.2 kg General appearance: PRESENT: no acute distress, cooperative, disheveled, thin Head exam: PRESENT: atraumatic Eye exam: PRESENT: conjunctiva pale, PERRLA Mouth exam: PRESENT: moist, tongue midline Teeth exam: PRESENT: poor dentation Neck exam: ABSENT: carotid bruit, JVD, lymphadenopathy, thyromegaly Respiratory exam: PRESENT: decreased breath sounds Cardiovascular exam: PRESENT: RRR. ABSENT: diastolic murmur, rubs, systolic murmur GI/Abdominal exam: PRESENT: normal bowel sounds, soft. ABSENT: distended, guarding, mass, organolmegaly, rebound, tenderness Rectal exam: PRESENT: deferred Extremities exam: PRESENT: full ROM. ABSENT: calf tenderness, clubbing, pedal edema Neurological exam: PRESENT: alert, awake, oriented to person, oriented to place, oriented to time, oriented to situation, CN II-XII grossly intact. ABSENT: motor sensory deficit Psychiatric exam: PRESENT: appropriate affect, normal mood. ABSENT: homicidal ideation, suicidal ideation Results Laboratory Results: 06/18/20 04:51 06/18/20 04:51 06/18/20 06/18/20 04:51 04:51 WBC 7.1 RBC 3.05 L Hgb 8.4 L Hct 24.3 L MCV 80 MCH 27.6 MCHC 34.6 RDW 15.9 H Plt Count 378 Seg Neutrophils % 71.2 Sodium 123.5 L Potassium 3.8 Chloride 92 L Carbon Dioxide 23 Anion Gap 9 BUN 13 Creatinine 0.62 Est GFR ( Amer) > 60 Glucose 96 Calcium 8.1 L Magnesium 1.7 Total Bilirubin 0.5 AST 26 Alkaline Phosphatase 57 Total Protein 5.9 L Albumin 2.9 L 06/15/20 06/15/20 06/15/20 17:00 20:45 20:45 Troponin I 0.048 0.053 NT-Pro-B Natriuret Pep 2780 H 06/16/20 06/16/20 03:00 09:13 Troponin I 0.053 0.044 NT-Pro-B Natriuret Pep Impressions: Chest/Abdomen CTA 06/15/20 16:54 IMPRESSION: 1. No pulmonary emboli. No aortic aneurysm or dissection in the chest. 2. Extensive metastatic disease in the chest and mediastinum. 3. 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 Chest X-Ray 06/17/20 00:00 IMPRESSION: Diffuse innumerable bilateral nodular opacities that are unchanged compared to the recent CTA. There is no superimposed acute cardiopulmonary process. Assessment and Plan - Diagnosis (1) Chest pain Qualifiers: Chest pain type: other chest pain Qualified Code(s): R07.89 - Other chest pain; R07.8 - Other chest pain Is this a current diagnosis for this admission?: Yes Plan: Right-sided chest pain. TTP to palpation over right anterior and right lateral chest. Likely musculoskeletal or due to metastatic cancer. Unlikely this is cardiac. CTA positive for extensive metastatic cancer. Mildly elevated troponins at baseline compared to previous admission, likely due to demand mismatch. Admit to telemetry, antiplatelets, beta blockers, TANK, statins, PRN morphine, PRN sublingual nitroglycerin. Cardiology consulted. Recommendations pending. 06/16/2020-patient denies any chest pains at this time. Latest troponin is 0.053. Plan is to continue beta-blockers, TANK inhibitor's, statins, PRN morphine, PRN nitroglycerin and aspirin. Normal EKG at the time of admission. Plan is to repeat the EKG today. 06/17/2020-denies any chest pains. Latest troponin is 0.044. EKG within normal limits. Plan is to continue aspirin, as needed nitroglycerin, statins, TANK inhibitor's, PRN morphine. 06/18/2020-denies any chest pains. Cardiology consult was canceled because patient was to be under hospice. sHe prefers to go home with hospice care sylvia gustafson. (2) Anemia, chronic disease Is this a current diagnosis for this admission?: No Plan: Hemoglobin at baseline. Likely due to anemia of chronic disease. Denies any hematemesis, hemoptysis, hematuria, melena or hematochezia. Monitor H&H. Will obtain an anemia panel. 06/16/2020 hemoglobin today is 9.3. Patient has history of anemia of chronic disease and hemoglobin is stable at this time. 06/17/2020-latest hemoglobin is 9.0 anemia of chronic disease most likely secondary to underlying malignancy. 06/18/20-hemoglobin is 8.4 patient has a history of anemia of chronic disease. (3) Elevated troponin Is this a current diagnosis for this admission?: Yes Plan: As per #1. 06/16/2020-latest troponin is 0.053, patient is asymptomatic. EKG within normal limits. Plan is to repeat the EKG today. Cardiology consult was requested. Slightly elevated troponin may be secondary to underlying COPD. 06/17/2020-patient is symptomatic. Latest troponin 0 0.044. 06/18/2020-denies any chest pain patient wants to go home with hospice care tomorrow. (4) Hyponatremia Is this a current diagnosis for this admission?: Yes Plan: Chronic. Most likely due to underlying lung malignancy. Patient also stating that she drinks excessive amount of water daily. Patient advised to cut down her free water intake. We will start on fluid restriction. Monitor sodium. Seizure and fall precautions. If no improvement will consult nephrology. 06/16/2020-serum sodium is 125 it is close to baseline. Chronic hyponatremia most likely secondary to underlying malignancy. 06/17/2020-patient has a chronic hyponatremia latest serum sodium is 123.5. It is most likely secondary to underlying malignancy. Patient is alert awake oriented x3. [id number]-patient has a chronic hyponatremia serum sodium is sodium is 123.5. Stable. (5) Lactic acid acidosis Is this a current diagnosis for this admission?: Yes (6) Metastatic disease to the lung Is this a current diagnosis for this admission?: No (7) CHF (congestive heart failure) Is this a current diagnosis for this admission?: No - Time Anticipated Discharge Disposition: Home with Hospice Anticipated Discharge Timeframe: within 48 hours
[2020-06-18] MEDS: ATORVASTATIN CALCIUM 40 MG TABLET PO SCH (21:07)
[2020-06-19] MEDS: HEPARIN SOD (PORCINE) 5,000 UNIT/ML 1 ML VIAL SUBCUT SCH ×2 (05:12→13:00)
[2020-06-19] MEDS: ONDANSETRON HCL INJ/PF 4 MG/2 ML SDV IV PRN ×2 (08:52→15:07)
[2020-06-19] MEDS: OXYCODONE-ACETAMINOPHEN 5-325 MG TABLET PO PRN ×2 (08:52→15:07)
[2020-06-19] MEDS: LISINOPRIL 10 MG TABLET PO SCH (10:14)
[2020-06-19] MEDS: MAGNESIUM CITRATE 296 ML BOTTLE PO SCH (10:14)
[2020-06-19] MEDS: METOPROLOL SUCCINATE 25 MG TAB.SR.24H PO SCH (10:14)
[2020-06-19] MEDS: FAMOTIDINE 20 MG TABLET PO SCH (10:14)
[2020-06-19] MEDS: HYDROCHLOROTHIAZIDE 25 MG TABLET PO SCH (10:14)
[2020-06-19] MEDS: DOCUSATE SODIUM 100 MG CAPSULE PO SCH (10:14)
[2020-06-19] MEDS: LEVOFLOXACIN 750 MG/D5W RTU 750 MG/150 ML RTUPB IV SCH (10:15)
[2020-06-19] MEDS: ASPIRIN 81 MG TABLET, ENT COATED PO SCH (10:15)
--- NOTE | 2020-06-19 12:22 | PDOC DISCHARGE SUMMARY ---
Impression - Admit/DC Date/PCP Admission Date/Primary Care Provider: 06/15/20 20:01 SVEN CLAYTON Discharge Date: 06/19/20 - Discharge Diagnosis (1) Chest pain Is this a current diagnosis for this admission?: Yes (2) Anemia, chronic disease Is this a current diagnosis for this admission?: No (3) Elevated troponin Is this a current diagnosis for this admission?: Yes (4) Hyponatremia Is this a current diagnosis for this admission?: Yes (5) Lactic acid acidosis Is this a current diagnosis for this admission?: Yes (6) Metastatic disease to the lung Is this a current diagnosis for this admission?: No (7) CHF (congestive heart failure) Is this a current diagnosis for this admission?: No - Assessment Summary: (1) Chest pain Qualifiers: Chest pain type: other chest pain Qualified Code(s): R07.89 - Other chest pain; R07.8 - Other chest pain Is this a current diagnosis for this admission?: Yes Plan: Right-sided chest pain. TTP to palpation over right anterior and right lateral chest. Likely musculoskeletal or due to metastatic cancer. Unlikely this is cardiac. CTA positive for extensive metastatic cancer. Mildly elevated troponins at baseline compared to previous admission, likely due to demand mismatch. Admit to telemetry, antiplatelets, beta blockers, TANK, statins, PRN morphine, PRN sublingual nitroglycerin. Cardiology consulted. Recommendations pending. 06/16/2020-patient denies any chest pains at this time. Latest troponin is 0.053. Plan is to continue beta-blockers, TANK inhibitor's, statins, PRN morphine, PRN nitroglycerin and aspirin. Normal EKG at the time of admission. Plan is to repeat the EKG today. 06/17/2020-denies any chest pains. Latest troponin is 0.044. EKG within normal limits. Plan is to continue aspirin, as needed nitroglycerin, statins, TANK inhi bitor's, PRN morphine. 06/18/2020-denies any chest pains. Cardiology consult was canceled because patient was to be under hospice. sHe prefers to go home with hospice care tomorrow. 3020-patient denies any chest pains. Patient wants to go home with hospice does not want further chemotherapy. (2) Anemia, chronic disease Is this a current diagnosis for this admission?: No Plan: Hemoglobin at baseline. Likely due to anemia of chronic disease. Denies any hematemesis, hemoptysis, hematuria, melena or hematochezia. Monitor H&H. Will obtain an anemia panel. 06/16/2020 hemoglobin today is 9.3. Patient has history of anemia of chronic disease and hemoglobin is stable at this time. 06/17/2020-latest hemoglobin is 9.0 anemia of chronic disease most likely secondary to underlying malignancy. 06/18/20-hemoglobin is 8.4 patient has a history of anemia of chronic disease. 3020-patient is going home with hospice. (3) Elevated troponin Is this a current diagnosis for this admission?: Yes Plan: As per #1. 06/16/2020-latest troponin is 0.053, patient is asymptomatic. EKG within normal limits. Plan is to repeat the EKG today. Cardiology consult was requested. Slightly elevated troponin may be secondary to underlying COPD. 06/17/2020-patient is symptomatic. Latest troponin 0 0.044. 06/18/2020-denies any chest pain patient wants to go home with hospice care tomorrow. 06/19/2020-patient is going home with hospice does not want any aggressive measures. (4) Hyponatremia Is this a current diagnosis for this admission?: Yes Plan: Chronic. Most likely due to underlying lung malignancy. Patient also stating that she drinks excessive amount of water daily. Patient advised to cut down her free water intake. We will start on fluid restriction. Monitor sodium. Seizure and fall prec autions. If no improvement will consult nephrology. 06/16/2020-serum sodium is 125 it is close to baseline. Chronic hyponatremia most likely secondary to underlying malignancy. 06/17/2020-patient has a chronic hyponatremia latest serum sodium is 123.5. It is most likely secondary to underlying malignancy. Patient is alert awake oriented x3. 2920-patient has a chronic hyponatremia serum sodium is sodium is 123.5. Stable. (5) Lactic acid acidosis Is this a current diagnosis for this admission?: Yes (6) Metastatic disease to the lung Is this a current diagnosis for this admission?: No (7) CHF (congestive heart failure) Is this a current diagnosis for this admission?: No 8-COPD patient did qualify for home oxygen and going home with oxygen supplementation. - Additional Information Resuscitation Status: Do Not Resuscitate Referrals: DEB BURROWS PA [Primary Care Provider] - Follow up as needed Home Medications: Metoprolol Succinate [Toprol Xl 50 mg Tab.sr] 100 mg PO DAILY 02/26/20 Acetaminophen [Tylenol] 325 mg PO Q6HP PRN 03/17/20 Lisinopril/Hydrochlorothiazide [Lisinopril-Hctz 20-25 mg Tab] 1 each PO DAILY 03/17/20 History of Present Illiness History of Present Illness: MONY STEELE is a 70 year old female 70 year old female former smoker, past medical history of metastatic right renal and lung cancer, primary unknown, currently undergoing chemotherapy at [facility], [place], who was last admitted at [facility] on 03/24/2020 for evaluation of syncope, acute blood loss anemia, hematuria and metastatic cancer. Patient presented to ED complaining of right flank and right chest sharp, nonpleuritic, constant, 6/10 on severity scale, better with rest, for the last several days. She was also complaining of mild shortness of breath and nonproductive cough. Denies any fever, chills, nausea, vomiting, diarrhea, constipation or any urinary symptoms. In ED she was noted to have mildly elevated troponins, lactic acid, and CTA chest showed extensive metastatic disease in the chest and mediastinum and 4.4 cm infrarenal abdominal aortic aneurysm. Patient denies any fever, chills, nausea, vomiting, loss of taste, loss of smell or any exposure to anybody with COVID-19 suspicion, however as per ED impression patient was complaining of cough and they would like to test her for COVID-19 just to be on the safe side. Hospital Course Hospital Course: 70 year old female former smoker, past medical history of metastatic right renal and lung cancer, primary unknown, currently undergoing chemotherapy at [facility], [place], who was last admitted at [facility] on 03/24/2020 for evaluation of syncope, acute blood loss anemia, hematuria and metastatic cancer. Patient presented to ED complaining of right flank and right chest sharp, nonpleuritic, constant, 6/10 on severity scale, better with rest, for the last several days. She was also complaining of mild shortness of breath and nonproductive cough. Denies any fever, chills, nausea, vomiting, diarrhea, constipation or any urinary symptoms. In ED she was noted to have mildly elevated troponins, lactic acid, and CTA chest showed extensive metastatic disease in the chest and mediastinum and 4.4 cm infrarenal abdominal aortic aneurysm. Patient denies any fever, chills, nausea, vomiting, loss of taste, loss of smell or any exposure to anybody with COVID-19 suspicion, however as per ED impression patient was complaining of cough and they would like to test her for COVID-19 just to be on the safe side. [id number]-old female with history of smoking, metastatic renal cancer and lung cancer with unknown primary receiving chemotherapy with [facility], [place], has history of CHF admitted for chest pains last night. Denies any chest pains this morning. Latest troponin is 0.053. Consultation with Dr. Driver is requested. Consultation with Dr. Walters is requested. Patient is requesting to be DNR/DNI. Complains of constipation with bowel movement more than a week ago. To give mag citrate. Coronavirus testing is pending. 06/17-patient is comfortably in the bed not in distress. Communicating well. Pulse ox is 97% on 2 L. Echocardiogram indicates EF of 40% with grade 1/grade 4 diastolic dysfunction. Euvolemic at the time of examination. Blood pressure is stable, serum sodium is 123.5 which is chronic. Alert awake communicating well. Hyponatremia most likely secondary to underlying malignancy. COVID test is pending.- 06/18/20-no acute events in the last 24 hrs comfortably in the bed communicating well. Wants to go home with hospice tomorrow. Does not want any further chemotherapy at this time. 06/19/2020-patient is comfortably in the bed communicating well. Expressing desire to go home with hospice. She did qualify for home oxygen. Physical Exam Vital Signs: Temp Pulse Resp BP Pulse Ox 98.4 F 93 13 133/62 H 91 L 06/19/20 08:50 06/19/20 07:45 06/19/20 07:45 06/19/20 07:45 06/19/20 07:45 Intake & Output 06/18/20 06/19/20 06/20/20 06:59 06:59 06:59 Intake Total 500 1262 Output Total 950 1675 Balance -450 -413 Weight 59.2 kg 58.4 kg General appearance: PRESENT: no acute distress, cooperative, disheveled, thin Head exam: PRESENT: atraumatic Eye exam: PRESENT: PERRLA Mouth exam: PRESENT: dry mucosa Teeth exam: PRESENT: poor dentation Neck exam: ABSENT: carotid bruit, JVD, lymphadenopathy, thyromegaly Respiratory exam: PRESENT: decreased breath sounds Cardiovascular exam: PRESENT: tachycardia GI/Abdominal exam: PRESENT: normal bowel sounds, soft. ABSENT: distended, guarding, mass, organolmegaly, rebound, tenderness Rectal exam: PRESENT: deferred Extremities exam: PRESENT: full ROM. ABSENT: calf tenderness, clubbing, pedal edema Neurological exam: PRESENT: alert, awake, oriented to person, oriented to place, oriented to time, oriented to situation, CN II-XII grossly intact. ABSENT: motor sensory deficit Psychiatric exam: PRESENT: appropriate affect, normal mood. ABSENT: homicidal ideation, suicidal ideation Results Laboratory Results: WBC 7.1 10^3/uL (4.0-10.5) 06/18/20 04:51 RBC 3.05 10^6/uL (3.72-5.28) L 06/18/20 04:51 Hgb 8.4 g/dL (12.0-15.5) L 06/18/20 04:51 Hct 24.3 % (36.0-47.0) L 06/18/20 04:51 MCV 80 fl (80-97) 06/18/20 04:51 MCH 27.6 pg (27.0-33.4) 06/18/20 04:51 MCHC 34.6 g/dL (32.0-36.0) 06/18/20 04:51 RDW 15.9 % (11.5-14.0) H 06/18/20 04:51 Plt Count 378 10^3/uL (150-450) 06/18/20 04:51 Lymph % (Auto) 11.2 % (13-45) L 06/18/20 04:51 [place] % (Auto) 16.4 % (3-13) H 06/18/20 04:51 Eos % (Auto) 0.6 % (0-6) 06/18/20 04:51 Baso % (Auto) 0.6 % (0-2) 06/18/20 04:51 Absolute Neuts (auto) 5.0 10^3/uL (1.7-8.2) 06/18/20 04:51 Absolute Lymphs (auto) 0.8 10^3/uL (0.5-4.7) 06/18/20 04:51 Absolute Monos (auto) 1.2 10^3/uL (0.1-1.4) 06/18/20 04:51 Absolute Eos (auto) 0.0 10^3/uL (0.0-0.6) 06/18/20 04:51 Absolute Basos (auto) 0.0 10^3/uL (0.0-0.2) 06/18/20 04:51 Seg Neutrophils % 71.2 % (42-78) 06/18/20 04:51 PT 13.3 SEC (11.4-15.4) 06/15/20 17:00 INR 0.99 06/15/20 17:00 VBG pH 7.41 (7.30-7.42) 06/15/20 17:00 VBG pCO2 38.2 mmHg (35-63) 06/15/20 17:00 VBG HCO3 23.7 mmol/L (20-32) 06/15/20 17:00 VBG Base Excess -0.6 mmol/L 06/15/20 17:00 Sodium 123.5 mmol/L (137-145) L 06/18/20 04:51 Potassium 3.8 mmol/L (3.6-5.0) 06/18/20 04:51 Chloride 92 mmol/L (98-107) L 06/18/20 04:51 Carbon Dioxide 23 mmol/L (22-30) 06/18/20 04:51 Anion Gap 9 (5-19) 06/18/20 04:51 BUN 13 mg/dL (7-20) 06/18/20 04:51 Creatinine 0.62 mg/dL (0.52-1.25) 06/18/20 04:51 Est GFR ( Amer) > 60 (>60) 06/18/20 04:51 Est GFR (MDRD) Non-Af > 60 (>60) 06/18/20 04:51 Glucose 96 mg/dL (75-110) 06/18/20 04:51 Lactic Acid 1.4 mmol/L (0.7-2.1) 06/15/20 23:05 Calcium 8.1 mg/dL (8.4-10.2) L 06/18/20 04:51 Phosphorus 2.6 mg/dL (2.5-4.5) 06/16/20 03:00 Magnesium 1.7 mg/dL (1.6-2.3) 06/18/20 04:51 Total Bilirubin 0.5 mg/dL (0.2-1.3) 06/18/20 04:51 Direct Bilirubin 0.3 mg/dL (0.0-0.4) 06/18/20 04:51 Neonat Total Bilirubin Not Reportable 06/18/20 04:51 Neonat Direct Bilirubin Not Reportable 06/18/20 04:51 Neonat Indirect Bili Not Reportable 06/18/20 04:51 AST 26 U/L (14-36) 06/18/20 04:51 ALT 11 U/L (<35) 06/18/20 04:51 Alkaline Phosphatase 57 U/L (38-126) 06/18/20 04:51 Troponin I 0.044 ng/mL 06/16/20 09:13 NT-Pro-B Natriuret Pep 2780 pg/mL (<125) H 06/15/20 20:45 Total Protein 5.9 g/dL (6.3-8.2) L 06/18/20 04:51 Albumin 2.9 g/dL (3.5-5.0) L 06/18/20 04:51 Urine Color YELLOW 06/15/20 19:59 Urine Appearance CLEAR 06/15/20 19:59 Urine pH 6.0 (5.0-9.0) 06/15/20 19:59 Ur Specific [place] 1.021 06/15/20 19:59 Urine Protein NEGATIVE mg/dL (NEGATIVE) 06/15/20 19:59 Urine Glucose (UA) NEGATIVE mg/dL (NEGATIVE) 06/15/20 19:59 Urine Ketones NEGATIVE mg/dL (NEGATIVE) 06/15/20 19:59 Urine Blood NEGATIVE (NEGATIVE) 06/15/20 19:59 Urine Nitrite (Reflex) NEGATIVE (NEGATIVE) 06/15/20 19:59 Urine Bilirubin NEGATIVE (NEGATIVE) 06/15/20 19:59 Urine Urobilinogen NEGATIVE mg/dL (<2.0) 06/15/20 19:59 Leukocyte Esterase Rfl NEGATIVE (NEGATIVE) 06/15/20 19:59 Urine RBC (Auto) 0 /HPF 06/15/20 19:59 Urine WBC (Reflex) 1 /HPF 06/15/20 19:59 Squamous Epi Cells Auto <1 /HPF 06/15/20 19:59 Urine Ascorbic Acid NEGATIVE (NEGATIVE) 06/15/20 19:59 COVID-19 Source NASOPHARYNGEAL 06/15/20 20:41 COVID-19 (JEFERSON) NOT DETECTED 06/15/20 20:41 06/15/20 06/15/20 06/15/20 17:00 20:45 20:45 Troponin I 0.048 0.053 NT-Pro-B Natriuret Pep 2780 H 06/16/20 06/16/20 03:00 09:13 Troponin I 0.053 0.044 NT-Pro-B Natriuret Pep Impressions: Chest/Abdomen CTA 06/15/20 16:54 IMPRESSION: 1. No pulmonary emboli. No aortic aneurysm or dissection in the chest. 2. Extensive metastatic disease in the chest and mediastinum. 3. 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 Chest X-Ray 06/17/20 00:00 IMPRESSION: Diffuse innumerable bilateral nodular opacities that are unchanged compared to the recent CTA. There is no superimposed acute cardiopulmonary process. Plan Time Spent: Greater than 30 Minutes Stroke Is this a Stroke Patient?: No Acute Heart Failure - Is this a Heart Failure Patient?: No
[2020-06-19 15:03] VITALS: BP 137/66
== END 2020-06-19 15:38 | disposition hospice, home (50) | DRG 181 ==
LOC: ER 16:05 → EH 20:01 → 3N 22:32 → 5 06-17 14:50
PROVIDERS: ADMIT Internal Medicine; ATTEND Internal Medicine
DX: C78.1 Secondary malignant neoplasm of mediastinum (principal); C78.01 Secondary malignant neoplasm of right lung; C79.01 Secondary malignant neoplasm of right kidney and renal pelvis; E87.1 Hypo-osmolality and hyponatremia; E87.2 Acidosis; I50.42 Chronic combined systolic (congestive) and diastolic (congestive) heart failure; C80.1 Malignant (primary) neoplasm, unspecified; Z87.891 Personal history of nicotine dependence; E86.0 Dehydration; I11.0 Hypertensive heart disease with heart failure; Z79.899 Other long term (current) drug therapy; I25.2 Old myocardial infarction; F32.9 Major depressive disorder, single episode, unspecified; E11.9 Type 2 diabetes mellitus without complications; Z90.49 Acquired absence of other specified parts of digestive tract; Z82.49 Family history of ischemic heart disease and other diseases of the circulatory system; Z88.1 Allergy status to other antibiotic agents; D63.0 Anemia in neoplastic disease; Z20.828 Contact with and (suspected) exposure to other viral communicable diseases; I71.4 Abdominal aortic aneurysm, without rupture; R79.89 Other specified abnormal findings of blood chemistry
CPT/HCPCS: 36415; 71045; 71275; 80053; 81001; 82803; 83605; 83735; 83880; 84100; 84484; 85025; 85610; 87040; 87070; 87635; 93005; 93010; 96361; 96374; 96375; 99285; C9803; J1644; J1956; J2270; J2405; J2550; J3475; J3490; J7030; J7120